=== PATIENT | female | born 1945 | race Caucasian/White ===

== ENCOUNTER 2021-05-07 13:44 | Emergency (ER) | payer MEDICARE, SELFPAY ==
--- NOTE | ~2021-05-07 | XR_ITS ---
EXAMINATION: XR CHEST CLINICAL INFORMATION: Cough COMPARISON: 11/14/2018 TECHNIQUE: 2 views of the chest were obtained. FINDINGS: No acute finding. Some tenting of the hemidiaphragm was present previously on the left. There is no acute infiltrate. No effusion. The heart size is within normal limits The hilar structures do not appear pathologically enlarged. There is no effusion. XR/XR chest 2V IMPRESSION: No acute finding.
[2021-05-07 14:46] VITALS: BP 149/84; PULSE 106; RESP 20; TEMP 36.8; O2SAT 95; BMI 21.2
[2021-05-07 14:55] VITALS: O2SAT 95
--- NOTE | 2021-05-07 15:08 | ED.GENADULT ---
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 Patient has intermittent diarrhea which is unchanged. She denies any fever. She has chronic shortness of breath secondary to COPD, denies any change Related Data Allergies Allergy/AdvReac Type Severity Reaction Status Date / Time Darvon Allergy Unknown nausea,swee Unverified 04/22/20 00:00 ty doxycycline [DOXYCYCLINE] Allergy Unknown RASH Unverified 06/06/20 14:44 Clindamycin HCl Allergy Unknown Uncoded 11/14/18 00:00 Doxycycline (Rosacea) Allergy Unknown Uncoded 04/22/20 00:00 Doxycycline Calcium Allergy Unknown Uncoded 11/14/18 00:00 Statins Support Allergy Unknown Uncoded 11/14/18 00:00 From DARVON AdvReac Mild NAUSEA & Uncoded 06/06/20 14:44 VOMITING Review of Systems Review of Systems: Yes all other systems are reviewed and are negative Constitutional: Constitutional: Reports as per HPI and Denies fever(s) Eyes: Eyes: Reports as per HPI and Reports no additional eye complaints ENT: Reports system reviewed and no additional complaints, except as documented, Reports as per HPI, Reports nasal congestion, Reports nasal discharge and Reports sore throat Cardiovascular: Cardiovascular: Reports as per HPI, Denies chest pain and Reports dyspnea Respiratory: Respiratory: Reports as per HPI, Reports cough and Reports dyspnea Gastrointestinal: Gastrointestinal: Reports as per HPI, Denies abdominal pain, Denies diarrhea, Reports nausea and Denies vomiting Genitourinary: Genitourinary: Reports as per HPI, Denies hematuria, Denies urinary frequency and Denies dysuria Musculoskeletal: Musculoskeletal: Reports no additional musculoskeletal complaints and Denies numbness Integumentary/Breasts: Skin/Breast: Reports as per HPI and Denies rash Neurologic: Reports as per HPI, Denies focal weakness, Denies numbness and Denies Sensory deficit (Neuro) Psychiatric: Psychiatric: Reports no additional psychiatric complaints and Reports as per HPI Endocrine: Endocrine: Reports no additional endocrine complaints and Reports as per HPI Hematologic/Lymphatic: Hematologic/Lymphatic: Reports no additional hematologic/lymphatic complaints, Reports as per HPI and Reports other (No peripheral edema) [facility] Past Medical History Medical History (Updated 05/07/21 @ 16:14 by Marco Van MD) Breast tumor COPD (chronic obstructive pulmonary disease) Diabetes HTN (hypertension) Hx of abdominal pain Social History Social History Alcohol intake: current Alcohol intake frequency: holidays/special occasions only Patient Tobacco Use Status: Former Tobacco user Use of substances other than those prescribed or required for medical reasons: No Advance Directives: No Advance Directives Information Provided: Yes Physical Exam Vital Signs: Vital Signs: Last Vital Signs Temp 98.2 F 05/07/21 14:46 Pulse 106 H 05/07/21 14:46 Resp 20 05/07/21 14:46 BP 149/84 H 05/07/21 14:46 Pulse Ox 95 05/07/21 14:55 Body Mass Index 21.2 Const: General: cooperative, no acute distress and alert Orientation/consciousness: patient oriented x3 HENMT: Head: Yes normal to inspection Eyes: General: appearance normal, both eyes and all related structures Eyelids: Yes eyelids normal Conjunctivae: conjunctivae normal Pupils: Equal, round and reactive pupils present Neck: Neck: Yes normal visual inspection and Yes supple Chest: Chest palpation & inspection: normal inspection of the chest Resp: Effort & Inspection: normal respiratory effort Auscultation: clear to auscultation bilaterally Cardio: Rate: regular rate Rhythm: regular rhythm Heart sounds: S1 normal heart sound present, S2 normal heart sound present, no gallops, no murmurs and no rubs GI: Palpation (GI): Soft to palpation, nontender and Other GI palpation findings present (Non-distended) Auscultation: normal bowel sounds Skin: General skin exam: no rashes or lesions noted Neuro: General: patient oriented x3, no focal motor deficits and CN's II-XI intact bilaterally Cranial nerves: Yes Equal, round and reactive pupils present Cognition (Neuro): normal cognition Motor exam (neuro): 5/5 motor strength present throughout Sensory Exam: No Sensory deficit (Neuro) Extrem: General: Yes normal to inspection and Yes no pedal edema Psych: Appearance: grossly normal Affect: normal affect Medical Decision Making MDM Narrative Medical decision making narrative: Patient with URI symptoms since yesterday. No fever, some nausea, loose cough. Chest x-ray negative for evidence of pneumonia. COVID test negative. Patient likely has non COVID URI, recommend supportive treatment. Patient does have history of COPD but given that this is fairly clearly a viral syndrome and that it just started yesterday, do not believe antibiotics are warranted Lab Data Lab results reviewed: Yes I reviewed the patient's lab results. Labs: Lab Results 05/07/21 Range/Units 15:27 COVID-19 (ZAIN) Negative (Negative) COVID-19 Clin Com See Note Imaging Data Chest x-ray: Radiologist's impression: FINDINGS: No acute finding. Some tenting of the hemidiaphragm was present previously on the left. There is no acute infiltrate. No effusion. The heart size is within normal limits The hilar structures do not appear pathologically enlarged. There is no effusion. Discharge Plan Discharge Clinical Impression: Upper respiratory infection Patient Disposition: Home, Self-Care Instructions: Upper Respiratory Infection (ED) Additional Instructions: Use Tylenol for aches or pains. Drink plenty of fluids. Use [id number] cough medicine such as Robitussin DM. Return for any new or worsened symptoms. Stand Alone Forms: Work/School Release
[2021-05-07] MEDS: Ondansetron ODT 4 MG TAB.RAPDIS TRANSLINGU (15:26)
[2021-05-07 15:53] LABS: IDNOW Serial# 9DD0AD1C
[2021-05-07 15:54] LABS: COVID-19 Test Negative (Negative)
--- NOTE | 2021-05-07 16:45 | PC.NURSE ---
PT ALERT AND ORIENTED, SKIN PWD, RESPIRATIONS EVEN AND UNLABORED, LS CLEAR, PT REPORTS SINCE LAST NIGHT FEELING GENERALIZED WEAKNESS AND DRY COUGH WITH SOME NAUSEA
[2021-05-07 16:59] VITALS: BP 147/65; PULSE 94; RESP 17; TEMP 36.8; O2SAT 95
== END 2021-05-07 17:07 | disposition home or self-care (01) ==
PROVIDERS: Emergency Provider Emergency Medicine; PCP Internal Medicine
DX: J06.9 Acute upper respiratory infection, unspecified (principal); R05 Cough; Z20.822 Contact with and (suspected) exposure to COVID-19; Z87.891 Personal history of nicotine dependence; Z79.899 Other long term (current) drug therapy
CPT/HCPCS: 36415; 71046; 87635; 99283; 99284

== ENCOUNTER 2021-05-10 20:49 | Emergency (ER) | payer MEDICARE, SELFPAY ==
--- NOTE | ~2021-05-10 | US_ITS ---
EXAMINATION: US VENOUS ULTRASOUND WITH DOPPLER LOWER EXTREMITY, LEFT CLINICAL INFORMATION: Swelling and pain. Rule out DVT. COMPARISON: None TECHNIQUE: Ultrasound of the deep veins is performed from the hip to the calf with compression sonography and color and pulse Doppler assessment. Spectral analysis with color-flow imaging is performed. FINDINGS: There is fairly extensive deep venous thrombosis. Thrombus is seen within the left superficial femoral vein and popliteal vein, appearing noncompressible. There is some flow through portions of these veins suggesting that these are not fully excluded. The peroneal vein appears to also have thrombus without Doppler flow. Left common femoral vein and profunda femoral vein show no evidence of thrombus. There is no significant popliteal fossa cyst. US/US venous duplex LE LT IMPRESSION: Deep venous thrombosis spanning from the left peroneal vein proximally through the left popliteal vein and superficial femoral vein. This critical result was discussed with Eva Lopez MD by telephone at 05/11/2021 1:44 AM and it was ascertained that the content and urgency of the report was understood at the time of direct communication.
[2021-05-10 21:18] VITALS: BP 161/81; PULSE 102; RESP 16; TEMP 36.5; O2SAT 96; BMI 27.3
--- NOTE | 2021-05-10 23:39 | ED.LOWEXIN ---
HPI - Extremity Injury (Lower) General Chief Complaint: Extremity Injury, Lower Stated Complaint: BLOOD CLOT? Time Seen by Provider: 05/10/21 23:37 Source: patient Mode of arrival: ambulatory Limitations: no limitations History of Present Illness HPI Narrative: 75-year-old female came in for evaluation of left leg pain for 1 day. Patient has been having flu-like symptoms for the past 3 days was tested negative for COVID, today been having gradual onset of left leg pain mostly behind the left knee, denies any trauma or fall or straining of the left leg. Patient also declined any fever or chills. No recent travel or recent prolonged immobilization. No chest pain, no shortness of breath. Related Data Previous Rx's Medication Instructions Recorded apixaban 5 mg (74 tabs) tablets in 5 mg PO PER PKG DIR #74 ea 05/11/21 a dose pack (Eliquis DVT-PE Treat 30D Start) Allergies Allergy/AdvReac Type Severity Reaction Status Date / Time Darvon Allergy Unknown nausea,swee Unverified 04/22/20 00:00 ty doxycycline [DOXYCYCLINE] Allergy Unknown RASH Unverified 06/06/20 14:44 Clindamycin HCl Allergy Unknown Uncoded 11/14/18 00:00 Doxycycline (Rosacea) Allergy Unknown Uncoded 04/22/20 00:00 Doxycycline Calcium Allergy Unknown Uncoded 11/14/18 00:00 Statins Support Allergy Unknown Uncoded 11/14/18 00:00 From DARVON AdvReac Mild NAUSEA & Uncoded 06/06/20 14:44 VOMITING Review of Systems Review of Systems: All other systems are reviewed and are negative Constitutional: Reports as per HPI and Reports no additional constitutional complaints Eyes: Reports as per HPI and Reports no additional eye complaints Reports system reviewed and no additional complaints, except as documented Cardiovascular: Reports as per HPI and Reports no additional cardiovascular complaints Respiratory: Reports as per HPI and Reports no additional respiratory complaints Gastrointestinal: Reports as per HPI and Reports no additional gastrointestinal complaints Genitourinary: Reports no additional female genitourinary complaints Musculoskeletal: Reports no additional musculoskeletal complaints Skin/Breast: Reports system reviewed and no additional complaints, except as docu Psychiatric: Reports no additional psychiatric complaints Endocrine: Reports no additional endocrine complaints Hematologic/Lymphatic: Reports no additional hematologic/lymphatic complaints Allergic/Immunologic: Reports no additional allergic/immunologic complaints Reports system reviewed and no additional complaints, except as documented and Reports Abnormal speech present [facility] Past Medical History Medical History Breast tumor COPD (chronic obstructive pulmonary disease) Diabetes HTN (hypertension) Hx of abdominal pain Social History Social History Alcohol intake: current Alcohol intake frequency: holidays/special occasions only Patient Tobacco Use Status: Former Tobacco user Advance Directives: No Advance Directives Information Provided: Yes Physical Exam Vital Signs: Vital Signs: Last Vital Signs Temp 97.7 F 05/10/21 21:18 Pulse 102 H 05/10/21 21:18 Resp 16 05/10/21 21:18 BP 161/81 H 05/10/21 21:18 Pulse Ox 96 05/10/21 21:18 Body Mass Index 27.3 Vital signs have been reviewed as appeared to be correct. Blood pressure elevated. Heart rate elevated. Respiration rate normal. Temperature normal. Oxygen saturation normal. Appearance: Alert. Oriented X3. No acute distress. Head: Normal external exam. Normocephalic. Atraumatic. No [place] signs noted. No raccoon eyes noted Eyes: PERRLA. EOMI. Conjunctiva and sclera normal. Eyelids normal. ENT: TM's Normal. Pharynx normal. Uvula midline. Moist mucous membranes. No trismus noted. No drooling noted. No muffled voice noted. Neck: Normal inspection. Neck supple. FROM. No adenopathy. Thyroid Normal. No meningeal signs. No neck mass noted. CVS: Normal heart rate and rhythm. Heart sound normal. No murmurs noted. Pulses normal throughout. Respiratory: No respiratory distress. Painless inspiration. Breath sounds normal. No wheezes/rales/rhonchi noted. Chest nontender. No accessory muscle usage noted or decreased air movement noted. Abdomen: Soft and nontender. Bowel sounds normal in all 4 quadrants. No distention noted. No organomegaly noted. No visible injury noted. Back: No CVA tenderness. Full range of motion noted. Skin: Skin warm and dry. Normal skin color. Normal skin turgor. No rashes/lesions/lacerations noted. Extremities: No lower extremity edema. Tenderness and swelling to left calf. Neuro: Oriented X 3. Cranial nerve exam: II-XII are grossly intact No motor deficit. No sensory deficit. Reflexes normal. Course Course Course Narrative: 75-year-old female recently diagnosed with COVID with couple days of immobilization came in with left leg swelling and pain ultrasound revealed extensive DVT. Will start the patient on Eliquis and follow-up with PCP. MDM - Extremity Injury (Lower) Imaging Data Left leg ultrasound: Radiologist's impression: Deep venous thrombosis spanning from the left peroneal vein proximally through the left popliteal vein and superficial femoral vein. Discharge Plan Discharge Clinical Impression: Deep vein thrombosis Qualifiers: DVT location: lower extremity Affected thrombotic vein of extremity: calf muscle vein Chronicity: acute Laterality: left Qualified Code(s): I82.462 - Acute embolism and thrombosis of left calf muscular vein Patient Disposition: Home, Self-Care Instructions: Deep Vein Thrombosis (ED) Additional Instructions: Seek immediate medical attention for chest pain or difficulty breathing. It is important to follow-up with her primary doctor you need to be on a blood thinner in for 3 months you only have enough supply for 1 month it is crucial to see your primary doctor to continue prescribing the medicine for you. Prescriptions: New Eliquis DVT-PE Treat 30D Start 5 mg (74 tabs) tablets,dose pack 5 mg PO PER PKG DIR Qty: 74 RF: 0 Referrals: Yessenia Fox MD [Primary Care Provider] - 2 days Stand Alone Forms: Work/School Release
[2021-05-11] MEDS: Apixaban 5 MG TABLET 10 MG PO (02:17)
[2021-05-11] MEDS: Acetaminophen 325 MG TABLET 650 MG PO (02:17)
== END 2021-05-11 02:47 | disposition home or self-care (01) ==
PROVIDERS: Emergency Provider Emergency Medicine; PCP Internal Medicine
DX: I82.462 Acute embolism and thrombosis of left calf muscular vein (principal); M79.605 Pain in left leg; I10 Essential (primary) hypertension; E11.9 Type 2 diabetes mellitus without complications
CPT/HCPCS: 93971; 99284

== ENCOUNTER 2021-05-13 16:53 | Emergency (ER) | payer MEDICARE, SELFPAY ==
--- NOTE | ~2021-05-13 | XR_ITS ---
EXAMINATION: XR CHEST CLINICAL INFORMATION: Cough and shortness of breath COMPARISON: Chest radiograph 05/07/2021 TECHNIQUE: 2 views of the chest were obtained. FINDINGS: No significant abnormality is noted involving the heart, lungs, mediastinum, bony thorax or soft tissues. XR/XR chest 2V IMPRESSION: Unremarkable examination.
[2021-05-13 17:15] VITALS: BP 150/76; PULSE 100; RESP 18; TEMP 36.7; O2SAT 95; BMI 27.3
[2021-05-13 18:30] LABS: Influenza A PCR NEGATIVE (Negative); Influenza B PCR NEGATIVE (Negative); Resp Syncy Virus RNA Qual PCR NEGATIVE (Negative); SARS COV2 PCR INHOUSE NEGATIVE (Negative)
--- NOTE | 2021-05-13 18:32 | ED.GENADULT ---
HPI - General Adult General Chief complaint: General Medical Stated complaint: bloodclot in leg Time Seen by Provider: 05/13/21 17:44 Source: patient Mode of arrival: ambulatory Limitations: no limitations History of Present Illness HPI narrative: 75 y/o female with history of COPD, LLE DVT diagnosed 2 days ago and started on Eliquis who presents with ongoing left lower extremity pain as well as persistent cough and wheezing for the last 1 week. She is supposed to go back to work tomorrow and is worried about the pain with standing on her leg all day. She has been using her Advair inhaler but has no PRN albuterol for wheezing. Her cough is dry and non-productive. She has no chest pain, SOB or BRIZUELA. She has no fever or chills. She has been compliant with her Eliquis. MD complaint: LLE pain and cough Onset (ago): week(s) (1) Location: chest, left and lower extremity Radiation: proximal Severity: moderate Severity scale (1-10): 6 Quality: aching Pain Consistency: intermittent Relieving factors: rest Exacerbating factors: movement Associated symptoms: cough Treatments prior to arrival: none Related Data Previous Rx's Medication Instructions Recorded apixaban 5 mg (74 tabs) tablets in 5 mg PO PER PKG DIR #74 ea 05/11/21 a dose pack (Eliquis DVT-PE Treat 30D Start) albuterol sulfate 90 mcg/actuation 1 inh INHALATION QID PRN #6.7 g 05/13/21 aerosol inhaler azithromycin 250 mg tablet See Rx Instructions .ROUTE 05/13/21 (Zithromax Z-Len) .COMPLEX #6 tab hydrocodone-homatropine 5 mg-1.5 5 ml PO Q4-6H PRN #60 ml 05/13/21 mg/5 mL (5 mL) oral syrup (Hycodan) prednisone 20 mg tablet 40 mg PO DAILY #10 tab 05/13/21 Allergies Allergy/AdvReac Type Severity Reaction Status Date / Time Darvon Allergy Unknown nausea,swee Verified 05/13/21 17:14 ty doxycycline [DOXYCYCLINE] Allergy Unknown RASH Verified 05/13/21 17:14 Review of Systems Constitutional: Constitutional: Denies body ache(s), Denies chills, Denies fever(s), Denies frequent falls and Denies headache(s) Eyes: Eyes: Reports no additional eye complaints ENT: Reports Normal hearing present, Denies headache(s) and Denies sore throat Cardiovascular: Cardiovascular: Denies chest pain, Denies chest pain at rest, Denies chest pain with activity, Denies pedal edema, Reports claudication, Denies dyspnea, Denies dyspnea on exertion and Denies orthopnea Respiratory: Respiratory: Denies chest congestion, Reports cough, Denies hemoptysis, Denies pain on inspiration, Reports pain with cough, Denies dyspnea, Denies dyspnea on exertion and Reports wheezing Gastrointestinal: Gastrointestinal: Denies abdominal pain, Denies nausea and Denies vomiting Neurologic: Reports Normal hearing present, Denies frequent falls and Denies headache(s) Psychiatric: Psychiatric: Reports anxiety Hematologic/Lymphatic: Hematologic/Lymphatic: Denies easy bleeding and Denies easy bruising Allergic/Immunologic: Allergic/Immunologic: Reports wheezing PMFSH Past Medical History Attestation statement: The following information was validated with the patient. Medical History Breast tumor COPD (chronic obstructive pulmonary disease) Diabetes HTN (hypertension) Hx of abdominal pain Social History Social History Alcohol intake: current Alcohol intake frequency: holidays/special occasions only Patient Tobacco Use Status: Former Tobacco user Advance Directives: No Advance Directives Information Provided: No Physical Exam Vital Signs: Vital Signs: Last Vital Signs Temp 98.1 F 05/13/21 17:15 Pulse 95 05/13/21 19:38 Resp 18 05/13/21 19:38 BP 140/72 H 05/13/21 19:38 Pulse Ox 98 05/13/21 19:38 Body Mass Index 27.3 Const: General: cooperative, healthy appearing, comfortable and no acute distress Nutritional Appearance: well nourished Orientation/consciousness: patient oriented x3 HENMT: Head: Yes normal to inspection Ears: hearing grossly normal bilaterally and external ears normal General nose exam: Normal external nose present and Normal nares present Face and sinus: Yes normal facial exam and Yes face symmetric Mouth: Normal oral and palatal mucosa present, lip normal, tongue normal, oropharynx normal and moist mucous membranes Teeth and gingiva: dentition normal and gingiva normal Throat: Yes posterior oropharynx normal, Yes tonsils normal and Yes uvula midline Eyes: General: appearance normal, both eyes and all related structures Neck: Neck: Yes normal visual inspection, Yes full ROM and Yes no lymphadenopathy Chest: Chest palpation & inspection: normal inspection of the chest and normal palpation of entire chest wall Resp: Effort & Inspection: normal respiratory effort, able to speak in complete sentences, audible wheezes and Actively coughing Quality: actively coughing Auscultation: wheezes expiratory wheezes and upper bilaterally and bronchial breath sounds bilateral Cardio: Rate: regular rate Rhythm: regular rhythm Heart sounds: S1 normal heart sound present and S2 normal heart sound present GI: Inspection: Yes normal to inspection Palpation (GI): Soft to palpation, not firm and nontender Skin: General skin exam: no rashes or lesions noted Neuro: General: patient oriented x3, gait normal, tone normal and moves all extremities Cranial nerves: Yes Normal hearing present Extrem: General: Yes normal to inspection, Yes full ROM and Yes no pedal edema Left lower extremity: lower leg Details: tenderness Location: of the posterior calf and no edema Psych: Appearance: grossly normal and well kempt Mental Status: mental status grossly normal Speech and movement: Normal speech and movement present Affect: normal affect Attitude: cooperative Course Course Course Narrative: 75 yo female with history of COPD and recently diagnosed (05/11) LLE DVT on Eliquis presents to the ER with ongoing LLE pain and cough/wheezing x 1 week. She has no chest pain or SOB. She is not tachycardic or hypoxic. She has been compliant with Eliquis. Explained there is no utility in repeating the LE dopplers at this point given it was just done 2 days ago. She has no worsening of swelling or pain just persistence of these symptoms. She is concerned how she is going to work. We discussed f/u with PCP in 1 week for repeat LE U/S if she is still having pain. Will check CXR, Viral PCR and give a neb and prednisone as her exam is consistent with bronchitis and COPD flare. Reevaluation(s) Reevaluation #1: CXR negative for PNA. COVID negative. Given Duoneb and antitussive with improvement in her symptoms. She feels better. Doubt clinically significant PE (that would exchange consultant) given she has no chest pain or SOB. She is already on anticoagluation x48 hours and has no hemodynamic instability. Will plan to continue Eliquis and follow up for repeat U/S if needed in 1 week to assess for clot propagation. Will treat for acute bronchitis and have her f/u with PCP. All questions were answered and she is agreeable with plan, stable for d/c. Medical Decision Making Lab Data Labs: Lab Results 05/13/21 Range/Units 17:22 Coronavirus (PCR) NEGATIVE (Negative) Influenza Type A (PCR) NEGATIVE (Negative) Influenza Type B (PCR) NEGATIVE (Negative) RSV RNA Qual (PCR) NEGATIVE (Negative) Discharge Plan Discharge Clinical Impression: Acute bronchitis Qualifiers: Bronchitis organism: unspecified organism Qualified Code(s): J20.9 - Acute bronchitis, unspecified Patient Disposition: Home, Self-Care Instructions: Acute Bronchitis (ED), Bronchospasm (ED) Additional Instructions: Your COVID test was negative. Your x-ray did not show any pneumonia. You are being treated for acute bronchitis & flare of COPD. Take the medications as prescribed. Start the prednisone tomorrow because you were given the 1st dose today in the ER. Rest and stay hydrated. Follow up with your doctor in 1 week if possible. If you have worsening pain in your leg, or develop chest pain or shortness of breath call 911 or come back to the ER for further evaluation. Prescriptions: New azithromycin [Zithromax Z-Len] 250 mg tablet See Rx Instructions .ROUTE .COMPLEX Qty: 6 RF: 0 prednisone 20 mg tablet 40 mg PO DAILY Qty: 10 RF: 0 albuterol sulfate 90 mcg/actuation HFA aerosol inhaler 1 inh inhalation QID PRN (Reason: shortness of breath or wheezing) Qty: 6.7 RF: 0 hydrocodone-homatropine [Hycodan] 5-1.5 mg/5 mL (5 mL) syrup 5 ml PO Q4-6H PRN (Reason: cough) Qty: 60 RF: 0 No Action Eliquis DVT-PE Treat 30D Start 5 mg (74 tabs) tablets,dose pack 5 mg PO PER PKG DIR Qty: 74 RF: 0 Stand Alone Forms: Work/School Release Interventions: ED Discharge Assessment Last Done: 05/13/21 20:36 Discharge Date/Time: 05/13/21 20:37 Print Language: [place]
[2021-05-13] MEDS: Albuterol/Iprat 2.5/0.5MG 3 ML AMPUL.NEB INHALE (18:41)
[2021-05-13] MEDS: predniSONE 10 MG TABLET 50 MG PO (18:42)
[2021-05-13] MEDS: Benzonatate 100 MG CAPSULE PO (18:42)
[2021-05-13 18:44] VITALS: PULSE 89; O2SAT 98
[2021-05-13 19:38] VITALS: BP 140/72; PULSE 95; RESP 18; O2SAT 98
== END 2021-05-13 20:37 | disposition home or self-care (01) ==
PROVIDERS: Emergency Provider Emergency Medicine; PCP Internal Medicine
DX: J20.9 Acute bronchitis, unspecified (principal); Z20.822 Contact with and (suspected) exposure to COVID-19; E11.9 Type 2 diabetes mellitus without complications; I10 Essential (primary) hypertension; Z86.718 Personal history of other venous thrombosis and embolism; Z79.01 Long term (current) use of anticoagulants
CPT/HCPCS: 0241U; 36415; 71046; 94640; 99283; 99284

== ENCOUNTER 2021-11-21 14:38 | Emergency (ER) | payer MEDICARE, SELFPAY ==
--- NOTE | ~2021-11-21 | US_ITS ---
EXAMINATION: US VENOUS ULTRASOUND WITH DOPPLER LOWER EXTREMITY, LEFT CLINICAL INFORMATION: Left lower extremity swelling, history of DVT COMPARISON: Lower extremity DVT study 05/11/2021 TECHNIQUE: Ultrasound of the deep veins is performed from the hip to the calf with compression sonography and color and pulse Doppler assessment. Spectral analysis with color-flow imaging is performed. FINDINGS: When compared to prior there is decreased extent of previously seen deep venous thrombus previously extending centrally to the proximal femoral vein now extending to the mid femoral vein. In the left mid and distal femoral vein and popliteal vein is eccentric chronic thrombus decreased from prior. There is been resolution of previously seen thrombus in the peroneal vein. The common femoral, posterior tibial, peroneal and proximal superficial femoral veins appear patent. US/US venous duplex LE IMPRESSION: Interval decrease in burden of deep venous thrombus with residual chronic thrombus noted in the mid femoral vein extending to the popliteal vein.
--- NOTE | ~2021-11-21 | CT_ITS ---
EXAMINATION: CT ANGIOGRAM OF THE CHEST WITH AND WITHOUT CONTRAST (CT PULMONARY ANGIOGRAM FOR PE) CLINICAL INFORMATION: Reason for Exam Confirmed bilateral lower extremities DVTs, w/ sob COMPARISON: CTA chest 05/17/2012 TECHNIQUE: Prior to contrast administration, noncontrast localization images were obtained. Subsequently, multidetector volumetric imaging was performed from the thoracic inlet to below the diaphragms following the administration of 57 mL Omnipaque 350 intravenous contrast. No contrast reaction reported Sagittal, coronal, and MIP oblique sagittal reformatted images were obtained on the CT workstation, uploaded to PACS, and reviewed. This CT examination was performed using dose optimization techniques as appropriate, variously including the following: *Automated exposure control *Adjustment of mA and/or kV according to patient size (this includes techniques or standardized protocols for targeted exams where dose is matched to indication/reason for exam; i.e. extremities or head) *Use of iterative reconstruction technique Total exam dose-length product 221 mGy-cm FINDINGS: QUALITY OF STUDY/CONTRAST BOLUS: Satisfactory. PULMONARY ARTERIES: No central or segmental pulmonary emboli. THORACIC AORTA: No aneurysm. Opacification is not adequate dissection. LUNG: No focal consolidation, nodules or masses. PLEURA: No pleural effusion or pneumothorax. MEDIASTINUM: Normal heart size. No pericardial effusion. No hilar or mediastinal lymphadenopathy. No evidence of septal bowing or right heart strain. CHEST WALL/AXILLA: No axillary or internal mammary lymphadenopathy. OSSEOUS STRUCTURES: No acute or suspicious osseous abnormality. UPPER ABDOMEN: The spleen appears generous in volume but is not entirely included on this study. No reflux of contrast into the hepatic veins to suggest elevated right heart pressures. CT/CT angio chest PE protocol IMPRESSION: No evidence of pulmonary emboli. VTE: negative
[2021-11-21 15:21] VITALS: BP 162/76; PULSE 70; RESP 12; TEMP 36.8; O2SAT 98; BMI 28.9
[2021-11-21 15:36] LABS: MANUAL DIFF FLAG NO
[2021-11-21 15:37] LABS: Basophils Absolute Auto 0.1 X10*3/uL (0.0-0.2); Basophils Percent Auto 1.9 % (0-2); Eosinophils Absolute Auto 0.2 X10*3/uL (0.0-0.4); Eosinophils Percent Auto 2.6 % (0-4); Hematocrit 41.2 % (37.0-47.0); Hemoglobin 13.3 g/dl (12.0-16.0); Imm Gran Abs Auto 0.01 X10*3/uL (0.00-0.03); Imm Gran Pct Auto 0.2 % (0.0-0.4); Lymphocytes Absolute Auto 2.2 X10*3/uL (1.2-4.9); Lymphocytes Percent Auto 38.6 % (20-40); Mean Corpuscular HGB Conc 32.3 g/dl (31.0-35.0); Mean Platelet Volume 10.6 fL (9.4-12.3); Monocytes Absolute Auto 0.4 X10*3/uL (0.1-1.2); Neutrophils Absolute Auto 2.9 x10*3/uL (2.0-8.3); Neutrophils Percent Auto 49.7 % (45-73); Platelet Count 202 X10*3/uL (160-400); Red Blood Count 4.43 X10*6/uL (4.20-5.50); Red Cell Distribution Width 14.5 % (11.0-16.0); White Blood Count 5.8 X10*3/uL (4.8-10.8)
[2021-11-21 15:50] LABS: Anion Gap 10 (12-20); Blood Urea Nitrogen 20 mg/dL (9-16); Carbon Dioxide 29 mmol/L (22-29); Chloride 102 mmol/L (96-108); Creatinine Clr Calc Pharmacy 41.7; Estimated Glomerular Filt Rate 55; Glucose Random 198 mg/dL (60-115); Potassium 4.2 mmol/L (3.3-5.1); Sodium 137 mmol/L (135-145)
--- NOTE | 2021-11-21 19:17 | ED_ITS ---
HPI - Extremity Injury (Lower) General Chief Complaint: Extremity Injury, Lower Stated Complaint: QUEST DVT IN BOTH LEGS Time Seen by Provider: 11/21/21 16:23 Source: patient Mode of arrival: ambulatory Limitations: no limitations History of Present Illness HPI Narrative: This is a 76-year-old female past medical history significant for COPD,HTN, DVT, presenting to the emergency department with complaints of bilateral lower leg pain, swelling x1 week progressively worsening. Patient tells me that the pain is worse to her left leg, she reports left calf cramping, and a burning sensation behind the left knee. She also tells me that her left leg is more swollen than her right. She tells me her right leg has a constant dull aching pain to a however the left leg hurts more and is more swollen. She tells me this was similar to the time when she had a DVT back in May. She is also complaining of shortness of breath. She tells me at baseline she feels short of breath however lately it has been worse than ever. She tells me she now feels short of breath with exertion. This use not happened to her. She denies chest pain, nausea, vomiting, abdominal pain, fevers, chills, weakness. To note, paige iqbal was on Eliquis 20 mg from May to August after she was diagnosed with a DVT in bilateral lower extremities. She was taken off of it at the end of August. complaint: other (Leg pain and swelling.) Onset (ago): week(s) (1) Type of Injury: other (none ) Place: home Severity: severe Relieving factors: nothing Exacerbating factors: nothing Other symptoms: none Related Data Previous Rx's Medication Instructions Recorded apixaban 5 mg (74 tabs) tablets in 5 mg PO PER PK DIR #74 ea 05/11/21 a dose pack (Eliquis DVT-PE Treat 30D Start) albuterol sulfate 90 mcg/actuation 1 inh INHALATION QID PRN #6.7 g 05/13/21 aerosol inhaler azithromycin 250 mg tablet See Rx Instructions .ROUTE 05/13/21 (Zithromax Z-Len) .COMPLEX #6 tab hydrocodone-homatropine 5 mg-1.5 5 ml PO Q4-6H PRN #60 ml 05/13/21 mg/5 mL (5 mL) oral syrup (Hycodan) prednisone 20 mg tablet 40 mg PO DAILY #10 tab 05/13/21 apixaban 5 mg (74 tabs) tablets in 5 mg PO BID #74 ea 11/21/21 a dose pack (Eliquis DVT-PE Treat 30D Start) Allergies Allergy/AdvReac Type Severity Reaction Status Date / Time Darvon Allergy Unknown nausea,swee Verified 05/13/21 17:14 ty doxycycline [DOXYCYCLINE] Allergy Unknown RASH Verified 05/13/21 17:14 Review of Systems Review of Systems: Constitutional : No Weight loss, No Fever, No Chills, No Fatigue, No Malaise ENT/Mouth : No sore throat, No Rhinorrhea Eyes: No Eye Pain, No Swelling, No Redness Cardiovascular : No Chest Pain, + SOB, + Dyspnea on Exertion, No Orthopnea, + Edema, No Palpitations Respiratory : No Cough, No Sputum, No Wheezing Gastrointestinal : No Nausea, No Vomiting, No Diarrhea, No Constipation, No abdominal Pain, No Hematochezia, No Melena Genitourinary : No Dysuria, No Urinary Frequency, No Hematuria, Musculoskeletal : No joint pain, No Myalgias, No Joint Swelling Skin : No Skin Lesions, No rash Neuro : No Weakness, No Numbness, No Dizziness, No Headache Psych : No Anxiety/Panic, No Depression All other systems reviewed and are negative Yes all other systems are reviewed and are negative [facility] Past Medical History Attestation statement: The following information was validated with the patient. Source: old records reviewed and nursing notes reviewed Medical History Breast tumor COPD (chronic obstructive pulmonary disease) Diabetes HTN (hypertension) Hx of abdominal pain Social History Social History Alcohol intake: current Alcohol intake frequency: holidays/special occasions only Patient Tobacco Use Status: Former Tobacco user Advance Directives: No Advance Directives Information Provided: No Physical Exam Vital Signs: Vital Signs: Last Vital Signs Temp 98.2 F 11/21/21 15:21 Pulse 68 11/21/21 20:21 Resp 16 11/21/21 20:21 BP 117/57 L 11/21/21 20:21 Pulse Ox 100 11/21/21 20:21 BMI result Body Mass Index 28.9 VSS Appearance: Alert.? Oriented X3.? No acute distress.? Head: Normocephalic, atraumatic, no step-offs or deformities Eyes: Pupils equal, round and reactive to light.? ENT: Pharynx normal.? Neck: Normal inspection.? Neck supple.? CVS: Normal heart rate and rhythm.? Pulses normal.? Respiratory: No respiratory distress.? Breath sounds normal.? Abdomen: Soft and nontender.? Skin: Skin warm and dry.? Normal skin color.? Normal skin turgor.? Extremities: + lower extremity edema (2+ pitting edema to b/l lower extremities).? + calf ttp, positive briana b/l. 5/5 strength to bilateral upper and lower extremities Back: No midline tenderness, no C-spine tenderness, full range of motion, no CVA tenderness bilaterally Neuro: Oriented X 3.? No motor deficit.? No sensory deficit. CN 2-12 intact Course Course Course Narrative: 1934 discuss this case with my attending Dr. Pollard who recommends treating patient with Eliquis as patient is having symptoms, and does have a history of DVT and it appears as though they are still clot present on ultrasound. I am obtaining a CTA to rule out PE. Reevaluation(s) Reevaluation #1: CTA negative for PE/VTE. CBC within normal limits. Chemistry with no acute electrolyte abnormalities. Patient will be discharged home on Eliquis p.o.. Advised her to follow-up with her PCP. Gave her a worrisome signs and symptoms advised her to return with these. Comfortable with discharge. Time: 21:49 [facility] - Extremity Injury (Lower) [facility] Narrative Medical decision making narrative: 1934 76 yo f presents with complaints of bilateral lower leg cramping, pain, swelling, SOB x1 week progressively worsening. History of DVT, last 1 was in May. She was on Eliquis from May to August. Physical exam significant for positive Briana sign bilaterally, 2+ pitting edema to bilateral lower extremities. Regular rate and rhythm. Lungs-clear. Patient appears well, no acute distress. Comfortable. Plan at this time is to obtain basic labs. I will also do a CTA to rule out PE as patient is expressing anger shortness of breath. Plan is to likely start patient on Eliquis. Medical Records Attestation: I reviewed the patient's medical records. Lab Data Attestation: I reviewed the patient's lab results. Result diagrams: 11/21/21 15:32 11/21/21 15:32 Labs: Lab Results 11/21/21 11/21/21 Range/Units 15:32 15:32 WBC 5.8 (4.8-10.8) X10*3/uL RBC 4.43 (4.20-5.50) X10*6/uL Hgb 13.3 (12.0-16.0) g/dl Hct 41.2 (37.0-47.0) % MCV 93.0 (80.0-98.0) fL MCH 30.0 (27.0-33.0) pg MCHC 32.3 (31.0-35.0) g/dl RDW 14.5 (11.0-16.0) % Plt Count 202 (160-400) X10*3/uL MPV 10.6 (9.4-12.3) fL Immature Gran % (Auto) 0.2 (0.0-0.4) % Neut % (Auto) 49.7 (45-73) % Lymph % (Auto) 38.6 (20-40) % Archer % (Auto) 7.0 (2-11) % Eos % (Auto) 2.6 (0-4) % Baso % (Auto) 1.9 (0-2) % Lymph # (Auto) 2.2 (1.2-4.9) X10*3/uL Archer # (Auto) 0.4 (0.1-1.2) X10*3/uL Eos # (Auto) 0.2 (0.0-0.4) X10*3/uL Baso # (Auto) 0.1 (0.0-0.2) X10*3/uL Abs Immat Gran (auto) 0.01 (0.00-0.03) X10*3/uL Absolute Neuts (auto) 2.9 (2.0-8.3) x10*3/uL Absolute Nucleated RBC 0.000 (0.0-0.012) X10*3/uL Nucleated RBC % (auto) 0.0 (0.0-0.2) /100WBC Sodium 137 (135-145) mmol/L Potassium 4.2 (3.3-5.1) mmol/L Chloride 102 (96-108) mmol/L Carbon Dioxide 29 (22-29) mmol/L Anion Gap 10 L (12-20) BUN 20 H (9-16) mg/dL Creatinine 0.98 (0.5-1.4) mg/dL Estim Creat Clear Calc 41.7 Estimated GFR 55 Random Glucose 198 H (60-115) mg/dL Calcium 10.0 (8.4-10.2) mg/dL Discharge Plan Discharge Clinical Impression: DVT (deep venous thrombosis), Shortness of breath Patient Disposition: Home, Self-Care Instructions: Deep Vein Thrombosis (ED), Shortness of Breath (ED) Additional Instructions: Take your medications as prescribed. If you were prescribed antibiotics today, it is important that you take your medication to their entirety, do not skip any doses, do not finish them early. Follow-up with your primary care provider as soon as possible. Take 2 pills every 12 hours for 1 week then take 1 pill every 12 hours for 3-6 months. Today I will give you a months worse, please follow-up with your primary care provider so they can continue treating you. Return to the emergency department with new or worsening symptoms. Such as chest pain, shortness of breath, nausea, vomiting, worsening swelling, pain, calf tenderness. In case of emergency call 911 Prescriptions: New Eliquis DVT-PE Treat 30D Start 5 mg (74 tabs) tablets,dose pack 5 mg PO BID Qty: 74 0RF No Action azithromycin [Zithromax Z-Len] 250 mg tablet See Rx Instructions .ROUTE .COMPLEX Qty: 6 0RF Rx Instructions: take 500 mg today (day 1), then 250 mg for 4 days (days 2-5) prednisone 20 mg tablet 40 mg PO DAILY Qty: 10 0RF albuterol sulfate 90 mcg/actuation HFA aerosol inhaler 1 inh inhalation QID PRN (Reason: shortness of breath or wheezing) Qty: 6.7 0RF hydrocodone-homatropine [Hycodan] 5-1.5 mg/5 mL (5 mL) syrup 5 ml PO Q4-6H PRN (Reason: cough) Qty: 60 0RF Eliquis DVT-PE Treat 30D Start 5 mg (74 tabs) tablets,dose pack 5 mg PO PER PKG DIR Qty: 74 0RF Referrals: Nohemi Plasencia MD [Primary Care Provider] - 2 days Stand Alone Forms: Work/School Release
[2021-11-21] MEDS: iohexoL 350 MG/ML 100 ML INFUS..BTL IV (20:05)
[2021-11-21 20:21] VITALS: BP 117/57; PULSE 68; RESP 16; O2SAT 100
[2021-11-21] MEDS: Ondansetron ODT 4 MG TAB.RAPDIS TRANSLINGU (22:16)
[2021-11-21] MEDS: Apixaban 5 MG TABLET PO (22:17)
[2021-11-21] MEDS: Morphine Sulfate Immed Release 15 MG TABLET PO (22:17)
== END 2021-11-21 22:25 | disposition home or self-care (01) ==
PROVIDERS: Emergency Medicine; Emergency Provider Emergency Medicine Emergency Medical Services; PCP Internal Medicine
DX: I82.402 Acute embolism and thrombosis of unspecified deep veins of left lower extremity (principal); R60.0 Localized edema; I10 Essential (primary) hypertension; Z79.899 Other long term (current) drug therapy; Z79.01 Long term (current) use of anticoagulants; Z87.891 Personal history of nicotine dependence
CPT/HCPCS: 36415; 71275; 80048; 85025; 93971; 99283; 99284; Q9967

== ENCOUNTER → 2021-12-29 12:48 | Outpatient (BNVA) | payer MEDICARE, SELFPAY | PROVIDERS: PCP Internal Medicine; Referring Provider Internal Medicine; Visit Provider Nurse Practitioner | DX: D12.6 Benign neoplasm of colon, unspecified (principal); J44.9 Chronic obstructive pulmonary disease, unspecified; Z79.01 Long term (current) use of anticoagulants; Z86.718 Personal history of other venous thrombosis and embolism | CPT/HCPCS: 99202 ==

== ENCOUNTER 2022-07-03 08:14 | Day surgery (SDC) | payer MEDICARE, SELFPAY ==
--- NOTE | 2022-07-02 13:49 | P.CONAN_ITS ---
Documented by User: Coty Johnson NP 07/02/22 13:50 HPI - Anesthesia Eval Consult details Narrative: 76yo F for Colonoscopy Eliquis for DVT PMFSH Active Problems Active Problems: All Active Problems (Updated 07/02/22 @ 11:39 by Ira Pichardo, RN) History of DVT (deep vein thrombosis) (Acute) Chronic anticoagulation (Acute) High cholesterol (Acute) Migraines (Acute) Celiac disease (Acute) Osteoporosis (Acute) GERD (gastroesophageal reflux disease) (Acute) Tubular adenoma of colon (Acute) HTN (hypertension) (Acute) Diabetes (Acute) COPD (chronic obstructive pulmonary disease) (Acute) Past Medical History Medical History (Updated 07/02/22 @ 11:39 by Ira Pichardo RN) Breast tumor COPD (chronic obstructive pulmonary disease) COVID-19 Diabetes DVT (deep venous thrombosis) HTN (hypertension) Hx of abdominal pain Personal history of COVID-19 Family History Family History Brother Diabetes HTN (hypertension) Sister Diabetes HTN (hypertension) Sister Diabetes Surgical History Surgical History (Updated 12/29/21 @ 13:06 by DIMITRI Bower) H/O colonoscopy History of esophagogastroduodenoscopy (EGD) History of hysterectomy Social History Social History Alcohol intake: current Alcohol intake frequency: holidays/special occasions only Patient Tobacco Use Status: Former Tobacco user Use of substances other than those prescribed or required for medical reasons: No Advance Directives: No Advance Directives Information Provided: Yes Meds Allergies Allergy/AdvReac Type Severity Reaction Status Date / Time Iodinated Contrast Media Allergy Mild Anaphylaxis Verified 12/29/21 12:55 Darvon Allergy Unknown nausea,swee Verified 12/29/21 12:54 ty doxycycline [DOXYCYCLINE] Allergy Unknown RASH Verified 12/29/21 12:54 Home Medications Medication Instructions Recorded Confirmed Last Taken Type alendronate 70 mg tablet 70 mg PO QWEEK 12/29/21 Unknown History chlorthalidone 50 mg tablet 50 mg PO DAILY 12/29/21 Unknown History dulaglutide 1.5 mg/0.5 mL 1.5 mg subcut QWEEK 12/29/21 Unknown History subcutaneous pen injector (Trulicity) insulin glargine 100 unit/mL unit subcut 12/29/21 Unknown History subcutaneous solution (Lantus U-100 Insulin) insulin lispro 100 unit/mL 1 sliding scale dose subcut 12/29/21 Unknown History subcutaneous pen (Humalog KwikPen USEASDIRECTD (U-100) Insulin) losartan 100 mg tablet 100 mg PO DAILY 12/29/21 Unknown History metoprolol succinate 100 mg 100 mg PO DAILY 12/29/21 Unknown History tablet,extended release 24 hr spironolactone 25 mg tablet 25 mg PO DAILY 12/29/21 Unknown History Exam Exam Date and Time: July 02, 2022 1349 Pertinent Lab Results Pertinent Lab Results: Laboratory Tests 11/21/21 11/21/21 15:32 15:32 WBC 5.8 Hgb 13.3 Hct 41.2 Plt Count 202 Sodium 137 Potassium 4.2 Chloride 102 Carbon Dioxide 29 BUN 20 H Creatinine 0.98 Assessment and Plan Assessment Anesthesia Assessment: Chart Reviewed Documented by User: Ludivina David MD 07/03/22 09:39 COUNT INCLUDES THE [facility] Past Medical History Medical History (Updated 07/02/22 @ 11:39 by Ira Pichardo RN) Breast tumor COPD (chronic obstructive pulmonary disease) COVID-19 Diabetes DVT (deep venous thrombosis) HTN (hypertension) Hx of abdominal pain Personal history of COVID-19 Family History Family History Brother Diabetes HTN (hypertension) Sister Diabetes HTN (hypertension) Sister Diabetes Family history of problems with anesthesia: No Surgical History Surgical History (Updated 12/29/21 @ 13:06 by DIMITRI Bower) H/O colonoscopy History of esophagogastroduodenoscopy (EGD) History of hysterectomy History of Problems with Anesthesia: No Social History Social History Alcohol intake: current Alcohol intake frequency: holidays/special occasions only Patient Tobacco Use Status: Former Tobacco user Use of substances other than those prescribed or required for medical reasons: No Advance Directives: No Advance Directives Information Provided: Yes Meds Allergies Allergy/AdvReac Type Severity Reaction Status Date / Time Iodinated Contrast Media Allergy Mild Anaphylaxis Verified 12/29/21 12:55 Darvon Allergy Unknown nausea,swee Verified 12/29/21 12:54 ty doxycycline [DOXYCYCLINE] Allergy Unknown RASH Verified 12/29/21 12:54 Home Medications Medication Instructions Recorded Confirmed Last Taken Type alendronate 70 mg tablet 70 mg PO QWEEK 12/29/21 Unknown History chlorthalidone 50 mg tablet 50 mg PO DAILY 12/29/21 Unknown History dulaglutide 1.5 mg/0.5 mL 1.5 mg subcut QWEEK 12/29/21 Unknown History subcutaneous pen injector (Trulicity) insulin glargine 100 unit/mL unit subcut 12/29/21 Unknown History subcutaneous solution (Lantus U-100 Insulin) insulin lispro 100 unit/mL 1 sliding scale dose subcut 12/29/21 Unknown History subcutaneous pen (Humalog KwikPen USEASDIRECTD (U-100) Insulin) losartan 100 mg tablet 100 mg PO DAILY 12/29/21 Unknown History metoprolol succinate 100 mg 100 mg PO DAILY 12/29/21 Unknown History tablet,extended release 24 hr spironolactone 25 mg tablet 25 mg PO DAILY 12/29/21 Unknown History Exam Airway Mallampati Class: II TM Dist: >3cm Neck ROM: Full Heart: irreg Lungs: cta Assessment and Plan Assessment Anesthesia Assessment: Anesthesia Plan Discussed and Chart Reviewed Final Anesthetic Review Family History of Problems with Anesthesia: No History of Problems with Anesthesia: No NPO: Yes ASA Class: III Final Preanesthetic Review: No Changes in Pt Med Stat, Meds/Allgs Chart Reviewed and Consent Obtained/Reviewed Patient Risk: Intermediate Procedure Risk: Intermediate Anesthetic Plan Anesthetic Plan: MAC: Disposition: Standard PACU
--- NOTE | 2022-07-03 08:38 | MHC.SHP ---
Pre-Procedural Eval Section A Date of Service: 07/03/22 The patient is an INPATIENT: No The History & Physical has been completed within 30 days and I have reviewed it.: No Section B Chief Complaint: Unspecified hemorrhoids Relevant Family History (Specify if Yes): No Relevant Social History: Tobacco Use (former smoker) Present Medications: see Short Stay Collaborative assessment Medical History: Significant History (Breast tumor COPD (chronic obstructive pulmonary disease) COVID-19 Diabetes HTN (hypertension) Hx of abdominal pain) History of Previous Operations: Relevant previous surgery/procedure and date(s) (Rt lumpectomy Colonoscopy/EGD-2016 Hysterectomy) Allergies: Allergies Allergy/AdvReac Type Severity Reaction Status Date / Time Iodinated Contrast Media Allergy Mild Anaphylaxis Verified 12/29/21 12:55 Darvon Allergy Unknown nausea,swee Verified 12/29/21 12:54 ty doxycycline [DOXYCYCLINE] Allergy Unknown RASH Verified 12/29/21 12:54 Review of Systems Sugical H&P ROS: Negative: Constitution, Cardiovascular, Respiratory and Gastrointestinal Exam Surgical H&P Exam: Normal: Heart, Normal: Lungs, Normal: Extremities and Normal: Abdomen Plan Diagnosis/Plan: Unchanged I have reviewed the history and physical and performed a pertinent physical examination on my patient. No changes have occurred unless specified.
--- NOTE | 2022-07-03 08:40 | P.BOP_ITS ---
Brief Operative Note Date of Service: 07/03/22 Pre-op diagnosis: Colon cancer screening, follow-up of colon polyps Post-op diagnosis: other (Colon polyps, diverticulosis, hemorrhoids) Procedure: COLONOSCOPY TILL CECUM WITH BIOPSIES AND SNARE POLYPECTOMY Consent: Indications for the procedure and potential complications of bleeding, perforation, reaction to medications and missed diagnosis were discussed with the patient and informed consent was obtained. Instrument: Olympus PCF H 190 L variable stiffness pediatric colonoscope Monitoring: Vital signs and clinical assessment, intermittent blood pressure monitoring, continuous EKG monitoring, Pulse oximetry and Carbon Dioxide monitoring were done throughout the procedure. Colon withdrawl time was 22 minutes. Procedure: The patient was placed in the left lateral decubitis position and pre-procedure medications were administered. After a digital rectal examination of the ano-rectum, the video colonoscope was inserted into the rectum and advanced through the colon to the cecum. The colonoscope was slowly withdrawn in a retrograde panoramic fashion and the colon mucosa was carefully examined including a retroflexed view of the rectum. Findings and interventions are described below. Procedure Difficulty: Colon was long and tortuous and there was some loop formation. No maneuvers required Findings: Terminal Ileum ? Not evaluated Cecum ? Partially evaluated due to undigested vegetable matter in the cecum. Ascending Colon ? moderate diverticulosis throughout the colon Transverse Colon - moderate diverticulosis throughout the colon. Site was previous polypectomy at 60 cms was not visualized despite a few passes. Descending Colon ? Moderate diverticulosis Sigmoid Colon ? Two 7-8 mm sessile polyp removed with the cold snare. Severe diverticulosis with luminal narrowing Rectum ? Normal Ano-rectum - Moderate hemorrhoids Colon preparation: Good after some irrigation and fair in the right colon due to undigested vegetable matter which could not be suctioned Impression and Post Procedure Diagnosis: Colonoscopy Findings: Two small polyps removed Moderate to severe diverticulosis seen in the entire colon (left > right) Moderate hemorrhoids on retroflexed exam. Plan: Letter will be sent with pathology results Repeat Colonoscopy interval based on path results - in 5 years if polyps are adenomatous and due to a history of adenomatous colon polyps (if patient remains in stable health). Above findings were reviewed with the patient and colon polyps and diverticulosis handouts were given in the discharge area Surgeon: Dayton Ordaz MD Anesthesia: MAC Was an Utility Pipe Layer used for this Procedure?: Yes Utility Pipe Layer: Laura Torres Estimated blood loss (mL): 0 Pathology: other (A. sigmoid polyps (2)) Condition: stable Disposition: PACU
[2022-07-03 08:56] VITALS: BP 170/76; PULSE 101; RESP 18; TEMP 36.8; O2SAT 98; BMI 27.9
[2022-07-03 09:02] VITALS: BMI 27.9
[2022-07-03] MEDS: Lactated Ringers 1,000 ML 100 ML IVCONT (09:22)
[2022-07-03 09:25] LABS: Glucose, Whole Blood 204 mg/dL (60-115)
--- NOTE | 2022-07-03 09:44 | W.PM.OPN ---
Operative Note Operative Note Date of Service: 07/03/22 Narrative: Pre-op diagnosis: Colon cancer screening, follow-up of colon polyps Post-op diagnosis:?other (Colon polyps, diverticulosis, hemorrhoids) Procedure: COLONOSCOPY TILL CECUM WITH BIOPSIES AND SNARE POLYPECTOMY Consent: Indications for the procedure and potential complications of bleeding, perforation, reaction to medications and missed diagnosis were discussed with the patient and informed consent was obtained. Instrument: Olympus PCF H 190 L variable stiffness pediatric colonoscope Monitoring: Vital signs and clinical assessment, intermittent blood pressure monitoring, continuous EKG monitoring, Pulse oximetry and Carbon Dioxide monitoring were done throughout the procedure. Colon withdrawl time was 22 minutes. Procedure: The patient was placed in the left lateral decubitis position and pre-procedure medications were administered. After a digital rectal examination of the ano-rectum, the video colonoscope was inserted into the rectum and advanced through the colon to the cecum. The colonoscope was slowly withdrawn in a retrograde panoramic fashion and the colon mucosa was carefully examined including a retroflexed view of the rectum. Findings and interventions are described below. Procedure Difficulty: Colon was long and tortuous and there was some loop formation. No maneuvers required Findings: Terminal Ileum ? Not evaluated Cecum ?? Partially evaluated due to undigested vegetable matter in the cecum. Ascending Colon ? moderate diverticulosis throughout the colon Transverse Colon - moderate diverticulosis throughout the colon. Site was previous polypectomy at 60 cms was not visualized despite a few passes. Descending Colon ?? Moderate diverticulosis Sigmoid Colon ?? Two 7-8 mm sessile polyp removed with the cold snare. Severe diverticulosis with luminal narrowing Rectum ?? Normal Ano-rectum -? Moderate hemorrhoids Colon preparation:? Good after some irrigation and fair in the right colon due to undigested vegetable matter which could not be suctioned Impression and Post Procedure Diagnosis: Colonoscopy Findings: Two small polyps removed Moderate to severe diverticulosis seen in the entire colon (left > right) Moderate hemorrhoids on retroflexed exam. Plan: Letter will be sent with pathology results Repeat Colonoscopy interval based on path results - in 5 years if polyps are adenomatous and due to a history of adenomatous colon polyps (if patient remains in stable health). Above findings were reviewed with the patient and colon polyps and diverticulosis handouts were given in the discharge area Surgeon: Dayton Ordaz MD Anesthesia:?MAC Was an Computer Systems Architect used for this Procedure?:?Yes Computer Systems Architect:?Laura Torres Estimated blood loss (mL):?0 Pathology:?other (A. sigmoid polyps (2)) Condition:?stable Disposition:?PACU
[2022-07-03 10:25] VITALS: BP 129/75; PULSE 99; RESP 16; TEMP 36.7; O2SAT 94
[2022-07-03 10:40] VITALS: BP 140/72; PULSE 99; RESP 16; TEMP 36.7; O2SAT 96
== END 2022-07-03 12:01 | disposition home or self-care (01) ==
LOC: HO.SSS 08:14
PROVIDERS: PCP Internal Medicine; Visit Provider Internal Medicine Gastroenterology
PROC: 0DJD8ZZ Inspection of Lower Intestinal Tract, Via Natural or Artificial Opening Endoscopic (ICD-10-PCS; CPT 45378; principal; 2022-07-03 09:20)
DX: Z12.11 Encounter for screening for malignant neoplasm of colon (principal); Z86.010 Personal history of colon polyps; D12.5 Benign neoplasm of sigmoid colon; K57.30 Diverticulosis of large intestine without perforation or abscess without bleeding; K64.8 Other hemorrhoids; J44.9 Chronic obstructive pulmonary disease, unspecified; E11.9 Type 2 diabetes mellitus without complications; I10 Essential (primary) hypertension; E78.00 Pure hypercholesterolemia, unspecified; Z86.718 Personal history of other venous thrombosis and embolism; Z79.01 Long term (current) use of anticoagulants; Z79.4 Long term (current) use of insulin; Z88.1 Allergy status to other antibiotic agents; Z88.8 Allergy status to other drugs, medicaments and biological substances; Z91.041 Radiographic dye allergy status; Z87.898 Personal history of other specified conditions; Z87.891 Personal history of nicotine dependence; Z86.16 Personal history of COVID-19
CPT/HCPCS: 45385; 45380; 82947; 88305; J2405

== ENCOUNTER → 2022-07-10 10:44 | Outpatient (BNVA) | payer MEDICARE, SELFPAY | PROVIDERS: PCP Internal Medicine; Visit Provider Nurse Practitioner | DX: D12.6 Benign neoplasm of colon, unspecified (principal); R19.7 Diarrhea, unspecified | CPT/HCPCS: 99212 ==

== ENCOUNTER → 2022-09-03 09:49 | Outpatient (BNVA) | payer MEDICARE, SELFPAY | PROVIDERS: PCP Internal Medicine; Visit Provider Nurse Practitioner | DX: R19.7 Diarrhea, unspecified (principal); D12.6 Benign neoplasm of colon, unspecified; K21.9 Gastro-esophageal reflux disease without esophagitis | CPT/HCPCS: 99212 ==

== ENCOUNTER 2023-04-02 11:48 | Emergency (ER) | payer MEDICARE, SELFPAY ==
--- NOTE | ~2023-04-02 | XR_ITS ---
EXAMINATION: XR CHEST CLINICAL INFORMATION: Shortness of breath and chest pain for 5-6 days, worsening today. COMPARISON: 05/13/2021 TECHNIQUE: PA and lateral radiographs of the chest. FINDINGS: Lungs are well expanded. Minimal linear opacity of atelectasis of the lingula. No airspace disease or pleural effusion. Cardiac silhouette is normal in size. The pulmonary vascular pattern is normal. The visualized bones are intact. XR/XR chest 2V IMPRESSION: No evidence of pneumonia. No acute cardiopulmonary disease.
--- NOTE | 2023-04-02 11:49 | ECG_ITS ---
Test Reason : SOB/CP Blood Pressure : / mmHG Vent. Rate : 082 BPM Atrial Rate : 082 BPM P-R Int : 160 ms QRS Dur : 082 ms QT Int : 362 ms P-R-T Axes : 043 018 056 degrees QTc Int : 422 ms Normal sinus rhythm ST elevation in Inferior leads with Q wave in lead III s/o acute STEMI Abnormal ECG When compared with ECG of 27-DEC-2012 14:32, ST elevation in Inferior leads is now Present T wave inversion now evident in Lateral leads Referred By: Generic ED Physician Electronically Signed By:SPENCER THOMPSON MD
[2023-04-02 12:03] VITALS: BP 145/64; PULSE 84; RESP 20; TEMP 36.6; O2SAT 98; BMI 27.1
--- NOTE | 2023-04-02 12:03 | ED.CHESTPAIN ---
HPI - Chest Pain General Chief Complaint: Chest Pain Stated Complaint: chest pain/sob Time Seen by Provider: 04/02/23 13:48 Related Data Home Medications Medication Instructions Recorded Confirmed alendronate 70 mg tablet 70 mg PO QWEEK 12/29/21 chlorthalidone 50 mg tablet 50 mg PO DAILY 12/29/21 dulaglutide 1.5 mg/0.5 mL 1.5 mg subcut QWEEK 12/29/21 subcutaneous pen injector (Trulicity) insulin lispro 100 unit/mL 1 sliding scale dose subcut 12/29/21 subcutaneous pen (Humalog KwikPen USEASDIRECTD (U-100) Insulin) losartan 100 mg tablet 100 mg PO DAILY 12/29/21 metoprolol succinate 100 mg 100 mg PO DAILY 12/29/21 tablet,extended release 24 hr spironolactone 25 mg tablet 25 mg PO DAILY 12/29/21 fenofibrate 54 mg tablet 54 mg PO DAILY 07/10/22 insulin glargine 100 unit/mL 35 unit subcut DAILY 07/10/22 subcutaneous solution (Lantus U-100 Insulin) omeprazole 40 mg capsule,delayed 40 mg PO DAILY 07/10/22 release fluticasone 250 mcg-salmeterol 50 1 ea inhalation BID 09/03/22 mcg/dose blistr powdr for inhalation (Wixela Inhub) gabapentin 100 mg capsule 100 mg PO BEDTIME 09/03/22 Previous Rx's Medication Instructions Recorded albuterol sulfate 90 mcg/actuation 1 inh inhalation QID PRN shortness 05/13/21 aerosol inhaler of breath or wheezing #6.7 grams apixaban 5 mg (74 tabs) tablets in 5 mg PO BID #74 ea 11/21/21 a dose pack (Eliquis DVT-PE Treat 30D Start) dicyclomine 10 mg capsule 10 mg PO QIDACHS #120 caps 09/03/22 Allergies Allergy/AdvReac Type Severity Reaction Status Date / Time Iodinated Contrast Media Allergy Mild Anaphylaxis Verified 09/03/22 09:56 Darvon Allergy Unknown nausea,swee Verified 09/03/22 09:56 ty doxycycline [DOXYCYCLINE] Allergy Unknown RASH Verified 09/03/22 09:56 [facility] Past Medical History Medical History Breast tumor COPD (chronic obstructive pulmonary disease) COVID-19 Diabetes DVT (deep venous thrombosis) HTN (hypertension) Hx of abdominal pain Personal history of COVID-19 Surgical History H/O colonoscopy History of esophagogastroduodenoscopy (EGD) History of hysterectomy Family History Family History Brother Diabetes HTN (hypertension) Sister Diabetes HTN (hypertension) Sister Diabetes Social History Social History Alcohol intake: current Alcohol intake frequency: holidays/special occasions only Patient Tobacco Use Status: Former Tobacco user Advance Directives: No Advance Directives Information Provided: No Physical Exam Vital Signs: Vital Signs: Last Vital Signs Temp 98 F 04/02/23 12:03 Pulse 77 04/02/23 14:20 Resp 20 04/02/23 12:03 BP 167/73 H 04/02/23 14:20 Pulse Ox 98 04/02/23 12:03 O2 Del Method Room Air 04/02/23 12:03 BMI result Body Mass Index 28.1 Course Course Course Narrative: RME: 77yo F w/PMHx DVT no longer on AC, diarrhea, HLD, GERD, HTN, COPD, DM, Chest pain radiating down LUE and SOB x 5 days. Pain worse w/ambulation and deep breathing Appears uncomfortable EKG, Labs, CXR ordered Full HPI, ROS and PE to be performed by primary ED provider. 1337: Received call from lab troponin 11,313.5- charge nurse aware. Patient will be brought back. Medications Administered Generic Name Dose Route Start Last Admin Trade Name Freq PRN Reason Stop Dose Admin Heparin Sodium/Sodium Chloride 25,000 unit in 250 mls @ 0 mls/hr 04/02/23 14:15 04/02/23 14:16 Heparin Sodium,Porcine/1/2ns IVCONT 12 units/kg/hr .Q0M DANIEL 8.37 mls/hr Administration Protocol Per Protocol Discontinued Medications Generic Name Dose Route Start Last Admin Trade Name Freq PRN Reason Stop Dose Admin Aspirin 324 mg 04/02/23 13:50 04/02/23 13:52 Aspirin 81 Mg Tab.Chew PO 04/02/23 13:51 324 mg ONCE ONE Administration Medical Decision Making Lab Data 04/02/23 12:17 04/02/23 12:17 Labs: Lab Results 04/02/23 04/02/23 04/02/23 Range/Units 12:17 12:17 12:17 WBC 5.8 (4.8-10.8) X10*3/uL RBC 3.94 L (4.20-5.50) X10*6/uL Hgb 11.6 L (12.0-16.0) g/dl Hct 36.2 L (37.0-47.0) % MCV 91.9 (80.0-98.0) fL MCH 29.4 (27.0-33.0) pg MCHC 32.0 (31.0-35.0) g/dl RDW 14.6 (11.0-16.0) % Plt Count 187 (160-400) X10*3/uL MPV 10.6 (9.4-12.3) fL Immature Gran % (Auto) Cancelled Neut % (Auto) Cancelled Lymph % (Auto) Cancelled [place] % (Auto) Cancelled Eos % (Auto) Cancelled Baso % (Auto) Cancelled Lymph # (Auto) Cancelled [place] # (Auto) Cancelled Eos # (Auto) Cancelled Baso # (Auto) Cancelled Abs Immat Gran (auto) Cancelled Absolute Neuts (auto) Cancelled Absolute Nucleated RBC 0.000 (0.0-0.012) X10*3/uL Nucleated RBC % (auto) 0.0 (0.0-0.2) /100WBC Neutrophils % (Manual) 60 (45-73) % Band Neutrophils % 2 L (3-5) % Lymphocytes % (Manual) 29 (20-40) % Monocytes % (Manual) 5 (2-11) % Eosinophils % (Manual) 2 (0-4) % Basophils % (Manual) 2 (0-2) % Abs Neuts (Manual) 3.6 (2.0-8.3) X10*3/uL Lymphocytes # (Manual) 1.7 (1.2-4.9) X10*3/uL Monocytes # (Manual) 0.3 (0.1-1.2) X10*3/uL Eosinophils # (Manual) 0.1 (0.0-0.4) X10*3/uL Basophils # (Manual) 0.1 (0.0-0.2) X10*3/uL Platelet Estimate NORMAL (NORMAL) Plt Morphology Comment NORMAL RBC Morphology NORMAL PT 11.2 (10.0-13.1) SEC INR 1.0 (0.9-1.1) D-Dimer High Sensitivty 549 NG/ML Sodium (135-145) mmol/L Potassium (3.3-5.1) mmol/L Chloride (96-108) mmol/L Carbon Dioxide (22-29) mmol/L Anion Gap (12-20) BUN (9-16) mg/dL Creatinine (0.5-1.4) mg/dL Estim Creat Clear Calc Estimated GFR Random Glucose (60-115) mg/dL Calcium (8.4-10.2) mg/dL Magnesium (1.6-2.6) mg/dL Total Bilirubin (0.0-1.0) mg/dL Direct Bilirubin (0.0-0.5) mg/dL AST (5-31) U/L ALT (0-31) U/L Alkaline Phosphatase (39-117) U/L Troponin I High Sens (<3.5-17.0) ng/L B-Natriuretic Peptide (<100) pg/mL Total Protein (6.5-8.0) g/dL Albumin (3.5-5.0) g/dL 04/02/23 04/02/23 04/02/23 Range/Units 12:17 12:17 12:17 WBC (4.8-10.8) X10*3/uL RBC (4.20-5.50) X10*6/uL Hgb (12.0-16.0) g/dl Hct (37.0-47.0) % MCV (80.0-98.0) fL MCH (27.0-33.0) pg MCHC (31.0-35.0) g/dl RDW (11.0-16.0) % Plt Count (160-400) X10*3/uL MPV (9.4-12.3) fL Immature Gran % (Auto) Neut % (Auto) Lymph % (Auto) [place] % (Auto) Eos % (Auto) Baso % (Auto) Lymph # (Auto) [place] # (Auto) Eos # (Auto) Baso # (Auto) Abs Immat Gran (auto) Absolute Neuts (auto) Absolute Nucleated RBC (0.0-0.012) X10*3/uL Nucleated RBC % (auto) (0.0-0.2) /100WBC Neutrophils % (Manual) (45-73) % Band Neutrophils % (3-5) % Lymphocytes % (Manual) (20-40) % Monocytes % (Manual) (2-11) % Eosinophils % (Manual) (0-4) % Basophils % (Manual) (0-2) % Abs Neuts (Manual) (2.0-8.3) X10*3/uL Lymphocytes # (Manual) (1.2-4.9) X10*3/uL Monocytes # (Manual) (0.1-1.2) X10*3/uL Eosinophils # (Manual) (0.0-0.4) X10*3/uL Basophils # (Manual) (0.0-0.2) X10*3/uL Platelet Estimate (NORMAL) Plt Morphology Comment RBC Morphology PT (10.0-13.1) SEC INR (0.9-1.1) D-Dimer High Sensitivty NG/ML Sodium 140 (135-145) mmol/L Potassium 4.6 (3.3-5.1) mmol/L Chloride 106 (96-108) mmol/L Carbon Dioxide 26 (22-29) mmol/L Anion Gap 13 (12-20) BUN 31 H (9-16) mg/dL Creatinine 1.24 (0.5-1.4) mg/dL Estim Creat Clear Calc 34.1 Estimated GFR 42 Random Glucose 241 H (60-115) mg/dL Calcium 10.2 (8.4-10.2) mg/dL Magnesium 1.9 (1.6-2.6) mg/dL Total Bilirubin 0.3 (0.0-1.0) mg/dL Direct Bilirubin 0.1 (0.0-0.5) mg/dL AST 33 H (5-31) U/L ALT 17 (0-31) U/L Alkaline Phosphatase 65 (39-117) U/L Troponin I High Sens 68965.5 H* (<3.5-17.0) ng/L B-Natriuretic Peptide 226 H (<100) pg/mL Total Protein 7.0 (6.5-8.0) g/dL Albumin 4.1 (3.5-5.0) g/dL / Range/Units 14:07 WBC 6.0 (4.8-10.8) X10*3/uL RBC 3.90 L (4.20-5.50) X10*6/uL Hgb 11.5 L (12.0-16.0) g/dl Hct 35.7 L (37.0-47.0) % MCV 91.5 (80.0-98.0) fL MCH 29.5 (27.0-33.0) pg MCHC 32.2 (31.0-35.0) g/dl RDW 14.6 (11.0-16.0) % Plt Count 178 (160-400) X10*3/uL MPV 10.4 (9.4-12.3) fL Immature Gran % (Auto) Neut % (Auto) Lymph % (Auto) [place] % (Auto) Eos % (Auto) Baso % (Auto) Lymph # (Auto) [place] # (Auto) Eos # (Auto) Baso # (Auto) Abs Immat Gran (auto) Absolute Neuts (auto) Absolute Nucleated RBC 0.000 (0.0-0.012) X10*3/uL Nucleated RBC % (auto) 0.0 (0.0-0.2) /100WBC Neutrophils % (Manual) (45-73) % Band Neutrophils % (3-5) % Lymphocytes % (Manual) (20-40) % Monocytes % (Manual) (2-11) % Eosinophils % (Manual) (0-4) % Basophils % (Manual) (0-2) % Abs Neuts (Manual) (2.0-8.3) X10*3/uL Lymphocytes # (Manual) (1.2-4.9) X10*3/uL Monocytes # (Manual) (0.1-1.2) X10*3/uL Eosinophils # (Manual) (0.0-0.4) X10*3/uL Basophils # (Manual) (0.0-0.2) X10*3/uL Platelet Estimate (NORMAL) Plt Morphology Comment RBC Morphology PT (10.0-13.1) SEC INR (0.9-1.1) D-Dimer High Sensitivty NG/ML Sodium (135-145) mmol/L Potassium (3.3-5.1) mmol/L Chloride (96-108) mmol/L Carbon Dioxide (22-29) mmol/L Anion Gap (12-20) BUN (9-16) mg/dL Creatinine (0.5-1.4) mg/dL Estim Creat Clear Calc Estimated GFR Random Glucose (60-115) mg/dL Calcium (8.4-10.2) mg/dL Magnesium (1.6-2.6) mg/dL Total Bilirubin (0.0-1.0) mg/dL Direct Bilirubin (0.0-0.5) mg/dL AST (5-31) U/L ALT (0-31) U/L Alkaline Phosphatase (39-117) U/L Troponin I High Sens (<3.5-17.0) ng/L B-Natriuretic Peptide (<100) pg/mL Total Protein (6.5-8.0) g/dL Albumin (3.5-5.0) g/dL Discharge Plan Discharge Clinical Impression: Myocardial infarction Patient Disposition: Xfer Acute Care Hospital Transfer Details: CCU [facility] Prescriptions: No Action albuterol sulfate 90 mcg/actuation HFA aerosol inhaler 1 inh inhalation QID PRN (Reason: shortness of breath or wheezing) Qty: 6.7 0RF Eliquis DVT-PE Treat 30D Start 5 mg (74 tabs) tablets,dose pack 5 mg PO BID Qty: 74 0RF Hold Instructions: Resume on 07/04/22. resume Eliquis on 07/04/22 losartan 100 mg tablet 100 mg PO DAILY spironolactone 25 mg tablet 25 mg PO DAILY chlorthalidone 50 mg tablet 50 mg PO DAILY Trulicity 1.5 mg/0.5 mL pen injector 1.5 mg subcut QWEEK metoprolol succinate 100 mg tablet extended release 24 hr 100 mg PO DAILY insulin lispro [Humalog KwikPen Insulin] 100 unit/mL insulin pen 1 sliding scale dose subcut USEASDIRECTD alendronate 70 mg tablet 70 mg PO QWEEK Lantus U-100 Insulin 100 unit/mL solution 35 unit subcut DAILY fenofibrate 54 mg tablet 54 mg PO DAILY omeprazole 40 mg capsule,delayed release(DR/EC) 40 mg PO DAILY gabapentin 100 mg capsule 100 mg PO BEDTIME fluticasone propion-salmeterol [Wixela Inhub] 250-50 mcg/dose blister with device 1 ea inhalation BID dicyclomine 10 mg capsule 10 mg PO QIDACHS Qty: 120 6RF
[2023-04-02 12:30] LABS: Prothrombin Time 11.2 SEC (10.0-13.1)
[2023-04-02 12:32] LABS: D Dimer High Sensitivity 549 NG/ML
[2023-04-02 12:33] LABS: Hematocrit 36.2 % (37.0-47.0); Hemoglobin 11.6 g/dl (12.0-16.0); Mean Corpuscular Hemoglobin 29.4 pg (27.0-33.0); Mean Corpuscular Volume 91.9 fL (80.0-98.0); Mean Platelet Volume 10.6 fL (9.4-12.3); Platelet Count 187 X10*3/uL (160-400); Red Blood Count 3.94 X10*6/uL (4.20-5.50); Red Cell Distribution Width 14.6 % (11.0-16.0)
[2023-04-02 12:34] LABS: WBC ABN SCTR FOR CBC 1
[2023-04-02 12:52] LABS: Alanine Aminotransferase 17 U/L (0-31); Albumin Level 4.1 g/dL (3.5-5.0); Alkaline Phosphatase 65 U/L (39-117); Anion Gap 13 (12-20); Aspartate Amino Transferase 33 U/L (5-31); Bilirubin Direct 0.1 mg/dL (0.0-0.5); Bilirubin Total 0.3 mg/dL (0.0-1.0); Blood Urea Nitrogen 31 mg/dL (9-16); Calcium 10.2 mg/dL (8.4-10.2); Carbon Dioxide 26 mmol/L (22-29); Chloride 106 mmol/L (96-108); Creatinine Clr Calc Pharmacy 34.1; Estimated Glomerular Filt Rate 42; Glucose Random 241 mg/dL (60-115); Magnesium 1.9 mg/dL (1.6-2.6); Potassium 4.6 mmol/L (3.3-5.1); Sodium 140 mmol/L (135-145)
[2023-04-02 12:57] LABS: B Type Natriuretic Peptide 226 pg/mL (<100)
[2023-04-02 12:59] LABS: Band Neutrophils Percent 2 % (3-5); Basophils Percent Manual 2 % (0-2); Eosinophils Percent Manual 2 % (0-4); Lymphocytes Percent Manual 29 % (20-40); Monocytes Percent Manual 5 % (2-11); Neutrophils Percent Manual 60 % (45-73)
[2023-04-02 13:01] LABS: Platelet Estimate NORMAL (NORMAL); Platelet Morphology Comment NORMAL; RBC Morphology NORMAL
[2023-04-02 13:02] LABS: Basophils Abs Manual 0.1 X10*3/uL (0.0-0.2); Eosinophils Absolute Manual 0.1 X10*3/uL (0.0-0.4); Lymphocytes Absolute Manual 1.7 X10*3/uL (1.2-4.9); Monocytes Absolute Manual 0.3 X10*3/uL (0.1-1.2); Neutrophils Absolute Manual 3.6 X10*3/uL (2.0-8.3); White Blood Count 5.8 X10*3/uL (4.8-10.8)
[2023-04-02] MEDS: Aspirin 81 MG TAB.CHEW 324 MG PO (13:52)
[2023-04-02 14:02] VITALS: BMI 28.1
--- NOTE | 2023-04-02 14:03 | ED_ITS ---
HPI - Chest Pain General Chief Complaint: Chest Pain Stated Complaint: chest pain/sob Time Seen by Provider: 04/02/23 13:48 Source: patient Mode of arrival: ambulatory History of Present Illness HPI narrative: This is a 77 years old female presented to the emergency department complaining of chest pain for about the 5 days. Pain is continuous feels like a pressure. MD complaint: chest pain Onset (ago): day(s) (5) Timing of current episode: constant Onset: during rest Pain location: substernal Pain radiation: none Quality: aching Relieving factors: nothing Exacerbating factors: exertion Risk Factors Coronary artery disease risk factors: none Related Data Home Medications Medication Instructions Recorded Confirmed alendronate 70 mg tablet 70 mg PO QWEEK 12/29/21 chlorthalidone 50 mg tablet 50 mg PO DAILY 12/29/21 dulaglutide 1.5 mg/0.5 mL 1.5 mg subcut QWEEK 12/29/21 subcutaneous pen injector (Trulicity) insulin lispro 100 unit/mL 1 sliding scale dose subcut 12/29/21 subcutaneous pen (Humalog KwikPen USEASDIRECTD (U-100) Insulin) losartan 100 mg tablet 100 mg PO DAILY 12/29/21 metoprolol succinate 100 mg 100 mg PO DAILY 12/29/21 tablet,extended release 24 hr spironolactone 25 mg tablet 25 mg PO DAILY 12/29/21 fenofibrate 54 mg tablet 54 mg PO DAILY 07/10/22 insulin glargine 100 unit/mL 35 unit subcut DAILY 07/10/22 subcutaneous solution (Lantus U-100 Insulin) omeprazole 40 mg capsule,delayed 40 mg PO DAILY 07/10/22 release fluticasone 250 mcg-salmeterol 50 1 ea inhalation BID 09/03/22 mcg/dose blistr powdr for inhalation (Wixela Inhub) gabapentin 100 mg capsule 100 mg PO BEDTIME 09/03/22 Previous Rx's Medication Instructions Recorded albuterol sulfate 90 mcg/actuation 1 inh inhalation QID PRN shortness 05/13/21 aerosol inhaler of breath or wheezing #6.7 grams apixaban 5 mg (74 tabs) tablets in 5 mg PO BID #74 ea 11/21/21 a dose pack (Eliquis DVT-PE Treat 30D Start) dicyclomine 10 mg capsule 10 mg PO QIDACHS #120 caps 09/03/22 Allergies Allergy/AdvReac Type Severity Reaction Status Date / Time Iodinated Contrast Media Allergy Mild Anaphylaxis Verified 09/03/22 09:56 Darvon Allergy Unknown nausea,swee Verified 09/03/22 09:56 ty doxycycline [DOXYCYCLINE] Allergy Unknown RASH Verified 09/03/22 09:56 Review of Systems Cardiovascular: Cardiovascular: Reports chest pain Respiratory: Respiratory: Reports no additional respiratory complaints Allergic/Immunologic: Allergic/Immunologic: Reports no additional allergic/immunologic complaints PMFSH Past Medical History Medical History Breast tumor COPD (chronic obstructive pulmonary disease) COVID-19 Diabetes DVT (deep venous thrombosis) HTN (hypertension) Hx of abdominal pain Personal history of COVID-19 Surgical History H/O colonoscopy History of esophagogastroduodenoscopy (EGD) History of hysterectomy Family History Family History Brother Diabetes HTN (hypertension) Sister Diabetes HTN (hypertension) Sister Diabetes Social History Social History Alcohol intake: current Alcohol intake frequency: holidays/special occasions only Patient Tobacco Use Status: Former Tobacco user Advance Directives: No Advance Directives Information Provided: No Physical Exam Vital Signs: Vital Signs: Last Vital Signs Temp 98 F 04/02/23 12:03 Pulse 77 04/02/23 14:20 Resp 20 04/02/23 12:03 BP 167/73 H 04/02/23 14:20 Pulse Ox 98 04/02/23 12:03 O2 Del Method Room Air 04/02/23 12:03 BMI result Body Mass Index 28.1 Const: General: cooperative Nutritional Appearance: well nourished Kennedy entation/consciousness: oriented to person and patient oriented x3 HEENT: Head: Yes normal to inspection General nose exam: Normal external nose present Face and sinus: Yes normal facial exam Mouth: Normal oral and palatal mucosa present Throat: Yes posterior oropharynx normal Neck: Neck: Yes normal visual inspection Chest: Chest palpation & inspection: normal inspection of the chest Resp: Effort & Inspection: normal respiratory effort Auscultation: clear to auscultation bilaterally Cardio: Jugular venous distension: no JVD Rate: regular rate Rhythm: regular rhythm GI: Inspection: Yes normal to inspection Palpation (GI): Soft to palpation Skin: General skin exam: no rashes or lesions noted and elasticity normal Lesions: no lesions Rashes: no rashes Neuro: General: oriented to person and patient oriented x3 Cranial nerves: Yes CN's II-XII intact bilaterally Course Reevaluation(s) Reevaluation #1: Basically this is a late presentation of a myocardial infarction, troponin is very eye, EKG shows Q-wave in 3 and an abnormal electrocardiogram with ST elevation in 3. I discussed the case with the senior care specialist [facility] the patient will be transfer to the CCU IV heparin was started aspirin was given. Patient was accepted in transfer to the CCU by Cardiology Dr Shultz Time: 14:07 Reevaluation #2: ambulance here to take the pt Time: 14:31 Medications Administered Discontinued Medications Generic Name Dose Route Start Last Admin Trade Name Freq PRN Reason Stop Dose Admin Aspirin 324 mg 04/02/23 13:50 04/02/23 13:52 Aspirin 81 Mg Tab.Chew PO 04/02/23 13:51 324 mg ONCE ONE Administration Fentanyl 25 mcg 04/02/23 14:22 04/02/23 14:25 Fentanyl Citrate/Pf 100 Mcg/2 Ml Vial EPIDURAL 04/02/23 14:23 25 mcg ONCE ONE Administration Protocol Heparin Sodium/Sodium Chloride 25,000 unit in 250 mls @ 0 mls/hr 04/02/23 14:15 04/02/23 14:16 Heparin Sodium,Porcine/1/2ns IVCONT 12 units/kg/hr .Q0M DANIEL 8.37 mls/hr Administration Protocol Per Protocol Medical Decision Making Medical Decision Making MDM Narrative: This is a patient with presented with a delayed presentation of a myocardial infarction, elevated troponin abnormal EKG I spoke with cardiology follow [facility] will be transferred to the CCU per roller skate assembler only aspirin and heparin Differential Diagnosis Differential Diagnoses: The differential diagnosis associated with the p resentation includes Myocardial infarction Consult Healthcare Provider Management of the patient was discussed with: Pamphlet Distributor packaging machine operator fellow at [facility] Lab Data MDM Lab Attestation statement: I reviewed the patient's lab results. 04/02/23 12:17 04/02/23 12:17 Labs: Lab Results 04/02/23 04/02/23 04/02/23 Range/Units 12:17 12:17 12:17 WBC 5.8 (4.8-10.8) X10*3/uL RBC 3.94 L (4.20-5.50) X10*6/uL Hgb 11.6 L (12.0-16.0) g/dl Hct 36.2 L (37.0-47.0) % MCV 91.9 (80.0-98.0) fL MCH 29.4 (27.0-33.0) pg MCHC 32.0 (31.0-35.0) g/dl RDW 14.6 (11.0-16.0) % Plt Count 187 (160-400) X10*3/uL MPV 10.6 (9.4-12.3) fL Immature Gran % (Auto) Cancelled Neut % (Auto) Cancelled Lymph % (Auto) Cancelled Drew % (Auto) Cancelled Eos % (Auto) Cancelled Baso % (Auto) Cancelled Lymph # (Auto) Cancelled Drew # (Auto) Cancelled Eos # (Auto) Cancelled Baso # (Auto) Cancelled Abs Immat Gran (auto) Cancelled Absolute Neuts (auto) Cancelled Absolute Nucleated RBC 0.000 (0.0-0.012) X10*3/uL Nucleated RBC % (auto) 0.0 (0.0-0.2) /100WBC Neutrophils % (Manual) 60 (45-73) % Band Neutrophils % 2 L (3-5) % Lymphocytes % (Manual) 29 (20-40) % Monocytes % (Manual) 5 (2-11) % Eosinophils % (Manual) 2 (0-4) % Basophils % (Manual) 2 (0-2) % Abs Neuts (Manual) 3.6 (2.0-8.3) X10*3/uL Lymphocytes # (Manual) 1.7 (1.2-4.9) X10*3/uL Monocytes # (Manual) 0.3 (0.1-1.2) X10*3/uL Eosinophils # (Manual) 0.1 (0.0-0.4) X10*3/uL Basophils # (Manual) 0.1 (0.0-0.2) X10*3/uL Platelet Estimate NORMAL (NORMAL) Plt Morphology Comment NORMAL RBC Morphology NORMAL PT 11.2 (10.0-13.1) SEC INR 1.0 (0.9-1.1) aPTT Heparin Protocol (53-77.9) SEC D-Dimer High Sensitivty 549 NG/ML Sodium (135-145) mmol/L Potassium (3.3-5.1) mmol/L Chloride (96-108) mmol/L Carbon Dioxide (22-29) mmol/L Anion Gap (12-20) BUN (9-16) mg/dL Creatinine (0.5-1.4) mg/dL Estim Creat Clear Calc Estimated GFR Random Glucose (60-115) mg/dL Calcium (8.4-10.2) mg/dL Magnesium (1.6-2.6) mg/dL Total Bilirubin (0.0-1.0) mg/dL Direct Bilirubin (0.0-0.5) mg/dL AST (5-31) U/L ALT (0-31) U/L Alkaline Phosphatase (39-117) U/L Troponin I High Sens (<3.5-17.0) ng/L B-Natriuretic Peptide (<100) pg/mL Total Protein (6.5-8.0) g/dL Albumin (3.5-5.0) g/dL COVID-19 (ZAIN) (Negative) COVID-19 Clin Com 04/02/23 04/02/23 04/02/23 Range/Units 12:17 12:17 12:17 WBC (4.8-10.8) X10*3/uL RBC (4.20-5.50) X10*6/uL Hgb (12.0-16.0) g/dl Hct (37.0-47.0) % MCV (80.0-98.0) fL MCH (27.0-33.0) pg MCHC (31.0-35.0) g/dl RDW (11.0-16.0) % Plt Count (160-400) X10*3/uL MPV (9.4-12.3) fL Immature Gran % (Auto) Neut % (Auto) Lymph % (Auto) Drew % (Auto) Eos % (Auto) Baso % (Auto) Lymph # (Auto) Drew # (Auto) Eos # (Auto) Baso # (Auto) Abs Immat Gran (auto) Absolute Neuts (auto) Absolute Nucleated RBC (0.0-0.012) X10*3/uL Nucleated RBC % (auto) (0.0-0.2) /100WBC Neutrophils % (Manual) (45-73) % Band Neutrophils % (3-5) % Lymphocytes % (Manual) (20-40) % Monocytes % (Manual) (2-11) % Eosinophils % (Manual) (0-4) % Basophils % (Manual) (0-2) % Abs Neuts (Manual) (2.0-8.3) X10*3/uL Lymphocytes # (Manual) (1.2-4.9) X10*3/uL Monocytes # (Manual) (0.1-1.2) X10*3/uL Eosinophils # (Manual) (0.0-0.4) X10*3/uL Basophils # (Manual) (0.0-0.2) X10*3/uL Platelet Estimate (NORMAL) Plt Morphology Comment RBC Morphology PT (10.0-13.1) SEC INR (0.9-1.1) aPTT Heparin Protocol (53-77.9) SEC D-Dimer High Sensitivty NG/ML Sodium 140 (135-145) mmol/L Potassium 4.6 (3.3-5.1) mmol/L Chloride 106 (96-108) mmol/L Carbon Dioxide 26 (22-29) mmol/L Anion Gap 13 (12-20) BUN 31 H (9-16) mg/dL Creatinine 1.24 (0.5-1.4) mg/dL Estim Creat Clear Calc 34.1 Estimated GFR 42 Random Glucose 241 H (60-115) mg/dL Calcium 10.2 (8.4-10.2) mg/dL Magnesium 1.9 (1.6-2.6) mg/dL Total Bilirubin 0.3 (0.0-1.0) mg/dL Direct Bilirubin 0.1 (0.0-0.5) mg/dL AST 33 H (5-31) U/L ALT 17 (0-31) U/L Alkaline Phosphatase 65 (39-117) U/L Troponin I High Sens 10898.5 H* (<3.5-17.0) ng/L B-Natriuretic Peptide 226 H (<100) pg/mL Total Protein 7.0 (6.5-8.0) g/dL Albumin 4.1 (3.5-5.0) g/dL COVID-19 (ZAIN) (Negative) COVID-19 Clin Com 04/02/23 04/02/23 04/02/23 Range/Units 14:07 14:07 14:10 WBC 6.0 (4.8-10.8) X10*3/uL RBC 3.90 L (4.20-5.50) X10*6/uL Hgb 11.5 L (12.0-16.0) g/dl Hct 35.7 L (37.0-47.0) % MCV 91.5 (80.0-98.0) fL MCH 29.5 (27.0-33.0) pg MCHC 32.2 (31.0-35.0) g/dl RDW 14.6 (11.0-16.0) % Plt Count 178 (160-400) X10*3/uL MPV 10.4 (9.4-12.3) fL Immature Gran % (Auto) Neut % (Auto) Lymph % (Auto) Drew % (Auto) Eos % (Auto) Baso % (Auto) Lymph # (Auto) Drew # (Auto) Eos # (Auto) Baso # (Auto) Abs Immat Gran (auto) Absolute Neuts (auto) Absolute Nucleated RBC 0.000 (0.0-0.012) X10*3/uL Nucleated RBC % (auto) 0.0 (0.0-0.2) /100WBC Neutrophils % (Manual) (45-73) % Band Neutrophils % (3-5) % Lymphocytes % (Manual) (20-40) % Monocytes % (Manual) (2-11) % Eosinophils % (Manual) (0-4) % Basophils % (Manual) (0-2) % Abs Neuts (Manual) (2.0-8.3) X10*3/uL Lymphocytes # (Manual) (1.2-4.9) X10*3/uL Monocytes # (Manual) (0.1-1.2) X10*3/uL Eosinophils # (Manual) (0.0-0.4) X10*3/uL Basophils # (Manual) (0.0-0.2) X10*3/uL Platelet Estimate (NORMAL) Plt Morphology Comment RBC Morphology PT 10.6 (10.0-13.1) SEC INR 0.9 (0.9-1.1) aPTT Heparin Protocol 27.2 L (53-77.9) SEC D-Dimer High Sensitivty NG/ML Sodium (135-145) mmol/L Potassium (3.3-5.1) mmol/L Chloride (96-108) mmol/L Carbon Dioxide (22-29) mmol/L Anion Gap (12-20) BUN (9-16) mg/dL Creatinine (0.5-1.4) mg/dL Estim Creat Clear Calc Estimated GFR Random Glucose (60-115) mg/dL Calcium (8.4-10.2) mg/dL Magnesium (1.6-2.6) mg/dL Total Bilirubin (0.0-1.0) mg/dL Direct Bilirubin (0.0-0.5) mg/dL AST (5-31) U/L ALT (0-31) U/L Alkaline Phosphatase (39-117) U/L Troponin I High Sens (<3.5-17.0) ng/L B-Natriuretic Peptide (<100) pg/mL Total Protein (6.5-8.0) g/dL Albumin (3.5-5.0) g/dL COVID-19 (ZAIN) Negative (Negative) COVID-19 Clin Com See Note Independent Interpretation I performed an independent interpretation of an: EKG Interpretation: Normal sinus rhythm a rate 82 she has Q-wave in lead [address] elevation in lead 3 Independent Historian Clinical information obtained from an independent historian. History obtained from or confirmed by: Other (daughter) Critical Care Time Critical Care Time Total Critical Care Time: 60 Attestation: Speaking to patientfamily /taking care of the patient, arranging transfer /spe aking with the roller skate assembler up [facility] Discharge Plan Discharge Clinical Impression: Myocardial infarction Patient Disposition: Xfer Acute Care Hospital Transfer Details: CCU [facility] Prescriptions: No Action albuterol sulfate 90 mcg/actuation HFA aerosol inhaler 1 inh inhalation QID PRN (Reason: shortness of breath or wheezing) Qty: 6.7 0RF Eliquis DVT-PE Treat 30D Start 5 mg (74 tabs) tablets,dose pack 5 mg PO BID Qty: 74 0RF Hold Instructions: Resume on 07/04/22. resume Eliquis on 07/04/22 losartan 100 mg tablet 100 mg PO DAILY spironolactone 25 mg tablet 25 mg PO DAILY chlorthalidone 50 mg tablet 50 mg PO DAILY Trulicity 1.5 mg/0.5 mL pen injector 1.5 mg subcut QWEEK metoprolol succinate 100 mg tablet extended release 24 hr 100 mg PO DAILY insulin lispro [Humalog KwikPen Insulin] 100 unit/mL insulin pen 1 sliding scale dose subcut USEASDIRECTD alendronate 70 mg tablet 70 mg PO QWEEK Lantus U-100 Insulin 100 unit/mL solution 35 unit subcut DAILY fenofibrate 54 mg tablet 54 mg PO DAILY omeprazole 40 mg capsule,delayed release(DR/EC) 40 mg PO DAILY gabapentin 100 mg capsule 100 mg PO BEDTIME fluticasone propion-salmeterol [Wixela Inhub] 250-50 mcg/dose blister with device 1 ea inhalation BID dicyclomine 10 mg capsule 10 mg PO QIDACHS Qty: 120 6RF Interventions: Acute Care Transfer Worksheet (ED) Last Done: 04/02/23 14:47 Discharge Date/Time: 04/02/23 14:40
[2023-04-02 14:14] LABS: Hematocrit 35.7 % (37.0-47.0); Hemoglobin 11.5 g/dl (12.0-16.0); Mean Corpuscular HGB Conc 32.2 g/dl (31.0-35.0); Mean Corpuscular Hemoglobin 29.5 pg (27.0-33.0); Mean Corpuscular Volume 91.5 fL (80.0-98.0); Mean Platelet Volume 10.4 fL (9.4-12.3); Platelet Count 178 X10*3/uL (160-400); Red Cell Distribution Width 14.6 % (11.0-16.0)
[2023-04-02] MEDS: Heparin Sodium,Porcine/1/2NS 25,000 UNIT/250 ML IV.SOLN 8.37 UNIT IVCONT (14:16)
--- NOTE | 2023-04-02 14:19 | PC.NURSE ---
NSTEMI, WAITING ON TRANSFER APPROVAL FROM [facility]
[2023-04-02 14:20] VITALS: BP 167/73; PULSE 77
[2023-04-02] MEDS: fentaNYL citrate/PF 100 MCG/2 ML VIAL 25 MCG EPIDURAL (14:25)
[2023-04-02 14:35] LABS: INTERNATIONAL NORM RATIO 0.9 (0.9-1.1); Prothrombin Time 10.6 SEC (10.0-13.1)
--- NOTE | 2023-04-02 14:35 | MHC.EDTECH ---
@[phone] paged [facility] geophysical laboratory director at the request of Dr. Isbell.
--- NOTE | 2023-04-02 14:36 | MHC.EDTECH ---
@1400 received a call back from [facility]. The individual on the phone requested to speak with Dr. Isbell. Dr. Isbell took the call right away.
--- NOTE | 2023-04-02 14:37 | MHC.EDTECH ---
@1409 [facility] calls back again. The individual on the phone requests to speak with Dr. Isbell again. Dr. Isbell took the call right away.
--- NOTE | 2023-04-02 14:38 | MHC.EDTECH ---
@[id number] called [facility] to check the status of the transfer. The individual on the phone states the patient was accepted and the room assignment is [place] [id number] Room 18. The nurse to nurse number is .
--- NOTE | 2023-04-02 14:41 | PC.NURSE ---
pt is on the way to [facility]
[2023-04-02 14:42] LABS: COVID-19 Test Negative (Negative); IDNOW Serial# 08D9AD1C
[2023-04-02 14:44] LABS: PTT Heparin Drip 27.2 SEC (53-77.9)
--- NOTE | 2023-04-02 14:45 | PC.NURSE ---
4000 units of heparin given 1416 prior to hep gtt
--- NOTE | 2023-04-02 14:45 | PC.NURSE ---
4000u of heparin ivp given by pablo lira. medication did not scan. this rn witnessed administration.
== END 2023-04-02 14:40 | disposition short-term general hospital (02) ==
PROVIDERS: Physician Assistant; Emergency Provider Emergency Medicine; PCP Internal Medicine
DX: I21.9 Acute myocardial infarction, unspecified (principal); R07.89 Other chest pain; Z20.822 Contact with and (suspected) exposure to COVID-19; Z20.828 Contact with and (suspected) exposure to other viral communicable diseases; Z79.899 Other long term (current) drug therapy
CPT/HCPCS: 36415; 71046; 80048; 80076; 83735; 83880; 84484; 85007; 85027; 85379; 85610; 85730; 87635; 93005; 96374; 96375; 99285; J1643; J3010

== ENCOUNTER → 2023-04-02 11:49 | Outpatient (BNV) | payer MEDICARE, SELFPAY | PROVIDERS: Emergency Provider Emergency Medicine; PCP Internal Medicine; Visit Provider Internal Medicine Cardiovascular Disease | DX: R94.31 Abnormal electrocardiogram [ECG] [EKG] (principal) | CPT/HCPCS: 93010 ==

== ENCOUNTER 2023-04-29 13:36 | Outpatient (AMB) | payer MEDICARE, SELFPAY ==
--- NOTE | 2023-04-29 13:48 | MHC.OFFVIS ---
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 Required: No Allergies Iodinated Contrast Media Allergy (Mild, Verified 04/29/23 13:58) Anaphylaxis Darvon Allergy (Unknown, Verified 04/29/23 13:58) nausea,sweety doxycycline [DOXYCYCLINE] Allergy (Unknown, Verified 04/29/23 13:58) RASH Medication List - Last Reconciled 04/29/23 by VANI Dinh albuterol sulfate 90 mcg/actuation 1 inh inhalation QID PRN apixaban (Eliquis DVT-PE Treat 30D Start) 5 mg PO BID aspirin 325 mg PO DAILY atorvastatin 80 mg PO BEDTIME clopidogrel 75 mg PO DAILY colchicine (gout) 0.6 mg PO DAILY dicyclomine 10 mg PO QIDACHS dulaglutide (Trulicity) 1.5 mg subcut QWEEK fenofibrate 54 mg PO DAILY fluticasone propion-salmeterol 250-50 mcg/dose (Wixela Inhub) 1 ea inhalation BID gabapentin 100 mg PO BEDTIME insulin glargine (Lantus U-100 Insulin) 35 units subcut DAILY insulin lispro (Humalog KwikPen (U-100) Insulin) 1 sliding scale dose subcut USEASDIRECTD metoprolol succinate ER 100 mg PO DAILY pantoprazole 40 mg PO DAILY HPI s/p [facility]/ cath per NS HPI Details Magdalena is a 74-year-old female with past medical history hypertension, hyperlipidemia, diabetes who recently presented to [facility] with chest discomfort x5 days. Her EKG showed Q-wave in lead [address] elevations lead 3 and aVL. She was noted to have very elevated troponins and was determined to have a late presentation [place]. She was transferred to [facility] for further evaluation. Cardiac catheterization showed occluded RCA, moderate diffuse left main disease and significant LAD stenosis. She was referred to cardiac surgery. Today she reports that she has been doing well since her hospital discharge. She has not been getting chest discomfort at rest or with activity. She does report having some fatigue and will get some shortness of breath. No PND, orthopnea or edema. No dizziness, presyncope, syncope, falls. No bleeding issues reported. She has a history of having a DVT over a year ago and had been on Eliquis which she has since stopped. She is taking her medications as directed. Daughter is present. [facility] Medical History Breast tumor COPD (chronic obstructive pulmonary disease) COVID-19 Diabetes DVT (deep venous thrombosis) HTN (hypertension) Hx of abdominal pain Personal history of COVID-19 Surgical History H/O colonoscopy History of esophagogastroduodenoscopy (EGD) History of hysterectomy Family History Brother Diabetes HTN (hypertension) Sister Diabetes HTN (hypertension) Sister Diabetes Social History Alcohol intake: current Alcohol intake frequency: holidays/special occasions only Patient Tobacco Use Status: Former Tobacco user Review of Systems Const Details: Fatigue and some anxiety All systems reviewed & are unremarkable except as noted in HPI and below ENT Denies dizziness Card Denies chest pain, Denies chest pain at rest, Denies chest pain with activity, Denies rapid heart rate, Denies pedal edema, Denies edema, Denies leg edema, Denies lightheadedness, Denies palpitations, Denies dyspnea, Denies dyspnea on exertion and Denies orthopnea Resp Denies cough, Denies dyspnea and Denies dyspnea on exertion GI Denies hematochezia and Denies change in stool character Musc Denies abnormal gait, Denies limited range of motion, Denies muscle cramps, Denies muscle weakness, Denies numbness, Denies radiating pain into limb, Denies stiffness and Denies tingling Neuro Denies abnormal gait, Denies dizziness, Denies numbness and Denies tingling Endo Denies palpitations Physical Exam Vital Signs: Last Vital Signs Pulse 74 04/29/23 13:50 BP 140/70 H 04/29/23 13:50 BMI result Body Mass Index 27.4 Const General: cooperative, healthy appearing, comfortable and no acute distress Orientation/consciousness: patient oriented x3 Neck Neck: Yes normal visual inspection Resp Effort & Inspection: normal respiratory effort Auscultation: clear to auscultation bilaterally, no crackles, no rales, no rhonchi and no wheezes Cardio Jugular venous distension: no JVD Rate: regular rate Rhythm: regular rhythm Heart sounds: S1 normal heart sound present, S2 normal heart sound present, no murmurs and no rubs Neuro General: patient oriented x3 Extrem Other: Right radial catheterization site well healed, palpable radial pulse, right hand assessment normal General: Yes normal to inspection and No no pedal edema Psych Appearance: grossly normal Mental Status: mental status grossly normal Speech and movement: Normal speech and movement present Office Procedures EKG Details: Today, read by me, normal sinus rhythm, T-wave inversion inferior leads 3 and AVF, rate 74 [id number], Complete Assessment & Plan Assessment & Plan (1) ST elevation myocardial infarction (STEMI) of inferior wall: Code(s): I21.19 - ST elevation (STEMI) myocardial infarction involving other coronary artery of inferior wall Plan: On 04/02 presented to [facility] after having chest discomfort for few days. She also describes having shortness of breath. Troponin was elevated at 11,313. Her EKG did show Q-wave lead 3, residual ST elevations inferiorly. She was transferred to [facility] where she underwent cardiac catheterization showing significant coronary artery disease including 80% mid LAD stenosis and 100% mid RCA stenosis. She was referred to cardiac surgery and has met with Dr. Pool. She tells me she is scheduled for coronary artery bypass grafting on 05/21/2023. She was discharged with aspirin, colchicine, high-dose atorvastatin, Plavix, metoprolol. She is not having any chest discomfort at rest or with activity recently. She does report fatigue and some shortness of breath. She does not have clinical signs of decompensated heart failure on examination. Her echo done at [facility] showed an EF 40-45%, basal to mid inferior inferior lateral akinetic. An EKG done today show normal sinus rhythm with T-wave inversions lead 3 and AVF, rate 74, QTC 446 millisecond. Will continue current med management. Signs and symptoms of angina reviewed with her. Emergency care if needed for recurrent symptoms. Cardiology follow-up approximately 2 months, which will be post Coronary artery bypass grafting, sooner if needed (2) S/P cardiac cath: Comment: 04/05/2023, left main moderate diffuse disease, mid LAD 80% stenosis, 1st diagonal 75% stenosis, left circumflex minimal irregularities, RCA mid 100 % stenosis. Referred to cardiac surgery Code(s): Z98.890 - Other specified postprocedural states Plan: Right radial catheterization site well healed (3) Coronary atherosclerosis: Code(s): I25.10 - Atherosclerotic heart disease of [place] coronary artery without angina pectoris (4) High cholesterol: Code(s): E78.00 - Pure hypercholesterolemia, unspecified Plan: [place] LDL goal less than 70. Currently on high-dose atorvastatin (5) HTN (hypertension): Code(s): I10 - Essential (primary) hypertension Plan: Mild elevation of blood pressure noted today, recheck 144/74. She had been on losartan, spironolactone, chlorthalidone all of which were stopped at her [facility] discharge. Will check discharge summary to see if 1 or alternate agent can be restarted. Coding Level of Care Code Est Pt Level 4 (56502) Diagnoses ST elevation myocardial infarction (STEMI) of inferior wall I21.19 S/P cardiac cath Z98.890 Coronary atherosclerosis I25.10 High cholesterol E78.00 HTN (hypertension) I10 CPT Codes EKG - CPT: 18734-[id number], Complete ([id number]) Time Spent (min) 30 Comment Chart review, documentation, interview, assess
[2023-04-29 13:50] VITALS: BP 140/70; PULSE 74; BMI 27.4
== END 2023-04-29 14:37 | disposition home or self-care (01) ==
PROVIDERS: PCP Internal Medicine; Referring Provider Internal Medicine; Visit Provider Nurse Practitioner Family
DX: I21.19 ST elevation (STEMI) myocardial infarction involving other coronary artery of inferior wall (principal); Z98.890 Other specified postprocedural states; I25.10 Atherosclerotic heart disease of native coronary artery without angina pectoris; E78.00 Pure hypercholesterolemia, unspecified; I10 Essential (primary) hypertension
CPT/HCPCS: 93010; 99214

== ENCOUNTER → 2023-04-29 13:36 | Outpatient (BNVA) | payer MEDICARE, SELFPAY | PROVIDERS: PCP Internal Medicine; Referring Provider Internal Medicine; Visit Provider Nurse Practitioner Family | DX: I21.19 ST elevation (STEMI) myocardial infarction involving other coronary artery of inferior wall (principal); I25.10 Atherosclerotic heart disease of native coronary artery without angina pectoris; E78.00 Pure hypercholesterolemia, unspecified; I10 Essential (primary) hypertension; Z98.890 Other specified postprocedural states | CPT/HCPCS: 93005; 99212 ==

== ENCOUNTER → 2023-07-06 14:08 | Outpatient (REF) | payer MEDICARE, SELFPAY ==
--- NOTE | 2023-07-06 14:13 | CA_ITS ---
Transthoracic Echocardiogram Patient (Last, First, Middle): Magdalena Felix E Gender: Female Date of : 1945 Age: 77 Procedure Date: 07/06/2023 Procedure Type: Transthoracic Echocardiogram Location: OP Height: 157.48 cm Weight: 65.77 kg BSA: 1.67 m2 Heart Rate: bpm BP: 130 / 70 mmHg Towboat Captain: ALMAS Referring MD: Abhishek Smiley MD Symptoms: I21.19 - ST elevation (STEMI) myocardial infarction involving other garrett... Study Quality: Fair, contrast ECG Rhythm: Sinus Conclusions: - The left ventricular systolic function is normal. The calculated ejection fraction is 64% by biplane method. - The basal inferior segment is akinetic. - The inferolateral wall is hypokinetic. - No obvious valvular pathology seen on this study. Findings Procedure Information Contrast agent, definity, is being given per protocol without apparent complications. Left Ventricle Normal left ventricular cavity size. There is mildly increased left ventricular wall thickness. The left ventricular systolic function is normal. The calculated ejection fraction is 64% by biplane method. There is paradoxical septal motion consistent with post-operative status. Diastolic function is normal for age. Wall Motion Rest Echo Findings The inferolateral wall is hypokinetic. The basal inferior segment is akinetic. Right Ventricle Normal right ventricular cavity size. There is moderately decreased right ventricular systolic function. Atria Both atria are normal in size. Aortic Valve There is a normal trileaflet aortic valve. There is no aortic valve stenosis. There is no aortic valve regurgitation. Mitral Valve There is mild anterior mitral leaflet thickening. There is trace mitral valve regurgitation. There is no mitral valve stenosis. Pulmonic Valve The pulmonic valve is likely normal. Tricuspid Valve There is trace tricuspid valve regurgitation. There is no evidence of pulmonary hypertension. Great Vessels The asc aorta is normal in size. Venous The inferior vena cava is normal in size and collapses greater than 50% with inspiration. Pericardium/Pleural There is no evidence of pericardial effusion. Prior Study Comparison Changes noted compared to prior study dated: 02/23/2019. see comment on wall motion. Recommendations, Care & Conclusions No obvious valvular pathology seen on this study. Measurements 2D Linear Measurements IVSd: 1.12 0.6-0.9/0.6-1.0 cm LVIDd: 4.20 3.9-5.3/4.2-5.9 cm LVIDd Index: 2.51 2.4-3.2/2.2-3.1 cm/m2 LVIDs: 3.02 2.0-3.6 cm LVPWd: 1.03 0.7-1.1 cm LA Diam: 3.00 2.7-3.8/3.0-4.0 cm LAIDs Index: 1.80 1.5-2.3 cm/m2 LV Mass: 189.24 67-162/88-224 g LV Mass Index: 113.32 43-95/49-115 g/m2 LVOT Diam: 1.90 3.0+(-)1.3 cm 2D Systolic Function EF 4C: 60.90 >55% EF 2C: 67.10 >55% EF BiP: 63.70 >55% Mitral Valve MV Pk E: 0.72 MV PK A: 0.77 MV Decel Time: 186.00 E/A: 0.90 E'Lateral: 8.16 E'Medial: 5.00 E/E' Med: 14.50 E/E' Lat: 8.90 PHT: 54.00 MVA PHT: 4.07 Decel [place]: 3.90 Aortic Valve AoV Pk Steven: 1.55 AoV Mn Steven: 1.10 AoV VTI: 0.34 AoV Pk Grad: 10.00 Aov Mn Grad: 5.00 ENRICO Cont.VTI: 1.48 LVOT LVOT Pk Steven: 0.82 LVOT Mn Steven: 0.56 LVOT VTI: 0.18 LVOT Pk Grad: 3.00 LVOT Mn Grad: 1.00 LVOT Diam: 1.90 LVOT Area: 2.84 Diastolic Function MV Pk E: 0.72 MV Pk A: 0.77 E/A: 0.90 E'Medial: 5.00 E/E' Med: 14.50 E' Laterial: 8.16 E/E' Lat: 8.90 Right Ventricle TAPSE (mm): 7.80 TVS' Steven: 5.50 Tricuspid Valve TR Pk Steven: 1.70 TR Pk Grad: 12.00 RA Press: 3.00 RVSP: 15.00 Great Vessels Aorta Sinus of Valsalva: 2.84 2.0-3.5 cm Ao Asc: 2.80 2.1-3.4 cm Updated in Other Vendor System with Status of Final Ronan Christopher MD electronically signed on 07/08/2023 3:24:32 PM with status of Final
== END ==
LOC: HO.CARD 14:08
PROVIDERS: PCP Internal Medicine; Visit Provider Internal Medicine Cardiovascular Disease
DX: I21.19 ST elevation (STEMI) myocardial infarction involving other coronary artery of inferior wall (principal); I24.1 Dressler's syndrome; Z95.1 Presence of aortocoronary bypass graft
CPT/HCPCS: 93306; Q9957

== ENCOUNTER → 2023-07-06 14:13 | Outpatient (BNV) | payer MEDICARE, SELFPAY | PROVIDERS: PCP Internal Medicine; Visit Provider Internal Medicine | DX: I34.89 Other nonrheumatic mitral valve disorders (principal) | CPT/HCPCS: 93306 ==

== ENCOUNTER 2023-08-02 09:45 | Outpatient (AMB) | payer MEDICARE, SELFPAY ==
--- NOTE | 2023-08-02 10:02 | A.OFFVIS_ITS ---
Intake Vital Signs 08/02/23 10:03 Height 5 ft 2 in Weight 145 lb 8.081 oz BMI 26.6 BP 120/82 Blood Pressure Location Lt brachial Position Sitting Pulse 66 Intake Visit Reasons: 3 mth f/up per DC Intake Note: 3 month follow-up c/o chest pain in arm and back Pole Framer Required: No Dye House Vat Worker: Dye House Vat Worker Present Accompanied by: Daughter Allergies Iodinated Contrast Media Allergy (Mild, Verified 04/29/23 13:58) Anaphylaxis Darvon Allergy (Unknown, Verified 04/29/23 13:58) nausea,sweety doxycycline [DOXYCYCLINE] Allergy (Unknown, Verified 04/29/23 13:58) RASH Medication List - Last Reconciled 08/02/23 by Abhishek Smiley MD albuterol sulfate 90 mcg/actuation 1 inh inhalation QID PRN aspirin (Adult Aspirin Regimen) 81 mg PO DAILY atorvastatin 80 mg PO BEDTIME clopidogrel 75 mg PO DAILY dorzolamide-timolol 22.3-6.8 mg/mL ophthalmic (eye) fenofibrate 54 mg PO DAILY fluticasone propion-salmeterol 250-50 mcg/dose (Wixela Inhub) 1 ea inhalation BID furosemide 20 mg PO DAILY gabapentin 100 mg PO BEDTIME insulin glargine (Lantus U-100 Insulin) 35 units subcut DAILY insulin glargine (Lantus Solostar U-100 Insulin) units subcut insulin lispro (Humalog KwikPen (U-100) Insulin) 1 sliding scale dose subcut USEASDIRECTD metoprolol succinate ER 25 mg PO DAILY pantoprazole 40 mg PO DAILY HPI HPI Comments History of Present Illness Details Magdalena comes for follow-up after her open-heart surgery. She is very anxious overall. She had presented with late TN and subsequently cardiac catheterization and shown significant LAD disease as well as occluded PDA. It was felt that inferior wall nonviable and she underwent a 2 vessel coronary bypass grafting including MEHTA to LAD and SVG to diagonal branch. She complains of burning chest discomfort almost present all the time but more with anxiety. Denies any exertional chest pain. Symptoms for myocardial infarction included exertional fatigue. She had no chest discomfort. She is currently taking all her medications. She is on dual antiplatelet therapy. She is taking high- intensity statin therapy. Her most recent echocardiogram shows normalized LV ejection fraction with basal inferior akinetic segment. She is currently participating in phase 2 cardiac rehabilitation. [facility] Medical History (Updated 04/29/23 @ 17:26 by VANI Dinh) DVT (deep venous thrombosis) Personal history of COVID-19 COVID-19 Hx of abdominal pain Breast tumor HTN (hypertension) COPD (chronic obstructive pulmonary disease) Diabetes Surgical History (Updated 08/02/23 @ 10:18 by Abhishek Smiley MD) S/P CABG x 2 History of esophagogastroduodenoscopy (EGD) H/O colonoscopy History of hysterectomy Family History Brother Diabetes HTN (hypertension) Sister Diabetes HTN (hypertension) Sister Diabetes Social History Alcohol intake: current Alcohol intake frequency: holidays/special occasions only Patient Tobacco Use Status: Former Tobacco user Review of Systems Const Denies chills, Denies fatigue, Denies fever(s), Denies frequent falls, Denies weakness, Denies weight gain and Denies weight loss ENT Denies dizziness Card Denies chest pain, Denies leg edema, Denies lightheadedness, Denies palpitations, Denies dyspnea, Denies dyspnea on exertion, Denies orthopnea and Denies other (loss of consciousness) Resp Denies cough, Denies dyspnea and Denies dyspnea on exertion GI Denies hematochezia and Denies change in stool character Musc Denies abnormal gait, Denies muscle weakness, Denies numbness, Denies radiating pain into limb and Denies tingling Neuro Denies abnormal gait, Denies dizziness, Denies frequent falls, Denies numbness, Denies tingling and Denies weakness Endo Denies fatigue and Denies palpitations Physical Exam Vital Signs: Last Vital Signs Pulse 66 08/02/23 10:03 BP 120/82 08/02/23 10:03 BMI result Body Mass Index 26.6 Const General: cooperative, healthy appearing, comfortable and no acute distress Orientation/consciousness: patient oriented x3 Neck Neck: Yes normal visual inspection Chest Chest palpation & inspection: other (Well his sternotomy scar) Resp Effort & Inspection: normal respiratory effort Auscultation: clear to auscultation bilaterally, no crackles, no rales, no rhonchi and no wheezes Cardio Jugular venous distension: no JVD Rate: regular rate Rhythm: regular rhythm Heart sounds: S1 normal heart sound present, S2 normal heart sound present, no murmurs and no rubs Neuro General: patient oriented x3 Extrem Other: Right radial catheterization site well healed, palpable radial pulse, right hand assessment normal General: Yes normal to inspection and No no pedal edema Psych Appearance: grossly normal Mental Status: mental status grossly normal Speech and movement: Normal speech and movement present Assessment & Plan Assessment & Plan (1) Coronary atherosclerosis: Code(s): I25.10 - Atherosclerotic heart disease of [place] coronary artery without angina pectoris Plan: CAD with late presentation TN with atypical symptoms for myocardial ischemia with exertional fatigue status post 2 vessel coronary bypass surgery for significant LAD disease with RCA territory not revascularize due to infarcted segment. Subsequent echocardiogram shows normalized LV EF with basal inferior akinetic segment which could represent infarcted myocardium. She has burning chest discomfort which was not her presenting symptom almost constantly. This is most likely related to anxiety/question acid reflux. Although myocardial ischemia needs to be ruled out. Will suggest exercise myocardial perfusion imaging in near future. Importance of dual antiplatelet therapy for total of a year was discussed. Continue aggressive risk factor modification. Advise high- intensity statin therapy with target goal LDL less than 70 mg/dL. Follow-up lipid panel in near future. Continue with phase 2 cardiac rehabilitation. Continue aggressive blood pressure control which is currently well optimized advised to monitor blood pressure at home maintain a log. Goal blood pressure less than 130/84. Follow up in the clinic in 3 months time, sooner p.r.n.. Thank you for allowing me to partake in her care Coding Level of Care Code Est Pt Level 4 (33853) Diagnoses Coronary atherosclerosis I25.10
[2023-08-02 10:03] VITALS: BP 120/82; PULSE 66; BMI 26.6
== END 2023-08-02 10:35 | disposition home or self-care (01) ==
PROVIDERS: PCP Internal Medicine; Visit Provider Internal Medicine Cardiovascular Disease
DX: I25.10 Atherosclerotic heart disease of native coronary artery without angina pectoris (principal)
CPT/HCPCS: 99214

== ENCOUNTER → 2023-08-02 09:45 | Outpatient (BNVA) | payer MEDICARE, SELFPAY | PROVIDERS: PCP Internal Medicine; Visit Provider Internal Medicine Cardiovascular Disease | DX: I25.10 Atherosclerotic heart disease of native coronary artery without angina pectoris (principal) | CPT/HCPCS: 99212 ==

== ENCOUNTER 2023-10-22 10:18 | Outpatient (REF) | payer MEDICARE, SELFPAY ==
[2023-10-22 11:03] LABS: Hematocrit 36.9 % (37.0-47.0); Hemoglobin 11.7 g/dl (12.0-16.0); Mean Corpuscular HGB Conc 31.7 g/dl (31.0-35.0); Mean Corpuscular Volume 91.6 fL (80.0-98.0); Mean Platelet Volume 9.9 fL (9.4-12.3); Red Blood Count 4.03 X10*6/uL (4.20-5.50); Red Cell Distribution Width 16.7 % (11.0-16.0); WBC ABN SCTR FOR CBC 1
[2023-10-22 11:09] LABS: Estimated Average Glucose 197 mg/dL; Hemoglobin A1c % 8.5 % (<6.0)
[2023-10-22 11:27] LABS: Band Neutrophils Percent 0 % (3-5); Basophils Percent Manual 2 % (0-2); Eosinophils Percent Manual 2 % (0-4); Lymphocytes Percent Manual 36 % (20-40); Monocytes Percent Manual 4 % (2-11); Neutrophils Percent Manual 56 % (45-73)
[2023-10-22 11:28] LABS: Burr Cells 1+ (0-2) /OIF; Ovalocytes 1+ (5-14) /OIF; Platelet Estimate DECREASED (NORMAL); Platelet Morphology Comment NORMAL; RBC Morphology NOTED; Schistocytes 1+ (0-2) /OIF
[2023-10-22 11:29] LABS: Basophils Abs Manual 0.1 X10*3/uL (0.0-0.2); Eosinophils Absolute Manual 0.1 X10*3/uL (0.0-0.4); Lymphocytes Absolute Manual 1.3 X10*3/uL (1.2-4.9); Monocytes Absolute Manual 0.1 X10*3/uL (0.1-1.2); Neutrophils Absolute Manual 2.1 X10*3/uL (2.0-8.3); Platelet Count 109 X10*3/uL (160-400); White Blood Count 3.7 X10*3/uL (4.8-10.8)
[2023-10-22 11:36] LABS: Cholesterol 112 mg/dL (<200); HDL Cholesterol 23 mg/dL (>40); LDL Cholesterol Calculated 59 mg/dL (<100); Triglycerides 150 mg/dL (<150)
[2023-10-22 11:37] LABS: Alanine Aminotransferase 14 U/L (0-31); Albumin Level 3.8 g/dL (3.5-5.0); Alkaline Phosphatase 70 U/L (39-117); Anion Gap 13 (12-20); Aspartate Amino Transferase 23 U/L (5-31); Bilirubin Total 0.3 mg/dL (0.0-1.0); Blood Urea Nitrogen 19 mg/dL (9-16); Calcium 9.3 mg/dL (8.4-10.2); Carbon Dioxide 28 mmol/L (22-29); Chloride 107 mmol/L (96-108); Estimated Glomerular Filt Rate 51; Glucose Random 186 mg/dL (60-115); Potassium 4.3 mmol/L (3.3-5.1); Sodium 144 mmol/L (135-145); Total Protein 6.1 g/dL (6.5-8.0)
[2023-10-22 11:55] LABS: Vitamin B12 283 pg/mL (200-900)
[2023-10-22 12:43] LABS: Creatinine Urine 141.66 mg/dL; Microalbum/Creatinine Ratio Ur 9.8 ug/mg cr (<30)
== END 2023-10-22 10:19 | disposition home or self-care (01) ==
LOC: HO.LAB 10:18
PROVIDERS: Absent Provider Physician Assistant; PCP Internal Medicine; Visit Provider Internal Medicine Cardiovascular Disease
DX: I10 Essential (primary) hypertension (principal); E78.00 Pure hypercholesterolemia, unspecified
CPT/HCPCS: 36415; 80053; 80061; 82043; 82306; 82570; 82607; 83036; 85007; 85025; 85027

== ENCOUNTER → 2023-10-28 07:51 | Outpatient (REF) | payer MEDICARE, SELFPAY ==
--- NOTE | ~2023-10-28 | NM_ITS ---
Lexiscan Myocardial perfusion study Indication: Coronary artery disease with CABG; chest pain Technique: The patient was brought in for a Lexiscan perfusion study on 10/28/2023 and was injected 0.4 mg of Lexiscan intravenously. Within a minute of this injection 25 mCi of sestamibi was given intravenously. Images were obtained using the SPECT gamma camera interlaced with the gating device. Images were obtained in supine position. Resting perfusion study was performed on 10/29/2023. Patient was administered 25 mCi of sestamibi intravenously at rest. Images were then obtained in supine position. Images were processed with the software and compared side to side in short axis, horizontal long axis and vertical long axis views. Total DLP 83mGy-cm. Findings: Raw acquisition reviewed. The stress perfusion study showed probably absent tracer uptake in the basal part of inferior wall but difficult to assess as there is also subdiaphragmatic uptake. The gated study shows normal LV systolic function with calculated LVEF of 63%. LV cavity is normal in size. The gated study shows normal wall thickening and contraction of segments in the visualized areas. Resting study shows probable absence of tracer uptake in the basal part of inferior wall but there is again adjacent tracer uptake in the septum diaphragmatic area making interpretation difficult. Gating at rest reveals normal wall motion with ejection fraction at 73%. The findings are consistent with possible fixed defect in the basal inferior wall but not well visualized. No clear reversible defects. NM/NM cardiolite stress test Impression: 1. Myocardial perfusion imaging study shows no clear evidence of ischemia. Possible infarction in the basal inferior wall, but not well seen. 2. Gated LVEF is 60% during stress and 73% during rest. Correlate with echocardiogram. 3. Transient ischemic dilatation not present. EKG component of the test reported separately.
--- NOTE | 2023-10-28 08:01 | CA_ITS ---
Acquisition Time: 2023-10-28 08:03:39 Total Exercise Time: 00:03:00 Test Indications: CP Medications: SEE H Protocol: PONCHO Max HR: 103 BPM 72% of Pred: 143 BPM Max BP: 128/080 mmHG Max Work Load: 4.6 METS Exercise stress test exercise 3 min of Poncho protocol 72% MPHR, with requets to stop due to moderate SOB and 4-5/10 right sided neck pressure, no chest discomfort, without arrhythmais, with normotensive response to exericse, downsloping leads V5-V6. Patient assisted to sitting poistion and neck discomfort resovled quickly. Test changed to pharmacological stress test once breathing returned to baseline. Pharmacological stress test with Lexicsan injection while sitting and kicking her legs, without anginal symptoms, without arrhythmias with normotensive respose to injection. with nondiagnositc EKGs. Aminophylline 75mg IVP given to reverse Lexiscan, Nuclear images pending. Test reviewed with Dr. Christopher. Referred By: Abhishek Smiley Overread By: Nydia Noyola
== END ==
LOC: HO.CARD 07:51
PROVIDERS: PCP Internal Medicine; Visit Provider Internal Medicine Cardiovascular Disease
DX: R07.9 Chest pain, unspecified (principal); I25.10 Atherosclerotic heart disease of native coronary artery without angina pectoris
CPT/HCPCS: 78452; 93017; A9500; J0280; J2785

== ENCOUNTER → 2023-10-28 08:01 | Outpatient (BNV) | payer MEDICARE, SELFPAY | PROVIDERS: PCP Internal Medicine; Visit Provider Nurse Practitioner | DX: I25.10 Atherosclerotic heart disease of native coronary artery without angina pectoris (principal) | CPT/HCPCS: 78452; 93016; 93018 ==

== ENCOUNTER 2023-11-02 11:15 | Outpatient (AMB) | payer MEDICARE, SELFPAY ==
[2023-11-02 11:17] VITALS: BP 128/72; PULSE 78; BMI 27.0
--- NOTE | 2023-11-02 11:17 | MHC.OFFVIS ---
Intake Vital Signs 11/02/23 11:17 Height 5 ft 2 in Weight 147 lb 11.355 oz BMI 27.0 BP 128/72 Blood Pressure Location Lt brachial Position Sitting Pulse 78 Intake Visit Reasons: 3 mth f/up mibi /labs Intake Note: 3 month follow-up mibi and labs feeling good Drafting Technician Required: No Allergies Iodinated Contrast Media Allergy (Mild, Verified 04/29/23 13:58) Anaphylaxis Darvon Allergy (Unknown, Verified 04/29/23 13:58) nausea,sweety doxycycline [DOXYCYCLINE] Allergy (Unknown, Verified 04/29/23 13:58) RASH Medication List - Last Reconciled 11/02/23 by Abhishek Smiley MD albuterol sulfate 90 mcg/actuation 1 inh inhalation QID PRN aspirin (Adult Aspirin Regimen) 81 mg PO DAILY atorvastatin 80 mg PO BEDTIME clopidogrel 75 mg PO DAILY dorzolamide-timolol 22.3-6.8 mg/mL ophthalmic (eye) fenofibrate 54 mg PO DAILY fluticasone propion-salmeterol 250-50 mcg/dose (Wixela Inhub) 1 ea inhalation BID furosemide 20 mg PO DAILY gabapentin 100 mg PO BEDTIME insulin glargine (Lantus U-100 Insulin) 35 units subcut DAILY insulin glargine (Lantus Solostar U-100 Insulin) units subcut insulin lispro (Humalog KwikPen (U-100) Insulin) 1 sliding scale dose subcut USEASDIRECTD metoprolol succinate ER 100 mg PO DAILY pantoprazole 40 mg PO DAILY HPI HPI Comments History of Present Illness Details Magdalena comes for follow-up after stress testing. She remains extremely anxious. She is completed her phase 2 cardiac rehabilitation. She continues to have some sharp pain in the precordial area while she is exercising which stops quickly within few seconds after she stops exercising. She has no pressure, tightness that lasts for long period time similar to angina. She also complains of generalized tremors and changing hand writing since the surgery. She denies any memory loss. She wants to get back to work. Denies any heart failure symptoms. Taking all her medications. Her LDL is well optimized. [facility] Medical History (Updated 11/02/23 @ 12:18 by Abhishek Smiley MD) ST elevation myocardial infarction (STEMI) of inferior wall DVT (deep venous thrombosis) Personal history of COVID-19 COVID-19 Hx of abdominal pain Breast tumor HTN (hypertension) COPD (chronic obstructive pulmonary disease) Diabetes Surgical History (Updated 11/02/23 @ 12:18 by Abhishek Smiley MD) S/P CABG x 2 S/P cardiac cath History of esophagogastroduodenoscopy (EGD) H/O colonoscopy History of hysterectomy Family History Brother Diabetes HTN (hypertension) Sister Diabetes HTN (hypertension) Sister Diabetes Social History Alcohol intake: current Alcohol intake frequency: holidays/special occasions only Patient Tobacco Use Status: Former Tobacco user Review of Systems Const Denies chills, Denies fatigue, Denies fever(s), Denies frequent falls, Denies weakness, Denies weight gain and Denies weight loss ENT Denies dizziness Card Denies chest pain, Denies leg edema, Denies lightheadedness, Denies palpitations, Denies dyspnea, Denies dyspnea on exertion, Denies orthopnea and Denies other (loss of consciousness) Resp Denies cough, Denies dyspnea and Denies dyspnea on exertion GI Denies hematochezia and Denies change in stool character Musc Denies abnormal gait, Denies muscle weakness, Denies numbness, Denies radiating pain into limb and Denies tingling Neuro Denies abnormal gait, Denies dizziness, Denies frequent falls, Denies numbness, Denies tingling and Denies weakness Endo Denies fatigue and Denies palpitations Physical Exam Vital Signs: Last Vital Signs Pulse 78 11/02/23 11:17 BP 128/72 11/02/23 11:17 BMI result Body Mass Index 27.0 Const General: cooperative, healthy appearing, comfortable and no acute distress Orientation/consciousness: patient oriented x3 Neck Neck: Yes normal visual inspection Chest Chest palpation & inspection: other (Well his sternotomy scar) Resp Effort & Inspection: normal respiratory effort Auscultation: clear to auscultation bilaterally, no crackles, no rales, no rhonchi and no wheezes Cardio Jugular venous distension: no JVD Rate: regular rate Rhythm: regular rhythm Heart sounds: S1 normal heart sound present, S2 normal heart sound present, no murmurs and no rubs Neuro General: patient oriented x3 Extrem Other: Right radial catheterization site well healed, palpable radial pulse, right hand assessment normal General: Yes normal to inspection and No no pedal edema Psych Appearance: grossly normal Mental Status: mental status grossly normal Speech and movement: Normal speech and movement present Assessment & Plan Assessment & Plan (1) Coronary atherosclerosis: Code(s): I25.10 - Atherosclerotic heart disease of [place] coronary artery without angina pectoris Plan: Coronary artery disease status post 2 vessel coronary artery bypass grafting, doing well with recent myocardial perfusion imaging showing infarcted basal inferior segment confirming findings on echocardiogram with normal LV ejection fraction. I discussed with her about the findings and lack of any current cardiac issues that would limit her exercise capacity. I have advised her to start on a gradual exercise program. She may also return to work if she intends to. Continue low-dose aspirin therapy lifelong. Continue Plavix till May of 2024. Continue current high-intensity statin therapy as well as fenofibrate therapy with well optimized LDL. Blood pressure is currently well optimized. Advised to monitor blood pressure at home maintain a log. Goal blood pressure less than 130/84. Aggressive management diabetes. Had a detailed discussion about pathophysiology of atherosclerosis as well as myocardial infarction and she understands and agrees. Will follow up in the clinic in 6 months time, sooner p.r.n.. Thank you for allowing me to partake in the care Orders: Referrals Neurology Referral R25.1 - Tremor, unspecified Coding Level of Care Code Est Pt Level 4 (64849) Diagnoses Coronary atherosclerosis I25.10
== END 2023-11-02 12:27 | disposition home or self-care (01) ==
PROVIDERS: PCP Internal Medicine; Visit Provider Internal Medicine Cardiovascular Disease
DX: I25.10 Atherosclerotic heart disease of native coronary artery without angina pectoris (principal)
CPT/HCPCS: 99214

== ENCOUNTER → 2023-11-02 11:15 | Outpatient (BNVA) | payer MEDICARE, SELFPAY | PROVIDERS: PCP Internal Medicine; Visit Provider Internal Medicine Cardiovascular Disease | DX: I25.10 Atherosclerotic heart disease of native coronary artery without angina pectoris (principal) | CPT/HCPCS: 99212 ==

== ENCOUNTER 2024-02-16 10:57 | Outpatient (AMB) | payer MEDICARE, SELFPAY ==
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
[2024-02-16 11:03] VITALS: BP 130/70; PULSE 73; O2SAT 95; BMI 26.7
== END 2024-02-16 12:36 | disposition home or self-care (01) ==
PROVIDERS: PCP Internal Medicine; Visit Provider Nurse Practitioner Family
DX: R25.1 Tremor, unspecified (principal); R26.9 Unspecified abnormalities of gait and mobility; E11.9 Type 2 diabetes mellitus without complications; R20.0 Anesthesia of skin
CPT/HCPCS: 99204

== ENCOUNTER → 2024-02-16 10:57 | Outpatient (BNVA) | payer MEDICARE, SELFPAY | PROVIDERS: PCP Internal Medicine; Visit Provider Nurse Practitioner Family | DX: R25.1 Tremor, unspecified (principal); R26.9 Unspecified abnormalities of gait and mobility; R20.0 Anesthesia of skin; E11.9 Type 2 diabetes mellitus without complications | CPT/HCPCS: 99202 ==

== ENCOUNTER 2024-03-27 18:11 | Emergency (ER) | payer MEDICARE, SELFPAY ==
--- NOTE | ~2024-03-27 | CT_ITS ---
EXAMINATION: CT ABDOMEN AND PELVIS WITHOUT CONTRAST CLINICAL INFORMATION: Pain. COMPARISON: None available. TECHNIQUE: Multidetector volumetric imaging was performed from the superior aspect of the liver through the pubic symphysis. Sagittal and coronal reformatted images were obtained on the technologist's workstation. This CT examination was performed using dose optimization techniques as appropriate, variously including the following: *Automated exposure control *Adjustment of mA and/or kV according to patient size (this includes techniques or standardized protocols for targeted exams where dose is matched to indication/reason for exam; i.e. extremities or head) *Use of iterative reconstruction technique DLP: 486 mGy-cm FINDINGS: LUNG BASES: There is scarring at both lung bases. LIVER, GALLBLADDER, AND BILIARY TREE: The liver is normal in size, shape, and attenuation. No focal hepatic lesion or biliary ductal dilatation is present. The gallbladder is unremarkable with no evidence of radiopaque gallstones, gallbladder wall thickening, or obvious pericholecystic inflammatory changes. PANCREAS: Unremarkable. SPLEEN: Spleen is enlarged measuring up to 22 cm. ADRENAL GLANDS: Unremarkable. KIDNEYS AND URETERS: The kidneys are normal in size, shape, and attenuation. No hydronephrosis, hydroureter, or calculi seen. No perinephric stranding. BLADDER: Unremarkable. GASTROINTESTINAL TRACT: There are diverticula of the transverse descending and sigmoid colon without evidence for acute diverticulitis. The appendix is visualized and is within normal limits. ABDOMINAL WALL: No significant hernia is appreciated. LYMPH NODES: Normal. VASCULAR: There is atherosclerotic plaque of the abdominal aorta and proximal branches. PELVIC VISCERA: Unremarkable. OSSEOUS STRUCTURES: Mild diffuse thoracolumbar disc degenerative change. CT/CT abdomen pelvis wo IV con IMPRESSION: 1. Splenomegaly measuring up to 22 cm. 2. Diverticulosis without evidence of acute diverticulitis. Fleischner guidelines were followed.
[2024-03-27 18:28] VITALS: BP 168/78; PULSE 73; RESP 20; TEMP 37.2; O2SAT 97; BMI 26.2
[2024-03-27 19:01] LABS: Mean Corpuscular Hemoglobin 28.2 pg (27.0-33.0); PLT CLUMP 1
[2024-03-27 19:02] LABS: Appearance Urine Clear; Color Urine Yellow; Glucose Urine UA Negative (Negative); Hematocrit 43.3 % (37.0-47.0); Hemoglobin 13.6 g/dl (12.0-16.0); Leukocyte Esterase Urine Moderate (2+) (Negative); Mean Corpuscular HGB Conc 31.4 g/dl (31.0-35.0); Mean Corpuscular Volume 89.6 fL (80.0-98.0); Mean Platelet Volume 10.3 fL (9.4-12.3); Nitrite Urine Negative (Negative); PH 5.5 (5.0-9.0); Red Blood Count 4.83 X10*6/uL (4.20-5.50); Red Cell Distribution Width 16.5 % (11.0-16.0); Specific Gravity - Urine 1.015 (1.005-1.025); UMIC TRIGGER UACC YES; Urine Blood Negative (Negative); Urine Ketones Negative (Negative); Urine Protein Negative (Neg-Trace)
[2024-03-27 19:04] LABS: Bacteria Urine None Seen (None Seen); Hyaline Casts Urine 0-2 /LPF (0-2); RBC Urine 0-2 /HPF (0-2); UACC Culture Trigger YES
[2024-03-27 19:05] LABS: Platelet Count 110 X10*3/uL (160-400); WBC ABN SCTR FOR CBC 1; White Blood Count 4.7 X10*3/uL (4.8-10.8)
[2024-03-27 19:08] LABS: Alanine Aminotransferase 19 U/L (0-31); Albumin Level 4.1 g/dL (3.5-5.0); Alkaline Phosphatase 79 U/L (39-117); Anion Gap 14 (12-20); Aspartate Amino Transferase 24 U/L (5-31); Bilirubin Total 0.2 mg/dL (0.0-1.0); Blood Urea Nitrogen 17 mg/dL (9-16); Calcium 10.3 mg/dL (8.4-10.2); Carbon Dioxide 27 mmol/L (22-29); Chloride 106 mmol/L (96-108); Creatinine Clr Calc Pharmacy 39.4; Estimated Glomerular Filt Rate 51; Glucose Random 181 mg/dL (60-115); Potassium 4.5 mmol/L (3.3-5.1); Sodium 142 mmol/L (135-145); Total Protein 6.8 g/dL (6.5-8.0)
[2024-03-27 20:11] LABS: Band Neutrophils Percent 2 % (3-5); Basophils Abs Manual 0.1 X10*3/uL (0.0-0.2); Basophils Percent Manual 2 % (0-2); Eosinophils Absolute Manual 0.1 X10*3/uL (0.0-0.4); Eosinophils Percent Manual 3 % (0-4); Lymphocytes Absolute Manual 1.7 X10*3/uL (1.2-4.9); Lymphocytes Percent Manual 36 % (20-40); Monocytes Absolute Manual 0.1 X10*3/uL (0.1-1.2); Monocytes Percent Manual 2 % (2-11); Neutrophils Absolute Manual 2.7 X10*3/uL (2.0-8.3); Neutrophils Percent Manual 55 % (45-73)
[2024-03-27 20:12] LABS: Platelet Estimate SLIGHTLY DECREASED (NORMAL); Platelet Morphology Comment NORM; RBC Morphology NORMAL
--- NOTE | 2024-03-28 00:02 | ED.BACK ---
HPI - Back Pain/Injury General Chief Complaint: Back Pain/Injury Stated Complaint: pain on side and back Time Seen by Provider: 03/28/24 00:00 Source: patient Mode of arrival: ambulatory Limitations: no limitations History of Present Illness ED Provider: ирина PHILLIPS Narrative: Patient with history of incidental kidney stone in the past comes here for acute onset of pain in the left upper abdominal and left flank started 4 days ago got worse in last 2 days no nausea no urinary symptoms no fever no chills no vomiting or diarrhea no relation of the pain with food patient never had similar pain in the past Related Data Home Medications ?Medication ?Instructions ?Recorded ?Confirmed insulin lispro 100 unit/mL 1 sliding scale dose subcut 12/29/21 02/16/24 subcutaneous pen (Humalog KwikPen USEASDIRECTD (U-100) Insulin) fenofibrate 54 mg tablet 54 mg PO DAILY 07/10/22 02/16/24 insulin glargine 100 unit/mL 35 unit subcut DAILY 07/10/22 02/16/24 subcutaneous solution (Lantus U-100 Insulin) fluticasone 250 mcg-salmeterol 50 1 ea inhalation BID 09/03/22 02/16/24 mcg/dose blistr powdr for inhalation (Wixela Inhub) gabapentin 100 mg capsule 100 mg PO BEDTIME 09/03/22 02/16/24 aspirin 81 mg tablet,delayed 81 mg PO DAILY 08/02/23 02/16/24 release (Adult Aspirin Regimen) dorzolamide 22.3 mg-timolol 6.8 ophthalmic (eye) 08/02/23 02/16/24 mg/mL eye drops furosemide 20 mg tablet 20 mg PO DAILY 08/02/23 02/16/24 insulin glargine 100 unit/mL (3 unit subcut 08/02/23 02/16/24 mL) subcutaneous pen (Lantus Solostar U-100 Insulin) metoprolol succinate 100 mg 100 mg PO DAILY 11/02/23 02/16/24 tablet,extended release 24 hr Previous Rx's ?Medication ?Instructions ?Recorded albuterol sulfate 90 mcg/actuation 1 inh inhalation QID PRN shortness 05/13/21 aerosol inhaler of breath or wheezing #6.7 grams atorvastatin 80 mg tablet 80 mg PO BEDTIME #30 tabs 08/21/23 pantoprazole 40 mg tablet,delayed 40 mg PO DAILY #30 tabs 05/10/23 release alprazolam 0.25 mg tablet 0.25 mg PO .COMPLEX 1 day #2 tabs 02/16/24 carbidopa 25 mg-levodopa 100 mg 0.5 - 1 tab PO BID 30 days #60 tabs 02/16/24 tablet clopidogrel 75 mg tablet 75 mg PO DAILY #90 tabs 03/15/24 cefuroxime axetil 250 mg tablet 250 mg PO BID 7 days #14 tabs 03/28/24 Allergies Allergy/AdvReac Type Severity Reaction Status Date / Time Iodinated Contrast Media Allergy Mild Anaphylaxis Verified 03/27/24 18:32 Darvon Allergy Unknown nausea,swee Verified 03/27/24 18:32 ty doxycycline [DOXYCYCLINE] Allergy Unknown RASH Verified 03/27/24 18:32 Review of Systems Review of Systems: Yes all other systems are reviewed and are negative [facility] Past Medical History Medical History ST elevation myocardial infarction (STEMI) of inferior wall DVT (deep venous thrombosis) Personal history of COVID-19 COVID-19 Hx of abdominal pain Breast tumor HTN (hypertension) COPD (chronic obstructive pulmonary disease) Diabetes Surgical History S/P CABG x 2 S/P cardiac cath History of esophagogastroduodenoscopy (EGD) H/O colonoscopy History of hysterectomy Family History Family History Brother Diabetes HTN (hypertension) Sister Diabetes HTN (hypertension) Sister Diabetes Social History Social History Alcohol intake: current Alcohol intake frequency: holidays/special occasions only Patient Tobacco Use Status: Former Tobacco user Advance Directives: No Advance Directives Information Provided: Yes Do you have a plan to hurt others: No Plan Physical Exam Vital Signs: Vital Signs: Last Vital Signs Temp 97.8 F 03/28/24 02:11 Pulse 76 03/28/24 02:11 Resp 16 03/28/24 02:11 BP 123/84 03/28/24 02:11 Pulse Ox 95 03/28/24 02:11 O2 Del Method Room Air 03/28/24 02:11 BMI result Body Mass Index 26.2 Appearance: Alert. Oriented X3. No acute distress. Eyes: No pallor or icterus ENT: Pharynx normal. Oral Mucosa moist Neck: Normal inspection. Neck supple. CVS: Normal heart rate and rhythm. Pulses normal. Respiratory: No respiratory distress. Equal air entry bilateral, no wheezing/rales/rhonchi Abdomen: Soft and tender left upper abdomen with guarding no rebound tenderness Bowel sounds are present, no mass palpable, mild left CVA tenderness Skin: Skin warm and dry. Normal skin color. Normal skin turgor. Extremities: No lower extremity edema. No calf tenderness Neuro: Oriented X 3. No motor deficit. Medications Administered Discontinued Medications Generic Name Dose Route Start Last Admin Trade Name Freq PRN Reason Stop Dose Admin Cefuroxime Axetil 250 mg 03/28/24 02:41 03/28/24 02:52 Cefuroxime Axetil 250 Mg Tablet PO 03/28/24 02:42 250 mg ONCE ONE Administration Sodium Chloride 1,000 mls @ 999 mls/hr 03/28/24 00:13 03/28/24 02:51 Ns IV 03/28/24 01:13 Infused .Q1H1M ONE Infusion Ketorolac Tromethamine 30 mg 03/28/24 00:13 03/28/24 01:05 Ketorolac Tromethamine 30 Mg/Ml Vial IVPUSH 03/28/24 00:14 30 mg ONCE ONE Administration Medical Decision Making Medical Decision Making [facility] Narrative: Patient with significant splenomegaly etiology not clear possible CML as the cause of pain in the left upper quadrant also has slight UTI will prescribe Ceftin advised to follow with PCP Differential Diagnosis Differential Diagnoses: The differential diagnosis associated with the presentation includes Splenomegaly/kidney stone/UTI Lab Data [facility] Lab Attestation statement: I reviewed the patient's lab results. 03/27/24 18:43 03/27/24 18:43 Labs: Lab Results 03/27/24 Range/Units 18:43 WBC 4.7 L (4.8-10.8) X10*3/uL RBC 4.83 (4.20-5.50) X10*6/uL Hgb 13.6 (12.0-16.0) g/dl Hct 43.3 (37.0-47.0) % MCV 89.6 (80.0-98.0) fL MCH 28.2 (27.0-33.0) pg MCHC 31.4 (31.0-35.0) g/dl RDW 16.5 H (11.0-16.0) % Plt Count 110 L (160-400) X10*3/uL MPV 10.3 (9.4-12.3) fL Immature Gran % (Auto) Cancelled Neut % (Auto) Cancelled Lymph % (Auto) Cancelled [place] % (Auto) Cancelled Eos % (Auto) Cancelled Baso % (Auto) Cancelled Lymph # (Auto) Cancelled [place] # (Auto) Cancelled Eos # (Auto) Cancelled Baso # (Auto) Cancelled Abs Immat Gran (auto) Cancelled Absolute Neuts (auto) Cancelled Absolute Nucleated RBC 0.000 (0.0-0.012) X10*3/uL Nucleated RBC % (auto) 0.0 (0.0-0.2) /100WBC Neutrophils % (Manual) 55 (45-73) % Band Neutrophils % 2 L (3-5) % Lymphocytes % (Manual) 36 (20-40) % Monocytes % (Manual) 2 (2-11) % Eosinophils % (Manual) 3 (0-4) % Basophils % (Manual) 2 (0-2) % Abs Neuts (Manual) 2.7 (2.0-8.3) X10*3/uL Lymphocytes # (Manual) 1.7 (1.2-4.9) X10*3/uL Monocytes # (Manual) 0.1 (0.1-1.2) X10*3/uL Eosinophils # (Manual) 0.1 (0.0-0.4) X10*3/uL Basophils # (Manual) 0.1 (0.0-0.2) X10*3/uL Platelet Estimate SLIGHTLY DECREASED (NORMAL) Plt Morphology Comment NORM RBC Morphology NORMAL Sodium 142 (135-145) mmol/L Potassium 4.5 (3.3-5.1) mmol/L Chloride 106 (96-108) mmol/L Carbon Dioxide 27 (22-29) mmol/L Anion Gap 14 (12-20) BUN 17 H (9-16) mg/dL Creatinine 1.04 (0.5-1.4) mg/dL Estim Creat Clear Calc 39.4 Estimated GFR 51 Random Glucose 181 H (60-115) mg/dL Calcium 10.3 H D (8.4-10.2) mg/dL Total Bilirubin 0.2 (0.0-1.0) mg/dL AST 24 (5-31) U/L ALT 19 (0-31) U/L Alkaline Phosphatase 79 (39-117) U/L Total Protein 6.8 (6.5-8.0) g/dL Albumin 4.1 (3.5-5.0) g/dL Urine Color Yellow Urine Appearance Clear Urine pH 5.5 (5.0-9.0) Ur Specific [place] 1.015 (1.005-1.025) Urine Protein Negative (Neg-Trace) mg/dL Urine Glucose (UA) Negative (Negative) mg/dL Urine Ketones Negative (Negative) mg/dL Urine Blood Negative (Negative) Urine Nitrite Negative (Negative) Ur Leukocyte Esterase Moderate (2+) H (Negative) Urine RBC 0-2 (0-2) /HPF Urine WBC 6-10 H (0-5) /HPF Ur Squamous Epith Cells 3-5 (0-2) /HPF Urine Bacteria None Seen (None Seen) Hyaline Casts 0-2 (0-2) /LPF Independent Interpretation I performed an independent interpretation of an: CT Scan Radiology Impression Discussion of test interpretation with radiology: I have reviewed the radiologist's reading. Discharge Plan Discharge Clinical Impression: Splenomegaly, Acute UTI Patient Disposition: Home, Self-Care Instructions: Urinary Tract Infection in Older Adults (ED) Additional Instructions: You have enlarged spleen 22 cm that likely causing the pain Etiology of enlarged spleen is not clear need to follow up with PCP/Battery Technician for further management Antibiotic as advised for urinary tract infection Drink plenty of fluids and take Tylenol for pain Prescriptions: New cefuroxime axetil 250 mg tablet 250 mg PO BID 7 Days Qty: 14 0RF No Action atorvastatin 80 mg tablet 80 mg PO BEDTIME Qty: 30 5RF pantoprazole 40 mg tablet,delayed release (DR/EC) 40 mg PO DAILY Qty: 30 5RF clopidogrel 75 mg tablet 75 mg PO DAILY Qty: 90 0RF albuterol sulfate 90 mcg/actuation HFA aerosol inhaler 1 inh inhalation QID PRN (Reason: shortness of breath or wheezing) Qty: 6.7 0RF insulin lispro [Humalog KwikPen Insulin] 100 unit/mL insulin pen 1 sliding scale dose subcut USEASDIRECTD Lantus U-100 Insulin 100 unit/mL solution 35 unit subcut DAILY metoprolol succinate 100 mg tablet extended release 24 hr 100 mg PO DAILY fenofibrate 54 mg tablet 54 mg PO DAILY gabapentin 100 mg capsule 100 mg PO BEDTIME fluticasone propion-salmeterol [Wixela Inhub] 250-50 mcg/dose blister with device 1 ea inhalation BID aspirin [Adult Aspirin Regimen] 81 mg tablet,delayed release (DR/EC) 81 mg PO DAILY furosemide 20 mg tablet 20 mg PO DAILY insulin glargine [Lantus Solostar U-100 Insulin] 100 unit/mL (3 mL) insulin pen subcut dorzolamide-timolol 22.3-6.8 mg/mL drops ophthalmic (eye) carbidopa-levodopa 25-100 mg tablet 0.5 - 1 tab PO BID 30 Days Qty: 60 3RF Rx Instructions: take w/ a cracker 30 minutes before breakfast and dinner, alprazolam 0.25 mg tablet 0.25 mg PO .COMPLEX 1 Days Qty: 2 0RF Rx Instructions: 0.25 mg orally 1 tab 30 minutes prior to MRI, may repeat x's 1; Print Language: Algerian
[2024-03-28 00:43] VITALS: BP 153/82; PULSE 64; RESP 16; TEMP 36.4; O2SAT 97
[2024-03-28] MEDS: Ketorolac Tromethamine 30 MG/ML VIAL IVPUSH (01:05)
[2024-03-28] MEDS: 0.9 % Sodium Chloride 1,000 ML 999 ML IV (01:06)
[2024-03-28 02:11] VITALS: BP 123/84; PULSE 76; RESP 16; TEMP 36.6; O2SAT 95
[2024-03-28] MEDS: cefuroxime axetiL 250 MG TABLET PO (02:52)
[2024-03-28 02:57] VITALS: BP 123/84; PULSE 76; RESP 16; TEMP 36.6; O2SAT 95
== END 2024-03-28 02:58 | disposition home or self-care (01) ==
PROVIDERS: Emergency Provider Internal Medicine; PCP Internal Medicine
DX: R16.1 Splenomegaly, not elsewhere classified (principal); N39.0 Urinary tract infection, site not specified; R10.30 Lower abdominal pain, unspecified; R11.2 Nausea with vomiting, unspecified; Z79.899 Other long term (current) drug therapy; Z87.891 Personal history of nicotine dependence
CPT/HCPCS: 36415; 74176; 80053; 81001; 85007; 85025; 85027; 87086; 96361; 96374; 99284; J1885

== ENCOUNTER 2024-05-09 10:50 | Outpatient (AMB) | payer MEDICARE, SELFPAY ==
--- NOTE | 2024-05-09 10:51 | A.OFFVIS_ITS ---
Vital Signs 05/09/24 10:53 Height 5 ft 2 in Weight 141 lb 1.533 oz BMI 25.8 BP 130/70 Blood Pressure Location Lt brachial Position Sitting Pulse 69 Pulse Source Monitor Intake Visit Reasons: 6 mth f/up Allergies Iodinated Contrast Media Allergy (Mild, Verified 03/27/24 18:32) Anaphylaxis Darvon Allergy (Unknown, Verified 03/27/24 18:32) nausea,sweety doxycycline [DOXYCYCLINE] Allergy (Unknown, Verified 03/27/24 18:32) RASH Medication List - Last Reconciled 05/09/24 by Abhishek Smiley MD albuterol sulfate 90 mcg/actuation 1 inh inhalation QID PRN alprazolam 0.25 mg orally 1 tab 30 minutes prior to MRI, may repeat x's 1; 1 day aspirin (Adult Aspirin Regimen) 81 mg PO DAILY atorvastatin 80 mg PO BEDTIME carbidopa-levodopa 25-100 mg 0.5 - 1 tabs PO BID 30 days clopidogrel 75 mg PO DAILY dorzolamide-timolol 22.3-6.8 mg/mL ophthalmic (eye) fenofibrate 54 mg PO DAILY fluticasone propion-salmeterol 250-50 mcg/dose (Wixela Inhub) 1 ea inhalation BID furosemide 20 mg PO DAILY gabapentin 100 mg PO BEDTIME insulin glargine (Lantus U-100 Insulin) 35 units subcut DAILY insulin glargine (Lantus Solostar U-100 Insulin) units subcut insulin lispro (Humalog KwikPen (U-100) Insulin) 1 sliding scale dose subcut USEASDIRECTD metoprolol succinate ER 100 mg PO DAILY pantoprazole 40 mg PO DAILY HPI Comments Details: Magdalena comes for follow-up of her coronary disease. 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 She is not sure. She has upcoming appointment. She has not noted to be significantly anemic. She denies any exertional chest pain. Does have exertional shortness of breath. No orthopnea, PND, leg edema. No prolonged palpitation irregular heartbeat. No lightheadedness, syncope. Takes all her medications. [facility] Medical History ST elevation myocardial infarction (STEMI) of inferior wall DVT (deep venous thrombosis) Personal history of COVID-19 COVID-19 Hx of abdominal pain Breast tumor HTN (hypertension) COPD (chronic obstructive pulmonary disease) Diabetes Surgical History S/P CABG x 2 S/P cardiac cath History of esophagogastroduodenoscopy (EGD) H/O colonoscopy History of hysterectomy Family History Brother Diabetes HTN (hypertension) Sister Diabetes HTN (hypertension) Sister Diabetes Social History Alcohol intake: current Alcohol intake frequency: holidays/special occasions only Patient Tobacco Use Status: Former Tobacco user Review of Systems Const Denies weakness ENT Denies dizziness Card Denies chest pain, Denies chest pain with activity, Denies syncope, Denies rapid heart rate, Denies pedal edema, Denies edema, Denies leg edema, Denies lightheadedness, Denies palpitations, Denies dyspnea, Denies dyspnea on exertion and Denies orthopnea Resp Denies cough, Denies dyspnea and Denies dyspnea on exertion GI Denies hematochezia and Denies change in stool character Musc Denies abnormal gait, Denies muscle cramps, Denies muscle weakness, Denies numbness, Denies radiating pain into limb and Denies tingling Neuro Denies abnormal gait, Denies dizziness, Denies syncope, Denies numbness, Denies tingling and Denies weakness Endo Denies palpitations Physical Exam Vital Signs: Last Vital Signs Pulse 69 05/09/24 10:53 BP 130/70 05/09/24 10:53 BMI result Body Mass Index 25.8 Office Procedures EKG Details: EKG shows normal sinus rhythm with normal EKG 17508-[id number], Complete Assessment & Plan Assessment & Plan (1) Coronary atherosclerosis: Code(s): I25.10 - Atherosclerotic heart disease of coquille coronary artery without angina pectoris Category: Medical Plan: CAD status post two-vessel coronary artery bypass grafting, with no current concerning symptoms with myocardial perfusion imaging last imaging was showing no ischemia. At this point time continue aggressive medical therapy. Symptoms of fatigue most likelihood related to her recent diagnosis of hematologic malignancy. Advised to continue pursue treatment for the same. Continue low- dose aspirin therapy. Continue high-intensity statin therapy. Target goal LDL less than 70 mg/dL. Continue fibrate therapy to maintain triglycerides at least below 200 mg/dL. Continue aggressive diabetes management. Blood pressure is well optimized, see below. Encouraged to increase activity level as tolerated. (2) HTN (hypertension): Code(s): I10 - Essential (primary) hypertension Category: Medical Plan: Hypertension which is currently well optimized advised to monitor blood pressure at home maintain a log. Goal blood pressure less than 130/84. Low-salt diet was discussed. Advised to increase activity level as tolerated. Will follow up in the clinic in 1 year's time, sooner p.r.n.. Thank you for allowing me to partake in her care Coding Level of Care Code Est Pt Level 4 (23645) Diagnoses Coronary atherosclerosis I25.10 HTN (hypertension) I10 CPT Codes EKG - CPT: 13907-[id number], Complete ([id number])
[2024-05-09 10:53] VITALS: BP 130/70; PULSE 69; BMI 25.8
== END 2024-05-09 11:19 | disposition home or self-care (01) ==
PROVIDERS: PCP Internal Medicine; Visit Provider Internal Medicine Cardiovascular Disease
DX: I25.10 Atherosclerotic heart disease of native coronary artery without angina pectoris (principal); I10 Essential (primary) hypertension
CPT/HCPCS: 93010; 99214

== ENCOUNTER → 2024-05-09 10:50 | Outpatient (BNVA) | payer MEDICARE, SELFPAY | PROVIDERS: PCP Internal Medicine; Visit Provider Internal Medicine Cardiovascular Disease | DX: I25.10 Atherosclerotic heart disease of native coronary artery without angina pectoris (principal); I10 Essential (primary) hypertension | CPT/HCPCS: 93005; 99212 ==

== ENCOUNTER 2024-08-14 07:29 | Outpatient (AMB) | payer MEDICARE, SELFPAY ==
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
[2024-08-14 07:33] VITALS: BMI 26.7
== END 2024-08-14 10:30 | disposition home or self-care (01) ==
PROVIDERS: PCP Internal Medicine; Visit Provider Nurse Practitioner Family
DX: R25.1 Tremor, unspecified (principal); R26.9 Unspecified abnormalities of gait and mobility; R20.0 Anesthesia of skin; C83.07 Small cell B-cell lymphoma, spleen
CPT/HCPCS: 99443; G2211

== ENCOUNTER → 2024-08-14 07:29 | Outpatient (BNVA) | payer MEDICARE, SELFPAY | PROVIDERS: PCP Internal Medicine; Visit Provider Nurse Practitioner Family ==

== ENCOUNTER 2024-09-29 10:59 | Outpatient (REF) | payer MEDICARE, SELFPAY ==
[2024-09-29 12:28] LABS: Anion Gap 9 (12-20); Blood Urea Nitrogen 22 mg/dL (9-16); Calcium 9.6 mg/dL (8.4-10.2); Carbon Dioxide 29 mmol/L (22-29); Chloride 105 mmol/L (96-108); Estimated Glomerular Filt Rate 47; Potassium 4.3 mmol/L (3.3-5.1); Sodium 139 mmol/L (135-145)
[2024-09-29 12:34] LABS: B Type Natriuretic Peptide 91 pg/mL (<100)
[2024-09-29 12:35] LABS: Glucose Random 438 mg/dL (60-115)
== END 2024-09-29 11:00 | disposition home or self-care (01) ==
LOC: HO.LAB 10:59
PROVIDERS: PCP Internal Medicine; Visit Provider Nurse Practitioner Family
DX: R60.9 Edema, unspecified (principal)
CPT/HCPCS: 36415; 80048; 83880

== ENCOUNTER → 2024-10-11 11:00 | Outpatient (REF) | payer MEDICARE, SELFPAY ==
--- NOTE | 2024-10-11 11:03 | CA_ITS ---
Transthoracic Echocardiogram Patient (Last, First, Middle): Magdalena Felix E Gender: Female Date of : 1945 Age: 78 Procedure Date: 10/11/2024 Procedure Type: Transthoracic Echocardiogram Location: OP Height: 157.48 cm Weight: 68.04 kg BSA: 1.69 m2 Heart Rate: bpm BP: 136 / 74 mmHg Seed Corn Production Manager: ALMAS Referring MD: Jessica Cunningham LAST MODEL MAKER-Brock Ampoule Filler: Abhishek Smiley MD Symptoms: R60.9 - Edema, unspecified Study Quality: Adequate ECG Rhythm: Sinus Conclusions: - 1. Normal LV ejection fraction 55-60% with grade 2 diastolic dysfunction 2. Mild aortic stenosis 3. Normal RV systolic pressure 4. No gross pericardial effusion Findings Left Ventricle Normal left ventricular size, thickness, and systolic function. The visually estimated ejection fraction is between 55-60%. Spectral Doppler is indicative of a pseudonormal filling pattern. E/E prime ratio is >15, consistent with elevated filling pressures. Evidence suggests grade II (moderate) diastolic dysfunction. Wall Motion Rest Echo Findings The basal inferior and basal inferoseptal segments are hypokinetic. All other scored wall segments showed normal motion. Right Ventricle Normal right ventricular cavity size and systolic function. Atria The left atrium is normal in size. There is no evidence of interatrial shunt. The right atrium is normal in size. Aortic Valve There is mild calcification of the aortic valve. There are fibrocalcifications on the aortic valve wall. There is mild aortic valve stenosis. The peak aortic velocity is 1.72 m/s with a calculated peak gradient of 12 mmHg. The mean gradient is 6 mmHg. The aortic valve area is 1.44 cm2. There is no aortic valve regurgitation. Mitral Valve There is mild anterior and posterior mitral leaflet thickening. There is mild mitral annular calcification. There is trace mitral valve regurgitation. There is no mitral valve stenosis. Pulmonic Valve The pulmonic valve was not well visualized. Tricuspid Valve Likely normal tricuspid valve structure and function. There is trace tricuspid valve regurgitation. The right ventricular systolic pressure is normal. The right ventricular systolic pressure is 23 mmHg. Normal right atrial pressure. There is no evidence of pulmonary hypertension. Great Vessels All visible segments of the aorta are normal in size. The pulmonary artery was not well visualized. There is no dilatation of the ascending aorta measuring 2.90 cm. Venous The inferior vena cava is normal in size and collapses greater than 50% with inspiration. Pericardium/Pleural There is no evidence of pericardial effusion. Prior Study Comparison Changes noted compared to prior study dated: 07/06/2023. mild aortic stenosis is noted Measurements 2D Linear Measurements IVSd: 1.05 0.6-0.9/0.6-1.0 cm LVIDd: 4.19 3.9-5.3/4.2-5.9 cm LVIDd Index: 2.48 2.4-3.2/2.2-3.1 cm/m2 LVIDs: 3.10 2.0-3.6 cm LVPWd: 1.11 0.7-1.1 cm LA Diam: 3.50 2.7-3.8/3.0-4.0 cm LAIDs Index: 2.07 1.5-2.3 cm/m2 LV Mass: 189.79 67-162/88-224 g LV Mass Index: 112.30 43-95/49-115 g/m2 LVOT Diam: 1.90 3.0+(-)1.3 cm 2D Systolic Function EF 4C: 61.40 >55% EF 2C: 57.40 >55% EF BiP: 58.10 >55% Mitral Valve MV Pk E: 1.13 MV PK A: 0.82 MV Decel Time: 182.00 E/A: 1.40 E'Lateral: 7.72 E'Medial: 3.92 E/E' Med: 28.80 E/E' Lat: 14.60 PHT: 53.00 MVA PHT: 4.15 Decel [place]: 6.20 Aortic Valve AoV Pk Steven: 1.72 AoV Mn Steven: 1.14 AoV VTI: 0.43 AoV Pk Grad: 12.00 Aov Mn Grad: 6.00 ENRICO Cont.VTI: 1.44 LVOT LVOT Pk Steven: 0.95 LVOT Mn Steven: 0.62 LVOT VTI: 0.22 LVOT Pk Grad: 4.00 LVOT Mn Grad: 2.00 LVOT Diam: 1.90 LVOT Area: 2.84 Diastolic Function MV Pk E: 1.13 MV Pk A: 0.82 E/A: 1.40 E'Medial: 3.92 E/E' Med: 28.80 E' Laterial: 7.72 E/E' Lat: 14.60 Right Ventricle TAPSE (mm): 13.90 TVS' Steven: 7.43 Tricuspid Valve TR Pk Steven: 2.21 TR Pk Grad: 20.00 RA Press: 3.00 RVSP: 23.00 Great Vessels Aorta Sinus of Valsalva: 2.93 2.0-3.[address] Ridge: 2.37 1.7-3.4 cm Ao Asc: 2.90 2.1-3.4 cm Ao Arch: 2.40 Updated in Other Vendor System with Status of Final Abhishek Smiley MD electronically signed on 10/11/2024 3:06:52 PM with status of Final
--- OUTSIDE RECORDS SUMMARY | 2024-10-11 12:32 | XMS_ITS | Encounter Summary ---
Author Organization [facility] Address [address] [place] [address] Care Team Providers Care Hat Forming Machine Feeder Name Role Phone Aleks Qiu MD Primary Care Provider [phone]- [phone] Reason for Visit * Reason Comments Follow-up * Hospital - Outpatient (Routine) - Authorized Specialty Diagnoses / Procedures Referred By Vishnu nagy Referred To Contact Oncology / Hematology and Oncology Diagnoses 4wk from 07/31 per Procedures FOLLOW UP Aleks Qiu MD [address] [place] [id number] Adrienne Huerta DO [address] [place] [address] Referral ID Status Reason Start Date Expiration Date Visits Requested Visits Authorized [id number] Authorized Continuity of Care 06/26/2024 06/26/2025 12 12 Encounter Details Date Type Department Care Team (Late st Contact Info) Description 09/26/2024 9:30 AM EST Office Visit [facility] Hematology Oncology [address] [place] [phone] Adrienne Huerta DO [address] [place] [address] B-cell lymphoma of spleen, unspecified B-cell lymphoma type (CMS/HCC) (Primary Dx) Social History Tobacco Use Types Packs/Day Years Used Date Smoking Tobacco: Former Smokeless Tobacco: Never Interpersonal Safety Answer Date Record ed Physical Abuse 08/09/2024 Verbal Abuse 08/09/2024 Sex and Gender Information Value Date Recorded Sex Assigned at Not on file Gender Identity Not on file Sexual Orientation Not on file Job Start Date Occupation Industry Not on file Not on file Not on file documented as of this encounter Last Filed Vital Signs Vital Sign Reading Time Taken Comments Blood Pressure 171/50 09/26/2024 9:44 AM EST Pulse 63 09/26/2024 9:44 AM EST Temperature 37.1 ??C (98.7 ??F) 09/26/2024 9:44 AM ES T Respiratory Rate - - Oxygen Saturation 97% 09/26/2024 9:44 AM EST Inhaled Oxygen Concentration - - Weight 68.1 kg (150 lb 3.2 oz) 09/26/2024 9:44 A M EST Height 157.5 cm (5' 2 ) 09/26/2024 9:44 AM EST Body Mass Index 27.47 09/26/2024 9:44 AM EST documented in this encounter Progress Notes * Adrienne Huerta, DO - 09/26/2024 9:30 AM EST Hematology/Oncology Progress Note 09/26/24 Subjective Patient identifier: [id number] y.o. female with B cell lymphoma Interim history: She is here for follow up with her daughter. Yesterday received first dose of maintenance rituximab. Overall feeling well in general. Still with rare night sweats. Also still having some fatigue[place] of [place] walking , felt her low back tense up. Took ten minutesto resolve. Constitutional: see above Resp/CV: No cough, shortness of breath, chest pain GI: No nausea, vomiting, Skin: No rashes Neuro: No headaches, dizziness, neuropathy Musculoskeletal:see above Hem/Lymph : No bruising or bleeding Oncology history: Oncology History B-cell lymphoma (CMS/HCC) 07/02/2024 Initial Diagnosis B-cell lymphoma (CMS/HCC) 07/10/2024 - 07/31/2024 Chemotherapy dexAMETHasone (DECADRON) tablet 12 mg, 12 mg (100 % of original dose 12 mg), oral, Every 12 hours scheduled, 1 of 1 cycle Dose modification: 12 mg (original dose 12 mg, Cycle 1) Administration: 12 mg (07/24/2024) riTUXimab-hyaluronidase (RITUXAN HYCELA) 1400 mg/11.7 mL (120 mg/mL) injection 1,400 mg, 1,400 mg, subcutaneous, Once, 1 of 1 cycle ondansetron (PF) (ZOFRAN) injection 4 mg, 4 mg, intravenous, Once, 1 of 1 cycle Administration: 4 mg (07/24/2024), 4 mg (07/31/2024) dexAMETHasone (DECADRON) injection 8 mg, 8 mg (66.7 % of original dose 12 mg), intravenous, Once, 1of 1 cycle Dose modification: 6 mg (50 % of original dose 12 mg, Cycle 1, Reason: Dose Not Tolerated), 8 mg (original dose 12 mg, Cycle 1) Administration: 8 mg (07/31/2024) alteplase (CATHFLO ACTIVASE) injection 2 mg, 2 mg, intra-catheter, As needed, 1 of 1 cycle riTUXimab-pvvr (RUXIENCE) 375 mg/m2 in sodium chloride 500 mL IVPB, 375 mg/m2 = 600 mg, intravenous, Once, 1 of 1 cycle Administration: 600 mg (07/24/2024), 600 mg (07/31/2024) 09/25/2024 - Chemotherapy acyclovir (Zovirax) 400 mg tablet, 400 mg, oral, 2 times daily, 1 of 1 cycle, Start date: --, End date: -- sulfamethoxazole-trimethoprim (BACTRIM DS,SEPTRA DS) 800-160 mg per tablet, 1 tablet, oral, 3 timesweekly, 1 of 1 cycle, Start date: --, End date: -- riTUXimab-hyaluronidase (RITUXAN HYCELA) 1400 mg/11.7 mL (120 mg/mL) injection 1,400 mg, 1,400 mg, subcutaneous, Once, 1 of 8 cycles ondansetron (PF) (ZOFRAN) injection 8 mg, 8 mg, intravenous, Once, 1 of 1 cycle Administration: 8 mg (09/25/2024) dexAMETHasone (DECADRON) injection 4 mg, 4 mg (33.3 % of original dose 12 mg), intravenous, Once, 1of 1 cycle Dose modification: 4 mg (original dose 12 mg, Cycle 1, Reason: Other (See Comments), Comment: order) alteplase (CATHFLO ACTIVASE) injection 2 mg, 2 mg, intra-catheter, As needed, 1 of 8 cycles riTUXimab-pvvr (RUXIENCE) 600 mg in sodium chloride 310 mL IVPB, 375 mg/m2 = 600 mg (100 % of original dose 375 mg/m2), intravenous, Once, 1 of 8 cycles Dose modification: 375 mg/m2 (original dose 375 mg/m2, Cycle 1) Objective Last Vitals Vitals: 09/26/24 0944 BP: (!) 171/50 Pulse: 63 Temp: 37.1 ??C (98.7 ??F) SpO2: 97% General: well appearing, in no acute distress HENT: no scleral icterus Lymph: No palpable cervical, supraclavicular or axillary adenopathy. Resp: clear to auscultation bilaterally Cardio: regular rate and rhythm, Abdomen: soft non tender, non distended. Spleen tip no longer palpable Neuro: alert and oriented, normal speech Medications Current Outpatient Medications: acetaminophen (TYLENOL 8 HOUR) 650 mg 8 hr tablet, Take 1 Tablet by mouth every 8 hours as needed for Pain., Disp: , Rfl: albuterol HFA (PROAIR HFA ; PROVENTIL HFA ; VENTOLIN HFA) 90 mcg/actuation inhaler, Inhale 2 Puffs into the lungs every 4 hours as needed for Cough or Wheezing., Disp: , Rfl: ALPRAZolam (XANAX) 0.25 mg tablet, , Disp: , Rfl: aspirin 81 mg EC tablet, Take 1 Tablet by mouth daily for 180 days., Disp: , Rfl: atorvastatin (LIPITOR) 80 mg tablet, Take 1 Tablet by mouth daily for 90 days., Disp: , Rfl: blood-glucose meter kit, To check blood sugar twice per day for diagnosis E11.65, Disp: , Rfl: carbidopa-levodopa (SINEMET) 25-100 mg per tablet, TAKE HALF TO 1 TABLET BY MOUTH TWICE DAILY. TAKEWITH A CRACKER 30 MINUTES BEFORE BREAKFAST AND DINNER, Disp: , Rfl: clopidogreL (PLAVIX) 75 mg tablet, Take 1 tablet (75 mg total) by mouth 1 (one) time each day. (Patient not taking: Reported on 09/25/2024), Disp: , Rfl: cyanocobalamin (VITAMIN B-12) 1,000 mcg tablet, Route: Take 1 Tablet by mouth daily. - Oral, Disp: , Rfl: dorzolamide-timoloL (COSOPT) 22.3-6.8 mg/mL ophthalmic solution, 1 Drop., Disp: , Rfl: fenofibrate (LOFIBRA) 54 mg tablet, TAKE 1 TABLET BY MOUTH DAILY, Disp: 90 tablet, Rfl: 0 flash glucose scanning reader (FreeStyle Td 2 [place]) misc, 1 Device by Does not apply route continuous., Disp: , Rfl: flash glucose sensor (FreeStyle Td 2 Sensor) kit, Place 1 Applicator onto the skin every 14 days. USE DIRECTED, Disp: , Rfl: fluticasone-salmeterol (ADVAIR DISKUS) 250-50 mcg/dose diskus inhaler, Inhale 1 Puff into the lungsdaily., Disp: , Rfl: furosemide (LASIX) 20 mg tablet, Take 1 Tablet by mouth daily. (Patient not taking: Reported on 09/25/2024), Disp: , Rfl: gabapentin (NEURONTIN) 100 mg capsule, Take 1 capsule (100 mg total) by mouth 3 (three) times a day., Disp: 90 each, Rfl: 2 insulin glargine (LANTUS) 100 unit/mL injection, Administer 29 units under the skin in the morning and 29 units in the evening., Disp: 10 mL, Rfl: 0 insulin lispro (HumaLOG U-100 Insulin) 100 unit/mL injection, ADMINISTER 10 UNITS SUBCUTANEOUS BEFORE BREAKFAST AND 5 UNITS BEFORE LUNCH AND 7 TO 8 UNITS BEFORE DINNER DIRECTED, Disp: 10 mL, Rfl: 0 insulin lispro (HumaLOG U-100 Insulin) 100 unit/mL injection, -Administer within 15 minutes of a meal, Disp: 10 mL, Rfl: 0 losartan (COZAAR) 100 mg tablet, Take 1 tablet (100 mg total) by mouth 1 (one) time each day., Disp: , Rfl: losartan (COZAAR) 25 mg tablet, TAKE 1 TABLET BY MOUTH DAILY, Disp: 90 tablet, Rfl: 0 magnesium oxide (MAG-OX) 400 mg magnesium tablet, Route: Take 1 Tablet by mouth daily. - Oral, Disp: , Rfl: metoprolol tartrate (LOPRESSOR) 100 mg tablet, TAKE 1 TABLET BY MOUTH TWICE DAILY, Disp: , Rfl: ondansetron (ZOFRAN) 4 mg tablet, Take 1 Tablet by mouth every 8 hours as needed for Nausea., Disp:, Rfl: pantoprazole (PROTONIX) 40 mg EC tablet, TAKE 1 TABLET BY MOUTH DAILY, Disp: 90 tablet, Rfl: 0 No current facility-administered medications for this visit. Facility-Administered Medications Ordered in Other Visits: sodium chloride 0.9 % flush 10 mL, 10 mL, intravenous, PRN, Adrienne Huerta, DO, 10 mL at 09/25/24 0920 Allergies Allergies Allergen Reactions Doxycycline Nausea And Vomiting Diarrhea, sweating Propoxyphene Nausea And Vomiting sweaty Nhjrsnd-Jhf-Kaf Reductase Inhibitors Weakness Past medical history, past surgical history, and family history reviewed. Medical history Past Medical History: Diagnosis Date Asthma 12/22/2018 DX:Asthma Atypical chest pain 12/22/2018 DX:Atypical chest pain; COMMENT: S/p myocardial perfusion wnl 2018 Follows with [facility] cardiology Colon polyp 01/26/2019 DX:Colon polyp COPD (chronic obstructive pulmonary disease) ([facility]/HCC) 01/26/2019 DX:COPD (chronic obstructive pulmonary disease) ([facility]) Diabetes, type 1.5, uncontrolled, managed as type 1 01/26/2019 DX:Diabetes, type 1.5, uncontrolled, managed as type 1 Family history of celiac disease 01/13/2019 DX:Family history of celiac disease Former tobacco use 12/22/2018 DX:Former tobacco use GERD (gastroesophageal reflux disease) 07/18/2019 DX:GERD (gastroesophageal reflux disease) Glaucoma 12/22/2018 DX:Glaucoma History of 2019 novel coronavirus disease (COVID-19) 01/2020 DX:History of 2018 novel coronavirus disease (COVID-19) History of abnormal mammogram 04/28/2019 DX:History of abnormal mammogram Hypercholesteremia 12/22/2018 DX:Hypercholesteremia Hypertension 12/22/2018 DX:Hypertension Microalbuminuria 07/18/2019 DX:Microalbuminuria Migraine 12/22/2018 DX:Migraine Osteoporosis 07/18/2019 DX:Osteoporosis 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) 07/18/2019 DX:Type 2 diabetes mellitus with renal manifestations ([facility]) Surgical history Past Surgical History: Procedure Laterality Date ABDOMINAL SURGERY PROCEDURE: HISTORICAL ABDOMINAL SURGERY; COMMENT: stomach tumors BREAST BIOPSY Bilateral 1980s PROCEDURE: BX BREAST; PERC NEEDLE CORE W/IMAG GUID; COMMENT: b9 BREAST SURGERY Bilateral PROCEDURE: [place] UNLISTED PROCEDURE BREAST; COMMENT: b9; 5 tumors on right, large one on left-adhered to chest wall-1986 COLONOSCOPY 05/26/2016 PROCEDURE: HISTORICAL COLONOSCOPY; COMMENT: no report; 03/14/2016-EGD/flex sig- gastritis; 03/27/2004 CORONARY ARTERY BYPASS GRAFT 05/2023 EXPLORATORY LAPAROTOMY 2015 HYSTERECTOMY PROCEDURE: HISTORICAL HYSTERECTOMY; COMMENT: 1 ovary remains Family history Family History Problem Relation Name Age of Onset Celiac disease Sister CABG x4-twin Pancreatic cancer Mother 86.00 Prostate cancer Father 90.00 Diabetes Brother Diabetes Sister Social history Labs: Relevant data reviewed. Lab Results Component Value Date WBC 6.1 09/25/2024 RBC 4.50 09/25/2024 HGB 13.1 09/25/2024 HCT 41.1 09/25/2024 MCV 90.5 09/25/2024 MCHC 31.9 (L) 09/25/2024 RDW 16.7 (H) 09/25/2024 PLT 227 09/25/2024 MPV 12.3 (H) 09/25/2024 NRBC 0.0 09/25/2024 Lab Results Component Value Date NA 137 09/25/2024 K 4.7 09/25/2024 CL 110 09/25/2024 CO2 25 09/25/2024 GLUCOSE 225 (H) 09/25/2024 BUN 21 09/25/2024 CREATININE 1.07 09/25/2024 CALCIUM 9.4 09/25/2024 PROT 5.7 (L) 09/25/2024 ALBUMIN 3.3 09/25/2024 BILITOT 0.3 09/25/2024 AST 17 09/25/2024 ALT 16 09/25/2024 ALKPHOS 88 09/25/2024 EGFR 53 (L) 09/25/2024 Results for orders placed during the hospital encounter of 09/19/24 CT Chest/Abdomen/Pelvis wo Contrast Narrative EXAMINATION: CT CHEST, ABDOMEN and PELVIS WITHOUT CONTRAST FINDINGS: There is mild motion artifact which limits lung detail. LUNG: No abnormality of the trachea or mainstem bronchi. There is no new suspicious pulmonary mass or nodule. There are stable scattered micronodules all of which measure less than 0.5 cm in greatest dimension. There is no generalized thickening of the interlobular septa. No significant fibrosis. There are a few scattered reticular and polygonal peripheral opacities. MEDIASTINUM: There are no enlarged mediastinal or hilar lymph nodes. No suspicious abnormality of the esophagus CARDIAC: The heart is not enlarged. No pericardial fluid or thickening CORONARY CALCIFICATION: Previous coronary artery bypass grafting. VASCULAR: There is no thoracic aortic aneurysm. The main pulmonary artery is normal caliber PLEURAL: There is no pleural fluid or pneumothorax AXILLA/CHEST WALL: There are no enlarged axillary lymph nodes. No chest wall mass demonstrated LIVER: The right lobe of the liver measures 16.4 cm. This is close to the mean expected. The liver contour is smooth. No suspicious focal liver lesion. BILIARY TRACT: No opaque gallstone. No biliary dilation. SPLEEN: The spleen measures 9.9 cm which is close to the mean expected. On 03/28/2024 the spleen measures 17.8 cm. There is no focal abnormality within the spleen. Specifically there is no perisplenic fluid or evidence of any wedge- shaped infarct. PANCREAS: No suspicious mass. No surrounding fluid. ADRENAL GLANDS: No suspicious abnormality. KIDNEYS: There is no dilation of the intrarenal collecting system on either side. There is a coarsecalcification exophytic from the medial upper right kidney which is unchanged. There is a fat attenuating 1.2 cm mass in the lateral upper left kidney which is unchanged and most consistent with angiomyolipoma. GASTROINTESTINAL TRACT: There is no localized colonic wall thickening or localized pericolonic fat stranding. There are some colonic diverticula. There is no CT evidence of acute appendicitis. The stomach is not well distended or evaluated. There is no disproportionate small bowel dilation. URINARY BLADDER: No focal abnormality. PELVIC VISCERA: The uterus is not definitely identified. This may be surgically absent. There is nosuspicious adnexal mass or collection. ABDOMINAL WALL: No significant hernia is appreciated. Nonspecific soft tissue stranding in the subcutaneous tissues of the lower quadrant on each side. This may be iatrogenic. LYMPHOVASCULAR STRUCTURES AND FLUID: There are no measurably enlarged lymph nodes. There is no freeintraperitoneal fluid. MUSCULOSKELETAL: No acute or suspicious osseous abnormality. Impression No etiology for acute left-sided pain demonstrated. Interval decrease in size of spleen when compared to March 2024. No measurable adenopathy -------- FINAL REPORT -------- Dictated By: Sonu Plasencia Dictated Date: 09/22/2024 10:31 ET Assigned Physician: Sonu Plasencia Reviewed and Electronically Signed By: Sonu Plasencia Signed Date: 09/22/2024 10:52 ET Workstation ID: [id number] Transcribed By: Self Edit Transcribed Date: 09/22/2024 10:31 ET Assessment & Plan 78 year old female [...] protein would notcall it a LPL. She received weekly rituxan with significant decrease in spleen size from 20cm down to normal of 9cm and normalization of platelets indicating positive treatment response. 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 Recurrent DVT She is off eliquis now on plavix and ASA Sign Opal Huerta DO Hematology/Oncology [facility] CC: Aleks Qiu MD documented in this encounter Plan of Treatment Upcoming Encounters Date Type Department Care Team (Late st Contact Info) Description 10/12/2024 1:15 PM EST Office Visit Orthopedic Surgery - [place] [address] [phone] Aron Barba DPM 175 [facility] [place] [address] [place] [address] 10/16/2024 3:30 PM EST Office Visit [address] [phone] Aleks Qiu MD [address] [place] [address] 10/24/2024 11:15 AM EST Office Visit Endocrinology - [place] [address] [place] [phone] Ivette Acuña MD [address] [place] [phone] 11/20/2024 8:00 AM EST Appointment [facility] [address] [phone] 11/20/2024 8:45 AM EST Office Visit [facility] Hematology Oncology [address] [place] [phone] Adrienne Huerta DO [address] [place] [address] documented as of this encounter Visit Diagnoses Diagnosis B-cell lymphoma of spleen, unspecified B-cell lymphoma type (CMS/HCC)- Primary documented in this encounter Care Teams Hat Forming Machine Feeder Relationship Specialty Start Date End Date Aleks Qiu MD [address] [place] [address] PCP - General Internal Medicine 02/17/22 documented as of this encounter
--- OUTSIDE RECORDS SUMMARY | 2024-10-11 12:32 | XMS_ITS | Encounter Summary ---
Author Organization [facility] Address [address] [place] [address] Care Team Providers Care Rn Informatics Name Role Phone Aleks Qiu MD Primary Care Provider [phone]- [phone] Encounter Details Date Type Department Care Team (Late st Contact Info) Description 07/10/2024 1:26 PM EDT Hospital Encounter TH HISTORIC ENCOUNTERS EASTERN CONVERSION ONLY Karen Chavez PA [address] [place] [address] Social History Tobacco Use Types Packs/Day Years [...] 1:15 PM EST Office Visit Orthopedic Surgery [place] [phone] [phone] Aron Barba, DPM [address] [address] 10/16/2024 3:30 PM EST Office Visit Adult Medicine [address] [phone] Aleks Qiu MD [address] [place] [address] 10/24/2024 11:15 AM EST Office Visit Endocrinology [address] [phone] Ivette Acuña MD [address] [place] [phone] 11/20/2024 8:00 AM EST Appointment [facility] Infusion [facility] [address] [facility] [address] [place] [address] 11/20/2024 8:45 AM EST Office Visit [facility] Hematology Oncology [address] [place] [phone] Adrienne Huerta, [address] [place] [address] documented as of this encounter Visit Diagnoses Not on filedocumented in this encounter Care Teams Rn Informatics Relationship Specialty Start Date End Date Aleks Qiu MD [address] [place] [address] PCP - General Internal Medicine 02/17/22 documented as of this encounter
--- OUTSIDE RECORDS SUMMARY | 2024-10-11 12:32 | XMS_ITS | Clinical Summary ---
Author Organization [facility] Address [address] [place] [address] Phone Care Team Providers Care Steel Hanger Name Role Phone Aleks Qiu MD Primary Care Provider Allergies Active Allergy Reactions Criticality Noted Date Comments Doxycycline Nausea And Vomiting Medium 01/13/2019 Diarrhea, sweating Propoxyphene Nausea And Vomiting Medium 07/18/2019 sweaty Jqwwtqw-Yis-Nol Reductase Inhibitors Weakness Medium 10/13/2019 Medications Medication Sig Dispensed Refills Start Date End Date Status magnesium oxide (MAG-OX) 400 mg magnesium tablet Route: Take 1 Tablet by mouth daily. - Oral 06/09/20 24 Active cyanocobalamin (VITAMIN B-12) 1,000 mcg tablet Route: Take 1 Tablet by mouth daily. - Oral 06/09/20 24 Active acetaminophen (TYLENOL 8 HOUR) 650 mg 8 hr tablet Take 1 Tablet by mouth every 8 hours as needed for Pain. 04/03/20 24 Active metoprolol tartrate (LOPRESSOR) 100 mg tablet TAKE 1 TABLET BY MOUTH TWICE DAILY 03/14/20 24 Active ondansetron (ZOFRAN) 4 mg tablet Take 1 Tablet by mouth every 8 hours as needed for Nausea. 11/30/19 24 Active furosemide (LASIX) 20 mg tablet Take 1 Tablet by mouth daily. 06/25/20 23 Active albuterol HFA (PROAIR HFA ; PROVENTIL HFA ; VENTOLIN HFA) 90 mcg/actuation inhaler Inhale 2 Puffs into the lungs every 4 hours as needed for Cough or Wheezing. 04/23/20 23 Active fluticasone-sa lmeterol (ADVAIR DISKUS) 250-50 mcg/dose diskus inhaler Inhale 1 Puff into the lungs daily. 04/23/20 23 Active aspirin 81 mg EC tablet Take 1 Tablet by mouth daily for 180 days. 04/23/20 23 Active atorvastatin (LIPITOR) 80 mg tablet Take 1 Tablet by mouth daily for 90 days. 04/23/20 23 Active dorzolamide-ti moloL (COSOPT) 22.3-6.8 mg/mL ophthalmic solution 1 Drop. Active flash glucose scanning reader (FreeStyle Td 2 [place]) misc 1 Device by Does not apply route continuous. 02/18/20 22 Active blood-glucose meter kit To check blood sugar twice per day for diagnosis E11.65 09/05/20 20 Active losartan (COZAAR) 100 mg tablet Take 1 tablet (100 mg total) by mouth 1 (one) time each day. Active clopidogreL (PLAVIX) 75 mg tablet Take 1 tablet (75 mg total) by mouth 1 (one) time each day. 08/08/20 24 Active ALPRAZolam (XANAX) 0.25 mg tablet 02/16/20 24 Active carbidopa-levo dopa (SINEMET) 25-100 mg per tablet TAKE HALF TO 1 TABLET BY MOUTH TWICE DAILY. TAKE WITH A CRACKER 30 MINUTES BEFORE BREAKFAST AND DINNER 06/29/20 24 Active gabapentin (NEURONTIN) 100 mg capsule Take 1 capsule (100 mg total) by mouth 3 (three) times a day. 90 each 2 08/28/20 24 025 Active insulin lispro (HumaLOG U-100 Insulin) 100 unit/mL injection -Administer within 15 minutes of a meal 10 mL 09/12/20 24 Active fenofibrate (LOFIBRA) 54 mg tablet TAKE 1 TABLET BY MOUTH DAILY 90 tablet 09/19/20 24 Active pantoprazole (PROTONIX) 40 mg EC tablet TAKE 1 TABLET BY MOUTH DAILY 90 tablet 09/19/20 24 Active losartan (COZAAR) 25 mg tablet TAKE 1 TABLET BY MOUTH DAILY 90 tablet 09/19/20 24 Active flash glucose sensor (FreeStyle Td 2 Sensor) kit Inject 1 EA into the skin every 14 (fourteen) days. 6 each 1 09/27/19 25 Active insulin lispro (HumaLOG U-100 Insulin) 100 unit/mL injection ADMINISTER 10 UNITS SUBCUTANEOUS BEFORE BREAKFAST AND 5 UNITS BEFORE LUNCH AND 7 TO 8 UNITS BEFORE DINNER DIRECTEDADMINISTER 10 UNITS SUBCUTANEOUS BEFORE BREAKFAST AND 5 UNITS BEFORE LUNCH AND 7 TO 8 UNITS BEFORE DINNER DIRECTED 10 mL 09/27/19 25 Active insulin glargine (LANTUS) 100 unit/mL injection Administer 29 units under the skin in the morning and 29 units in the evening. 10 mL 09/27/19 25 Active flash glucose sensor (FreeStyle Td 2 Sensor) kit Place 1 Applicator onto the skin every 14 days. USE DIRECTED 04/06/20 24 025 Discontinued fenofibrate (LOFIBRA) 54 mg tablet TAKE 1 TABLET BY MOUTH DAILY 03/15/20 24 024 Discontinued pantoprazole (PROTONIX) 40 mg EC tablet TAKE 1 TABLET BY MOUTH DAILY 03/01/20 24 024 Discontinued insulin glargine (LANTUS) 100 unit/mL injection Administer 29 units under the skin in the morning and 29 units in the evening. 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 She has a follow-up appointment in the next couple months with the oncologist for repeat imaging. She is scheduled to follow-up with gastroenterology for ileoscopy for abnormal PET scan findings in the ileum. Type 2 diabetes mellitus wit h microalbuminuria, with long-term current use of insulin 06/19/2024 Assessment & Plan (08/08/2024 5:41 PM EST): She has blood sugar remains elevated. She has a colonoscopy tomorrow and I advised for her to reduce her Lantus to 15 units tonight and skip Lantus in the morning prior to her procedure. She will resume to Lantus 32 units in the morning and 30 units in the evening post procedure, continue with humalog sliding scale. Scheduled with endocrinology next week. CAD of autologous bypass graft 12/29/2023 Assessment & Plan (08/08/2024 5:41 PM EST): No chest pain or chest pressure. She follows with [facility] Dr. Smiley. Continue aspirin, Plavix, metoprolol 100 mg twice a day, Tricor 54 mg daily, Lipitor 80 mg daily, Lasix 20 mg daily. Atorvastatin refilled today. Chronic systolic CHF (congestive heart failure) 12/29/2023 Acute kidney injury 04/23/2023 Centrilobular emphysema 04/23/2023 NSTEMI (non-ST elevated myocardial infarction) 0 04/23/2023 Pericarditis as complication of acute myocardial infarction 04/23/2023 Osteopenia 12/08/2022 Stage 3 chronic kidney disease 10/14/2022 Chronic deep vein thrombosis (DVT) of proximal vein of lower extremity 06/23/2022 Hydronephrosis of right kidney 06/23/2022 Mixed hyperlipidemia 06/23/2022 Renal calculi 06/23/2022 Acute deep vein thrombosis ( DVT) of distal vein of both lower extremities 12/17/2021 Acute deep vein thrombosis ( DVT) of femoral vein of left lower extremity 05/19/2021 Overview (06/19/2024): On Eliquis COVID-19 01/26/2020 GERD (gastroesophageal reflux disease) 9 Microalbuminuria 07/18/2019 Osteoporosis 07/18/2019 Type 2 diabetes mellitus with renal manifestatio ns 07/18/2019 Diabetes 1.5, 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 She will continue on losartan 25 mg daily, metoprolol 100 mg twice daily. Encounters Date Type Department Care Team Description 09/26/2024 9:30 AM EST Office Visit [facility] Hematology Oncology [address] [place] [phone] Adrienne Huerta DO B-cell lymphoma of spleen, unspecified B-cell lymphoma type (CMS/HCC) (Primary Dx) 09/25/2024 7:57 AM EST - 09/25/2024 11:59 PM EST Hospital Encounter [facility] Infusion Center [address] [place] [phone] B-cell lymphoma of spleen, unspecified B-cell lymphoma type (CMS/HCC) (Primary Dx); Small B-cell lymphoma of spleen (CMS/HCC) Discharge Disposition: Home or Self Care 09/22/2024 Telephone [facility] Hematology Oncology [address] [place] [phone] Adrienne Huerta DO 09/19/2024 9:52 AM EST - 09/19/2024 11:59 PM EST Hospital Encounter [facility] CT Scan [address] [place] [phone] Small B-cell lymphoma of spleen (CMS/HCC) Discharge Disposition: Home or Self Care 09/12/2024 Telephone Adult Medicine [address] [phone] Aleks Qiu MD Medication Problem 08/28/2024 11:15 AM EST Office Visit [facility] Hematology Oncology [address] [place] [phone] Adrienne Huerta DO Small B-cell lymphoma of spleen (CMS/HCC) (Primary Dx) 08/28/2024 Telephone [facility] Hematology Oncology [address] [place] [phone] Isabell Vega MA 08/15/2024 9:30 AM EST Office Visit Endocrinology - [address] [phone] Ivette Acuña MD Type 2 diabetes mellitus with microalbuminuria, with long-term current use of insulin (CMS/HCC) (Primary Dx) 08/09/2024 9:02 AM EST Anesthesia Event [facility] Endoscopy [address] [place] [phone] Rayo Michaels MD 08/09/2024 7:16 AM EST - 08/09/2024 11:59 PM EST Hospital Encounter [facility] Endoscopy [address] [place] [phone] Kristal Matthew MD Gomes, Sheldon B, MD Abnormal PET scan of colon Discharge Disposition: Home or Self Care 08/08/2024 2:30 PM EST Office Visit Adult Medicine [address] [phone] Marleny Quick PA Type 2 diabetes mellitus with microalbuminuria, with long-term current use of insulin (CMS/HCC) (Primary Dx); Primary hypertension; Small B-cell lymphoma of spleen (CMS/HCC); CAD of autologous bypass graft 07/31/2024 7:59 AM EST - 07/31/2024 11:59 PM EST Hospital Encounter [facility] Infusion Center [address] [facility] [address] [place] [phone] B-cell lymphoma of spleen, unspecified B-cell lymphoma type (CMS/HCC) (Primary Dx) Discharge Disposition: Home or Self Care 07/26/2024 Telephone Gastroenterology - [place] [facility] [address] [facility] [address] [place] [phone] Kristal Matthew MD Anticoagulation (Colonoscopy 08/09/24 Dr. Matthew) 07/25/2024 2:00 PM EST Office Visit [address] [phone] Ivette Acuña MD Type 2 diabetes mellitus with other specified complication, with long-term current use of insulin (CMS/HCC) (Primary Dx) 07/24/2024 8:00 AM EST - 07/24/2024 11:59 PM EST Hospital Encounter [facility] Infusion Center [address] [phone] B-cell lymphoma of spleen, unspecified B-cell lymphoma type (CMS/HCC) (Primary Dx) Discharge Disposition: Home or Self Care 07/21/2024 1:39 PM EDT Hospital Encounter [facility] CONVERSION ONLY Adrienne Huerta DO B-cell lymphoma of spleen, unspecified B-cell lymphoma type (CMS/HCC) (Primary Dx) 07/21/2024 Telephone Gastroenterology - [address] [facility] [address] [place] [phone] Kristal Matthew MD SPECIAL PROCEDURE 07/17/2024 7:59 AM EDT Hospital Encounter [facility] CONVERSION ONLY 07/10/2024 2:18 PM EDT - 07/20/2024 11:59 PM EDT Hospital Encounter [facility] Infusion Center [address] [place] [phone] Adrienne Huerta DO from Last 3 Months Immunizations Name Administration Dates Next Due Influenza trivalent, 0.5mL ( Fluzone High-dose) 65yo and older 06/25/2023,06/08/2022,06/11/2021,06/07,06/16/2019,06/07/2018,05/27/2017 ,07/10/2016 Pfizer (ages 12 & older) Biv alent, COVID-19 07/30/2022 Pfizer SARS-CoV-2 COVID-19, mRNA, LNP-S, preservative free 05/29/2021,10/28/2020,10/07/2020 Pneumococcal conjugate 13 va lent (Prevnar 13, PCV13) 2mo and older 07/05/2018 Pneumococcal polysaccharide 23 valent (Pneumovax 23) 2yo and older 07/17/2019 Td Tetanus diptheria (Tdvax) 7yo and older 04/28/2019 Tdap Tetanus diptheria acell ular pertussis (Boostrix; Adacel) 7yo and older 10/16/2015 Zoster recombinant (Shingrix ) 19yo and older 09/01/2022,07/07/2022 Surgical History Surgery Date Site/Laterality Comments HYSTERECTOMY PROCEDURE: HISTORICAL HYSTERECTOMY; COMMENT: 1 ovary remains BREAST BIOPSY Bilateral PROCEDURE: BX BREAST; PERC NEEDLE CORE W/IMAG GUID; COMMENT: b9 BREAST SURGERY Bilateral PROCEDURE: LA UNLISTED PROCEDURE BREAST; COMMENT: b9; 5 tumors on right, large one on left-adhered to chest wall-1986 ABDOMINAL SURGERY PROCEDURE: HISTORICAL ABDOMINAL SURGERY; COMMENT: stomach tumors COLONOSCOPY 05/26/2016 PROCEDURE: HISTORICAL COLONOSCOPY; COMMENT: no report; 03/14/2016-EGD/flex sig-gastritis; 03/27/2004 CORONARY ARTERY BYPASS GRAFT 05/21/2023 - 06/19/2023 EXPLORATORY LAPAROTOMY 09/20/2015 - 09/19/2016 Medical History Medical History Date Comments Atypical chest pain 12/22/2018 DX:Atypical chest pain; COMMENT: S/p myocardial perfusion wnl 2017 [place] [facility] [place] Hypertension 12/22/2018 DX:Hypertension Migraine 12/22/2018 DX:Migraine Asthma 12/22/2018 DX:Asthma Glaucoma 12/22/2018 DX:Glaucoma Hypercholesteremia 12/22/2018 DX:Hyperchole steremia Former tobacco use 12/22/2018 DX:Former tob acco use COPD (chronic obstructive pu lmonary disease) ([facility]) 01/26/2019 DX:COPD (chronic obstructive pulmonary disease) ([facility]) Colon polyp 01/26/2019 DX:Colon polyp History of abnormal mammogram 04/28/2019 DX :History of abnormal mammogram Diabetes, type 1.5, uncontro lled, managed as type 1 01/26/2019 DX:Diabetes, type 1.5, uncontrolled, managed as type 1 Microalbuminuria 07/18/2019 DX:Microalbumin uria Type 2 diabetes mellitus wit h renal manifestations ([facility]) 07/18/2019 DX:Type 2 diabetes mellitus with renal manifestations ([facility]) Osteoporosis 07/18/2019 DX:Osteoporosis GERD (gastroesophageal reflux disease) 9 DX:GERD (gastroesophageal reflux disease) Family history of celiac disease 01/13/2019 DX:Family history of celiac disease History of 2018 novel lopez virus disease (COVID-19) 01/2020 DX:History of 2018 novel coronavirus disease (COVID-19) Family History Medical History Relation Name Comments Diabetes Brother Prostate cancer Father Pancreatic cancer Mother Celiac disease Sister 1 CABG x4-twin Diabetes Sister 2 Relation Name Status Comments Brother Father Mother Sister 1 Sister 2 Social History Tobacco Use Types Packs/Day Years [...] file Not on file Not on file Obstetrics History Last Filed Vital Signs Vital Sign Reading Time Taken Comments Blood Pressure 171/50 09/26/2024 9:44 AM EST Pulse 63 09/26/2024 9:44 AM EST Temperature 37.1 ??C (98.7 ??F) 09/26/2024 9:44 AM ES T Respiratory Rate 18 09/25/2024 8:16 AM EST Oxygen Saturation 97% 09/26/2024 9:44 AM EST Inhaled Oxygen Concentration - - Weight 68.1 kg (150 lb 3.2 oz) 09/26/2024 9:44 A M EST Height 157.5 cm (5' 2 ) 09/26/2024 9:44 AM EST Body Mass Index 27.47 09/26/2024 9:44 AM EST Plan of Treatment Upcoming Encounters Date Type Department Care Team (Late st Contact Info) Description 10/12/2024 1:15 PM EST Office Visit Orthopedic Surgery - [address] [phone] Aron Barba DPM [address] [address] 10/16/2024 3:30 PM EST Office Visit Adult Medicine [address] [phone] Aleks Qiu MD [address] [place] [phone] 10/24/2024 11:15 AM EST Office Visit Endocrinology [address] [place] [phone] Ivette Acuña MD [address] [place] [phone] 11/20/2024 8:00 AM EST Appointment [facility] Infusion [facility] [address] [phone] 11/20/2024 8:45 AM EST Office Visit [facility] Hematology Oncology [address] [place] [phone] Adrienne Huerta, [address] [place] [address] Health Maintenance Due Date Last Done Comments RSV Immunization Patients 60+ Years Old (1 - 1-dose 75+ series) 2020 Depression Screening 08/29/2022 Medicare Annual Wellness Visit 08/29/2022 Social Influencers of Health Screening 08/29/2022 COVID-19 Vaccine ( season) 2024 07/08/2023, 07/30/2022, 05/29/2021, Additional history exists Diabetes: Annual Foot Exam 07/07/2024 07/07/2023 Diabetes: Annual Retina Eye Exam 08/17/2024 08/17/2023 Diabetes: Blood Sugar Control Test (HGBA1C) 11/27/2024 05/30/2024, 05/30/2024, 02/01/2024 Diabetes: Annual Urine Albumin-Creatinine Ratio (uACR) 05/30/2025 05/30/2024 Diabetes: Annual GFR (Glomerular Filtration Rate) 09/25/2025 09/25/2024, 07/31/2024, 07/24/2024, Additional history exists Falls Risk Assessment 09/25/2025 09/25/2024 Hypertension/CHF/CAD Annual BMP Blood Test 09/25/2025 09/25/2024, 07/31/2024, 07/24/2024, Additional history exists Cholesterol Screening (Lipid Panel) 12/05/2028 12/06/2023 DTaP,Tdap,and Td Vaccines (3 - Td or Tdap) 04/28/2029 04/28/2019, 10/16/2015 Osteoporosis Screening (Bone Density Screening) 02/25/2032 02/24/2022, 06/19/2019 Hepatitis C Screening Completed 01/17/2019 Pneumococcal Vaccine: 65+ Years Completed 07/17/2019, 07/05/2018 Zoster Vaccines Completed 09/01/2022, 07/07/2022 Influenza Vaccine Completed 05/30/2024, , 06/08/2022, Additional history exists HIB Vaccines Aged Out No longer eligi ble based on patient's age to complete this topic HPV Vaccines Aged Out No longer eligi ble based on patient's age to complete this topic Hepatitis A Vaccines Aged Out No long er eligible based on patient's age to complete this topic Hepatitis B Vaccines Aged Out No long er eligible based on patient's age to complete this topic IPV Vaccines Aged Out No longer eligi ble based on patient's age to complete this topic MMR Vaccines Aged Out No longer eligi ble based on patient's age to complete this topic Meningococcal ACWY Vaccine Aged Out N o longer eligible based on patient's age to complete this topic RSV Immunization Patients Under 20 months Aged Out No longer eligible based on patient's age to complete this topic Varicella Vaccines Aged Out No longer eligible based on patient's age to complete this topic Procedures Procedure Name Priority Date/Time Associated Diagnosis Comments COMPREHENSIVE METABOLIC PANEL Routine 09/25/2024 1:41 PM EST Small B-cell lymphoma of spleen (CMS/HCC) CBC WITH AUTO DIFFERENTIAL Routine 09/25/2024 9:22 AM EST Small B-cell lymphoma of spleen (CMS/HCC) CBC AND DIFFERENTIAL Routine 09/25/2024 9:22 AM EST Small B-cell lymphoma of spleen (CMS/HCC) CT CHEST/ABDOMEN/PELVIS WO CONTRAST Routine 09/19/2024 10:34 AM EST Small B-cell lymphoma of spleen (CMS/HCC) ILEOSCOPY Routine 08/09/2024 9:25 AM EST Abnormal PET scan of colon TISSUE EXAM Routine 08/09/2024 9:21 AM EST Abnormal PET scan of colon LACTATE DEHYDROGENASE Routine 07/31/2024 8:51 AM EST B-cell lymphoma of spleen, unspecified B-cell lymphoma type (CMS/HCC) COMPREHENSIVE METABOLIC PANEL Routine 07/31/2024 8:51 AM EST B-cell lymphoma of spleen, unspecified B-cell lymphoma type (CMS/HCC) CBC WITH AUTO DIFFERENTIAL Routine 07/31/2024 8:50 AM EST B-cell lymphoma of spleen, unspecified B-cell lymphoma type (CMS/HCC) CBC AND DIFFERENTIAL Routine 07/31/2024 8:50 AM EST B-cell lymphoma of spleen, unspecified B-cell lymphoma type (CMS/HCC) SST - GOLD Routine 07/24/2024 8:55 AM EST EXTRA TUBES Routine 07/24/2024 8:55 AM EST CBC WITH AUTO DIFFERENTIAL Routine 07/24/2024 8:55 AM EST B-cell lymphoma of spleen, unspecified B-cell lymphoma type (CMS/HCC) LACTATE DEHYDROGENASE Routine 07/24/2024 8:55 AM EST B-cell lymphoma of spleen, unspecified B-cell lymphoma type (CMS/HCC) COMPREHENSIVE METABOLIC PANEL Routine 07/24/2024 8:55 AM EST B-cell lymphoma of spleen, unspecified B-cell lymphoma type (CMS/HCC) CBC AND DIFFERENTIAL Routine 07/24/2024 8:55 AM EST B-cell lymphoma of spleen, unspecified B-cell lymphoma type (CMS/HCC) SST - GOLD Routine 07/24/2024 8:35 AM EST EXTRA TUBES Routine 07/24/2024 8:35 AM EST ..MISCELLANEOUS REFERENCE LAB TEST 07/21/2024 URINE ALBUMIN CREATININE RATIO Routine 05/30/2024 HEMOGLOBIN A1C Routine 05/30/2024 LIPID PANEL Routine 12/06/2023 DIABETES EYE EXAM Routine 08/17/2023 DIABETES FOOT EXAM Routine 07/07/2023 DXA BONE DENSITY STUDY 1+ SITS AXIAL SKEL Routine 02/24/2022 11:04 AM EDT Other specified disorders of bone density and structure, unspecified site HEPATITIS C SCREENING Routine 01/17/2019 from Last 3 Months or Most Recently Relevant to Health Maintenance Results * (ABNORMAL) Comprehensive metabolic panel (09/25/2024 1:41 PM EST) Only the most recent of3 resultswithin the time period is included. Sodium 137 133 - 145 mmol/L LAB CHEMISTRY METHOD 09/25/2024 4:15 PM [facility] Potassium 4.7 3.5 - 5.5 mmol/L LAB CHEMISTRY METHOD 09/25/2024 4:15 PM [facility] Chloride 110 96 - 110 mmol/L LAB CHEMISTRY METHOD 09/25/2024 4:15 PM [facility] CO2 25 21 - 32 mmol/L LAB CHEMISTRY METHOD 09/25/2024 4:15 PM [facility] Anion Gap 2(L) 3 - 11 LAB CHEMISTRY METHOD 09/25/2024 4:15 PM [facility] Glucose 225(H) 70 - 100 mg/dL LAB CHEMISTRY METHOD 09/25/2024 4:15 PM [facility] BUN 21 5 - 25 mg/dL LAB CHEMISTRY METHOD 09/25/2024 4:15 PM [facility] Creatinine 1.07 0.50 - 1.10 mg/dL LAB CHEMISTRY METHOD 09/25/2024 4:15 PM [facility] eGFR 53(L) >=60 mL/min/1. 73m2 LAB CHEMISTRY METHOD 09/25/2024 4:15 PM [facility] Comment:Calculation based on the??Chronic Kidney Disease Epidemiology Collaboration (CKD-EPI) equation refit??without adjustment for race. BUN/Creatinine Ratio 19.6 LAB CHEMISTRY METHOD 09/25/2024 4:15 PM [facility] Calcium 9.4 8.5 - 10.5 mg/dL LAB CHEMISTRY METHOD 09/25/2024 4:15 PM [facility] AST (SGOT) 17 10 - 42 unit/L LAB CHEMISTRY METHOD 09/25/2024 4:15 PM [facility] ALT (SGPT) 16 10 - 60 unit/L LAB CHEMISTRY METHOD 09/25/2024 4:15 PM [facility] Alkaline Phosphatase 88 42 - 121 unit/L LAB CHEMISTRY METHOD 09/25/2024 4:15 PM [facility] Total Protein 5.7(L) 6.0 - 8.0 g/dL LAB CHEMISTRY METHOD 09/25/2024 4:15 PM [facility] Albumin 3.3 3.2 - 5.0 g/dL LAB CHEMISTRY METHOD 09/25/2024 4:15 PM [facility] Total Bilirubin 0.3 0.0 - 1.4 mg/dL LAB CHEMISTRY METHOD 09/25/2024 4:15 PM [facility] Blood Venous blood specimen / Unknown Venipuncture / Unknown 09/25/2024 1:41 PM EST 09/25/2024 2:24 PM EST Adrienne Huerta DO LAB BLOOD ORD ERABLES [facility] [address] [place] [address], * (ABNORMAL) CBC auto differential (09/25/2024 9:22 AM EST) Only the most recent of3 resultswithin the time period is included. WBC 6.1 4.8 - 10.8 K/mcL LAB HEMETOLOGY METHOD 09/25/2024 9:36 AM [facility] RBC 4.50 3.80 - 4.80 M/mcL LAB HEMETOLOGY METHOD 09/25/2024 9:36 AM [facility] Hemoglobin 13.1 11.5 - 16.0 g/dL LAB HEMETOLOGY METHOD 09/25/2024 9:36 AM [facility] Hematocrit 41.1 35.0 - 47.0 % LAB HEMETOLOGY METHOD 09/25/2024 9:36 AM [facility] MCV 90.5 79.0 - 98.0 FL LAB HEMETOLOGY METHOD 09/25/2024 9:36 AM [facility] MCH 28.9 27.0 - 32.0 pcg LAB HEMETOLOGY METHOD 09/25/2024 9:36 AM [facility] MCHC 31.9(L) 32.0 - 37.0 g/dL LAB HEMETOLOGY METHOD 09/25/2024 9:36 AM [facility] RDW 16.7(H) 11.0 - 15.0 % LAB HEMETOLOGY METHOD 09/25/2024 9:36 AM [facility] Platelets 227 130 - 400 K/mcL LAB HEMETOLOGY METHOD 09/25/2024 9:36 AM [facility] MPV 12.3(H) 7.0 - 11.0 FL LAB HEMETOLOGY METHOD 09/25/2024 9:36 AM [facility] NRBC 0.0 <1.0 % LAB HEMETOLOGY METHOD 09/25/2024 9:36 AM [facility] NRBC Absolute 0.00 <0.10 K/mcL LAB HEMETOLOGY METHOD 09/25/2024 9:36 AM [facility] Neutrophils Relative 62.2 % LAB HEMETOLOGY METHOD 09/25/2024 9:36 AM [facility] Lymphocytes Relative 20.3 % LAB HEMETOLOGY METHOD 09/25/2024 9:36 AM [facility] Monocytes Relative 12.4 % LAB HEMETOLOGY METHOD 09/25/2024 9:36 AM [facility] Eosinophils Relative 3.3 % LAB HEMETOLOGY METHOD 09/25/2024 9:36 AM [facility] Basophils Relative 1.5 % LAB HEMETOLOGY METHOD 09/25/2024 9:36 AM [facility] Immature Granulocytes Relative 0.3 % LAB HEMETOLOGY METHOD 09/25/2024 9:36 AM [facility] Neutrophils Absolute 3.77 1.50 - 7.00 K/mcL LAB HEMETOLOGY METHOD 09/25/2024 9:36 AM [facility] Lymphocytes Absolute 1.23 1.00 - 5.00 K/mcL LAB HEMETOLOGY METHOD 09/25/2024 9:36 AM [facility] Monocytes Absolute 0.75 0.20 - 1.00 K/mcL LAB HEMETOLOGY METHOD 09/25/2024 9:36 AM [facility] Eosinophils Absolute 0.20 0.00 - 0.50 K/mcL LAB HEMETOLOGY METHOD 09/25/2024 9:36 AM [facility] Basophils Absolute 0.09 0.00 - 0.20 K/mcL LAB HEMETOLOGY METHOD 09/25/2024 9:36 AM [facility] Immature Granulocytes Absolute 0.02 0.00 - 0.03 K/mcL LAB HEMETOLOGY METHOD 09/25/2024 9:36 AM EST [facility] Blood Venous blood specimen / Unknown Venipuncture / Unknown 09/25/2024 9:22 AM EST 09/25/2024 9:27 AM EST Adrienne Zuñigauliffe DO LAB BLOOD ORD ERABLES [facility] [address] [place] [address], * CT Chest/Abdomen/Pelvis wo Contrast (09/19/2024 10:34 AM EST) Anatomical Region Laterality Modality Body Computed Tomogra phy 09/22/2024 10:3 1 AM EST Impressions 09/22/2024 10:52 AM EST No etiology for acute left-sided pain demonstrated. Interval decrease in size of spleen when compared to March 2024. No measurable adenopathy ?? -------- FINAL REPORT -------- Dictated By: Sonu Plasencia Dictated Date: 09/22/2024 10:31 ET Assigned Physician: Sonu Plasencia Reviewed and Electronically Signed By: Sonu Plasencia Signed Date: 09/22/2024 10:52 ET Workstation ID: [id number] Transcribed By: Self Edit Transcribed Date: 09/22/2024 10:31 ET Narrative 09/22/2024 10:52 AM EST EXAMINATION: CT CHEST, ABDOMEN and PELVIS WITHOUT CONTRAST CLINICAL INFORMATION: Small B-cell lymphoma of spleen. ??Worsening left-sided pain. Previous IV contrast reaction COMPARISON: Portions of a previous CT performed elsewhere 03/28/2024 ?? TECHNIQUE: Multidetector CT. Examination of the chest, abdomen and pelvis. Examination of the chest, abdomen and pelvis without IV contrast. Reformatting in the coronal and sagittal planes. DLP: 633 mGy-cm Dose optimization was performed including the use of low-dose iterative reconstruction technique with automatic exposure control based on patient size. Type of contrast: None Volume of IV contrast: 0 mL Volume of contrast discarded: 0 mL FINDINGS: There is mild motion artifact which [...] few scattered reticular and polygonal peripheral opacities. ?? MEDIASTINUM: ??There are no enlarged mediastinal or hilar lymph nodes. No suspicious abnormality of the esophagus CARDIAC: The heart is not enlarged. No pericardial fluid or thickening ?? CORONARY CALCIFICATION: Previous coronary artery bypass grafting. VASCULAR: There is no thoracic aortic aneurysm. The main pulmonary artery is normal caliber ?? PLEURAL: There is no pleural fluid or pneumothorax ?? AXILLA/CHEST WALL: There are no enlarged axillary lymph nodes. No chest wall mass demonstrated ?? LIVER: The right lobe of the liver measures 16.4 cm. This is close to the mean expected. The liver contour is smooth. No suspicious focal liver lesion. ?? BILIARY TRACT: ??No opaque gallstone. No biliary dilation. SPLEEN: The spleen measures 9.9 cm which is close to the mean expected. On 03/28/2024 the spleen measures 17.8 cm. There is no focal abnormality within the spleen. Specifically there is no perisplenic fluid or evidence of any wedge-shaped infarct. ?? PANCREAS: No suspicious mass. No surrounding fluid. ?? ADRENAL GLANDS: No suspicious abnormality. ?? KIDNEYS: There is no dilation of the intrarenal collecting system on either side. There is a coarse calcification exophytic from the medial upper right kidney which is unchanged. There is a fat attenuating 1.2 cm mass in the lateral upper left kidney which is unchanged and most consistent with angiomyolipoma. ?? GASTROINTESTINAL TRACT: There is no localized colonic wall thickening or localized pericolonic fat stranding. There are some colonic diverticula. There is no CT evidence of acute appendicitis. The stomach is not well distended or evaluated. There is no disproportionate small bowel dilation. ?? URINARY BLADDER: ??No focal abnormality. PELVIC VISCERA: ??The uterus is not definitely identified. This may be surgically absent. There is no suspicious adnexal mass or collection. ABDOMINAL WALL: No significant hernia is appreciated. ?? Nonspecific soft tissue stranding in the subcutaneous tissues of the lower quadrant on each side. This may be iatrogenic. LYMPHOVASCULAR STRUCTURES AND FLUID: There are no measurably enlarged lymph nodes. There is no free intraperitoneal fluid. ?? MUSCULOSKELETAL: No acute or suspicious osseous abnormality. Procedure Note Sonu Plasencia MD - 09/22/2024 EXAMINATION: CT CHEST, ABDOMEN and PELVIS WITHOUT CONTRAST CLINICAL INFORMATION: Small B-cell lymphoma of spleen. Worsening left-sided pain. Previous IV contrast reaction COMPARISON: Portions of a previous CT performed elsewhere 03/28/2024 TECHNIQUE: Multidetector CT. Examination of the chest, abdomen and pelvis. Examination of the chest, abdomen and pelvis without IV contrast. Reformatting in the coronal and sagittal planes. DLP: 633 mGy-cm Dose optimization was performed including the use of low-dose iterativereconstruction technique with automatic exposure control based on patientsize. Type of contrast: None Volume of IV contrast: 0 mL Volume of contrast discarded: 0 mL FINDINGS: There is mild motion artifact which limits lung detail. LUNG: No abnormality of the trachea or mainstem bronchi. There is no new suspicious pulmonary mass or nodule. There are stable scattered micronodules all of which measure less than 0.5cm in greatest dimension. There is no generalized thickening of the interlobular septa. Nosignificant fibrosis. There are a few scattered reticular and polygonalperipheral opacities. MEDIASTINUM: There are no enlarged mediastinal or hilar lymph nodes. Nosuspicious abnormality of the esophagus CARDIAC: The heart is not enlarged. No pericardial fluid or thickening CORONARY CALCIFICATION: Previous coronary artery bypass grafting. VASCULAR: There is no thoracic aortic aneurysm. The main pulmonary arteryis normal caliber PLEURAL: There is no pleural fluid or pneumothorax AXILLA/CHEST WALL: There are no enlarged axillary lymph nodes. No chestwall mass demonstrated LIVER: The right lobe of the liver measures 16.4 cm. This is close to themean expected. The liver contour is smooth. No suspicious focal liverlesion. BILIARY TRACT: No opaque gallstone. No biliary dilation. SPLEEN: The spleen measures 9.9 cm which is close to the mean expected. On03/28/2024 the spleen measures 17.8 cm. There is no focal abnormalitywithin the spleen. Specifically there is no perisplenic fluid or evidenceof any wedge-shaped infarct. PANCREAS: No suspicious mass. No surrounding fluid. ADRENAL GLANDS: No suspicious abnormality. KIDNEYS: There is no dilation of the intrarenal collecting system oneither side. There is a coarse calcification exophytic from the medialupper right kidney which is unchanged. There is a fat attenuating 1.2 cmmass in the lateral upper left kidney which is unchanged and mostconsistent with angiomyolipoma. GASTROINTESTINAL TRACT: There is no localized colonic wall thickening orlocalized pericolonic fat stranding. There are some colonic diverticula.There is no CT evidence of acute appendicitis. The stomach is not welldistended or evaluated. There is no disproportionate small bowel dilation. URINARY BLADDER: No focal abnormality. PELVIC VISCERA: The uterus is not definitely identified. This may besurgically absent. There is no suspicious adnexal mass or collection. ABDOMINAL WALL: No significant hernia is appreciated. Nonspecific soft tissue stranding in the subcutaneous tissues of the lowerquadrant on each side. This may be iatrogenic. LYMPHOVASCULAR STRUCTURES AND FLUID: There are no measurably enlargedlymph nodes. There is no free intraperitoneal fluid. MUSCULOSKELETAL: No acute or suspicious osseous abnormality. IMPRESSION: No etiology for acute left-sided pain demonstrated. Interval decrease in size of spleen when compared to March 2024. No measurable adenopathy -------- FINAL REPORT -------- Dictated By: Sonu Plasencia Dictated Date: 09/22/2024 10:31 ET Assigned Physician: Sonu Plasencia Reviewed and Electronically Signed By: Sonu Plasencia Signed Date: 09/22/2024 10:52 ET Workstation ID: [id number] Transcribed By: Self Edit Transcribed Date: 09/22/2024 10:31 ET Adrienne Huerta DO IMG CT PROCED URES * Ileoscopy (08/09/2024 9:25 AM EST) Anatomical Region Laterality Modality Endoscopy 08/09/2024 9:04 AM EST Impressions 08/09/2024 9:27 AM EST - Preparation of the colon was poor. ? - Erythematous mucosa in the terminal ileum. Biopsied. ? - Diverticulosis in the entire examined colon. Recommendation: ?- Discharge patient to home. ? - Await pathology results. ? - Return to referring physician. Narrative 08/09/2024 9:27 AM EST [facility] Patient Name: Magdalena Felix Procedure Date: 08/09/2024 9:04 AM Date of : 1945 Age: 78 Gender: Female Note Status: Finalized Attending MD: Kristal Matthew MD, Procedure Date No Time: 08/09/2024 Procedure: ? Colonoscopy Indications: ? Abnormal PET scan of the GI tract Providers: ? Kristal Matthew MD Referring MD: ?Kristal Matthew MD Medicines: ? Monitored Anesthesia Care Complications: ? No immediate complications. Estimated Blood Loss: ? Estimated blood loss was minimal. Procedure: ? Pre-Anesthesia Assessment: ? - Prior to the procedure, a History and Physical was ? performed, and patient medications and allergies were ? reviewed. The patient is competent. The risks and ? benefits of the procedure and the sedation options and ? risks were discussed with the patient. All questions ? were answered and informed consent was obtained. ? Patient identification and proposed procedure were ? verified by the physician, the nurse, the cornetist ? and the deburring technician in the pre-procedure area in the ? endoscopy suite. Mental Status Examination: alert and ? oriented. Airway Examination: normal oropharyngeal ? airway and neck mobility. Respiratory Examination: ? clear to auscultation. CV Examination: normal. ? Prophylactic Antibiotics: The patient does not require ? prophylactic antibiotics. Prior Anticoagulants: The ? patient has taken no anticoagulant or antiplatelet ? agents. ASA Grade Assessment: III - A patient with ? severe systemic disease. After reviewing the risks and ? benefits, the patient was deemed in satisfactory ? condition to undergo the procedure. The anesthesia ? plan was to use monitored anesthesia care (MAC). ? Immediately prior to administration of medications, ? the patient was re-assessed for adequacy to receive ? sedatives. The heart rate, respiratory rate, oxygen ? saturations, blood pressure, adequacy of pulmonary ? ventilation, and response to care were monitored ? throughout the procedure. The physical status of the ? patient was re-assessed after the procedure. ? After I obtained informed consent, the scope was ? passed under direct vision. Throughout the procedure, ? the patient's blood pressure, pulse, and oxygen ? saturations were monitored continuously.The Olympus ? Colonoscope was introduced through the anus and ? advanced to 20 cm into the ileum. The colonoscopy was ? performed without difficulty. The patient tolerated ? the procedure well. The quality of the bowel ? preparation was poor. Findings: ?The perianal and digital rectal examinations were ? normal. ? A localized area of mucosa in the terminal ileum was ? mildly erythematous. Biopsies were taken with a cold ? forceps for histology. Estimated blood loss was ? minimal. ? Multiple small and large-mouthed diverticula were ? found in the entire colon. Procedure Code(s): ? --- Professional --- ? 48770, Colonoscopy, flexible; with biopsy, single or ? multiple Diagnosis Code(s): ? --- Professional --- ? K63.89, Other specified diseases of intestine ? R93.3, Abnormal findings on diagnostic imaging of ? other parts of digestive tract CPT copyright 2020 [employer]. All rights reserved. The codes documented in this report are preliminary and upon finance intern review may be revised to meet current compliance requirements. Kristal Matthew MD 08/09/2024 9:27:25 AM This report has been signed electronically.Kristal Matthew MD Number of Addenda: 0 Note Initiated On: 08/09/2024 9:04 AM Scope Withdrawal Time: 0 hours 5 minutes 36 seconds Scope In: 9:09:55 AM Scope Out: 9:24:22 AM ? Endoscopy Department at [facility] - [address] [place] [address], ? [place] [address] Procedure Note Kristal Matthew MD - 08/09/2024 [facility] Patient Name: Magdalena Felix Procedure Date: 08/09/2024 9:04 AM Date of : 1945 Age: 78 Gender: Female Note Status: Finalized Attending MD: Kristal Matthew MD, Procedure Date No Time: 08/09/2024 Procedure: Colonoscopy Indications: Abnormal PET scan of the GI tract Providers: Kristal Matthew MD Referring MD: Kristal Matthew MD Medicines: Monitored Anesthesia Care Complications: No immediate complications. Estimated Blood Loss: Estimated blood loss was minimal. Procedure: Pre-Anesthesia Assessment: - Prior to the procedure, a History and Physicalwas performed, and patient medications and allergieswere reviewed. The patient is competent. The risks and benefits of the procedure and the sedation optionsand risks were discussed with the patient. Allquestions were answered and informed consent was obtained. Patient identification and proposed procedure were verified by the physician, the nurse, theanesthetist and the deburring technician in the pre-procedure area in the endoscopy suite. Mental Status Examination: alertand oriented. Airway Examination: normal oropharyngeal airway and neck mobility. Respiratory Examination: clear to auscultation. CV Examination: normal. Prophylactic Antibiotics: The patient does notrequire prophylactic antibiotics. Prior Anticoagulants: The patient has taken no anticoagulant or antiplatelet agents. ASA Grade Assessment: III - A patient with severe systemic disease. After reviewing the risksand benefits, the patient was deemed in satisfactory condition to undergo the procedure. The anesthesia plan was to use monitored anesthesia care (MAC). Immediately prior to administration of medications, the patient was re-assessed for adequacy to receive sedatives. The heart rate, respiratory rate, oxygen saturations, blood pressure, adequacy of pulmonary ventilation, and response to care were monitored throughout the procedure. The physical status ofthe patient was re-assessed after the procedure. After I obtained informed consent, the scope was passed under direct vision. Throughout theprocedure, the patient's blood pressure, pulse, and oxygen saturations were monitored continuously.The Olympus Colonoscope was introduced through the anus and advanced to 20 cm into the ileum. The colonoscopywas performed without difficulty. The patient tolerated the procedure well. The quality of the bowel preparation was poor. Findings: The perianal and digital rectal examinations were normal. A localized area of mucosa in the terminal ileumwas mildly erythematous. Biopsies were taken with acold forceps for histology. Estimated blood loss was minimal. Multiple small and large-mouthed diverticula were found in the entire colon. Procedure Code(s): --- Professional --- 49619, Colonoscopy, flexible; with biopsy, singleor multiple Diagnosis Code(s): --- Professional --- K63.89, Other specified diseases of intestine R93.3, Abnormal findings on diagnostic imaging of other parts of digestive tract CPT copyright 2020 [employer]. All rights reserved. The codes documented in this report are preliminary and upon finance intern reviewmay be revised to meet current compliance requirements. Kristal Matthew MD 08/09/2024 9:27:25 AM This report has been signed electronically.Kristal Matthew MD Number of Addenda: 0 Note Initiated On: 08/09/2024 9:04 AM Scope Withdrawal Time: 0 hours 5 minutes 36 seconds Scope In: 9:09:55 AM Scope Out: 9:24:22 AM Endoscopy Department at [address] [id number] IMPRESSION: - Preparation of the colon was poor. - Erythematous mucosa in the terminal ileum.Biopsied. - Diverticulosis in the entire examined colon. Recommendation: - Discharge patient to home. - Await pathology results. - Return to referring physician. Kristal Matthew MD GI~PROCEDURE ORDERA BLES * Tissue exam (08/09/2024 9:21 AM EST) Final Diagnosis A. Small Intestine, Ileum, biopsies: - Ileal mucosa with congestion. - Negative for acute inflammation and granuloma. 08/10/2024 9:36 AM EST [facility]) HOSPITAL LAB Gross Description A. Small Intestine, Ileum, biopsies: Labeled biopsies ileum . Received in formalin are two soft, pittman to pink tissue fragments measuring 0.25 cm and 0.55 cm in greatest diameter, which are wrapped in paper and submitted in toto in one cassette, two pieces, multiple levels. TS 08/10/2024 9:36 AM EST [facility] Disclaimer Unless otherwise specified, all tissue is 10% NB formalin fixed and paraffin embedded. 08/10/2024 9:36 AM EST [facility] Tissue Ileal structure / Unknown 08/09/2024 9:21 AM EST 08/09/2024 11:00 AM EST Kristal Matthew MD LAB PATHOLOGY ORDER RK Performing Organization Address [facility]/ZIP Co de Phone Number [facility] [address] [place] [address], [place] [phone] * (ABNORMAL) Lactate dehydrogenase (07/31/2024 8:51 AM EST) Only the most recent of2 resultswithin the time period is included. LDH 427(H) 120 - 246 unit/L LAB CHEMISTRY METHOD 07/31/2024 11:33 AM [facility] Blood Venous blood specimen / Unknown Venipuncture / Unknown 07/31/2024 8:51 AM EST 07/31/2024 9:37 AM EST Adrienne Huerta DO LAB BLOOD ORD ERABLES [facility] [address] [place] [address], [place] [phone] * SST tube (07/24/2024 8:55 AM EST) Only the most recent of2 resultswithin the time period is included. Extra Tube Hold for add-ons. 07/24/2024 11:01 AM EST [facility] Comment:Auto resulted. Blood Venous blood specimen / Unknown 07/24/2024 8:55 AM EST 07/24/2024 9:48 AM EST Adrienne Huerta DO LAB BLOOD ORD ERABLES [facility] [address] [place] [address], * Miscellaneous reference lab test (07/21/2024) Provider Onbase LAB BLOOD ORDERABLES * Urine Albumin Creatinine Ratio (05/30/2024) [facility] Urine Albumin Creatinine Ratio Abstracted Historical Provider MD RENA JAQUEZ E * (ABNORMAL) Hemoglobin A1c (05/30/2024) [facility] Hemoglobin A1C 8.4(A) 6.5 % Blood Venous blood specimen / Unknown Historical Provider LAB BLOOD ORDERAB LES * (ABNORMAL) Lipid panel (12/06/2023) [facility] LDL/HDL Ratio 4 4 Triglycerides 134 0 - 150 mg/dL Cholesterol 103 0 - 200 mg/dL HDL 27(A) 40 mg/dL LDL Cholesterol 50 0 - 100 mg/dL Blood Venous blood specimen / Unknown Historical Provider LAB BLOOD ORDERAB LES * Diabetes Eye Exam (08/17/2023) [facility] Diabetes: Annual Retina Eye Exam Abstracted Historical Provider MD RENA JAQUEZ E * Diabetes Foot Exam (07/07/2023) [facility] Diabetes: Annual Foot Exam Abstracted Historical Provider MD RENA JAQUEZ E * DXA BONE DENSITY STUDY 1+ SITS AXIAL SKEL (02/24/2022 11:04 AM EDT) Anatomical Region Laterality Modality Bone Densitometr y 12/17/2021 10:4 9 AM EDT Narrative 02/24/2022 3:31 PM EDT BONE DENSITY ? Lumbar Spine T-score is -1.2 ?? (SD relative to 20-29 y/o adult) Z-score is +1.3 ??(SD relative to age matched peers) This is consistent with osteopenia by criteria defined by the WHO. Left Hip T-score is -2.3 Z-score is -0.2 This is consistent with osteopenia by criteria defined by the WHO. Comparison exam(s): no statistically significant change in the bone density of the hip when compared to most recent bone density examination ?? Confidence level is +/-95%. Impression: Based on the World Health Organization criteria, Magdalena Felix should be classified as having osteopenia. This patient has a 19% risk of major osteoporotic fracture and a 6.1% risk of hip fracture over the next 10 years. (World Health Organization Fracture Risk Assessment) [facility] Department of Internal Medicine recommends using National Osteoporosis Foundation (NOF) guidelines in treatment decisions related to osteoporosis. NOF guidelines suggest considering treatment for postmenopausal women and men aged 50 or older presenting with the following: History of hip or vertebral fracture. T-score less than or equal to -2.5 (DXA) at the femoral neck, total hip, or spine, after appropriate evaluation to exclude secondary causes. Low bone mass (T-score between -1.0 and -2.5 at the femoral neck or spine) AND a 10-year probability of a hip fracture greater than or equal to 3% OR a 10-year probability of a major osteoporosis-related fracture greater than or equal to 20% based on the [place]-adapted WHO algorithm Please note that all treatment decisions require clinical judgment and consideration of individual patient factors, including patient preferences, co-morbidities, previous drug use, risk factors not captured in the FRAX model (e.g., frailty, falls, vitamin D deficiency, increased bone turnover, interval significant decline in bone density) and possible under- or over-estimation of fracture risk by FRAX. Procedure Note Lavell Donovan MD - 09/08/2022 BONE DENSITY Lumbar Spine T-score is -1.2 (SD relative to 20-29 y/o adult) Z-score is +1.3 (SD relative to age matched peers) This is consistent with osteopenia by criteria defined by the WHO. Left Hip T-score is -2.3 Z-score is -0.2 This is consistent with osteopenia by criteria defined by the WHO. Comparison exam(s): no statistically significant change in the bonedensity of the hip when compared to most recent bone density examination Confidence level is +/-95%. Impression: Based on the World Health Organization criteria, Magdalena Felix should beclassified as having osteopenia. This patient has a 19% risk of majorosteoporotic fracture and a 6.1% risk of hip fracture over the next 10years. (World Health Organization Fracture Risk Assessment) [facility] Department of Internal Medicine recommendsusing National Osteoporosis Foundation (NOF) guidelines in treatmentdecisions related to osteoporosis. NOF guidelines suggest consideringtreatment for postmenopausal women and men aged 50 or older presentingwith the following: History of hip or vertebral fracture. T-score less than or equal to -2.5 (DXA) at the femoral neck, total hip,or spine, after appropriate evaluation to exclude secondary causes. Low bone mass (T-score between -1.0 and -2.5 at the femoral neck or spine)AND a 10-year probability of a hip fracture greater than or equal to 3% ORa 10-year probability of a major osteoporosis-related fracture greaterthan or equal to 20% based on the [place]-adapted WHO algorithm Please note that all treatment decisions require clinical judgment andconsideration of individual patient factors, including patientpreferences, co-morbidities, previous drug use, risk factors not capturedin the FRAX model (e.g., frailty, falls, vitamin D deficiency, increasedbone turnover, interval significant decline in bone density) and possibleunder- or over-estimation of fracture risk by FRAX. Fawn GUY Vinay DXA PROCEDURES * Hepatitis C Screening (01/17/2019) [facility] Hepatitis C Screening Abstracted Historical Provider MD RENA Lane from Last 3 Months or Most Recently Relevant to Health Maintenance Care Teams [employer] Relationship Specialty Start Date End Date Aleks Qiu MD [address] [place] [address] [place] PCP - General Internal Medicine 02/17/22
--- OUTSIDE RECORDS SUMMARY | 2024-10-11 12:32 | XMS_ITS | Encounter Summary ---
Author Organization [facility] Address [address] [place] [address] Care Team Providers Care Central Office Repairer Name Role Phone Aleks Qiu MD Primary Care Provider [phone]- [phone] Reason for Visit * Episode Based Medications (Routine) - Closed Specialty Diagnoses / Procedures Referred By Vishnu nagy Referred To Contact Diagnoses B-cell lymphoma of spleen, unspecified B-cell lymphoma type (CMS/HCC) Adrienne Huerta, DO [address] [place] [address] [facility] [address] [place] [phone] Referral ID Status Reason Start Date Expiration Date Visits Re quested Visits Authorized [id number] Closed 07/02/2024 07/02/2025 1 8 Encounter Details Date Type Department Care Team (Latest Contact Info) Description 09/25/2024 7:57 AM EST - 09/25/2024 11:59 PM EST Hospital Encounter [facility] [address] [address] B-cell lymphoma of spleen, unspecified B-cell lymphoma type (CMS/HCC) (Primary Dx); Small B-cell lymphoma of spleen (CMS/HCC) Discharge Disposition: Home or Self Care Social History Tobacco Use Types Packs/Day Years [...] Sign Reading Time Taken Comments Blood Pressure 144/57 09/25/2024 8:16 AM EST Pulse 62 09/25/2024 8:16 AM EST Temperature 36.4 ??C (97.5 ??F) 09/25/2024 8:16 AM ES T Respiratory Rate 18 09/25/2024 8:16 AM EST Oxygen Saturation 99% 09/25/2024 8:16 AM EST Inhaled Oxygen Concentration - - Weight 68 kg (150 lb) 09/25/2024 8:16 AM EST Height 157.5 cm (5' 2 ) 09/25/2024 8:16 AM EST Body Mass Index 27.44 09/25/2024 8:16 AM EST documented in this encounter Medications at Time of Discharge Medication Sig Dispensed Refills Start Date End Date acetaminophen (TYLENOL 8 HOUR) 650 mg 8 hr tablet Take 1 Tablet by mouth every 8 hours as needed for Pain. 04/03/2024 albuterol HFA (PROAIR HFA ; PROVENTIL HFA ; VENTOLIN HFA) 90 mcg/actuation inhaler Inhale 2 Puffs into the lungs every 4 hours as needed for Cough or Wheezing. 04/23/2023 ALPRAZolam (XANAX) 0.25 mg tablet 02/16/2024 aspirin 81 mg EC tablet Take 1 Tablet by mouth daily for 180 days. 04/23/2023 atorvastatin (LIPITOR) 80 mg tablet Take 1 Tablet by mouth daily for 90 days. 04/23/2023 blood-glucose meter kit To check blood sugar twice per day for diagnosis E11.65 09/05/2020 carbidopa-levodopa (SINEMET) 25-100 mg per tablet TAKE HALF TO 1 TABLET BY MOUTH TWICE DAILY. TAKE WITH A CRACKER 30 MINUTES BEFORE BREAKFAST AND DINNER 06/29/2024 clopidogreL (PLAVIX) 75 mg tablet Take 1 tablet (75 mg total) by mouth 1 (one) time each day. 08/08/2024 cyanocobalamin (VITAMIN B-12) 1,000 mcg tablet Route: Take 1 Tablet by mouth daily. - Oral 06/09/2024 dorzolamide-timolo L (COSOPT) 22.3-6.8 mg/mL ophthalmic solution 1 Drop. fenofibrate (LOFIBRA) 54 mg tablet TAKE 1 TABLET BY MOUTH DAILY 90 tablet 09/19/2024 flash glucose scanning reader (FreeStyle Td 2 [place]) misc 1 Device by Does not apply route continuous. 02/17/2022 flash glucose sensor (FreeStyle Td 2 Sensor) kit Inject 1 EA into the skin every 14 (fourteen) days. 6 each 1 09/27/2024 fluticasone-salmet dilcia (ADVAIR DISKUS) 250-50 mcg/dose diskus inhaler Inhale 1 Puff into the lungs daily. 04/23/2023 furosemide (LASIX) 20 mg tablet Take 1 Tablet by mouth daily. 06/25/2023 gabapentin (NEURONTIN) 100 mg capsule Take 1 capsule (100 mg total) by mouth 3 (three) times a day. 90 each 2 08/28/2024 11/26/2024 insulin glargine (LANTUS) 100 unit/mL injection Administer 29 units under the skin in the morning and 29 units in the evening. 10 mL 09/27/2024 insulin lispro (HumaLOG U-100 Insulin) 100 unit/mL injection -Administer within 15 minutes of a meal 10 mL 09/12/2024 insulin lispro (HumaLOG U-100 Insulin) 100 unit/mL injection ADMINISTER 10 UNITS SUBCUTANEOUS BEFORE BREAKFAST AND 5 UNITS BEFORE LUNCH AND 7 TO 8 UNITS BEFORE DINNER DIRECTEDADMINISTER 10 UNITS SUBCUTANEOUS BEFORE BREAKFAST AND 5 UNITS BEFORE LUNCH AND 7 TO 8 UNITS BEFORE DINNER DIRECTED 10 mL 09/27/2024 losartan (COZAAR) 100 mg tablet Take 1 tablet (100 mg total) by mouth 1 (one) time each day. losartan (COZAAR) 25 mg tablet TAKE 1 TABLET BY MOUTH DAILY 90 tablet 09/19/2024 magnesium oxide (MAG-OX) 400 mg magnesium tablet Route: Take 1 Tablet by mouth daily. - Oral 06/09/2024 metoprolol tartrate (LOPRESSOR) 100 mg tablet TAKE 1 TABLET BY MOUTH TWICE DAILY 03/14/2024 ondansetron (ZOFRAN) 4 mg tablet Take 1 Tablet by mouth every 8 hours as needed for Nausea. 11/30/2023 pantoprazole (PROTONIX) 40 mg EC tablet TAKE 1 TABLET BY MOUTH DAILY 90 tablet 09/19/2024 flash glucose sensor (FreeStyle Td 2 Sensor) kit Place 1 Applicator onto the skin every 14 days. USE DIRECTED 04/06/2024 09/27/2024 insulin glargine (LANTUS) 100 unit/mL injection Administer 29 units under the skin in the morning and 29 units in the evening. 10 mL 08/31/2024 09/26/2024 insulin lispro (HumaLOG U-100 Insulin) 100 unit/mL injection ADMINISTER 10 UNITS SUBCUTANEOUS BEFORE BREAKFAST AND 5 UNITS BEFORE LUNCH AND 7 TO 8 UNITS BEFORE DINNER DIRECTED 10 mL 09/12/2024 09/26/2024 documented as of this encounter Discharge Disposition Disposition Code Departure Means Destination Home or Self Care documented in this encounter Progress Notes * Debra Young RN - 09/25/2024 8:00 AM EST Pt arrives for ruxience infusion with her daughter at chair side. Pt assessed on arrival and reports feeling fatigued but is continuing to do her activities- I just have to rest more often . Pt reports feeling pleased after talking with Dr Huerta on the phone about her recent scan - pt has scheduled visit tomorrow am with . Vitals stable. IV inserted , labs drawn . Pt tolerated well. Pre m eds given as ordered. Call faye in reach . Ruxience hung in 4 steps starting at 100 mg and will increase every 30 minutes to a max of 400 mg -as pt tolerates. Possible side effects reviewed with pt- pt verbalized understanding. Pt tolerated infusion without issue. Pt denies c/o pain. Iv flushed and removed. Pt voided easily duing infusion and at completion. Pt discharged with daughter - follow up appointment reminders givenfor 2 months. Pt discharged with steady gait. documented in this encounter Plan of Treatment Upcoming Encounters Date Type Department Care Team (Late st Contact Info) Description 10/12/2024 1:15 PM EST Office Visit Orthopedic Surgery - [place] [address] [phone] Aron Barba, DPGalen [address] [address] 10/16/2024 3:30 PM EST Office Visit Adult Medicine [address] [phone] Aleks Qiu MD [address] [place] [address] 10/24/2024 11:15 AM EST Office Visit [address] [phone] Ivette Acuña MD [address] [place] [phone] 11/20/2024 8:[address] [facility] [address] [place] [phone] 11/20/2024 8:45 AM EST Office Visit [facility] Hematology Oncology [address] [place] [phone] Adrienne Huerta DO [address] [place] [address] documented as of this encounter Procedures Procedure Name Priority Date/Time Associated Diagnosis Comments COMPREHENSIVE METABOLIC PANEL Routine 09/25/2024 1:41 PM EST Small B-cell lymphoma of spleen (CMS/HCC) CBC WITH AUTO DIFFERENTIAL Routine 09/25/2024 9:22 AM EST Small B-cell lymphoma of spleen (CMS/HCC) CBC AND DIFFERENTIAL Routine 09/25/2024 9:22 AM EST Small B-cell lymphoma of spleen (CMS/HCC) documented in this encounter Results * (ABNORMAL) Comprehensive metabolic panel (09/25/2024 1:41 PM EST) [facility] Sodium 137 133 - 145 mmol/L LAB CHEMISTRY METHOD 09/25/2024 4:15 PM [facility] Potassium 4.7 3.5 - 5.5 mmol/L LAB CHEMISTRY METHOD 09/25/2024 4:15 PM [facility] Chloride 110 96 - 110 mmol/L LAB CHEMISTRY METHOD 09/25/2024 4:15 PM [facility] CO2 25 21 - 32 mmol/L LAB CHEMISTRY METHOD 09/25/2024 4:15 PM [facility] Anion Gap 2(L) 3 - 11 LAB CHEMISTRY METHOD 09/25/2024 4:15 PM [facility] Glucose 225(H) 70 - 100 mg/dL LAB CHEMISTRY METHOD 09/25/2024 4:15 PM [facility] BUN 21 5 - 25 mg/dL LAB CHEMISTRY METHOD 09/25/2024 4:15 PM [facility] Creatinine 1.07 0.50 - 1.10 mg/dL LAB CHEMISTRY METHOD 09/25/2024 4:15 PM [facility] eGFR 53(L) >=60 mL/min/1. 73m2 LAB CHEMISTRY METHOD 09/25/2024 4:15 PM [facility] Comment:Calculation based on the??Chronic Kidney Disease Epidemiology Collaboration (CKD-EPI) equation refit??without adjustment for race. BUN/Creatinine Ratio 19.6 LAB CHEMISTRY METHOD 09/25/2024 4:15 PM [facility] Calcium 9.4 8.5 - 10.5 mg/dL LAB CHEMISTRY METHOD 09/25/2024 4:15 PM [facility] AST (SGOT) 17 10 - 42 unit/L LAB CHEMISTRY METHOD 09/25/2024 4:15 PM [facility] ALT (SGPT) 16 10 - 60 unit/L LAB CHEMISTRY METHOD 09/25/2024 4:15 PM [facility] Alkaline Phosphatase 88 42 - 121 unit/L LAB CHEMISTRY METHOD 09/25/2024 4:15 PM [facility] Total Protein 5.7(L) 6.0 - 8.0 g/dL LAB CHEMISTRY METHOD 09/25/2024 4:15 PM [facility] Albumin 3.3 3.2 - 5.0 g/dL LAB CHEMISTRY METHOD 09/25/2024 4:15 PM [facility] Total Bilirubin 0.3 0.0 - 1.4 mg/dL LAB CHEMISTRY METHOD 09/25/2024 4:15 PM [facility] Blood Venous blood specimen / Unknown Venipuncture / Unknown 09/25/2024 1:41 PM EST 09/25/2024 2:24 PM EST Adrienne Huerta DO LAB BLOOD ORD ERABLES [facility] [address] [place] [address], * (ABNORMAL) CBC auto differential (09/25/2024 9:22 AM EST) WBC 6.1 4.8 - 10.8 K/mcL LAB HEMETOLOGY METHOD 09/25/2024 9:36 AM [facility] RBC 4.50 3.80 - 4.80 M/mcL LAB HEMETOLOGY METHOD 09/25/2024 9:36 AM [facility] Hemoglobin 13.1 11.5 - 16.0 g/dL LAB HEMETOLOGY METHOD 09/25/2024 9:36 AM [facility] Hematocrit 41.1 35.0 - 47.0 % LAB HEMETOLOGY METHOD 09/25/2024 9:36 AM [facility] MCV 90.5 79.0 - 98.0 FL LAB HEMETOLOGY METHOD 09/25/2024 9:36 AM [facility] MCH 28.9 27.0 - 32.0 pcg LAB HEMETOLOGY METHOD 09/25/2024 9:36 AM [facility] MCHC 31.9(L) 32.0 - 37.0 g/dL LAB HEMETOLOGY METHOD 09/25/2024 9:36 AM [facility] RDW 16.7(H) 11.0 - 15.0 % LAB HEMETOLOGY METHOD 09/25/2024 9:36 AM [facility] Platelets 227 130 - 400 K/mcL LAB HEMETOLOGY METHOD 09/25/2024 9:36 AM [facility] MPV 12.3(H) 7.0 - 11.0 FL LAB HEMETOLOGY METHOD 09/25/2024 9:36 AM [facility] NRBC 0.0 <1.0 % LAB HEMETOLOGY METHOD 09/25/2024 9:36 AM [facility] NRBC Absolute 0.00 <0.10 K/mcL LAB HEMETOLOGY METHOD 09/25/2024 9:36 AM [facility] Neutrophils Relative 62.2 % LAB HEMETOLOGY METHOD 09/25/2024 9:36 AM [facility] Lymphocytes Relative 20.3 % LAB HEMETOLOGY METHOD 09/25/2024 9:36 AM [facility] Monocytes Relative 12.4 % LAB HEMETOLOGY METHOD 09/25/2024 9:36 AM [facility] Eosinophils Relative 3.3 % LAB HEMETOLOGY METHOD 09/25/2024 9:36 AM [facility] Basophils Relative 1.5 % LAB HEMETOLOGY METHOD 09/25/2024 9:36 AM [facility] Immature Granulocytes Relative 0.3 % LAB HEMETOLOGY METHOD 09/25/2024 9:36 AM [facility] Neutrophils Absolute 3.77 1.50 - 7.00 K/mcL LAB HEMETOLOGY METHOD 09/25/2024 9:36 AM EST [facility] Lymphocytes Absolute 1.23 1.00 - 5.00 K/mcL LAB HEMETOLOGY METHOD 09/25/2024 9:36 AM EST [facility] Monocytes Absolute 0.75 0.20 - 1.00 K/[facility] LAB HEMETOLOGY METHOD 09/25/2024 9:36 AM EST [facility] Eosinophils Absolute 0.20 0.00 - 0.50 K/[facility] LAB HEMETOLOGY METHOD 09/25/2024 9:36 AM EST [facility] Basophils Absolute 0.09 0.00 - 0.20 K/[facility] LAB HEMETOLOGY METHOD 09/25/2024 9:36 AM EST [facility] Immature Granulocytes Absolute 0.02 0.00 - 0.03 K/[facility] LAB HEMETOLOGY METHOD 09/25/2024 9:36 AM EST [facility] Blood Venous blood specimen / Unknown Venipuncture / Unknown 09/25/2024 9:22 AM EST 09/25/2024 9:27 AM EST Adrienne Huerta DO LAB BLOOD ORD ERABLES [facility] [address] [place] [address], documented in this encounter Visit Diagnoses Diagnosis B-cell lymphoma of spleen, unspecified B-cell lymphoma type (CMS/HCC)- Primary documented in this encounter Administered Medications Inactive Administered Medications - up to 3 most recent administrations Medication Order MAR Action Action Date Dose Rate Site acetaminophen (TYLENOL) tablet 650 mg 650 mg, oral, Once, On Wed09/25/24 at 0930, For 1 dose Given 09/25/2024 9:32 AM EST 650 mg dexAMETHasone (DECADRON) injection 4 mg 4 mg, intravenous, Once, On Wed09/25/24 at 0930, For 1 dose Given 09/25/2024 9:38 AM EST 4 mg diphenhydrAMINE (BENADRYL) injection 25 mg 25 mg, intravenous, Once, On Wed09/25/24 at 0930, For 1 dose Given 09/25/2024 9:45 AM EST 25 mg famotidine (PF) (PEPCID) injection 20 mg 20 mg, intravenous, Administer over 2 Minutes, Once, On Wed09/25/24 at 0930, For 1 dose, IV Push over at least 2 minutes Given 09/25/2024 9:20 AM EST 20 mg ondansetron (PF) (ZOFRAN) injection 8 mg 8 mg, intravenous, Once, On Wed09/25/24 at 0930, For 1 dose Given 09/25/2024 9:35 AM EST 8 mg riTUXimab-pvvr (RUXIENCE) 600 mg in sodium chloride 310 mL IVPB 600 mg (rounded from 633.75 mg = 375 mg/m2 ? 1.69 m2), intravenous, Once, On Wed09/25/24 at 1000, For 1 dose, The recommended infusion rate for the first dose is 50 mg/hr, increased by 50 mg/hr every 30 minutes until a maximum infusion rate of 400 mg/hr is reached. The recommended infusion rate for subsequent doses is 100 mg/hr increased by 100 mg/hr every 30 minutes until a maximum infusion rate of 400 mg/hr is reached. Infusion rates are adjusted based on patient tolerance and may be decreased in the setting of infusion-related reactions. New Bag 09/25/2024 11:01 AM EST 600 mg 51.7 mL/hr sodium chloride 0.9 % flush 10 mL 10 mL, intravenous, As needed, line care, per institutional policy, Starting on Wed09/25/24 at 0905 Given 09/25/2024 9:20 AM EST 10 mL documented in this encounter Orders Medications Ordered That Jonathan ht Not Have Been Administered Count Last Ordered Date First Ordered Date riTUXimab-hyaluronidase (RIT UXAN HYCELA) 1400 mg/11.7 mL (120 mg/mL) injection 1,400 mg 1 09/25/2024 Nursing Count Last Ordered Date First Orde red Date NCCN PARAMETERS 1 09/25/2024 NCCN PARAMETERS - ANTIPNEUMO CYSTIS PROPHYLAXIS 1 09/25/2024 NCCN PARAMETERS - RISK OF CA NCER-RELATED INFECTIONS 1 09/25/2024 NCCN PARAMETERS - RISK OF TU MOR LYSIS SYNDROME 1 09/25/2024 NCCN PARAMETERS - RITUXIMAB (OR RITUXIMAB AND HYALURONIDASE HUMAN) 1 09/25/2024 NCCN PARAMETERS - VIRUS PROPHYLAXIS 1 09/25 ONC NURSING COMMUNICATION 2 09/25/2024 ONC NURSING COMMUNICATION 10 1 09/25/2024 ONC NURSING COMMUNICATION 12 1 09/25/2024 ONC NURSING COMMUNICATION 2 1 09/25/2024 ONC NURSING COMMUNICATION 3 1 09/25/2024 TREATMENT CONDITIONS 1 09/25/2024 documented in this encounter Care Teams Central Office Repairer Relationship Specialty Start Date End Date Aleks Qiu MD [address] [place] [address] PCP - General Internal Medicine 02/17/22 documented as of this encounter
--- OUTSIDE RECORDS SUMMARY | 2024-10-11 12:32 | XMS_ITS | Encounter Summary ---
Author Organization [facility] Address [address] [place] [address] Care Team Providers Care Hair Sample Matcher Name Role Phone Aleks Qiu MD Primary Care Provider [phone]- [phone] Encounter Details Date Type Department Care Team [...] PM EST Office Visit Orthopedic Surgery - [place] [address] [phone] Aron Barba, DPM [address] [address] 10/16/2024 3:30 PM EST Office Visit Adult Medicine [address] [phone] Aleks Qiu MD [address] [place] [address] 10/24/2024 11:15 AM EST Office Visit Endocrinology [address] [phone] Ivette Acuña MD [address] [place] [phone] 11/20/2024 8:00 AM EST Appointment [facility] [address] [phone] 11/20/2024 8:45 AM EST Office Visit [facility] Hematology Oncology [address] [place] [phone] Adrienne Huerta DO [address] [place] [address] documented as of this encounter Visit Diagnoses Not on filedocumented in this encounter Care Teams Hair Sample Matcher Relationship Specialty Start Date End Date Aleks Qiu MD [address] [place] [address] PCP - General Internal Medicine 02/17/22 documented as of this encounter
--- OUTSIDE RECORDS SUMMARY | 2024-10-11 12:32 | XMS_ITS | Encounter Summary ---
Author Organization [facility] Address [address] [place] [address] Care Team Providers Care Electrical Engineering Drafting Officer Name Role Phone Aleks Qiu MD Primary Care Provider [phone]- [phone] Encounter Details Date Type Department Care Team [...] PM EST Office Visit Orthopedic Surgery - [place] [address] [phone] Aron Barba DPM [address] [address] 10/16/2024 3:30 PM EST Office Visit Adult Medicine [address] [phone] Aleks Qiu MD [address] [place] [address] 10/24/2024 11:15 AM EST Office Visit [address] [phone] Ivette Acuña MD [address] [place] [phone] 11/20/2024 8:00 AM EST Appointment [facility] [address] [place] [phone] 11/20/2024 8:45 AM EST Office Visit [facility] Hematology Oncology [address] [place] [phone] Adrienne Huerta DO [address] [place] [phone] documented as of this encounter Visit Diagnoses Not on filedocumented in this encounter Care Teams Electrical Engineering Drafting Officer Relationship Specialty Start Date End Date Aleks Qiu MD [address] [place] [address] PCP - General Internal Medicine 02/17/22 documented as of this encounter
--- OUTSIDE RECORDS SUMMARY | 2024-10-11 12:32 | XMS_ITS | Encounter Summary ---
Author Organization [facility] Address [address] [place] [address] Care Team Providers Care Community Support Professional Name Role Phone Aleks Qiu MD Primary Care Provider [phone]- [phone] Encounter Details Date Type Department Care Team [...] zofran as pt is on amiodarone. Micki iVctor RN spoke to Estevan baldwin give 4mg [...] 45 minutes. Then will increase by 50mg/hr [id number]. When pt hits 200mg/hr, will reevaluate and [...] PM EST Office Visit Orthopedic Surgery - [place] [address] [phone] Aron Barba DPM 175 [facility] [address] [place] [address] 10/16/2024 3:30 PM EST Office Visit Adult Medicine [place] - [address] [phone] Aleks Qiu MD [address] [place] [address] 10/24/2024 11:15 AM EST Office Visit Endocrinology [address] [phone] Ivette Acuña MD [address] [place] [phone] 11/20/2024 8:[address] [facility] [address] [place] [phone] 11/20/2024 8:45 AM EST Office Visit [facility] Hematology Oncology [address] [place] [phone] Adrienne Huerta, [address] [place] [phone] documented as of this encounter Visit Diagnoses Not on filedocumented in this encounter Care Teams Community Support Professional Relationship Specialty Start Date End Date Aleks Qiu MD [address] [place] [address] PCP - General Internal Medicine 02/17/22 documented as of this encounter
--- OUTSIDE RECORDS SUMMARY | 2024-10-11 12:32 | XMS_ITS ---
Author Organization [facility] Address [address] [place] [address] Phone Care Team Providers Care Television Production Clerk Name Role Phone Aleks Qiu MD Primary Care Provider [phone] Active Problems Problem Noted Date Diagnosed Date [...] pain or chest pressure. She follows with transportation security officer Dr. Smiley. Continue aspirin, Plavix, metoprolol 100 [...] S/p myocardial perfusion wnl 2018 Follows with [facility] cardiology Asthma 12/22/2018 Celiac disease 12/22/2018 Glaucoma 12/22/2018 Hypercholesteremia 12/22/2018 Migraine 12/22/2018 Primary hypertension 12/22/2018 Assessment & Plan (08/08/2024 5:41 PM EST): Blood pressure today stable. She will continue on losartan 25 mg daily, metoprolol 100 mg twice daily. Current Oncology Plans RiTUXimab Maintenance - - 8-week cycle* Plan Start Date:09/25/2024 Plan Provider:Adrienne Huerta DO Linked Problems B-cell lymphoma of spleen, u nspecified B-cell lymphoma type (CMS/HCC) Treatment Medications Current Day (Day 1 , Cycle 2 - Planned for 09/23/2026) Next Day (Day 1, Cycle 3 - Planned for 2026) riTUXimab-hyaluronidase (RITUXAN HYCELA) 1400 mg/11.7 mL (120 mg/mL)riTUXimab-pvvr (RUXIENCE) IVPB 250 mLriTUXimab-pvvr biosimilar (RUXIENCE) riTUXimab-hyaluronidase (RITUXAN HYCELA) 1400 mg/11.7 mL (120 mg/mL) injection 1,400 mgriTUXimab-pvvr (RUXIENCE) 600 mg in sodium chloride 310 mL IVPB riTUXimab-hyaluronidase (RITUXAN HYCELA) 1400 mg/11.7 mL (120 mg/mL) injection 1,400 mgriTUXimab-pvvr (RUXIENCE) 600 mg in sodium chloride 310 mL IVPB Past Plans Oncology Treatment Plan Name Start Date Discontinue Date Treatment Medications Discontinue Reason Plan Provider Cycles RiTUXimab Weekly 4 09/22/2024 riTUXimab-hyal uronidase (RITUXAN HYCELA) 1400 mg/11.7 mL (120 mg/mL)riTUXima b-pvvr (RUXIENCE) IVPB 250 mLriTUXimab-pv vr biosimilar (RUXIENCE) - Therapy Complete Adrienne Huerta DO 1 of 1 cycle started Radiation Treatments * No radiation treatments are documented for this patient in [facility]. Treatments may have been administered in another system.
--- OUTSIDE RECORDS SUMMARY | 2024-10-11 12:32 | XMS_ITS | Encounter Summary ---
Author Organization [facility] Address [address] [place] [address] Care Team Providers Care Machinery Erector Name Role Phone Aleks Qiu MD Primary Care Provider [phone] Reason for Visit * Imaging (Routine) - Closed Specialty Diagnoses / Procedures Referred By Vishnu nagy Referred To Contact Radiology Diagnoses Small B-cell lymphoma of spleen (CMS/HCC) Procedures CT Chest/Abdomen/Pelvis wo Contrast CT Chest/Abdomen/Pelvis w Contrast Adrienne Huerta DO [address] [place] [address] [facility] Referral ID Status Reason Start Date Expiration Date Visits Re quested Visits Authorized [id number] Closed 08/30/2024 08/30/2025 1 1 Encounter Details Date Type Department Care Team (Latest Contact Info) Description 09/19/2024 9:52 AM EST - 09/19/2024 11:59 PM EST Hospital Encounter [facility] CT Scan [address] [place] [address] Small B-cell lymphoma of spleen (CMS/HCC) Discharge [...] on file documented as of this encounter Medications at Time of Discharge [...] Tablet by mouth daily. - Oral 06/09/2024 dorzolamide-timoloL (COSOPT) 22.3-6.8 mg/mL ophthalmic solution 1 Drop. fenofibrate (LOFIBRA) 54 mg tablet TAKE 1 TABLET BY MOUTH DAILY 90 tablet 09/19/2024 flash glucose scanning reader (DxTerity Td 2 [place]) misc 1 Device by Does not apply route continuous. 02/17/2022 fluticasone-salmetero l (ADVAIR DISKUS) 250-50 mcg/dose diskus inhaler Inhale 1 Puff into the lungs daily. 04/23/2023 furosemide (LASIX) 20 mg tablet Take 1 Tablet by mouth daily. 06/25/2023 gabapentin (NEURONTIN) 100 mg capsule Take 1 capsule (100 mg total) by mouth 3 (three) times a day. 90 each 2 08/28/2024 11/26/2024 insulin lispro (HumaLOG U-100 Insulin) 100 unit/mL injection -Administer within 15 minutes of a meal 10 mL 09/12/2024 losartan (COZAAR) 100 mg tablet Take 1 [...] documented in this encounter Progress Notes * Fawn Zaman - 09/19/2024 10:34 AM Beth addended by: Fawn Zaman on: 09/19/2024 10:34 AM Actions taken: Imaging Exam ended * Fawn Zaman - 09/19/2024 10:28 AM Beth addended by: Fawn Zaman on: 09/19/2024 10:28 AM Actions taken: Imaging Exam begun, Allergies reviewed * Gilbert Styles MLT - 09/19/2024 10:00 AM Beth addended by: Gilbert Styles MLT on: 09/21/2024 1:42 PM Actions taken: Result unverified, Test resulted, Final result verified documented in this encounter Plan of Treatment Upcoming Encounters Date Type Department Care Team (Late st Contact Info) Description 10/12/2024 1:15 PM EST Office Visit Orthopedic Surgery - [place] [id number] [address] Aron Barba, CHATO [address] [address] 10/16/2024 3:30 PM EST Office Visit Adult Medicine [address] [phone] Aleks Qiu MD [address] [place] [address] 10/24/2024 11:15 AM EST Office Visit Endocrinology [address] [phone] Ivette Acuña MD [address] [place] [phone] 11/20/2024 8:[address] [facility] Infusion Center [address] [place] [address] 2[address] [place] [address] 11/20/2024 8:45 AM EST Office Visit [facility] Hematology Oncology [address] [place] [phone] Adrienne Huerta DO [address] [place] [address] documented as of this encounter Procedures Procedure Name Priority Date/Time Associated Diagnosis Comments CT CHEST/ABDOMEN/PELVI S WO CONTRAST Routine 09/19/2024 10:34 AM EST Small B-cell lymphoma of spleen (CMS/HCC) documented in this encounter Results * CT Chest/Abdomen/Pelvis wo Contrast (09/19/2024 10:34 [...] Signed Date: 09/22/2024 10:52 ET Workstation ID: [id number] Transcribed By: Self Edit Transcribed Date: 09/22/2024 [...] Signed Date: 09/22/2024 10:52 ET Workstation ID: [id number] Transcribed By: Self Edit Transcribed Date: 09/22/2024 10:31 ET Adrienne Huerta DO IMG CT PROCED URES documented in this encounter Visit Diagnoses Diagnosis Small B-cell lymphoma of spleen (CMS/HCC) documented in this encounter Orders Lab Orders Without Results Count Last Ordered D ate First Ordered Date POCT PROTIME-INR 1 09/21/2024 documented in this encounter Care Teams Machinery Erector Relationship Specialty Start Date End Date Aleks Qiu MD [address] [place] [address] PCP - General Internal Medicine 02/17/22 documented as of this encounter
--- OUTSIDE RECORDS SUMMARY | 2024-10-11 12:32 | XMS_ITS | Clinical Summary ---
Author Organization [facility] Address [address] [place] [address] Care Team Providers Care Surface Miner Name Role Phone Aleks Qiu MD Primary Care Provider [phone] Allergies Active Allergy Reactions Criticality Noted Date Comments Propoxyphene Nausea Only Medium 03/24/2022 Doxycycline Nausea And Vomiting Medium 03/24/2022 Iodinated Contrast Media Anaphylaxis High 03/24/2022 MRI DYE Statins Other (See Comments) Medium 03/24/2022 Cramps in arms and legs -- currently takes a statin but takes magnesium daily and not as severe Medications Medication Sig Dispensed Refills Start Date End Date Status Albuterol Sulfate 108 (90 Base) MCG/ACT AEPB Inhale into the lungs. 0 Active gabapentin (NEURONTIN) 100 MG capsule Take 1 capsule (100 mg total) by mouth every night at bedtime. 0 Active losartan (COZAAR) 100 MG tablet Take 1 tablet (100 mg total) by mouth daily. 0 Active metoprolol succinate (TOPROL-XL) 24 hr tablet 100 mg Take by mouth daily. 0 Active omeprazole (PriLOSEC) 40 MG capsule Take 1 capsule (40 mg total) by mouth daily. 0 Active insulin lispro (HumaLOG) injection 100 units/mL Inject under the skin 3 (three) times a day before meals. 0 Active dulaglutide (Trulicity) 1.5 MG/0.5ML subcutaneous pen-injector Inject under the skin. 0 Active triamcinolone (KENALOG) 0.025 % cream Apply topically 2 (two) times a day. 0 Active spironolactone (ALDACTONE) tablet 25 mg Take 1 tablet (25 mg total) by mouth daily. 0 Active insulin glargine (LANTUS) injection 100 units/mL Inject under the skin every night at bedtime. 0 Active chlorthalidone (HYGROTON) 50 MG tablet Take 1 tablet (50 mg total) by mouth daily. 0 Active alendronate (FOSAMAX) tablet 70 mg Take 1 tablet (70 mg total) by mouth every 7 days. Take with water on empty stomach/Nothing by mouth and do not lie down for next 30 minutes 0 Active Fluticasone-Salmetero l (Advair Diskus) 250-50 MCG/ACT AEPB Inhale into the lungs. 0 Active dorzolamide-timolol (COSOPT) 22.3-6.8 MG/ML ophthalmic solution 1 drop 2 (two) times a day. 0 Active amiodarone (PACERONE) 200 MG tablet Take 1 tablet (200 mg total) by mouth 2 (two) times a day. 0 Active metoprolol tartrate (LOPRESSOR) 25 MG tablet Take by mouth 2 (two) times a day. 0 Active clopidogrel (PLAVIX) 75 MG tablet Take 1 tablet (75 mg total) by mouth daily. 0 Active atorvastatin (LIPITOR) tablet 80 mg Take 1 tablet (80 mg total) by mouth daily. 0 Active allopurinol (ZYLOPRIM) 100 MG tablet Take 1 tablet (100 mg total) by mouth daily. 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); Visit for monitoring Rituxan therapy; Thrombocytopenia (HCC); Abnormal PET scan of colon 07/21/2024 Travel 07/17/2024 8:00 AM EDT Infusion [facility] Oncology Infusion Services [address] [place] [address] Debra Young RN 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 Alcohol Use Standard Drinks/Week Comments Not Currently 0 (1 standard drink = 0.6 oz pur e alcohol) Sex and Gender Information Value Date Recorded Sex Assigned at Not on file Gender Identity Not on file Sexual Orientation Not on file Job Start Date Occupation Industry Not on file Not on file Not on file Last Filed Vital Signs Vital Sign Reading Time Taken Comments Blood Pressure 146/84 07/21/2024 2:00 PM EDT Pulse 94 07/21/2024 2:00 PM EDT Temperature 37.4 ??C (99.4 ??F) 07/21/2024 2:00 PM ED T Respiratory Rate 18 07/17/2024 1:30 PM EDT Oxygen Saturation 97% 07/21/2024 2:00 PM EDT Inhaled Oxygen Concentration - - Weight 66 kg (145 lb 6.4 oz) 07/21/2024 2:00 PM EDT Height 156.2 cm (5' 1.5 ) 07/21/2024 2:00 PM EDT Body Mass Index 27.03 07/21/2024 2:00 PM EDT Plan of Treatment Health Maintenance Due Date Last Done Comments Hepatitis C Screening 1945 Depression Screening 1957 Preventative Health Evaluation 11/19/1963 Fall Risk Assessment 2010 Osteoporosis Screening (DEXA Scan) 2010 RSV Adult > 60+ Yrs or (1 - 1-dose 75+ series) 2020 COVID-19 Vaccine ( season) 2024 07/30/2022, 05/29/2021, 10/28/2020, Additional history exists DTap / Tdap / Td (2 - Td or Tdap) 10/16/2025 10/16/2015 Pneumococcal Vaccine Completed 07/17/2019, 07/05/20 18 Shingrix-Zoster Vaccine Completed 09/01/2022, 07/07 Influenza Vaccine Completed 05/30/2024, , 06/25/2023, Additional history exists Hepatitis B Vaccines Aged Out No long er eligible based on patient's age to complete this topic RSV Ped < 20 months Aged Out No longe r eligible based on patient's age to complete this topic Care Teams Surface Miner Relationship Specialty Start Date End Date Aleks Qiu MD [address] [place] [address] [place] [address] PCP - General Hospitalist Medicine 04/30/22
--- OUTSIDE RECORDS SUMMARY | 2024-10-11 12:32 | XMS_ITS | Encounter Summary ---
Author Organization [facility] Address [address] [place] [address] Care Team Providers Care Investigation Specialist Name Role Phone Aleks Qiu MD Primary Care Provider [phone] Encounter Details Date Type Department Care Team (Late st Contact Info) Description 09/22/2024 Telephone [facility] Hematology Oncology [address] [place] [phone] Adrienne Huerta DO [address] [place] [address] Social History Tobacco Use Types Packs/Day Years [...] on file documented as of this encounter Progress Notes * Adrienne Huerta DO - 09/22/2024 4:31 PM EST Called patient to review results of her CT Scan Show her spleen is back to normal size Will proceed with chemo Wednesday as planned Plan to move ahead with rituxan hycela for maintenance phase documented in this encounter Plan of Treatment Upcoming Encounters Date Type Department Care Team (Late st Contact Info) Description 10/12/2024 1:15 PM EST Office Visit Orthopedic Surgery - [place] [address] [phone] Aron Barba, DPGalen [address] [address] 10/16/2024 3:30 PM EST Office Visit Adult Medicine [address] [phone] Aleks Qiu MD [address] [place] [address] 10/24/2024 11:15 AM EST Office Visit Endocrinology [address] [phone] Ivette Acuña MD [address] [place] [phone] 11/20/2024 8:00 AM EST Appointment [facility] Infusion Center [address] [facility] 2nd [place] [phone] 11/20/2024 8:45 AM EST Office Visit [facility] Hematology Oncology [address] [place] [phone] Adrienne Huerta DO [address] [place] [address] Scheduled Orders Name Type Priority Associated Diagnoses Orde r Schedule CBC and differential Lab Routine B-cell lymphoma of spleen, unspecified B-cell lymphoma type (CMS/HCC) Expected: 07/29/2026, Expires: 07/29/2027 documented as of this encounter Visit Diagnoses Diagnosis B-cell lymphoma of spleen, unspecified B-cell lymphoma type (CMS/HCC)- Primary documented in this encounter Orders Appointment Requests Count Last Ordered Date Fi rst Ordered Date ONCBCN CALCULATED LENGTH INF USION APPOINTMENT REQUEST 1 09/22/2024 ONCBCN CLINIC APPOINTMENT REQUEST 1 025 documented in this encounter Care Teams Investigation Specialist Relationship Specialty Start Date End Date Aleks Qiu MD [address] [place] [address] PCP - General Internal Medicine 02/17/22 documented as of this encounter
--- OUTSIDE RECORDS SUMMARY | 2024-10-11 12:32 | XMS_ITS | Encounter Summary ---
Author Organization [facility] Address [address] [place] [address] Care Team Providers Care Management Accounts Manager Name Role Phone Aleks Qiu MD Primary Care Provider [phone] Reason for Visit * Reason Onset Date Comments Medication Problem 09/12/2024 Encounter Details Date Type Department Care Team ([facility] st Contact Info) Description 09/12/2024 Telephone Adult Medicine [address] [phone] Aleks Qiu MD [address] [place] [address] Medication Problem Social History Tobacco Use Types Packs/Day Years [...] as of this encounter Progress Notes * Uriel White MA - 09/14/2024 2:11 PM EST New script was sent with instructions. * Juve Gonzalez - 09/12/2024 11:18 AM EST Who is calling? Krystyna Pharmacist Chelita Mcnulty. Name of the medication Humalog What is the specific problem or interaction? Need med instruction clarification. Pls advise. If the patient is having a problem with taking the med - how long has the problem been going on? N/A documented in this encounter Plan of Treatment Upcoming Encounters Date Type Department Care Team (Late st Contact Info) Description 10/12/2024 1:15 PM EST Office Visit Orthopedic Surgery [place] [address] [address] Aron Barba, CHATO [address] [address] 10/16/2024 3:30 PM EST Office Visit Adult Medicine [address] [phone] Aleks Qiu MD [address] [place] [address] 10/24/2024 11:15 AM EST Office Visit Endocrinology [address] [phone] Ivette Acuña MD [address] [place] [phone] 11/20/2024 8:00 AM EST Appointment [facility] Infusion Center [address] [place] [phone] 11/20/2024 8:45 AM EST Office Visit [facility] Hematology Oncology [address] [place] [phone] Adrienne Huerta DO [address] [place] [address] documented as of this encounter Visit Diagnoses Not on filedocumented in this encounter Care Teams Management Accounts Manager Relationship Specialty Start Date End Date Aleks Qiu MD [address] [place] [address] PCP - General Internal Medicine 02/17/22 documented as of this encounter
--- OUTSIDE RECORDS SUMMARY | 2024-10-11 12:32 | XMS_ITS ---
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 Current Oncology Plans [facility] OP RITUXIMAB (IV/SC) WEEKLY X4* Plan Start Date:06/29/2024 Plan Provider:Adrienne Huerta DO Linked Problems Splenic marginal zone b-cell lymphoma (HCC) Treatment Medications Current Day (Day 1 5, Cycle 1 - Planned for 07/24/2024) Next Day (Day 22, Cycle 1 - Planned for 07/31/2024) acetaminophen (TYLENOL)albuterol (PROVENTIL)dexamethason e (DECADRON)dexamethasone sod phosphate PF (DECADRON)diphenhydrAMI NE (BENADRYL)EPINEPHrineEP INEPHrine (Anaphylaxis) (ADRENALIN)famotidine (PF) (PEPCID)hydrocortisone (SOLU-CORTEF) IVHydrocortisone Sod Suc (PF) (Solu-CORTEF)ondansetro n (ZOFRAN)rituximab infusionriTUXimab-pvvr (RUXIENCE) infusion (Outpatient record)Saline Flush 0.9 %sodium chloride (NS) 0.9 %sodium chloride 0.9% bolus (NS) acetaminophen (TYLENOL) tablet 650 mgalbuterol (PROVENTIL) nebulizer solution 2.5 mgdexamethasone (DECADRON) tablet 12 mgdiphenhydrAMINE (BENADRYL) capsule 25 mgdiphenhydrAMINE (BENADRYL) injection 50 mgEPINEPHrine (Anaphylaxis) (ADRENALIN) 1 mg/ml (1:1000) inj amp/vial 0.3 mgfamotidine (PEPCID) 20 mg in water for injection, sterile 5 mL Injectionhydrocortisone sodium succinate (Solu-CORTEF) injection (PF) 100 mgondansetron (ZOFRAN) injection 4 mgriTUXimab-pvvr (RUXIENCE) 600 mg in sodium chloride (NS) 0.9 % 500 mL infusionSaline Flush 0.9 % injection 1 Syringesodium chloride 0.9% (NS) infusionsodium chloride 0.9% bolus (NS) 500 mL acetaminophen (TYLENOL) tablet 650 mgalbuterol (PROVENTIL) nebulizer solution 2.5 mgdexamethasone (DECADRON) tablet 12 mgdiphenhydrAMINE (BENADRYL) capsule 25 mgdiphenhydrAMINE (BENADRYL) injection 50 mgEPINEPHrine (Anaphylaxis) (ADRENALIN) 1 mg/ml (1:1000) inj amp/vial 0.3 mgfamotidine (PEPCID) 20 mg in water for injection, sterile 5 mL Injectionhydrocortisone sodium succinate (Solu-CORTEF) injection (PF) 100 mgondansetron (ZOFRAN) injection 4 mgriTUXimab-pvvr (RUXIENCE) 600 mg in sodium chloride (NS) 0.9 % 500 mL infusionSaline Flush 0.9 % injection 1 Syringesodium chloride 0.9% (NS) infusionsodium chloride 0.9% bolus (NS) 500 mL Past Plans No past plan information found. Radiation Treatments * No radiation treatments are documented for this patient in [facility]. Treatments may have been administered in another system.
--- OUTSIDE RECORDS SUMMARY | 2024-10-11 12:32 | XMS_ITS | Encounter Summary ---
Author Organization [facility] Address [address] [place] [address] Care Team Providers Care Steel Analyst Name Role Phone Aleks Qiu MD Primary Care Provider [phone] Encounter Details Date Type Department Care Team (Latest Contact Info) Description 07/21/2024 1:39 PM EDT Hospital Encounter TH HISTORIC ENCOUNTERS EASTERN CONVERSION ONLY Adrienne Huerta, DO [address] [place] [address] B-cell lymphoma of spleen, unspecified B-cell lymphoma [...] 4:18 PM Encounter Date: 07/21/2024 Status: Signed Automated Teller Manager: Adrienne Huerta DO (Physician) Hematology/Oncology Progress Note [...] further evidence of clotting. ??Available ultrasound from [facility] dated 11/21/2021 describes interval decrease in burden [...] Iodinated Contrast Media Anaphylaxis MRI DYE ? Katin [Propoxyphene] Nausea Only ? Doxycycline Nausea And [...] history She is , she lives in [place]. Labs Assessment & Plan 78 year old [...] and ASA Sign Opal Huerta DO Hematology/Oncology [facility] This encounter includes time spent on complex MDM in setting of high risk cancer/CD 20 therapy, review of labs, [id number] with the patient, coordination of care with nursing, documentation in the medical record documented in this encounter Plan of Treatment Upcoming Encounters Date Type Department Care Team (Late st Contact Info) Description 10/12/2024 1:15 PM EST Office Visit Orthopedic Surgery - [address] [phone] Aron Barba, DPM [address] [address] 10/16/2024 3:30 PM EST Office Visit Adult Medicine [address] [phone] Aleks Qiu MD [address] [place] [address] 10/24/2024 11:15 AM EST Office Visit [address] [phone] Ivette Acuña MD [address] [place] [address] 11/20/2024 8:00 AM EST Appointment [facility] Infusion Center [address] [phone] 11/20/2024 8:45 AM EST Office Visit [facility] Hematology Oncology [address] [place] [phone] Adrienne Huerta, [address] [place] [address] documented as of this encounter Procedures Procedure Name Priority Date/Time Associated Diagnosis Comments ..MISCELLANEOUS REFERENCE LAB TEST 07/21/2024 documented in this encounter Results * Miscellaneous reference lab test (07/21/2024) Provider Onbase MD LAB BLOOD ORDERABLES documented in this encounter Visit Diagnoses Diagnosis B-cell lymphoma of spleen, unspecified B-cell lymphoma type (CMS/HCC)- Primary documented in this encounter Care Teams Steel Analyst Relationship Specialty Start Date End Date Aleks Qiu MD [address] [place] [address] PCP - General Internal Medicine 02/17/22 documented as of this encounter
--- OUTSIDE RECORDS SUMMARY | 2024-10-11 12:32 | XMS_ITS | Encounter Summary ---
Author Organization [facility] Address [address] [place] [address] Care Team Providers Care Filler And Trimmer Name Role Phone Aleks Qiu MD Primary Care Provider [phone] Encounter Details Date Type Department Care Team Description 07/10/2024 Social Work [facility] [address] [place] [address] [facility] Social History Tobacco Use Types Packs/Day Years [...] on file documented as of this encounter Plan of Treatment Not on file documented as of this encounter Visit Diagnoses Not on filedocumented in this encounter Care Teams Filler And Trimmer Relationship Specialty Start Date End Date Aleks Qiu MD [address] [place] [address] [place] [address] PCP - General Hospitalist Medicine 04/30/22 documented as of this encounter
--- OUTSIDE RECORDS SUMMARY | 2024-10-11 12:33 | XMS_ITS | Patient Health Record ---
Author Organization [facility] Address [address] [place] [address] Care Team Providers Care Baker Apprentice Name Role Phone Nohemi Plasencia Primary Care Provider Raul Nelson Unavailable [phone] ALLERGIES Allergen (clinical drug ingredient) Drug/Non Drug Allergy documented on EMR Reaction Allergy Type Onset Date Status Darvon Unknown Drug Allergy Active REASON FOR REFERRAL No Information MEDICATIONS Medication SIG (Take, Route, Frequency, Duration) Notes Start Date End Date Status Crestor 5 MG 1 tablet Orally Once a day Active Cosopt 22.3-6.8 MG/ML 1 drop into affect ed eye Ophthalmic Twice a day Active Norvasc 5 MG 1 tablet Orally Once a day Active Losartan Potassium 25 MG 1 tablet Orally Once a day Active Fosamax 70 MG 1 tablet Orally Active Lantus SoloStar 100 UNIT/ML 0.02 ml Subcutaneous Once a day Active Metoprolol Tartrate 25 MG 1 tablet Orally Twice a day Active metFORMIN HCl 1000 MG 1 tablet with meal s Orally Twice a day Active Omeprazole 40 MG 1 capsule Orally Onc e a day for 30 day(s) 01/26/2014 Active SOCIAL HISTORY Sex Assigned At : Social History Observation Description Sex Assigned At Unknown PROBLEMS Problem Type ICD Code Onset Dates Problem Status W/U Status Risk SNOMED Code Notes Problem Abdominal pain (789.00) Active confirmed 81890790 PLAN OF TREATMENT Pending Test Test Name Order Date XR GI SERIES 01/26/2014 Insurance Providers Payer Name Payer Address Payer Phone Subscriber Number Group Number Insured Name Patient Relationship to Insured Coverage Start Date Coverage End Date [employer] [facility] [facility] [address] [place] [phone] [id number] ESCALANTE Self - patient is the insured MEDICAL (GENERAL) HISTORY Medical History History ICD Code glaucoma diabetes mellitus hypertension elevated Cholesterol Surgical History Surgery Date(Month/Year) 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
== END ==
LOC: HO.CARD 11:00
PROVIDERS: PCP Internal Medicine; Visit Provider Nurse Practitioner Family
DX: I25.10 Atherosclerotic heart disease of native coronary artery without angina pectoris (principal); R60.9 Edema, unspecified
CPT/HCPCS: 93306

== ENCOUNTER → 2024-10-11 11:03 | Outpatient (BNV) | payer MEDICARE, SELFPAY | PROVIDERS: PCP Internal Medicine; Visit Provider Internal Medicine Cardiovascular Disease | DX: I35.0 Nonrheumatic aortic (valve) stenosis (principal); I35.8 Other nonrheumatic aortic valve disorders; I34.81 Nonrheumatic mitral (valve) annulus calcification | CPT/HCPCS: 93306 ==

== ENCOUNTER 2024-11-27 15:21 | Outpatient (AMB) | payer MEDICARE, SELFPAY ==
--- NOTE | 2024-11-27 15:36 | MHC.OFFVIS ---
Vital Signs 11/27/24 15:37 Height 5 ft 2 in Weight 145 lb 8.081 oz BMI 26.6 BP 124/82 Blood Pressure Location Lt brachial Position Sitting Pulse 80 Intake Visit Reasons: echo ok but still having heaviness in chest Intake Note: Follow-up after echo c/o chest heaviness at times Patient Access Manager Required: No Allergies Iodinated Contrast Media Allergy (Mild, Verified 08/14/24 07:29) Anaphylaxis Darvon Allergy (Unknown, Verified 08/14/24 07:29) nausea,sweety doxycycline [DOXYCYCLINE] Allergy (Unknown, Verified 08/14/24 07:29) RASH Medication List - Last Reconciled 11/27/24 by Abhishek Smiley MD acetaminophen ER 650 mg PO Q8H albuterol sulfate 90 mcg/actuation 1 inh inhalation QID PRN aspirin (Adult Aspirin Regimen) 81 mg PO DAILY atorvastatin 80 mg PO BEDTIME carbidopa-levodopa 25-100 mg 1 tab PO TID 30 days dorzolamide-timolol 22.3-6.8 mg/mL ophthalmic (eye) fenofibrate 54 mg PO DAILY fluticasone propion-salmeterol 250-50 mcg/dose (Wixela Inhub) 1 ea inhalation BID furosemide 20 mg PO DAILY gabapentin 100 mg PO TID insulin glargine (Lantus U-100 Insulin) 35 units subcut DAILY insulin glargine (Lantus Solostar U-100 Insulin) units subcut insulin lispro (Humalog KwikPen (U-100) Insulin) 1 sliding scale dose subcut USEASDIRECTD isosorbide mononitrate ER 30 mg PO DAILY losartan 25 mg PO DAILY metoprolol succinate ER 100 mg PO DAILY ondansetron HCl 4 mg PO Q8H PRN pantoprazole 40 mg PO DAILY pantoprazole 40 mg PO DAILY rituximab-hyaluronidase,human 1400 mg/11.7 mL (120 mg/mL) 1,400 mg/11.7 mL (120 mg/mL) (Rituxan Hycela) 1400mg subcutaneously every week; HPI Comments Details: Magdalena comes for follow-up. She has intermittent episodes of chest discomfort which is very atypical for myocardial ischemia. Does not have symptoms similar to her myocardial infarction pain actually gets chest pressure. Symptoms with her myocardial infarction with back pain. She says very often a blood pressure is elevated. Although on today's examination blood pressure is within normal limits. I rechecked it in his systolic blood pressure is 140. She denies any heart failure symptoms. No prolonged palpitation irregular heartbeat. No exertional chest pain. She was poor balance. Very anxious overall about this chest pressure syndrome. [facility] Medical History ST elevation myocardial infarction (STEMI) of inferior wall DVT (deep venous thrombosis) Personal history of COVID-19 COVID-19 Hx of abdominal pain Breast tumor HTN (hypertension) COPD (chronic obstructive pulmonary disease) Diabetes Surgical History S/P CABG x 2 S/P cardiac cath History of esophagogastroduodenoscopy (EGD) H/O colonoscopy History of hysterectomy Family History Brother Diabetes HTN (hypertension) Sister Diabetes HTN (hypertension) Sister Diabetes Social History Alcohol intake: current Alcohol intake frequency: holidays/special occasions only Patient Tobacco Use Status: Former Tobacco user Review of Systems Const Denies chills, Denies fatigue, Denies fever(s), Denies frequent falls, Denies weakness, Denies weight gain and Denies weight loss ENT Denies dizziness Card Denies chest pain, Denies leg edema, Denies lightheadedness, Denies palpitations, Denies dyspnea, Denies dyspnea on exertion, Denies orthopnea and Denies other (loss of consciousness) Resp Denies cough, Denies dyspnea and Denies dyspnea on exertion GI Denies hematochezia and Denies change in stool character Musc Denies abnormal gait, Denies muscle weakness, Denies numbness, Denies radiating pain into limb and Denies tingling Neuro Denies abnormal gait, Denies dizziness, Denies frequent falls, Denies numbness, Denies tingling and Denies weakness Endo Denies fatigue and Denies palpitations Physical Exam Vital Signs: Last Vital Signs Pulse 80 11/27/24 15:37 BP 124/82 11/27/24 15:37 BMI result Body Mass Index 26.6 Const General: cooperative, healthy appearing, comfortable and no acute distress Orientation/consciousness: patient oriented x3 Neck Neck: Yes normal visual inspection Chest Chest palpation & inspection: other (Well his sternotomy scar) Resp Effort & Inspection: normal respiratory effort Auscultation: clear to auscultation bilaterally, no crackles, no rales, no rhonchi and no wheezes Cardio Jugular venous distension: no JVD Rate: regular rate Rhythm: regular rhythm Heart sounds: S1 normal heart sound present, S2 normal heart sound present, no murmurs and no rubs Neuro General: patient oriented x3 Extrem Other: Right radial catheterization site well healed, palpable radial pulse, right hand assessment normal General: Yes normal to inspection and No no pedal edema Psych Appearance: grossly normal Mental Status: mental status grossly normal Speech and movement: Normal speech and movement present Office Procedures EKG Details: EKG shows normal sinus rhythm with poor R-wave progression most likely lead placement [id number], Complete Assessment & Plan Assessment & Plan (1) Coronary atherosclerosis: Code(s): I25.10 - Atherosclerotic heart disease of [place] coronary artery without angina pectoris Category: Medical Plan: CAD with prior coronary artery bypass grafting recurrent onset of chest discomfort which appears to be atypical for myocardial ischemia she had a myocardial perfusion imaging last year which was showing no evidence of ischemia. Most likely related to high blood pressure. Advised to monitor blood pressure closely at home and maintain a log and drop of the log to us. Currently blood pressure is well optimized and I would not change her treatment regimen at this point time. Stress mitigation strategies was discussed. Advised to continue low-dose aspirin therapy for life. Continue aggressive lipid modification. Currently on statin and fenofibrate therapy. Target goal LDL closer to 55 mg/dL. Continue aggressive diabetes management goal hemoglobin A1c less than 7% being pursue through office. Continue current antihypertensive therapy with currently being on metoprolol 100 mg, losartan 25 mg at isosorbide therapy. If her blood pressure is elevated would consider increasing losartan therapy. This was discussed with her. Low-salt diet was discussed. Will follow up in the clinic otherwise 1 year's time, sooner p.r.n.. Thank you for allowing me to partake in his care Coding Level of Care Code Est Pt Level 4 (12856) Complex EM visit Add On G2211 Diagnoses Coronary atherosclerosis I25.10 CPT Codes EKG - CPT: 19636-[id number], Complete ([id number])
[2024-11-27 15:37] VITALS: BP 124/82; PULSE 80; BMI 26.6
--- OUTSIDE RECORDS SUMMARY | 2024-11-27 17:32 | XMS_ITS | Clinical Summary ---
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
--- OUTSIDE RECORDS SUMMARY | 2024-11-27 17:32 | XMS_ITS | Encounter Summary ---
Author Organization [facility] Address [address] [place] [address] Care Team Providers Care Bass String Winder Name Role Phone Aleks Qiu Primary Care Provider [phone] Reason for Visit * Reason Comments E-prescribe Rx Request Encounter Details Date Type Department Care Team Description 06/14/2023 [facility]ill [facility] [address] [place] [address] [place] [phone] Aron Barba DPM E-prescribe Rx Request Social History Tobacco Use Types Packs/Day Years Used Date Smoking Tobacco: Former Passive Smoke Exposure: Past Smokeless Tobacco: Never Comments:quit 30 years ago Sex Assigned at Date Recorded Female 04/24/2023 6:24 PM E DT Job Start Date Occupation Industry Not on file Not on file Not on file COVID-19 Exposure Response Date Recorded In the last 10 days, have yo u been in contact with someone who was confirmed or suspected to have Coronavirus/COVID-19? No / Unsure 06/01/2023 12:51 PM EDT documented as of this encounter Plan of Treatment Not on file documented as of this encounter Visit Diagnoses Not on filedocumented in this encounter Care Teams Bass String Winder Relationship Specialty Start Date End Date Aleks Qiu [address] [place] [address] PCP - General Internal Medicine 02/17/22 documented as of this encounter
--- OUTSIDE RECORDS SUMMARY | 2024-11-27 17:32 | XMS_ITS ---
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 Treatments may have been administered in another system.
--- OUTSIDE RECORDS SUMMARY | 2024-11-27 17:32 | XMS_ITS | Encounter Summary ---
Author Organization [facility] Address [address] [place] [address] Care Team Providers Care Etiquette Teacher Name Role Phone Aleks Qiu Primary Care Provider [phone] Encounter Details Date Type Department Care Team Description 06/08/2023 Orders Only Medical Records [address] [place] [address] Aleks Qiu [address] [place] [address] Social History Tobacco Use Types Packs/Day Years [...] on file documented as of this encounter Procedures Procedure Name Priority Date/Time Associated Diagnosis Comments OUTSIDE LAB Routine 06/03/2023 documented in this encounter Results * OUTSIDE LAB (06/03/2023) Aleks Qiu LAB documented in this encounter Visit Diagnoses Not on filedocumented in this encounter Care Teams Etiquette Teacher Relationship Specialty Start Date End Date Aleks Qiu [address] [place] [address] PCP - General Internal Medicine 02/17/22 documented as of this encounter
--- OUTSIDE RECORDS SUMMARY | 2024-11-27 17:33 | XMS_ITS | Encounter Summary ---
Author Organization [facility] Address [address] [place] [address] Care Team Providers Care Senior Systems Administrator Name Role Phone Aleks Qiu Primary Care Provider [phone] Encounter Details Date Type Department Care Team Description 02/16/2024 Incident Response Lead Report Medical Records [address] [place] [address] Lexie Arroyo Social History Tobacco Use Types Packs/Day Years [...] on filedocumented in this encounter Care Teams Senior Systems Administrator Relationship Specialty Start Date End Date Aleks Qiu [address] [place] [address] PCP - General Internal Medicine 02/17/22 documented as of this encounter
--- OUTSIDE RECORDS SUMMARY | 2024-11-27 17:33 | XMS_ITS | Encounter Summary ---
Author Organization [facility] Address [address] [place] [address] Care Team Providers Care Occupational Health Physiotherapist Name Role Phone Aleks Qiu MD Primary Care Provider [phone] Encounter Details Date Type Department Care Team [...] Care Team (Late st Contact Info) Description 12/04/2024 8:00 AM EDT Appointment [facility] [address] [place] [phone] 12/07/2024 2:00 PM EDT Office Visit Endocrinology - [address] [phone] Ivette Acuña MD [address] [place] [phone] 12/19/2024 11:00 AM EDT Office Visit Adult Medicine West - [address] [phone] Aleks Qiu MD [address] [place] [address] 04/18/2025 4:30 PM EDT Appointment Radiology Department - [address] [phone] documented as of this encounter Visit Diagnoses Not on filedocumented in this encounter Care Teams Occupational Health Physiotherapist Relationship Specialty Start Date End Date Aleks Qiu MD [address] [place] [address] PCP - General Internal Medicine 02/17/22 documented as of this encounter
--- OUTSIDE RECORDS SUMMARY | 2024-11-27 17:33 | XMS_ITS | Encounter Summary ---
Author Organization [facility] Address [address] [place] [address] Care Team Providers Care Tie Worker Name Role Phone Yessenia Fox MD Primary Care Provider Nohemi Ricketts MD Primary Care Provider Aleks Parker Primary Care Provider [phone] Encounter Details Date Type Department Care Team Description 03/11/2020 Telephone Adult Medicine [address] [address] Yessenia Fox MD Social History Tobacco Use Types Packs/Day Years Used Date Smoking Tobacco: Former Smokeless Tobacco: Never Comments:quit 30 years ago Sex Assigned at Date Recorded Female 04/24/2023 6:24 PM E DT Job Start Date Occupation Industry Not on file Not on file Not on file documented as of this encounter Miscellaneous Notes * Telephone Encounter - Kitty Muñiz M.A. - 03/11/2020 11:04 AM EDT Patient haves appointment with Lisbeth on 03/19/20 for DM follow up. * Telephone Encounter - Yessenia Fox MD - 03/11/2020 10:43 AM EDT Okay to schedule then hopefully will be able to see her in office. Thank you * Telephone Encounter - Yessenia Fox MD - 03/11/2020 8:31 AM EDT Needs audio for uncontrolled diabetes and cholesterol with me documented in this encounter Plan of Treatment Not on file documented as of this encounter Visit Diagnoses Not on filedocumented in this encounter Care Teams Tie Worker Relationship Specialty Start Date End Date Yessenia Fox MD PCP - General Internal Medicine 12/07/18 11/17/21 Nohemi Plasencia MD PCP - General Internal Medicine 11/18/21 02/16/22 Aleks Qiu [address] [place] [address] PCP - General Internal Medicine 02/17/22 documented as of this encounter
--- OUTSIDE RECORDS SUMMARY | 2024-11-27 17:33 | XMS_ITS | Encounter Summary ---
Author Organization [facility] Address [address] [place] [address] Care Team Providers Care Brine Purifier Name Role Phone Yessenia Fox MD Primary Care Provider Nohemi Ricketts MD Primary Care Provider Aleks Parker Primary Care Provider [phone] Encounter Details Date Type Department Care Team Description 04/22/2020 Minesweeping Officer Report Medical Records [address] [place] [address] Abhishek Smiley MD Social History Tobacco Use Types Packs/Day [...] on filedocumented in this encounter Care Teams Brine Purifier Relationship Specialty Start Date End Date Yessenia Fox MD PCP - General Internal Medicine 12/07/18 11/17/21 Nohemi Plasencia MD PCP - General Internal Medicine 11/18/21 02/16/22 Aleks Qiu [address] [place] [id number] PCP - General Internal Medicine 02/17/22 documented as of this encounter
--- OUTSIDE RECORDS SUMMARY | 2024-11-27 17:33 | XMS_ITS | Encounter Summary ---
Author Organization [facility] Address [address] [place] [address] Care Team Providers Care Telephone Surveyor Name Role Phone Aleks Qiu Primary Care Provider [phone] Encounter Details Date Type Department Care Team Description 11/24/2023 [facility] Report Medical Records [address] [place] [address] Abstract, Provider Social History Tobacco Use Types Packs/Day Years [...] on filedocumented in this encounter Care Teams Telephone Surveyor Relationship Specialty Start Date End Date Aleks Qiu [address] [place], [place] [phone] PCP - General Internal Medicine 02/17/22 documented as of this encounter
--- OUTSIDE RECORDS SUMMARY | 2024-11-27 17:33 | XMS_ITS | Encounter Summary ---
Author Organization [facility] Address [address] [place] [address] Care Team Providers Care Comber Operator Name Role Phone Aleks Qiu Primary Care Provider [phone] Encounter Details Date Type Department Care Team Description 08/27/2022 Manager Of Case Report Medical Records [address] [place] [address] Talat Chris MD Social History Tobacco Use Types Packs/Day [...] suspected to have Coronavirus/COVID-19? No / Unsure 08/06/2022 2:04 PM EST documented as of this encounter Plan of Treatment Not on file documented as of this encounter Visit Diagnoses Not on filedocumented in this encounter Care Teams Comber Operator Relationship Specialty Start Date End Date Aleks Qiu [address] [place] [address] PCP - General Internal Medicine 02/17/22 documented as of this encounter
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
--- OUTSIDE RECORDS SUMMARY | 2024-11-27 17:33 | XMS_ITS | Encounter Summary ---
Author Organization [facility] Address [address] [place] [address] Care Team Providers Care Auditor Name Role Phone Aleks Qiu MD Primary Care Provider [phone] Encounter Details Date Type Department Care Team (Late st Contact Info) Description 07/10/2024 1:26 PM EDT Hospital Encounter TH HISTORIC ENCOUNTERS EASTERN CONVERSION ONLY Karen Chavez PA [address] [place] [address] Social History Tobacco Use Types Packs/Day Years [...] Info) Description 12/04/2024 8:00 AM EDT Appointment [facility] [address] [place] [address] 12/07/2024 2:00 PM EDT Office Visit Endocrinology - [address] [phone] Ivette Acuña MD [address] [place] [address] 12/19/2024 11:00 AM EDT Office Visit Adult Medicine West - [address] [phone] Aleks Qiu MD [address] [place] [address] 04/18/2025 4:30 PM EDT Appointment Radiology Department - [address] [phone] documented as of this encounter Visit Diagnoses Not on filedocumented in this encounter Care Teams Auditor Relationship Specialty Start Date End Date Aleks Qiu MD [address] [place] [address] PCP - General Internal Medicine 02/17/22 documented as of this encounter
--- OUTSIDE RECORDS SUMMARY | 2024-11-27 17:33 | XMS_ITS | Encounter Summary ---
Author Organization [facility] Address [address] [place] [address] Care Team Providers Care Water Pumper Name Role Phone Aleks Qiu Primary Care Provider [phone] Reason for Visit * Reason Onset Date Comments Pre-op Needed 10/08/2022 Encounter Details Date Type Department Care Team Description 10/08/2022 Telephone Adult Medicine [address] [address] Aleks Qiu [address] [place] [address] [phone] Pre-op Needed Social History Tobacco Use Types Packs/Day Years [...] suspected to have Coronavirus/COVID-19? No / Unsure 10/08/2022 9:43 AM EST documented as of this encounter Miscellaneous Notes * Telephone Encounter - Lashawn Cota - 10/08/2022 2:43 PM EST Pre op appointment booked and letter sent to pt to confirm 09/11/22 * Telephone Encounter - Abbie Young - 10/08/2022 10:07 AM EST Date of surgery:10/29/2022 What surgery is patient having (gall bladder, cataract, appendix, etc...)?: N20.0 Surgeon's name: Bernardo Jo Office phone number of surgeon: [phone] Fax # for surgeons office: [phone] (Required) Where is surgery being performed? Diagnosis/problem for surgery: Shock wavw lithotripsy Is an EKG required for the pre-op workup? NO PCP: Aleks Qiu Did you verify that the insurance below is correct? Patients insurance: Payor: [facility] / Plan: [employer] [employer] [place]REF HMO $10 [place] / Product Type: MEDICARE RISK documented in this encounter Plan of Treatment Not on file documented as of this encounter Visit Diagnoses Not on filedocumented in this encounter Care Teams Water Pumper Relationship Specialty Start Date End Date Aleks Qiu [address] [place] [address] PCP - General Internal Medicine 02/17/22 documented as of this encounter
--- OUTSIDE RECORDS SUMMARY | 2024-11-27 17:33 | XMS_ITS | Encounter Summary ---
Author Organization [facility] Address [address] [place] [address] Care Team Providers Care Leasing Consultant Name Role Phone Aleks Qiu MD Primary Care Provider Encounter Details Date Type Department Care Team (Late st Contact Info) Description 10/25/2024 Telephone [facility] Hematology Oncology [address] [place] [phone] Adrienne Huerta DO [address] [place] [address] Social History Tobacco Use Types Packs/Day Years [...] as of this encounter Progress Notes * aMgdalena Massey MA - 10/30/2024 1:50 PM EST Left VM for pt letting her know she may proceed with Ozempic. * Adrienne Huerta DO - 10/28/2024 7:51 PM EST Yes, okay to proceed. 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 Please call her at [phone] documented in this encounter Plan of Treatment Upcoming Encounters Date Type Department Care Team (Late st Contact Info) Description 12/04/2024 8:00 AM EDT Appointment [facility] [address] [place] [phone] 12/07/2024 2:00 PM EDT Office Visit Endocrinology - [address] [phone] Ivette Acuña MD [address] [place] [phone] 12/19/2024 11:00 AM EDT Office Visit Adult Medicine West - [address] [phone] Aleks Qiu MD [address] [place] [address] 04/18/2025 4:30 PM EDT Appointment Radiology Department - [address] [phone] documented as of this encounter Visit Diagnoses Not on filedocumented in this encounter Care Teams Leasing Consultant Relationship Specialty Start Date End Date Aleks Qiu MD [address] [place] [address] PCP - General Internal Medicine 02/17/22 documented as of this encounter
--- OUTSIDE RECORDS SUMMARY | 2024-11-27 17:33 | XMS_ITS | Encounter Summary ---
Author Organization [facility] Address [address] [place] [address] Care Team Providers Care Vault Cashier Name Role Phone Yessenia Fox MD Primary Care Provider Nohemi Ricketts MD Primary Care Provider Aleks Parker Primary Care Provider [phone] Encounter Details Date Type Department Care Team Description 12/08/2019 Telephone Dermatology - [address] [phone] Faye Palmer PA-C Social History Tobacco Use Types Packs/Day Years Used Date Smoking Tobacco: Former Smokeless Tobacco: Never Comments:quit 30 years ago Sex Assigned at Date Recorded Female 04/24/2023 6:24 PM E DT Job Start Date Occupation Industry Not on file Not on file Not on file documented as of this encounter Miscellaneous Notes * Telephone Encounter - Margaret Abdalla M.A. - 12/08/2019 10:55 AM EDT Voicemail box full Need to reschedule patch testing documented in this encounter Plan of Treatment Not on file documented as of this encounter Visit Diagnoses Not on filedocumented in this encounter Care Teams Vault Cashier Relationship Specialty Start Date End Date Yessenia Fox MD PCP - General Internal Medicine 12/07/18 11/17/21 Nohemi Plasencia MD PCP - General Internal Medicine 11/18/21 02/16/22 Aleks Qiu [address] [place] [address] PCP - General Internal Medicine 02/17/22 documented as of this encounter
--- OUTSIDE RECORDS SUMMARY | 2024-11-27 17:33 | XMS_ITS | Encounter Summary ---
Author Organization [facility] Address [address] [place] [address] Care Team Providers Care Hand Booked Folder And Stitcher Name Role Phone Aleks Qiu MD Primary Care Provider [phone] Encounter Details Date Type Department Care Team (Latest Contact Info) Description 07/21/2024 1:39 PM EDT Hospital Encounter TH HISTORIC ENCOUNTERS EASTERN CONVERSION ONLY Adrienne Huerta, DO [address] [place] [address] B-cell lymphoma of spleen, unspecified B-cell lymphoma [...] 4:18 PM Encounter Date: 07/21/2024 Status: Signed Waxing Machine Operator: Adrienne Huerta DO (Physician) Hematology/Oncology Progress Note [...] further evidence of clotting. ??Available ultrasound from [facility] dated 11/21/2021 describes interval decrease in [...] history She is , she lives in [place]. Labs Assessment & Plan 78 year old [...] ASA Sign Opal Huerta DO Hematology/Oncology [facility] This encounter includes time spent on complex MDM in setting of high risk cancer/CD 20 therapy, review of labs, [id number] with the patient, coordination of care with nursing, documentation in the medical record documented in this encounter Plan of Treatment Upcoming Encounters Date Type Department Care Team (Late st Contact Info) Description 12/04/2024 8:00 AM EDT Appointment [facility] [address] [place] [phone] 12/07/2024 2:00 PM EDT Office Visit Endocrinology - [address] [phone] Ivette Acuña MD [address] [place] [address] 12/19/2024 11:00 AM EDT Office Visit Adult Medicine West - [address] [phone] Aleks Qiu MD [address] [place] [address] 04/18/2025 4:30 PM EDT Appointment Radiology Department - [address] [phone] documented as of this encounter Procedures Procedure Name Priority Date/Time Associated Diagnosis Comments ..MISCELLANEOUS REFERENCE LAB TEST 07/21/2024 documented in this encounter Results * Miscellaneous reference lab test (07/21/2024) us Provider Onbase LAB BLOOD ORDERABLES Final Re sult documented in this encounter Visit Diagnoses Diagnosis B-cell lymphoma of spleen, unspecified B-cell lymphoma type (CMS/HCC)- Primary documented in this encounter Care Teams Hand Booked Folder And Stitcher Relationship Specialty Start Date End Date Aleks Qiu MD [address] [place] [address] PCP - General Internal Medicine 02/17/22 documented as of this encounter
--- OUTSIDE RECORDS SUMMARY | 2024-11-27 17:33 | XMS_ITS | Encounter Summary ---
Author Organization [facility] Address [address] [place] [address] Care Team Providers Care Blueprinting And Photocopy Supervisor Name Role Phone Aleks Qiu Primary Care Provider [phone] Encounter Details Date Type Department Care Team Description 09/11/2022 Orders Only Adult Medicine [address] [address] Aleks Qiu [address] [place] [phone] Preoperative examination; Screening for deficiency anemia; extermination supervisor current use of anticoagulant therapy Social History Tobacco Use Types Packs/Day Years Used Date Smoking Tobacco: Former Smokeless Tobacco: Never Comments:quit 30 years ago Sex Assigned at Date Recorded Female 04/24/2023 6:24 PM E DT Job Start Date Occupation Industry Not on file Not on file Not on file documented as of this encounter Plan of Treatment Not on file documented as of this encounter Results * PROTHROMBIN TIME (10/02/2022 10:52 AM EST) Prothrombin Time 13.5 10.6 - 13.9 SEC 10/02/2022 12:22 PM EST [facility] INR 1.09 10/02/2022 12:22 PM EST [facility] 10/02/2022 10:5 2 AM EST 10/02/2022 10:53 AM EST [facility] - 10/02/2022 12:22 PM EST Release to patient->Immediate Aleks Gonzalezgermanrichie LAB [facility] * (ABNORMAL) CBC (AUTO DIFF PLATELET) (10/02/2022 10:52 AM EST) Pathologist [facility] WHITE BLOOD COUNT 4.9 4.8 - 10.8 x10-3/uL 10/02/2022 2:20 PM EST [facility] RED BLOOD COUNT 4.4 3.8 - 4.8 x10-6/uL 10/02/2022 2:20 PM EST [facility] Hemoglobin 13.0 11.5 - 16.0 g/dL 10/02/2022 2:20 PM EST [facility] Hematocrit 42.5 35 - 47 % 10/02/2022 2:20 PM EST [facility] MEAN CORPUSCULAR VOLUME 97.3 79 - 98 fL 10/02/2022 2:20 PM EST [facility] MEAN CORPUSCULAR HEMOGLOBIN 29.7 27 - 32 pg 10/02/2022 2:20 PM EST [facility] MEAN CORPUSCULAR HGB CONC 30.6(L) 32 - 37 g/dL 10/02/2022 2:20 PM EST [facility] RED CELL DISTRIBUTION WIDTH 14.3 11 - 15 % 10/02/2022 2:20 PM EST [facility] PLT COUNT 180 130 - 400 x10-3/uL 10/02/2022 2:20 PM EST [facility] MEAN PLATELET VOLUME 11.4(H) 7 - 11 fL 10/02/2022 2:20 PM EST [facility] NRBC % AUTO 0.0 <1 % 10/02/2022 2:20 PM EST [facility] NEUTROPHILS % 36.5 % 10/02/2022 2:20 PM EST [facility] LYMPH % 48.2 % 10/02/2022 2:20 PM EST [facility] MONO % 7.1 % 10/02/2022 2:20 PM EST [facility] EOS % 4.5 % 10/02/2022 2:20 PM EST [facility] BASO % 3.5 % 10/02/2022 2:20 PM EST [facility] IMMATURE GRANULOCYTES % 0.2 % 10/02/2022 2:20 PM EST [facility] NRBC # AUTO 0.00 <0.1 x10-3/uL 10/02/2022 2:20 PM EST [facility] NEUT # 1.80 1.5 - 7.0 x10-3/uL 10/02/2022 2:20 PM EST [facility] LYMPH # 2.37 1 - 5.0 x10-3/uL 10/02/2022 2:20 PM EST [facility] MONO # 0.35 0.2 - 1.0 x10-3/uL 10/02/2022 2:20 PM EST [facility] EOS # 0.22 0 - 0.5 x10-3/uL 10/02/2022 2:20 PM EST [facility] BASO # 0.17 0 - 0.2 x10-3/uL 10/02/2022 2:20 PM EST [facility] IMMATURE GRANULOCYTES # 0.01 0 - 0.03 x10-3/uL 10/02/2022 2:20 PM EST [facility] 10/02/2022 10:5 2 AM EST 10/02/2022 10:53 AM EST Narrative [facility] - 10/02/2022 2:20 PM EST Release to patient->Immediate Aleks Qiu LAB [facility] * URINE, CULTURE (10/02/2022 10:52 AM EST) URINE CULTURE ENTEROCOCCUS FAECALIS 10/04/2022 11:13 AM EST [facility] Comment: COLONY COUNT >100,000 Urine (Urine) 10/02/2022 10: 52 AM EST 10/02/2022 10:53 AM EST Narrative [facility] - 10/04/2022 11:13 AM EST Release to patient->Immediate Organism Antibiotic Method Susceptibility Enterococcus faecalis Ampicillin <=2: Susceptible Enterococcus faecalis Ciprofloxacin <=0.5: Susceptible Enterococcus faecalis LEVOFLOXACIN 1: Susceptible Enterococcus faecalis LINEZOLID 1: Susceptible Enterococcus faecalis Nitrofurantoin <=16: Susceptible Enterococcus faecalis PENICILLIN 2: Susceptible Enterococcus faecalis Tetracycline >=16: Resistant Enterococcus faecalis Vancomycin 1: Susceptible Aleks Qiu LAB [facility] documented in this encounter Visit Diagnoses Diagnosis Preoperative examination Preoperative examination, unspecified Screening for deficiency anemia Screening for other and unspecified deficiency anemia extermination supervisor current use of anticoagulant therapy Preoperative examination Preoperative examination, unspecified extermination supervisor current use of anticoagulant therapy Screening for deficiency anemia Screening for other and unspecified deficiency anemia Type 2 diabetes mellitus with microalbuminuria, with long-term current use of insulin (HCC) documented in this encounter Care Teams Blueprinting And Photocopy Supervisor Relationship Specialty Start Date End Date Aleks Qiu [address] [place] [address] PCP - General Internal Medicine 02/17/22 documented as of this encounter
--- OUTSIDE RECORDS SUMMARY | 2024-11-27 17:33 | XMS_ITS | Encounter Summary ---
Author Organization [facility] Address [address] [place] [address] Care Team Providers Care Solutions Engineer Name Role Phone Aleks Qiu Primary Care Provider [phone] Reason for Visit * Reason Onset Date Comments Pre-op Needed 09/08/2022 Encounter Details Date Type Department Care Team Description 09/08/2022 Telephone Adult Medicine [address] [address] Aleks Qiu [address] [place] [address] [phone] Pre-op Needed Social History Tobacco Use Types Packs/Day Years Used Date Smoking Tobacco: Former Smokeless Tobacco: Never Comments:quit 30 years ago Sex Assigned at Date Recorded Female 04/24/2023 6:24 PM E DT Job Start Date Occupation Industry Not on file Not on file Not on file documented as of this encounter Miscellaneous Notes * Telephone Encounter - Alfredito Donnelly - 09/08/2022 3:44 PM EST Raquel requests that this be done within 2 weeks, preferably the week of 09/14/2023 so the patientcan have their lab work done. Date of surgery: 10/29/2022 What surgery is patient having (gall bladder, cataract, appendix, etc...)?: Eswl surgery Surgeon's name: Dr. Bernardo Jo Office phone number of surgeon: [phone] Fax # for surgeons office: [phone] (Required) Where is surgery being performed? [facility] [place] Diagnosis/problem for surgery: Cut of kidney Is an EKG required for the pre-op workup? NO, but bloodwork will be required. The patient will needCBC, PTINR, and urine cultures. PCP: Aleks Qiu Did you verify that the insurance below is correct? YES Patients insurance: Payor: [facility] / Plan: [employer] HMO $10 [place] / Product Type: MEDICARE RISK documented in this encounter Plan of Treatment Not on file documented as of this encounter Visit Diagnoses Not on filedocumented in this encounter Care Teams Solutions Engineer Relationship Specialty Start Date End Date Aleks Qiu [address] [place] [address] PCP - General Internal Medicine 02/17/22 documented as of this encounter
--- OUTSIDE RECORDS SUMMARY | 2024-11-27 17:33 | XMS_ITS | Encounter Summary ---
Author Organization [facility] Address [address] [place] [address] Care Team Providers Care Optician Apprentice Name Role Phone Aleks Qiu Primary Care Provider Encounter Details Date Type Department Care Team Description 10/28/2022 CG Report Medical Records [address] [place] [address] Abstract, Provider Social History Tobacco Use Types [...] suspected to have Coronavirus/COVID-19? No / Unsure 10/14/2022 9:41 AM EST documented as of this encounter Plan of Treatment Not on file documented as of this encounter Visit Diagnoses Not on filedocumented in this encounter Care Teams Optician Apprentice Relationship Specialty Start Date End Date Aleks Qiu [address] [place] [address] PCP - General Internal Medicine 02/17/22 documented as of this encounter
--- OUTSIDE RECORDS SUMMARY | 2024-11-27 17:33 | XMS_ITS | Encounter Summary ---
Author Organization [facility] Address [address] [place] [address] Care Team Providers Care Life Insurance Sales Name Role Phone Aleks Qiu MD Primary Care Provider [phone] Encounter Details Date Type Department Care Team Description 07/10/[address] [facility] Oncology Services [address] [place] [phone] [facility] Social History Tobacco Use Types Packs/Day [...] on filedocumented in this encounter Care Teams Life Insurance Sales Relationship Specialty Start Date End Date Aleks Qiu MD [address] [place] [address] [place] [address] PCP - General Hospitalist Medicine 04/30/22 documented as of this encounter
--- OUTSIDE RECORDS SUMMARY | 2024-11-27 17:33 | XMS_ITS | Encounter Summary ---
Author Organization [facility] Address [address] [place] [address] Care Team Providers Care Retort Press Operator Name Role Phone Aleks Qiu MD Primary Care Provider [phone] Encounter Details Date Type Department Care Team (Late st Contact Info) Description 11/02/2024 Telephone [place] [facility] [address] [place] [phone] Aleks Qiu MD [address] [place], [place] Social History Tobacco Use Types Packs/Day Years [...] as of this encounter Progress Notes * Zoey Robles MA - 11/02/2024 3:33 PM EST Results given to Dr. Qiu. * Aleks Qiu MD - 11/02/2024 11:40 AM EST Please get the recent echocardiogram report and cardiology note from Dr. De Dios office, [facility] documented in this encounter Plan of Treatment Upcoming Encounters Date Type Department Care Team (Late st Contact Info) Description 12/04/2024 8:00 AM EDT Appointment [facility] [address] [place] [address] 12/07/2024 2:00 PM EDT Office Visit Endocrinology - [address] [phone] Ivette Acuña MD [address] [place] [phone] 12/19/2024 11:00 AM EDT Office Visit Adult Medicine West - [address] [phone] Aleks Qiu MD [address] [place] [address] 04/18/2025 4:30 PM EDT Appointment Radiology Department - [address] [phone] documented as of this encounter Visit Diagnoses Not on filedocumented in this encounter Care Teams Retort Press Operator Relationship Specialty Start Date End Date Aleks Qiu MD [address] [place] [address] PCP - General Internal Medicine 02/17/22 documented as of this encounter
--- OUTSIDE RECORDS SUMMARY | 2024-11-27 17:33 | XMS_ITS | Encounter Summary ---
Author Organization [facility] Address [address] [place] [address] Care Team Providers Care Java Developer Analyst Name Role Phone Aleks Qiu Primary Care Provider [phone] Encounter Details Date Type Department Care Team Description 08/23/2023 Orders Only Medical Records [address] [place] [address] Ray Quigley MD Social History Tobacco Use Types Packs/Day [...] Name Priority Date/Time Associated Diagnosis Comments OUTSIDE EYE EXAM Routine 08/17/2023 documented in this encounter Results * OUTSIDE EYE EXAM (08/17/2023) Ray Quigley MD PROCEDURES documented in this encounter Visit Diagnoses Not on filedocumented in this encounter Care Teams Java Developer Analyst Relationship Specialty Start Date End Date Aleks Qiu [address] [place] [address] PCP - General Internal Medicine 02/17/22 documented as of this encounter
--- OUTSIDE RECORDS SUMMARY | 2024-11-27 17:33 | XMS_ITS | Encounter Summary ---
Author Organization [facility] Address [address] [place] [address] Care Team Providers Care Overhead Distribution Engineer Name Role Phone Aleks Qiu MD Primary Care Provider [phone] Reason for Referral * Imaging (Routine) - Authorized Specialty Diagnoses / Procedures Referred By Vishnu nagy Referred To Contact Radiology Diagnoses Encounter for screening mammogram for malignant neoplasm of breast Procedures MG Mammo Digital Screening w Robin bilat Aleks Qiu MD [address] [place] [address] Phone: tel: fax: [address] Phone: tel: Referral ID Status Reason Start Date Expiration Date V isits Requested Visits Authorized [id number] Authorized 11/02/2024 11/02/2025 1 1 Reason for Visit * Reason Comments Hypertension Diabetes Encounter Details Date Type Department Care Team ([facility] Contact Info) Description 11/02/2024 11:00 AM EST Office Visit Adult Medicine [address] [phone] Aleks Qiu MD [address] [place] [address] Poorly-controlled hypertension (Primary Dx); Precordial pain; CAD of autologous bypass graft; Chronic systolic CHF (congestive heart failure) ([facility]/HCC); Type 2 diabetes mellitus with microalbuminuria, with long-term current use of insulin ([facility]); Stage 3a chronic kidney disease ([facility]/HCC); Mixed hyperlipidemia; Chronic obstructive pulmonary disease, unspecified COPD type ([facility]/HCC); Splenic marginal zone b-cell lymphoma ([facility]); Encounter for screening mammogram for malignant neoplasm of breast Social History Tobacco Use Types Packs/Day Years [...] Sign Reading Time Taken Comments Blood Pressure 160/80 11/02/2024 11:24 AM EST Pulse 64 11/02/2024 11:00 AM EST Temperature 36.3 ??C (97.3 ??F) 11/02/2024 11:[address] Respiratory Rate 16 11/02/2024 11:00 AM EST Oxygen Saturation - - Inhaled Oxygen Concentration - - Weight 68 kg (150 lb) 11/02/2024 11:00 AM EST Height - - Body Mass Index 27.44 10/24/2024 11:22 AM EST documented in this encounter Ordered Prescriptions Prescription Sig Dispense Quantity Refills Last Filled Start Date End Date isosorbide mononitrate (IMDUR) 30 mg 24 hr tablet Take 1 tablet (30 mg total) by mouth 1 (one) time each day. Do not crush or chew. 90 each 1 11/02/2024 furosemide (LASIX) 20 mg tablet Take 1 tablet (20 mg total) by mouth 1 (one) time each day. 90 tablet 1 11/02/2024 documented in this encounter Progress Notes * Aleks Qiu MD - 11/02/2024 11:00 AM EST Patient is recommended lifestyle changes including 2 g sodium diet and regular exercise as tolerated. Patient is advised to check BP at home and maintain a BP log. Your goal is to maintain blood pressure less than 135/85. Please call our office if blood pressure more than 140/90, more than a coupleof times * Zoey Robles MA - 11/02/2024 11:00 AM EST BS 199 Lab Results Component Value Date HGBA1C 8.4 (A) 05/30/2024 * Aleks Qiu MD - 11/02/2024 11:00 AM EST CHIEF COMPLAINT: Hypertension and Diabetes IDENTIFIER: Magdalena Felix is a 78 y.o. old female. HPI: 78 y.o. 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 She is on chemotherapy for lymphoma and she follows with fundraiser Dr. Huerta. She reported that her blood sugars are varies between 100 and 199, I recommended her to eat small portions, avoid sweet/sweet drinks and continue current meds. She follows with [facility] Dr. Acuña. Her blood pressure is elevated. Today I added Imdur 30 mg daily and Lasix 20 mg daily for chest pain/pedal edema and CHF. She complained of intermittent chest tightness lasting for few minutes to couple of hours and she was seen by dental assistant instructor Dr. De Dios at [facility] recommended her tocontinue current meds. Stat EKG today did not show any acute findings. Recent echocardiogram suggestive of EF of 55 to 60%. She also reported that she had a cardiac stress test at Dr. De Dios office andshe was told that no further action is needed. COPD symptoms are stable. Health maintenance is reviewed. Her last colonoscopy was on 07/2024. I will order mammogram. ROS: GENERAL: No malaise, significant weight loss or fever HEENT: No changes in hearing or vision, nose bleeds or other nasal problems NECK: No lumps RESPIRATORY: No cough, wheezing or shortness of breath CARDIOVASCULAR: Intermittent chest tightness GI: No abdominal pain, hematochezia, melena : No dysuria, oliguria, polyuria, hematuria, flank pain MUSCULOSKELETAL: No joint pain or swelling, back pain, or muscle pain. SKIN: No lesions, rash or itching NEURO: No persistent headache, syncope, seizures, weakness or numbness PAST MEDICAL HISTORY: Patient Active Problem List Diagnosis Date Noted B-cell lymphoma ([facility] 07/02/2024 Type 2 diabetes mellitus with microalbuminuria, with long-term current use of insulin ([facility]) 06/19/2024 CAD of autologous bypass graft 12/29/2023 Chronic systolic CHF (congestive heart failure) ([facility]) 12/29/2023 Acute kidney injury ([facility]) 04/23/2023 Centrilobular emphysema ([facility]) 04/23/2023 NSTEMI (non-ST elevated myocardial infarction) ([facility]) 04/23/2023 Pericarditis as complication of acute myocardial infarction ([facility]) 04/23/2023 Osteopenia 12/08/2022 Stage 3 chronic kidney disease ([facility]) 10/14/2022 Chronic deep vein thrombosis (DVT) of proximal vein of lower extremity ([facility]) 06/23/2022 Hydronephrosis of right kidney 06/23/2022 Mixed hyperlipidemia 06/23/2022 Renal calculi 06/23/2022 Acute deep vein thrombosis (DVT) of distal vein of both lower extremities ([facility]) 12/17/2021 Acute deep vein thrombosis (DVT) of femoral vein of left lower extremity ([facility]) 05/19/2021 COVID-19 01/26/2020 GERD (gastroesophageal reflux disease) 07/18/2019 Microalbuminuria 07/18/2019 Osteoporosis 07/18/2019 Type 2 diabetes mellitus with renal manifestations ([facility]) 07/18/2019 Diabetes 1.5, 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[facility]) 01/26/2019 Chronic obstructive pulmonary disease ([facility]) 01/26/2019 Atypical chest pain 12/22/2018 Asthma 12/22/2018 Celiac disease 12/22/2018 Glaucoma 12/22/2018 Hypercholesteremia 12/22/2018 Migraine 12/22/2018 Primary hypertension 12/22/2018 Past Surgical History: Procedure Laterality Date ABDOMINAL SURGERY PROCEDURE: HISTORICAL ABDOMINAL SURGERY; COMMENT: stomach tumors BREAST BIOPSY Bilateral PROCEDURE: BX BREAST; PERC NEEDLE CORE W/IMAG GUID; COMMENT: b9 BREAST SURGERY Bilateral PROCEDURE: [facility] UNLISTED PROCEDURE BREAST; COMMENT: b9; 5 tumors on right, large one on left-adhered to chest wall-1986 COLONOSCOPY 05/26/2016 PROCEDURE: HISTORICAL COLONOSCOPY; COMMENT: no report; 03/14/2016-EGD/flex sig- gastritis; 03/27/2004 CORONARY ARTERY BYPASS GRAFT 05/2023 EXPLORATORY LAPAROTOMY 2015 HYSTERECTOMY PROCEDURE: HISTORICAL HYSTERECTOMY; COMMENT: 1 ovary remains SOCIAL HISTORY: Social History Tobacco Use Smoking status: Former Smokeless tobacco: Never Substance Use Topics Alcohol use: Not on file FAMILY HISTORY: Family History Problem Relation Name Age of Onset Celiac disease Sister CABG x4-twin Pancreatic cancer Mother 86.00 Prostate cancer Father 90.00 Diabetes Brother Diabetes Sister Family Status Relation Name Status Sister (Not Specified) Mother Father Brother (Not Specified) Sister (Not Specified) No partnership data on file MEDICATIONS DISCONTINUED/REORDERED: Medications Discontinued During This Encounter Medication Reason clopidogreL (PLAVIX) 75 mg tablet Therapy completed folic acid (FOLVITE) 1 mg tablet insulin lispro (HumaLOG U-100 Insulin) 100 unit/mL injection Duplicate order losartan (COZAAR) 25 mg tablet Dose adjustment furosemide (LASIX) 20 mg tablet Reorder ACTIVE MEDICATIONS: Outpatient Medications Marked as Taking for the 11/02/24 encounter (Office Visit) with Aleks Qiu MD Medication Sig Dispense Refill acetaminophen (TYLENOL 8 HOUR) 650 mg 8 hr tablet Take 1 Tablet by mouth every 8 hours as needed for Pain. albuterol HFA (PROAIR HFA ; PROVENTIL HFA ; VENTOLIN HFA) 90 mcg/actuation inhaler Inhale 2 Puffs into the lungs every 4 hours as needed for Cough or Wheezing. aspirin 81 mg EC tablet Take 1 Tablet by mouth daily for 180 days. atorvastatin (LIPITOR) 80 mg tablet Take 1 Tablet by mouth daily for 90 days. cyanocobalamin (VITAMIN B-12) 1,000 mcg tablet Route: Take 1 Tablet by mouth daily. - Oral dorzolamide-timoloL (COSOPT) 22.3-6.8 mg/mL ophthalmic solution 1 Drop. fenofibrate (LOFIBRA) 54 mg tablet TAKE 1 TABLET BY MOUTH DAILY 90 tablet 0 fluticasone-salmeterol (ADVAIR DISKUS) 250-50 mcg/dose diskus inhaler Inhale 1 Puff into the lungs daily. furosemide (LASIX) 20 mg tablet Take 1 tablet (20 mg total) by mouth 1 (one) time each day. 90 tablet 1 insulin glargine (LANTUS) 100 unit/mL injection Administer 29 units under the skin in the morning and 29 units in the evening. 10 mL 0 insulin lispro (HumaLOG U-100 Insulin) 100 unit/mL injection ADMINISTER 10 UNITS SUBCUTANEOUS BEFORE BREAKFAST AND 5 UNITS BEFORE LUNCH AND 7 TO 8 UNITS BEFORE DINNER DIRECTEDADMINISTER 10 UNITS SUBCUTANEOUS BEFORE BREAKFAST AND 5 UNITS BEFORE LUNCH AND 7 TO 8 UNITS BEFORE DINNER DIRECTED 10 mL 0 losartan (COZAAR) 100 mg tablet Take 1 tablet (100 mg total) by mouth 1 (one) time each day. magnesium oxide (MAG-OX) 400 mg magnesium tablet Route: Take 1 Tablet by mouth daily. - Oral metoprolol tartrate (LOPRESSOR) 100 mg tablet TAKE 1 TABLET BY MOUTH TWICE DAILY ondansetron (ZOFRAN) 4 mg tablet Take 1 Tablet by mouth every 8 hours as needed for Nausea. pantoprazole (PROTONIX) 40 mg EC tablet TAKE 1 TABLET BY MOUTH DAILY 90 tablet 0 [DISCONTINUED] insulin lispro (HumaLOG U-100 Insulin) 100 unit/mL injection - Administer within 15 minutes of a meal 10 mL 0 [DISCONTINUED] losartan (COZAAR) 25 mg tablet TAKE 1 TABLET BY MOUTH DAILY 90 tablet 0 ALLERGIES: Allergies Allergen Reactions Doxycycline Nausea And Vomiting Diarrhea, sweating Propoxyphene Nausea And Vomiting sweaty Jdrohlw-Ywe-Urh Reductase Inhibitors Weakness PHYSICAL EXAM: Visit Vitals BP (!) 160/80 Pulse 64 Temp 36.3 ??C (97.3 ??F) Resp 16 Wt 68 kg (150 lb) BMI 27.44 kg/m?? OB Status Postmenopausal Smoking Status Former BSA 1.69 m?? Physical Exam APPEARANCE: Alert and in no acute distress EYES: PERRLA, conjunctiva and sclera normal. EARS: External ears normal. NOSE/SINUS: Nares normal. MOUTH/THROAT: no erythema or exudates HEART: RRR with normal S1 and S2, no murmurs LUNG: clear to auscultation, no wheezing ABDOMEN: Bowel sounds normoactive, soft, non-tender and no palpable masses. BACK: No pain to palpation EXTREMITIES: Trace pedal edema NEURO: Awake, alert and oriented x 3. No focal neurological deficits SKIN: No rashes LABS: @CBC@ Lab Results Component Value Date NA 137 09/25/2024 K 4.7 09/25/2024 CL 110 09/25/2024 CO2 25 09/25/2024 GLUCOSE 225 (H) 09/25/2024 BUN 21 09/25/2024 CREATININE 1.07 09/25/2024 CALCIUM 9.4 09/25/2024 PROT 5.7 (L) 09/25/2024 ALBUMIN 3.3 09/25/2024 BILITOT 0.3 09/25/2024 AST 17 09/25/2024 ALT 16 09/25/2024 ALKPHOS 88 09/25/2024 EGFR 53 (L) 09/25/2024 Lab Results Component Value Date HGBA1C 8.4 (A) 05/30/2024 No results found for: TSH Lab Results Component Value Date CHOL 103 12/06/2023 TRIG 134 12/06/2023 HDL 27 (A) 12/06/2023 LDL 50 12/06/2023 IMAGING: EKG-normal sinus rhythm, no acute ST-T changes. IMPRESSION: 1. Poorly-controlled hypertension 2. Precordial pain 3. CAD of autologous bypass graft 4. Chronic systolic CHF (congestive heart failure) (CMS/HCC) 5. Type 2 diabetes mellitus with microalbuminuria, with long-term current use of insulin (CMS/HCC) 6. Stage 3a chronic kidney disease (CMS/HCC) 7. Mixed hyperlipidemia 8. Chronic obstructive pulmonary disease, unspecified COPD type (CMS/HCC) 9. Splenic marginal zone b-cell lymphoma (CMS/HCC) 10. Encounter for screening mammogram for malignant neoplasm of breast PLAN: 1. Her blood pressure is elevated, asymptomatic. I counseled her for lifestyle changes and recommended her to check blood pressure daily, bring the BP log to our office in 6 weeks for BP med adjustment. For now I will continue current medication of metoprolol 100 mg twice a day and losartan 100 mg daily. Today I added Imdur 30 mg daily and Lasix 20 mg daily. 2. She complained of intermittent chest tightness. Stat EKG today did not show any acute ST-T changes. She was recently seen by the dental assistant instructor Dr. De Dios and she had a cardiac stress test. She was told that no further action is needed. I recommended her to continue to follow-up with dental assistant instructor Dr. De Dios. Continue baby aspirin, metoprolol, losartan and Lipitor 80 mg daily. She has mild pedal edema, I will start her on Lasix 20 mg daily. Recent echocardiogram suggestive of EF of 55 to 60% with grade 2 diastolic dysfunction. 3. Blood sugars are varies between 100 to 199, currently she is on Lantus insulin 29 units twice a day, Humalog insulin 4 units in the morning, 4 units at noontime and 7 units at suppertime. Repeat A1c level and adjust insulin dose as needed. She follows with [facility]. 4. Her renal function is stable and she does not use any NSAIDs. 5. COPD symptoms are under control, continue albuterol MDI as needed 6. She is on chemotherapy for lymphoma and she follows with fundraiser Dr. Huerta 7. Labs ordered including BMP, A1c, urine microalbumin level 8. Follow-up exam in 6 weeks for BP checkup All questions and concerns were addressed. Magdalena Felix verbalizes understanding and agrees with this treatment plan. Patient was reminded to call or return to the office if any new or existing problems arise. Orders Placed This Encounter Procedures MG Mammo Digital Screening w Robin bilat Basic metabolic panel Hemoglobin A1c Microalbumin creatinine urine ratio ECG 12 lead MG MAMMO DIGITAL SCREENING W ROBIN BILAT Aleks Qiu MD on 11/02/2024 at 1:32 PM EST Today's documentation was made using voice recognition software.This note may contain grammatical errors secondary to this software. documented in this encounter Plan of Treatment Upcoming Encounters Date Type Department Care Team (Late st Contact Info) Description 12/04/2024 8:00 AM EDT Appointment [facility] [address] [place] [address] [address] [place] [address] 12/07/2024 2:00 PM EDT Office Visit Endocrinology - [address] [phone] Ivette Acuña MD [address] [place] [address] 12/19/2024 11:00 AM EDT Office Visit Adult Medicine [place] - [address] [phone] Aleks Qiu MD [address] [place] [address] 04/18/2025 4:30 PM EDT Appointment Radiology Department - [address] [phone] Scheduled Orders Name Type Priority Associated Diagnoses Orde r Schedule MG Mammo Digital Screening w Robin bilat Imaging Routine Encounter for screening mammogram for malignant neoplasm of breast 1 Occurrences starting 11/02/2024 until 11/02/2025 documented as of this encounter Procedures Procedure Name Priority Date/Time Associated Diagnosis Comments ECG 12-LEAD Routine 11/02/2024 1:46 PM EST CAD of autologous bypass graft Precordial pain documented in this encounter Results * ECG 12 lead (11/02/2024 1:46 PM EST) Narrative Aleks Qiu MD - 11/02/2024 1:46 PM EST EKG-normal sinus rhythm, no acute ST-T changes us Aleks Qiu MD ECG ORDERABLES Final Resul t * Microalbumin creatinine urine ratio (11/02/2024 12:52 PM EST) Creatinine, Urine 80.0 mg/dL LAB CHEMISTRY METHOD 11/02/2024 3:10 PM EST [facility] Microalb, Ur 21.8 0.0 - 29.0 mg/L LAB CHEMISTRY METHOD 11/02/2024 3:10 PM EST [facility] Microalb/Creat Ratio 27 <30 mg/g creat LAB CHEMISTRY METHOD 11/02/2024 3:10 PM [facility] Urine Urine specimen obtained by clean catch procedure / Unknown Non-blood Collection / Unknown 11/02/2024 12:52 PM EST 11/02/2024 12:52 PM EST Aleks Qiu MD LAB URINE ORDERABLES Final Result [facility] [address] [place] [address], [place] [phone] * (ABNORMAL) Hemoglobin A1c (11/02/2024 12:52 PM EST) Pathologist [facility] Hemoglobin A1C 9.8(H) <6.5 % LAB CHEMISTRY METHOD 11/02/2024 8:39 PM [facility] Mean Bld Glu Estim. 235 mg/dL LAB CHEMISTRY METHOD 11/02/2024 8:39 PM [facility] Blood Venous blood specimen / Unknown Venipuncture / Unknown 11/02/2024 12:52 PM EST 11/02/2024 12:52 PM EST Aleks Qiu MD LAB BLOOD ORDERABLES Final Result [facility] [address] [place] [address], [place] [phone] * (ABNORMAL) Basic metabolic panel (11/02/2024 12:52 PM EST) Pathologist [facility] Sodium 142 133 - 145 mmol/L LAB CHEMISTRY METHOD 11/02/2024 5:22 PM [facility] Potassium 4.3 3.5 - 5.5 mmol/L LAB CHEMISTRY METHOD 11/02/2024 5:22 PM [facility] Chloride 108 96 - 110 mmol/L LAB CHEMISTRY METHOD 11/02/2024 5:22 PM [facility] CO2 31 21 - 32 mmol/L LAB CHEMISTRY METHOD 11/02/2024 5:22 PM [facility] Anion Gap 3 3 - 11 LAB CHEMISTRY METHOD 11/02/2024 5:22 PM [facility] Glucose 111(H) 70 - 100 mg/dL LAB CHEMISTRY METHOD 11/02/2024 5:22 PM [facility] BUN 22 5 - 25 mg/dL LAB CHEMISTRY METHOD 11/02/2024 5:22 PM [facility] Creatinine 0.82 0.50 - 1.10 mg/dL LAB CHEMISTRY METHOD 11/02/2024 5:22 PM [facility] eGFR 73 >=60 mL/min/1. 73m2 LAB CHEMISTRY METHOD 11/02/2024 5:22 PM [facility] Comment:Calculation based on the??Chronic Kidney Disease Epidemiology Collaboration (CKD-EPI) equation refit??without adjustment for race. BUN/Creatinine Ratio 26.8 LAB CHEMISTRY METHOD 11/02/2024 5:22 PM [facility] Calcium 9.9 8.5 - 10.5 mg/dL LAB CHEMISTRY METHOD 11/02/2024 5:22 PM [facility] Blood Venous blood specimen / Unknown Venipuncture / Unknown 11/02/2024 12:52 PM EST 11/02/2024 12:52 PM EST us Alkes Qiu MD LAB BLOOD ORDERABLES Final Result [facility] [address] [place] [address], [place] [phone] documented in this encounter Visit Diagnoses Diagnosis Poorly-controlled hypertension- Primary Precordial pain CAD of autologous bypass graft Chronic systolic CHF (congestive heart failure) (CMS/HCC) Type 2 diabetes mellitus with microalbuminuria, with long-term current use of insulin (CMS/HCC) Stage 3a chronic kidney disease (CMS/HCC) Mixed hyperlipidemia Chronic obstructive pulmonary disease, unspecified COPD type (CMS/HCC) Splenic marginal zone b-cell lymphoma (CMS/HCC) Marginal zone lymphoma, spleen Encounter for screening mammogram for malignant neoplasm of breast documented in this encounter Discontinued Medications Medication Sig Discontinue Reason Start Date End Da te clopidogreL (PLAVIX) 75 mg tablet Take 1 tablet (75 mg total) by mouth 1 (one) time each day. Therapy completed 08/08/2024 11/02/2024 folic acid (FOLVITE) 1 mg tablet TAKE 1 TABLET BY MOUTH DAILY 10/17/2024 11/02/2024 insulin lispro (HumaLOG U-100 Insulin) 100 unit/mL injection -Administer within 15 minutes of a meal Duplicate order 09/12/2024 11/02/2024 losartan (COZAAR) 25 mg tablet TAKE 1 TABLET BY MOUTH DAILY Dose adjustment 09/19/2024 11/02/2024 furosemide (LASIX) 20 mg tablet Take 1 Tablet by mouth daily. Reorder 06/25/2023 11/02/2024 ALPRAZolam (XANAX) 0.25 mg tablet 02/16/2024 11/07/2024 documented as of this encounter Care Teams Overhead Distribution Engineer Relationship Specialty Start Date End Date Aleks Qiu MD [address] [place] [address] PCP - General Internal Medicine 02/17/22 documented as of this encounter
--- OUTSIDE RECORDS SUMMARY | 2024-11-27 17:33 | XMS_ITS | Encounter Summary ---
Author Organization [facility] Address [address] [place] [address] Care Team Providers Care Hand Tacker Name Role Phone Aleks Qiu MD Primary Care Provider [phone] Reason for Visit * Reason Comments diabetes Encounter Details Date Type Department Care Team ([facility] st Contact Info) Description 11/07/2024 1:00 PM EST Office Visit Endocrinology - [place] [address] [place] [address] Ivette Acuña MD [address] [place] [address] Type 2 diabetes mellitus with microalbuminuria, with long-term current use of insulin ([facility]) Social History Tobacco Use Types Packs/Day Years [...] Sign Reading Time Taken Comments Blood Pressure 141/58 11/07/2024 1:10 PM EST 5 m ins Pulse 60 11/07/2024 1:07 PM EST Temperature 36.2 ??C (97.2 ??F) 11/07/2024 1:07 PM ES T Respiratory Rate - - Oxygen Saturation 98% 11/07/2024 1:07 PM EST Inhaled Oxygen Concentration - - Weight 67.8 kg (149 lb 6.4 oz) 11/07/2024 1:07 P M EST Height 157.5 cm (5' 2 ) 11/07/2024 1:07 PM EST Body Mass Index 27.33 11/07/2024 1:07 PM EST documented in this encounter Ordered Prescriptions Prescription Sig Dispense Quantity Refills Last Filled Start Date End Date semaglutide (OZEMPIC) 0.25 mg or 0.5 mg (2 mg/3 mL) injection penIndications:Typ e 2 diabetes mellitus with microalbuminuria, with long-term current use of insulin (CMS/HCC) Inject 0.25 mg under the skin every 7 (seven) days. 3 mL 1 11/07/2024 insulin lispro (HumaLOG U-100 Insulin) 100 unit/mL injectionIndicatio ns:Type 2 diabetes mellitus with microalbuminuria, with long-term current use of insulin (CMS/HCC) As directed before meals three times a day MAX up to 30 units a day 10 mL 2 11/07/2024 documented in this encounter Progress Notes * Ivette Acuña MD - 11/07/2024 1:00 PM EST Cut down on insulin Lantus to 22 units two times a day Start ozempic at 0.25 mg weekly Take 10 units of insulin Humalog before big meals * Ivette Acuña MD - 11/07/2024 1:00 PM EST CHIEF COMPLAINT: diabetes IDENTIFIER: Magdalena Felix is a 78 y.o. old female. HPI: 78 years old F following for DM type 2. Last seen 10/24/2024 Diagnosed since many years, around 30 years per pt. Currently on Insulin lantus at 28 in AM and 28 in PM, 7 units HL >150 SS. She has been diagnosed with splenic marginal zone B-cell lymphoma and started on tx and getting steroids with it every week. Sugars have been high but actually better then before. On td 2, Data shows [address], 45% in range, above 53%, below 2%. It seems there are spikes with meals. But there is variation. In morning numbers are somewhat tightsometimes. On last visit plan was to start on ozempic, rx was sent but pt states he never got it. ROS: Admits to fatigue PAST MEDICAL HISTORY: Patient Active Problem List Diagnosis Date Noted B-cell lymphoma ([facility]) 07/02/2024 Type 2 diabetes mellitus with microalbuminuria, with long-term current use of insulin ([facility]) 06/19/2024 CAD of autologous bypass graft 12/29/2023 Chronic systolic CHF (congestive heart failure) ([facility]) 12/29/2023 Acute kidney injury ([facility]) 04/23/2023 Centrilobular emphysema ([facility]) 04/23/2023 NSTEMI (non-ST elevated myocardial infarction) ([facility]) 04/23/2023 Pericarditis as complication of acute myocardial infarction ([facility]) 04/23/2023 Osteopenia 12/08/2022 Stage 3 chronic kidney disease ([facility]) 10/14/2022 Chronic deep vein thrombosis (DVT) of proximal vein of lower extremity ([facility]) 06/23/2022 Hydronephrosis of right kidney 06/23/2022 Mixed hyperlipidemia 06/23/2022 Renal calculi 06/23/2022 Acute deep vein thrombosis (DVT) of distal vein of both lower extremities ([facility]) 12/17/2021 Acute deep vein thrombosis (DVT) of femoral vein of left lower extremity ([facility]) 05/19/2021 COVID-19 01/26/2020 GERD (gastroesophageal reflux disease) 07/18/2019 Microalbuminuria 07/18/2019 Osteoporosis 07/18/2019 Type 2 diabetes mellitus with renal manifestations ([facility]) 07/18/2019 Diabetes 1.5, 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 Chronic obstructive pulmonary disease ([facility]) 01/26/2019 Atypical chest pain 12/22/2018 Asthma 12/22/2018 Celiac disease 12/22/2018 Glaucoma 12/22/2018 Hypercholesteremia 12/22/2018 Migraine 12/22/2018 Primary hypertension 12/22/2018 Past Surgical History: Procedure Laterality Date ABDOMINAL SURGERY PROCEDURE: HISTORICAL ABDOMINAL SURGERY; COMMENT: stomach tumors BREAST BIOPSY Bilateral 1980s PROCEDURE: BX BREAST; PERC NEEDLE CORE W/IMAG GUID; COMMENT: b9 BREAST SURGERY Bilateral 1990s PROCEDURE: DE UNLISTED PROCEDURE BREAST; COMMENT: b9; 5 tumors [...] Medications Discontinued During This Encounter Medication Reason ALPRAZolam (XANAX) 0.25 mg tablet insulin lispro (HumaLOG U-100 Insulin) 100 unit/mL injection Reorder semaglutide (OZEMPIC) 0.25 mg or 0.5 mg (2 mg/3 mL) injection pen Reorder ACTIVE MEDICATIONS: Outpatient Medications Marked as Taking for the 11/07/24 encounter (Office Visit) with Ivette Acuña MD Medication Sig Dispense Refill acetaminophen (TYLENOL [...] Tablet by mouth daily for 90 days. blood-glucose meter kit To check blood sugar twice per day for diagnosis E11.65 carbidopa-levodopa (SINEMET) 25-100 mg per tablet TAKE HALF TO 1 TABLET BY MOUTH TWICE DAILY. TAKE WITH A CRACKER 30 MINUTES BEFORE BREAKFAST AND DINNER cyanocobalamin (VITAMIN B-12) 1,000 mcg tablet Route: Take 1 Tablet by mouth daily. - Oral dorzolamide-timoloL (COSOPT) 22.3-6.8 mg/mL ophthalmic solution 1 Drop. fenofibrate (LOFIBRA) 54 mg tablet TAKE 1 TABLET BY MOUTH DAILY 90 tablet 0 flash glucose scanning reader (FreeStyle Td 2 [place]) misc 1 Device by Does not apply route continuous. flash glucose sensor (FreeStyle Td 2 Sensor) kit Inject 1 EA into the skin every 14 (fourteen) days. 6 each 1 fluticasone-salmeterol (ADVAIR DISKUS) 250-50 mcg/dose diskus inhaler Inhale 1 Puff into the lungs daily. furosemide (LASIX) 20 mg tablet Take 1 tablet (20 mg total) by mouth 1 (one) time each day. 90 tablet 1 gabapentin (NEURONTIN) 100 mg capsule Take 1 capsule (100 mg total) by mouth 3 (three) times a day.90 each 2 insulin glargine (LANTUS) 100 unit/mL injection Administer 29 units under the skin in the morning and 29 units in the evening. 10 mL 0 insulin lispro (HumaLOG U-100 Insulin) 100 unit/mL injection As directed before meals three times aday MAX up to 30 units a day 10 mL 2 isosorbide mononitrate (IMDUR) 30 mg 24 hr tablet Take 1 tablet (30 mg total) by mouth 1 (one) timeeach day. Do not crush or chew. 90 each 1 losartan (COZAAR) 100 mg tablet Take 20 mg by mouth 1 (one) time each day. magnesium oxide (MAG-OX) 400 mg magnesium tablet Route: Take 1 Tablet by mouth daily. - Oral metoprolol succinate (TOPROL-XL) 100 mg 24 hr tablet Take 1 tablet (100 mg total) by mouth 1 (one) time each day. metoprolol tartrate (LOPRESSOR) 100 mg tablet TAKE 1 TABLET BY MOUTH TWICE DAILY ondansetron (ZOFRAN) 4 mg tablet Take 1 Tablet by mouth every 8 hours as needed for Nausea. pantoprazole (PROTONIX) 40 mg EC tablet TAKE 1 TABLET BY MOUTH DAILY 90 tablet 0 semaglutide (OZEMPIC) 0.25 mg or 0.5 mg (2 mg/3 mL) injection pen Inject 0.25 mg under the skin every 7 (seven) days. 3 mL 1 [DISCONTINUED] insulin lispro (HumaLOG U-100 Insulin) 100 unit/mL injection ADMINISTER 10 UNITS SUBCUTANEOUS BEFORE BREAKFAST AND 5 UNITS BEFORE LUNCH AND 7 TO 8 UNITS BEFORE DINNER DIRECTEDADMINISTER 10 UNITS SUBCUTANEOUS BEFORE BREAKFAST AND 5 UNITS BEFORE LUNCH AND 7 TO 8 UNITS BEFORE DINNER DIRECTED 10 mL 0 [DISCONTINUED] semaglutide (OZEMPIC) 0.25 mg or 0.5 mg (2 mg/3 mL) injection pen Inject 0.25 mg under the skin every 7 (seven) days. 3 mL 1 ALLERGIES: Allergies Allergen Reactions Doxycycline Nausea And Vomiting Diarrhea, sweating Propoxyphene Nausea And Vomiting sweaty Rwfzsvh-Hxe-Wpj Reductase Inhibitors Weakness PHYSICAL EXAM: Visit Vitals BP (!) 141/58 (BP Location: Left arm, Patient Position: Sitting, BP Cuff Size: Adult) Comment: 5 mins Pulse 60 Temp 36.2 ??C (97.2 ??F) (Temporal) Ht 1.575 m (62 ) Wt 67.8 kg (149 lb 6.4 oz) SpO2 98% BMI 27.33 kg/m?? OB Status Postmenopausal Smoking Status Former BSA 1.69 m?? APPEARANCE: Alert and in no acute distress EYES: EOMI. No resp distress NEURO: Awake, alert LABS: Lab Results Component Value Date HGBA1C 9.8 (H) 11/02/2024 CHOL 103 12/06/2023 LDL 50 12/06/2023 HDL 27 (A) 12/06/2023 TRIG 134 12/06/2023 IMPRESSION: 1. Type 2 diabetes mellitus with microalbuminuria, with long-term current use of insulin ([facility]) PLAN: Had a detailed discussion, She was on ozempic and was doing well, we took it off as there was nausea with current treatment. She is willing to try that again. Have already Discussed potential side effects. Resent the prescription. Shall cut down on the insulin dose. All questions answered. Medication and lab orders: No orders of the defined types were placed in this encounter. Other orders: None Ivette Acuña MD on 11/07/2024 at 2:28 PM EST documented in this encounter Plan of Treatment Upcoming Encounters Date Type Department Care Team (Late st Contact Info) Description 12/04/2024 8:00 AM EDT Appointment Infusion Center [address] [place] [phone] 12/07/2024 2:00 PM EDT Office Visit Endocrinology - [address] [phone] Ivette Acuña MD [address] [place] [address] 12/19/2024 11:00 AM EDT Office Visit [place] [facility] [place] - [address] [phone] Aleks Qiu MD [address] [place] [address] 04/18/2025 4:30 PM EDT Appointment Radiology Department - [address] [phone] documented as of this encounter Visit Diagnoses Diagnosis Type 2 diabetes mellitus with microalbuminuria, with long-term current use of insulin ([facility]) documented in this encounter Discontinued Medications Medication Sig Discontinue Reason Start Date End Da te ALPRAZolam (XANAX) 0.25 mg tablet 02/16/2024 11/07/2024 insulin lispro (HumaLOG U-100 Insulin) 100 unit/mL injection ADMINISTER 10 UNITS SUBCUTANEOUS BEFORE BREAKFAST AND 5 UNITS BEFORE LUNCH AND 7 TO 8 UNITS BEFORE DINNER DIRECTEDADMINISTER 10 UNITS SUBCUTANEOUS BEFORE BREAKFAST AND 5 UNITS BEFORE LUNCH AND 7 TO 8 UNITS BEFORE DINNER DIRECTED Reorder 09/27/2024 11/07/2024 semaglutide (OZEMPIC) 0.25 mg or 0.5 mg (2 mg/3 mL) injection penIndications:Typ e 2 diabetes mellitus with microalbuminuria, with long-term current use of insulin ([facility]) Inject 0.25 mg under the skin every 7 (seven) days. Reorder 10/24/2024 11/07/2024 documented as of this encounter Historical Medications * This list may reflect changes made after this encounter. metoprolol succinate (TOPROL-XL) 100 mg 24 hr tablet Take 1 tablet (100 mg total) by mouth 1 (one) time each day. 10/15/2024 added in this encounter Care Teams Hand Tacker Relationship Specialty Start Date End Date Aleks Qiu MD [address] [place] [address] PCP - General Internal Medicine 02/17/22 documented as of this encounter
--- OUTSIDE RECORDS SUMMARY | 2024-11-27 17:33 | XMS_ITS | Encounter Summary ---
Author Organization [facility] Address [address] [place] [address] Care Team Providers Care Electric Meter Repairer Helper Name Role Phone Yessenia Fox MD Primary Care Provider Nohemi Ricketts MD Primary Care Provider Aleks Parker Primary Care Provider [phone] Encounter Details Date Type Department Care Team Description 03/11/2020 Telephone Adult Medicine [address] [address] Yessenia Fox MD Social History Tobacco Use Types Packs/Day Years Used Date Smoking Tobacco: Former Smokeless Tobacco: Never Comments:quit 30 years ago Sex Assigned at Date Recorded Female 04/24/2023 6:24 PM E DT Job Start Date Occupation Industry Not on file Not on file Not on file documented as of this encounter Miscellaneous Notes * Telephone Encounter - Alisa Allen - 03/11/2020 3:10 PM EDT Voicemail left to call office to schedule audio visit with pcp as pcp requested * Telephone Encounter - Yessenia Fox MD - 03/11/2020 8:26 AM EDT Please schedule audio with me to discuss hypercholesterolemia * Telephone Encounter - Yessenia Fox MD - 03/11/2020 8:26 AM EDT ----- Message from Ju Lugo M.A. sent at 03/11/2020 8:06 AM EDT ----- Please review documented in this encounter Plan of Treatment Not on file documented as of this encounter Visit Diagnoses Not on filedocumented in this encounter Care Teams Electric Meter Repairer Helper Relationship Specialty Start Date End Date Yessenia Fox MD PCP - General Internal Medicine 12/07/18 11/17/21 Noehmi Plasencia MD PCP - General Internal Medicine 11/18/21 02/16/22 Aleks Qiu [address] [place] [address] PCP - General Internal Medicine 02/17/22 documented as of this encounter
--- OUTSIDE RECORDS SUMMARY | 2024-11-27 17:33 | XMS_ITS | Encounter Summary ---
Author Organization [facility] Address [address] [place] [address] Care Team Providers Care Camp Manager Name Role Phone Aleks Qiu Primary Care Provider [phone] Encounter Details Date Type Department Care Team Description 09/03/2022 Community Manager Report Medical Records [address] [place] [address] Opal Lozano, [place] Social History Tobacco Use Types Packs/Day Years [...] on filedocumented in this encounter Care Teams Camp Manager Relationship Specialty Start Date End Date Aleks Qiu [address] [place] [address] PCP - General Internal Medicine 02/17/22 documented as of this encounter
--- OUTSIDE RECORDS SUMMARY | 2024-11-27 17:33 | XMS_ITS | Encounter Summary ---
Author Organization [facility] Address [address] [place] [address] Care Team Providers Care Senior Analytical Chemist Name Role Phone Aleks Qiu Primary Care Provider [phone] Encounter Details Date Type Department Care Team Description 08/02/2023 Piece Meat Trimmer Report Medical Records [address] [place] [address] Abhishek Smiley MD Social History Tobacco Use [...] suspected to have Coronavirus/COVID-19? No / Unsure 07/22/2023 1:56 PM EDT documented as of this encounter Plan of Treatment Not on file documented as of this encounter Visit Diagnoses Not on filedocumented in this encounter Care Teams Senior Analytical Chemist Relationship Specialty Start Date End Date Aleks Qiu [address] [place] [address] PCP - General Internal Medicine 02/17/22 documented as of this encounter
--- OUTSIDE RECORDS SUMMARY | 2024-11-27 17:33 | XMS_ITS | Encounter Summary ---
Author Organization [facility] Address [address] [place] [address] Care Team Providers Care Quality Control Inspector Heading Name Role Phone Aleks Qiu Primary Care Provider [phone] Reason for Visit * Reason Onset Date Comments Prior Authorization 12/02/2023 Encounter Details Date Type Department Care Team Description 12/02/2023 Telephone Adult Medicine [address] [address] Aleks Qiu [address] [place] [address] [phone] Prior Authorization Social History Tobacco Use Types Packs/Day Years Used Date Smoking Tobacco: Former Passive Smoke Exposure: Past Smokeless Tobacco: Never Comments:quit 30 years ago Sex Assigned at Date Recorded Female 04/24/2023 6:24 PM E DT Job Start Date Occupation Industry Not on file Not on file Not on file documented as of this encounter Miscellaneous Notes * Telephone Encounter - Louisa Clayton M.A. - 12/03/2023 10:18 AM EDT Auth approved Exp 12/01/25 Louisa Clayton Prior Auth Dep Ext [id number] * Telephone Encounter - Louisa Clayton M.A. - 12/02/2023 1:09 PM EDT Auth sent with cmetienne Dx:e11.29 Cont of care Louisa Matilde Prior Auth Dep Ext [id number] * Telephone Encounter - Leo Anglin - 12/02/2023 8:57 AM EDT Prior Authorization for Medication-do not complete and send this encounter unless you have the fax from the pharmacy. Is this a Cover My Meds request: Yes -- [place] Code [id number] Name of Medication Semaglutide,0.25 or 0.5MG/DOS, (Ozempic, 0.25 or 0.5 MG/DOSE,) 2 MG/3ML Solution Pen-injector 3 mL 1 12/01/2023 Sig - Route: Inject 0.5 mg into the skin once a week. - Subcutaneous Sent to pharmacy as: Ozempic (0.25 or 0.5 MG/DOSE) 2 MG/3ML Solution Pen- injector (Semaglutide(0.25or 0.5MG/DOS)) Dose of Medication What is the RX # from the faxed refill? How does patient take this med? What Pharmacy did the fax come from: [facility] fax #: [phone] [employer] Party Information from fax: What Prescription Plan does the patient have? BIN/PCN if applicable: Cardholder ID: Person Code: Relationship Code: Help desk phone: documented in this encounter Plan of Treatment Not on file documented as of this encounter Visit Diagnoses Not on filedocumented in this encounter Care Teams Quality Control Inspector Heading Relationship Specialty Start Date End Date Aleks Qiu [address] [place] [address] PCP - General Internal Medicine 02/17/22 documented as of this encounter
--- OUTSIDE RECORDS SUMMARY | 2024-11-27 17:33 | XMS_ITS | Encounter Summary ---
Author Organization [facility] Address [address] [place] [address] Care Team Providers Care Long Term Care Phlebotomist Name Role Phone Aleks Qiu MD Primary Care Provider [phone] Encounter Details Date Type Department Care Team [...] 45 minutes. Then will increase by 50mg/hr [id number]. When pt hits 200mg/hr, will reevaluate and [...] Info) Description 12/04/2024 8:[address] [facility] [address] 2nd [place] [address] 12/07/2024 2:00 PM EDT Office Visit Endocrinology - [place] [phone] Ivette Acuña MD [address] [place] [phone] 12/19/2024 11:00 AM EDT Office Visit Adult Medicine [place] - [address] [phone] Aleks Qiu MD [address] [place] [address] 04/18/2025 4:30 PM EDT Appointment Radiology Department - [address] [phone] documented as of this encounter Visit Diagnoses Not on filedocumented in this encounter Care Teams Long Term Care Phlebotomist Relationship Specialty Start Date End Date Aleks Qiu MD [address] [place] [address] PCP - General Internal Medicine 02/17/22 documented as of this encounter
--- OUTSIDE RECORDS SUMMARY | 2024-11-27 17:33 | XMS_ITS | Encounter Summary ---
Author Organization [facility] Address [address] [place] [address] Care Team Providers Care Die Barber Name Role Phone Aleks Qiu MD Primary Care Provider [phone] Encounter Details Date Type Department Care Team [...] Info) Description 12/04/2024 8:00 AM EDT Appointment [facility] [address] [place] [phone] 12/07/2024 2:00 PM EDT Office Visit Endocrinology - [address] [phone] Ivette Acuña MD [address] [place] [phone] 12/19/2024 11:00 AM EDT Office Visit Adult Medicine [place] - [address] [phone] Aleks Qiu MD [address] [place] [address] 04/18/2025 4:30 PM EDT Appointment Radiology Department - [address] [phone] documented as of this encounter Visit Diagnoses Not on filedocumented in this encounter Care Teams Die Barber Relationship Specialty Start Date End Date Aleks Qiu MD [address] [place] [address] PCP - General Internal Medicine 02/17/22 documented as of this encounter
--- OUTSIDE RECORDS SUMMARY | 2024-11-27 17:33 | XMS_ITS | Encounter Summary ---
Author Organization [facility] Address [address] [place] [address] Care Team Providers Care Lipstick Molder Name Role Phone Aleks Qiu MD Primary Care Provider [phone] Reason for Referral * Consultation (Routine) - Pending Review Specialty Diagnoses / Procedures Referred By Vishnu t Referred To Contact Endocrinology Diagnoses Slow onset type 1 diabetes mellitus, 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CMS/HCC) Aleks Qiu MD [address] [place], [place] Phone: tel: fax: Referral ID Status Reason Start Date Expiration Date Visits Requested Visits Authorized [id number] Pending Review Specialty Services Required 11/03/2024 11/03/2025 1 1 Reason for Visit * Reason Onset Date Comments Referral 11/03/2024 Endo Encounter Details Date Type Department Care Team ([facility] Contact Info) Description 11/03/2024 Telephone Endocrinology - [place] [address] [place] [address] Ivette Acuña MD [address] [place] [phone] Referral (Endo) Social History Tobacco Use Types Packs/Day Years [...] as of this encounter Progress Notes * Fawn Caceres - 11/03/2024 9:15 AM EST Referral Request: What insurance does the patient have today? Payor: [employer] / Plan: [employer] / Product Type: *No Product type* / Referrals cannot be processed if the insurance is not accurate. If the insurance listed above in red is NO BILLING INFORMATION FOUND FOR THIS ENCOUTNER The patients correct insurance must be obtained and registered in [facility] or their referral can not be processed. Is this a retro request? YES If yes for what date of service do you need the retro referral? 07/25/24 Who is calling to request this referral? N/a If the caller is not the patient, what is their name? not applicable Ask the patient WHO referred them to this specialty: Not an initial visit; it is for follow up/continuation of care. Patients PCP is Dr Qiu FIRST and LAST NAME of SPECIALIST PATIENT is seeing: DR Ivette Acuña What specialty is this? Endo DIAGNOSIS Patient is being seen for (Not a body part or a procedure): diabetes Have you seen this SPECIALIST for this PROBLEM/DX before? If YES, when? Yes. 10/24/24 Have you checked REVIEW or the APPT DESK to see if this referral has already been done or has visits left? yes Is this visit: Follow Up Address of Specialist: [address] [place] [address] Phone # of Specialist: [phone] Fax #: (if applicable): [phone] Does patient have an appointment scheduled?: yes Date of appointment- (including a retro-request): retro 08/14/24, next visit 11/07/24 Is this appointment related to: Not MVA, worker compensation, or surgery related documented in this encounter Plan of Treatment Upcoming Encounters Date Type Department Care Team (Late st Contact Info) Description 12/04/2024 8:[address] [facility] Infusion Center [address] [place] [address] 12/07/2024 2:00 PM EDT Office Visit Endocrinology - [address] [phone] Ivette Acuña MD [address] [place] [address] 12/19/2024 11:00 AM EDT Office Visit Adult Medicine [place] - [address] [phone] Aleks Qiu MD [address] [place] [address] 04/18/2025 4:30 PM EDT Appointment Radiology Department - [address] [phone] Scheduled Referrals Name Type Priority Associated Diagnoses Order Schedule Ambulatory referral to Endocrinology Outpatient Referral Routine Slow onset type 1 diabetes mellitus, 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CMS/HCC) 1 Occurrences starting 11/03/2024 until 11/03/2025 documented as of this encounter Visit Diagnoses Diagnosis Slow onset type 1 diabetes mellitus, 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CMS/HCC)- Primary documented in this encounter Care Teams Lipstick Molder Relationship Specialty Start Date End Date Aleks Qiu MD [address] [place] [address] PCP - General Internal Medicine 02/17/22 documented as of this encounter
--- OUTSIDE RECORDS SUMMARY | 2024-11-27 17:33 | XMS_ITS ---
Author Organization [facility] Address [address] [place] [address] Phone Care Team Providers Care Director Of Distance Learning Name Role Phone Aleks Qiu MD Primary Care Provider Active Problems Problem Noted Date Diagnosed Date [...] pain or chest pressure. She follows with clinical science liaison Dr. Smiley. Continue aspirin, Plavix, metoprolol 100 [...] S/p myocardial perfusion wnl 2018 Follows with [facility] cardiology Asthma 12/22/2018 Celiac disease 12/22/2018 Glaucoma [...] treatments are documented for this patient in [facility]. Treatments may have been administered in another system.
--- OUTSIDE RECORDS SUMMARY | 2024-11-27 17:34 | XMS_ITS | Encounter Summary ---
Author Organization [facility] Address [address] [place] [address] Care Team Providers Care Employee Benefits Insurance Agent Name Role Phone Aleks Qiu Primary Care Provider [phone] Encounter Details Date Type Department Care Team Description 01/29/2023 Manometer Technician Report Medical Records [address] [place] [address] Butch Shelton PA-C Social History Tobacco Use Types Packs/Day [...] suspected to have Coronavirus/COVID-19? No / Unsure 01/19/2023 12:42 PM EDT documented as of this encounter Plan of Treatment Not on file documented as of this encounter Visit Diagnoses Not on filedocumented in this encounter Care Teams Employee Benefits Insurance Agent Relationship Specialty Start Date End Date Aleks Qiu [address] [place] [address] PCP - General Internal Medicine 02/17/22 documented as of this encounter
--- OUTSIDE RECORDS SUMMARY | 2024-11-27 17:34 | XMS_ITS | Encounter Summary ---
Author Organization [facility] Address [address] [place] [address] Care Team Providers Care Hood Maker Name Role Phone Aleks Qiu Primary Care Provider [phone] Reason for Visit * Reason Comments E-prescribe Rx Request Encounter Details Date Type Department Care Team Description 04/22/2024 Refill [facility] [address] [place] [address] [place] [phone] Aron Barba DPM E-prescribe Rx Request Social [...] on filedocumented in this encounter Care Teams Hood Maker Relationship Specialty Start Date End Date Aleks Qiu [address] [place] [address] PCP - General Internal Medicine 02/17/22 documented as of this encounter
--- OUTSIDE RECORDS SUMMARY | 2024-11-27 17:34 | XMS_ITS | Encounter Summary ---
Author Organization [facility] Address [address] [place] [address] Care Team Providers Care Oral And Maxillofacial Surgeon Name Role Phone Aleks Qiu Primary Care Provider [phone] Reason for Visit * Reason Onset Date Comments Call From Hospital 06/30/2022 Encounter Details Date Type Department Care Team Description 06/30/2022 Telephone Adult Medicine [address] [address] Aleks Qiu [address] [place] [address] [phone] Call From Hospital Social History Tobacco Use Types Packs/Day Years Used Date Smoking Tobacco: Former Smokeless Tobacco: Never Comments:quit 30 years ago Sex Assigned at Date Recorded Female 04/24/2023 6:24 PM E DT Job Start Date Occupation Industry Not on file Not on file Not on file COVID-19 Exposure Response Date Recorded In the last 10 days, have rell u been in contact with someone who was confirmed or suspected to have Coronavirus/COVID-19? No / Unsure 06/23/2022 9:42 AM EDT documented as of this encounter Miscellaneous Notes * Telephone Encounter - Haim RinaldiPLorenzoNLorenzo - 07/01/2022 8:38 AM EDT Read message to Karen She understands * Telephone Encounter - Reyna Lundberg R.N. - 06/30/2022 5:00 PM EDT GI is off now, will call in am. Please give instructions As below to GI tomorrow and also ask GI nurses to call the patient because she has questions about the prep that I cannot answer Spoke with pt and she has written down the instructions and has no questions * Telephone Encounter - Aleks Qiu - 06/30/2022 4:53 PM EDT She will take Eliquis tomorrow morning (07/01/22) then she will hold the Eliquis until completion of the procedure. Depending on the procedure (biopsy/any bleeding) termite control technician will guide her to restart the Eliquis on Wednesday (07/03/22) night or Wednesday morning. I also recommended her to take Lantus insulin 20 units on 07/02 night (she usually takes 35 units of long-acting insulin). I called the patient and communicated my recommendations to her. * Telephone Encounter - Reyna Lundberg R.N. - 06/30/2022 3:10 PM EDT Pt was seen by dr Aleks Qiu on 06/23. She has colonoscopy scheduled for 07/03 GI is asking for orders to hold and then restart eliquis before the procedure * Telephone Encounter - Mikala Heredia - 06/30/2022 3:01 PM EDT Karen from [facility] states the patient is scheduled for a colonoscopy 07/03/22.Patient is currenly on Apixaban (Eliquis) 5 MG Tab. They need to know when she is to stop taking this medication prior to her colonoscopy and if she is cleared to proceed with the procedure documented in this encounter Plan of Treatment Not on file documented as of this encounter Visit Diagnoses Not on filedocumented in this encounter Care Teams Oral And Maxillofacial Surgeon Relationship Specialty Start Date End Date Aleks Qiu [address] [place] [id number] PCP - General Internal Medicine 02/17/22 documented as of this encounter
--- OUTSIDE RECORDS SUMMARY | 2024-11-27 17:34 | XMS_ITS | Clinical Summary ---
Author Organization [facility] Address [address] [place] [address] Care Team Providers Care Training Manager Name Role Phone Aleks Qiu Primary Care Provider [phone] Allergies Active Allergy Reactions Severity Noted Date Comments Propoxyphene Nausea and Vomiting 07/18/2019 sweaty Doxycycline Nausea and Vomiting 01/13/2019 Diarrhea, sweating Hmg-Coa-R Inhibitors Muscle weakness Medium 10/13/2019 Medications Medication Sig Dispensed Refills Start Date End Date Status glucose monitoring kit (FREESTYLE) monitoring kit To check blood sugar twice per day for diagnosis E11.65 1 Kit 0 09/05/2020 Active Continuous Blood Gluc Consumer Education Specialist (FreeStyle Td 2 [place]) DeviceIndications:Ty pe 2 diabetes mellitus with microalbuminuria, with long-term current use of insulin (HCC) 1 Device by Does not apply route continuous. 1 Each 0 02/17/2022 Active dorzolamide-timolol (COSOPT) 22.3-6.8 MG/ML ophthalmic solution 1 Drop. 0 Active ALBUTEROL SULFATE 108 (90 Base) MCG/ACT Aero Soln Inhale 2 Puffs into the lungs every 4 hours as needed for Cough or Wheezing. 8.5 g 2 04/23/2023 Active Fluticasone-Salmeter ol (Advair Diskus) 250-50 MCG/ACT AEROSOL POWDER,BREATH ACTIVATED Inhale 1 Puff into the lungs daily. 1 Each 4 04/23/2023 Active aspirin 81 MG EC tablet Take 1 Tablet by mouth daily for 180 days. 30 Tablet 5 04/23/2023 Active clopidogrel (Plavix) 75 MG tablet Take 1 Tablet by mouth daily. 90 Tablet 1 04/23/2023 Active lorazepam (Ativan) 0.5 MG tablet Take 1 Tablet by mouth daily as needed for Anxiety. 15 Tablet 0 04/23/2023 Active AMIODARONE HCL OR Take by mouth. 0 Act ivan furosemide (Lasix) 20 MG tablet Take 1 Tablet by mouth daily. 90 Tablet 5 06/25/2023 Active HumaLOG 100 UNIT/ML SolutionIndications: Type 2 diabetes mellitus with microalbuminuria, with long-term current use of insulin ([facility]) INJECT UNDER THE SKIN THREE TIMES DAILY WITH MEALS PER SLIDING SCALE(4-14 UNITS) 40 mL 2 06/30/2023 Active ondansetron (ZOFRAN) 4 MG tablet Take 1 Tablet by mouth every 8 hours as needed for Nausea. 30 Tablet 0 11/30/2023 Active pantoprazole (PROTONIX) 40 MG tablet TAKE 1 TABLET BY MOUTH DAILY 90 Tablet 1 03/01/2024 Active fenofibrate (TRICOR) 54 MG tablet TAKE 1 TABLET BY MOUTH DAILY 90 Tablet 1 03/15/2024 Active metoprolol (LOPRESSOR) 100 MG tabletIndications:Co ronary artery disease without angina pectoris, unspecified vessel or lesion type, unspecified whether [place] or transplanted heart,Primary hypertension TAKE 1 TABLET BY MOUTH TWICE DAILY 180 Tablet 1 03/14/2024 Active acetaminophen (Tylenol 8 Hour) 650 MG CR tablet Take 1 Tablet by mouth every 8 hours as needed for Pain. 60 Tablet 1 04/03/2024 Active cephALEXin (KEFLEX) 500 MG capsule Take 1 Capsule by mouth 2 times daily. Take 2 tabs po daily for 14 days 0 Active Continuous Glucose Sensor (FreeStyle Td 2 Sensor) MiscIndications:Type 2 diabetes mellitus with microalbuminuria, with long-term current use of insulin ([facility]) Place 1 Applicator onto the skin every 14 days. USE DIRECTED 6 Each 1 04/06/2024 Active gabapentin (NEURONTIN) 100 MG capsule TAKE 1 CAPSULE BY MOUTH THREE TIMES DAILY 90 Capsule 2 04/28/2024 Active Lantus 100 UNIT/ML injectionIndications :Type 2 diabetes mellitus with microalbuminuria, with long-term current use of insulin ([facility]) ADMINISTER 25 UNITS UNDER THE SKIN TWICE DAILY 30 mL 3 05/06/2024 Active Magnesium 400 MG Tab Take 1 Tablet by mouth daily. 30 Tablet 1 06/09/2024 Active vitamin B-12 (CYANOCOBALAMIN) 1000 MCG tablet Take 1 Tablet by mouth daily. 90 Tablet 1 06/09/2024 Active atorvastatin (Lipitor) 80 MG tablet Take 1 Tablet by mouth daily. 90 Tablet 1 06/26/2024 Active losartan (COZAAR) 25 MG tablet Take 1 Tablet by mouth daily. 90 Tablet 0 06/26/2024 Active bisacodyl (DULCOLAX) 5 MG EC tablet Take 4 bisacodyl tabs 1 -2 hours before starting the bowel prep. 4 Tablet 0 07/14/2024 Active polyethylene glycol (Golytely) 236 g suspension Take 4 L by mouth once for 1 dose. 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 4 Chronic systolic CHF (congestive heart f ailure) 12/29/2023 Pericarditis as complication of acute my ocardial infarction 04/23/2023 Acute kidney injury 04/23/2023 NSTEMI (non-ST elevated myocardial infar ction) 04/23/2023 Centrilobular emphysema 04/23/2023 Osteopenia 12/08/2022 Stage 3 chronic kidney disease 3 Hydronephrosis of right kidney 2 Renal calculi 06/23/2022 Mixed hyperlipidemia 06/23/2022 Chronic deep vein thrombosis (DVT) of pr oximal vein of lower extremity 06/23/2022 Acute deep vein thrombosis (DVT) of dist al vein of both lower extremities 12/17/2021 Acute deep vein thrombosis (DVT) of femo ral vein of left lower extremity 05/19/2021 Overview: On Eliquis COVID-19 01/26/2020 Type 2 diabetes mellitus wit h microalbuminuria, with long-term current use of insulin 09/18/2019 Overview: Follows with eye and lasik has significant macular edema and retinal microaneurysms Microalbuminuria 07/18/2019 Type 2 diabetes mellitus with renal hola festations 07/18/2019 Osteoporosis 07/18/2019 GERD (gastroesophageal reflux disease) 1 History of abnormal mammogram 04/28/2019 Chronic obstructive pulmonary disease Diabetes, type 1.5, uncontrolled, manage d as type 1 01/26/2019 Family history of celiac disease 019 Atypical chest pain 12/22/2018 Overview: S/p myocardial perfusion wnl 2018 Follows with [facility] cardiology Primary hypertension 12/22/2018 Migraine 12/22/2018 Celiac disease 12/22/2018 Asthma 12/22/2018 Glaucoma 12/22/2018 Hypercholesteremia 12/22/2018 Former tobacco use 12/22/2018 Resolved Problems Problem Noted Date Resolved Date IDDM (insulin dependent diabetes mellitus) 12/2201/26/2019 Immunizations Name Administration Dates Next Due COVID-19 (Pfizer) Pt Reported 05/29/2021, 021,10/07/2020 Covid-19 Bivalent (Pfizer) 07/30/2022 Influenza Flu (PT Reported) 06/07/2020 Influenza vaccine high dose age 65 and over 05/30/2024,06/25/2023,06/08/2022,06/11,06/07/2020,06/16/2019,06/07/2018 ,05/27/2017,07/10/2016 Pneumoccoccal(Adult) Polysac charide PPSV23 07/17/2019 Pneumococcal Conjugate PCV-13 07/05/2018 Shingrix (Recombinant zoster vaccine) 09/01/2022 ,07/07/2022 TD (STATE SUPPLIED FOR ADULT S AND CHILDREN) 04/28/2019 Tdap 10/16/2015 Family History Medical History Relation Name Comments Diabetes Brother Cancer of the Prostate Father Cancer of the Pancreas Mother Celiac Disease Sister 1 CABG x4-twin Diabetes Sister 2 Relation Name Status Comments Brother Father Mother Sister 1 Sister 2 Social History Tobacco Use Types Packs/Day Years Used Date Smoking Tobacco: Former Passive Smoke Exposure: Past Smokeless Tobacco: Never Tobacco Cessation:Counseling Given: Not Answered Comments:quit 30 years ago Sex Assigned at Date Recorded Female 04/24/2023 6:24 PM E DT Job Start Date Occupation Industry Not on file Not on file Not on file Last Filed Vital Signs Vital Sign Reading Time Taken Comments Blood Pressure 125/80 07/13/2024 2:27 PM EDT Pulse 74 07/13/2024 2:27 PM EDT Temperature 36.9 ??C (98.4 ??F) 06/26/2024 3:28 PM ED T Respiratory Rate 18 06/26/2024 3:28 PM EDT Oxygen Saturation 95% 07/13/2024 2:27 PM EDT Inhaled Oxygen Concentration - - Weight 64.9 kg (143 lb) 07/13/2024 2:27 PM EDT Height 157.5 cm (5' 2 ) 07/13/2024 2:27 PM EDT Body Mass Index 26.16 07/13/2024 2:27 PM EDT Plan of Treatment Health Maintenance Due Date Last Done Comments MAMMOGRAM 07/09/2023 07/09/2022, 07/21, 07/03/2021, Additional history exists BONE DENSITY SCREENING 02/25/2024 , 06/21/2019, 06/19/2019 Covid-19 Vaccine ( season) 2024 07/30/2022, 05/29/2021, 10/28/2020, Additional history exists DIABETES: ANNUAL FOOT EXAM 07/07/202407/07, 12/17/2021, 07/09/2020 (Completed), Additional history exists DIABETES: ANNUAL EYE EXAM 08/17/20242022, 02/09/2023, 12/01/2021, Additional history exists DIABETES: BLOOD SUGAR CONTROL TEST (HGBA1C) 08/29/2024 05/30/2024, 02/01/2024, 12/06/2023, Additional history exists BMI CHECK/ADVISE 09/20/2024 06/26/2024, 06/2024, 05/30/2024, Additional history exists DIABETES/HEART DISEASE: ANNUAL CHOLESTEROL (LDL) 12/05/2024 12/06/2023, 12/21/2022, 07/06/2022, Additional history exists DIABETES: ANNUAL URINE PROTEIN TEST (MICROALBUMIN) 05/30/2025 05/30/2024, 02/01/2024, 12/06/2023, Additional history exists COLON CANCER SCREENING 07/03/2025 2, 09/21/2018 (External Completion) DTAP/TDAP/TD (3 - Td or Tdap) 04/28/2029 04/28/2019, 04/28/2019, 10/16/2015 PNEUMOCOCCAL VACCINE Addressed 07/17/2019, 07/05/2019 (External Completion), 07/05/2018, Additional history exists Overridden with the intention of not completing the topic SHINGLES VACCINE Completed 09/01/2022, 07/07/2022 INFLUENZA Completed 05/30/2024, 02/2023, 06/08/2022, Additional history exists Care Teams Training Manager Relationship Specialty Start Date End Date Aleks Qiu [address] [place] [address] PCP - General Internal Medicine 02/17/22
--- OUTSIDE RECORDS SUMMARY | 2024-11-27 17:34 | XMS_ITS | Clinical Summary ---
Author Organization [facility] Address [address] [place] [address] Phone Care Team Providers Care Industrial Technology Teacher Name Role Phone Aleks Qiu MD Primary Care Provider [phone] Allergies Active Allergy Reactions Criticality Noted Date Comments Doxycycline Nausea And Vomiting Medium 01/13/2019 Diarrhea, sweating Propoxyphene Nausea And Vomiting Medium 07/18/2019 sweaty Nkjjgwh-Qsj-Ime Reductase Inhibitors Weakness Medium 10/13/2019 Medications magnesium oxide (MAG-OX) 400 mg magnesium tablet Route: Take 1 Tablet by mouth daily. - Oral 024 Active cyanocobalami n (VITAMIN B-12) 1,000 mcg tablet Route: Take 1 Tablet by mouth daily. - Oral 024 Active acetaminophen (TYLENOL 8 HOUR) 650 mg 8 hr tablet Take 1 Tablet by mouth every 8 hours as needed for Pain. 024 Active metoprolol tartrate (LOPRESSOR) 100 mg tablet TAKE 1 TABLET BY MOUTH TWICE DAILY 024 Active ondansetron (ZOFRAN) 4 mg tablet Take 1 Tablet by mouth every 8 hours as needed for Nausea. 024 Active albuterol HFA (PROAIR HFA ; PROVENTIL HFA ; VENTOLIN HFA) 90 mcg/actuation inhaler Inhale 2 Puffs into the lungs every 4 hours as needed for Cough or Wheezing. 023 Active fluticasone-s almeterol (ADVAIR DISKUS) 250-50 mcg/dose diskus inhaler Inhale 1 Puff into the lungs daily. 023 Active aspirin 81 mg EC tablet Take 1 Tablet by mouth daily for 180 days. 023 Active atorvastatin (LIPITOR) 80 mg tablet Take 1 Tablet by mouth daily for 90 days. 023 Active dorzolamide-t imoloL (COSOPT) 22.3-6.8 mg/mL ophthalmic solution 1 Drop. Active flash glucose scanning reader (FreeStyle Td 2 [place]) misc 1 Device by Does not apply route continuous. 022 Active blood-glucose meter kit To check blood sugar twice per day for diagnosis E11.65 020 Active losartan (COZAAR) 100 mg tablet Take 20 mg by mouth 1 (one) time each day. Active carbidopa-lev odopa (SINEMET) 25-100 mg per tablet TAKE HALF TO 1 TABLET BY MOUTH TWICE DAILY. TAKE WITH A CRACKER 30 MINUTES BEFORE BREAKFAST AND DINNER Active gabapentin (NEURONTIN) 100 mg capsule Take 1 capsule (100 mg total) by mouth 3 (three) times a day. 90 each 2 024 Active fenofibrate (LOFIBRA) 54 mg tablet TAKE 1 TABLET BY MOUTH DAILY 90 tablet 024 Active pantoprazole (PROTONIX) 40 mg EC tablet TAKE 1 TABLET BY MOUTH DAILY 90 tablet 024 Active flash glucose sensor (FreeStyle Td 2 Sensor) kit Inject 1 EA into the skin every 14 (fourteen) days. 6 each 1 025 Active insulin glargine (LANTUS) 100 unit/mL injection Administer 29 units under the skin in the morning and 29 units in the evening. 10 mL 025 Active furosemide (LASIX) 20 mg tablet Take 1 tablet (20 mg total) by mouth 1 (one) time each day. 90 tablet 1 025 Active isosorbide mononitrate (IMDUR) 30 mg 24 hr tablet Take 1 tablet (30 mg total) by mouth 1 (one) time each day. Do not crush or chew. 90 each 1 025 Active metoprolol succinate (TOPROL-XL) 100 mg 24 hr tablet Take 1 tablet (100 mg total) by mouth 1 (one) time each day. Active insulin lispro (HumaLOG U-100 Insulin) 100 unit/mL injectionIndi cations:Type 2 diabetes mellitus with microalbuminu elizabeth, with long-term current use of insulin ([facility]) As directed before meals three times a day MAX up to 30 units a day 10 mL 2 Active semaglutide (OZEMPIC) 0.25 mg or 0.5 mg (2 mg/3 mL) injection penIndication s:Type 2 diabetes mellitus with microalbuminu elizabeth, with long-term current use of insulin ([facility]) Inject 0.25 mg under the skin every 7 (seven) days. 3 mL 1 Active hydrALAZINE (APRESOLINE) 10 mg tablet TAKE 1 TABLET(10 MG) BY MOUTH TWICE DAILY 180 tablet 1 Active furosemide (LASIX) 20 mg tablet Take 1 Tablet by mouth daily. 023 2024 Discontinued( Reorder) clopidogreL (PLAVIX) 75 mg tablet Take 1 tablet (75 mg total) by mouth 1 (one) time each day. 024 2024 Discontinued( Therapy completed) ALPRAZolam (XANAX) 0.25 mg tablet 024 2024 Discontinued( ) insulin lispro (HumaLOG U-100 Insulin) 100 unit/mL injection -Administer within 15 minutes of a meal 10 mL 024 2024 Discontinued( Duplicate order) losartan (COZAAR) 25 mg tablet TAKE 1 TABLET BY MOUTH DAILY 90 tablet 024 2024 Discontinued( Dose adjustment) insulin lispro (HumaLOG U-100 Insulin) 100 unit/mL injection ADMINISTER 10 UNITS SUBCUTANEOUS BEFORE BREAKFAST AND 5 UNITS BEFORE LUNCH AND 7 TO 8 UNITS BEFORE DINNER DIRECTEDADMINISTER 10 UNITS SUBCUTANEOUS BEFORE BREAKFAST AND 5 UNITS BEFORE LUNCH AND 7 TO 8 UNITS BEFORE DINNER DIRECTED 10 mL 025 2024 Discontinued( Reorder) folic acid (FOLVITE) 1 mg tablet TAKE 1 TABLET BY MOUTH DAILY 90 tablet 1 025 2024 Discontinued( ) semaglutide (OZEMPIC) 0.25 mg or 0.5 mg (2 mg/3 mL) injection penIndication s:Type 2 diabetes mellitus with microalbuminu elizabeth, with long-term current use of insulin ([facility]) Inject 0.25 mg under the skin every 7 (seven) days. 3 mL 1 025 2024 Discontinued( Reorder) hydrALAZINE (APRESOLINE) 10 mg tablet Take 1 tablet (10 mg total) by mouth 2 (two) times a day. 60 each 1 025 2024 Discontinued Active Problems Problem Noted Date Diagnosed Date [...] pain or chest pressure. 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 Smiley. Continue aspirin, Plavix, metoprolol 100 [...] perfusion wnl 2018 Follows with [facility] cardiology Asthma 12/22/2018 Celiac disease 12/22/2018 Glaucoma 12/22/2018 Hypercholesteremia 12/22/2018 Migraine 12/22/2018 Primary hypertension 12/22/2018 Assessment & Plan (08/08/2024 5:41 PM EST): Blood pressure today stable. She will continue on losartan 25 mg daily, metoprolol 100 mg twice daily. Encounters Date Type Department Care Team Description 11/07/2024 1:00 PM EST Office Visit Endocrinology - [place] [address] [place] [phone] Ivette Acuña MD Type 2 diabetes mellitus with microalbuminuria, with long-term current use of insulin ([facility]) 11/03/2024 Telephone Endocrinology - [place] [id number] [place] [phone] Ivette Acuña MD Referral (Endo) 11/02/2024 11:00 AM EST Office Visit Adult Medicine [address] [phone] Aleks Qiu MD Poorly-controlled hypertension (Primary Dx); Precordial pain; CAD of autologous bypass graft; Chronic systolic CHF (congestive heart failure) (CMS/HCC); Type 2 diabetes mellitus with microalbuminuria, with long-term current use of insulin (CMS/HCC); Stage 3a chronic kidney disease (CMS/HCC); Mixed hyperlipidemia; Chronic obstructive pulmonary disease, unspecified COPD type (CMS/HCC); Splenic marginal zone b-cell lymphoma (CMS/HCC); Encounter for screening mammogram for malignant neoplasm of breast 11/02/2024 Telephone Adult Medicine [address] [phone] Aleks Qiu MD 10/25/2024 Telephone [facility] Hematology Oncology [address] [place] [phone] Adrienne Huerta DO 10/24/2024 11:15 AM EST Office Visit Endocrinology [address] [phone] Ivette Acuña MD Type 2 diabetes mellitus with microalbuminuria, with long-term current use of insulin (CMS/HCC) (Primary Dx) 09/26/2024 9:30 AM EST Office Visit [facility] Hematology Oncology [address] [place] [phone] Adrienne Huerta DO B-cell lymphoma of spleen, unspecified B-cell lymphoma type (CMS/HCC) (Primary Dx) 09/25/2024 7:57 AM EST - 09/25/2024 11:59 PM EST Hospital Encounter [facility] Infusion Center [address] [place] [phone] B-cell lymphoma of spleen, unspecified B-cell lymphoma type (CMS/HCC) (Primary Dx); Small B-cell lymphoma of spleen (CMS/HCC) Discharge Disposition: Home or Self Care 09/22/2024 Telephone [facility] Hematology Oncology [address] [place] [phone] Adrienne Huerta DO 09/19/2024 9:52 AM EST - 09/19/2024 11:59 PM EST Hospital Encounter [facility] CT Scan [address] [place] [address] Small B-cell lymphoma of spleen (CMS/HCC) Discharge Disposition: Home or Self Care 09/12/2024 Telephone Adult Medicine [address] [phone] Aleks Qiu MD Medication Problem from Last 3 Months Immunizations Name Administration [...] GUID; COMMENT: b9 BREAST SURGERY Bilateral PROCEDURE: CO UNLISTED PROCEDURE BREAST; COMMENT: b9; 5 tumors [...] myocardial perfusion wnl 2018 [place] [facility] [place] Hypertension 12/22/2018 DX:Hypertension Migraine 12/22/2018 DX:Migraine Asthma 12/22/2018 DX:Asthma Glaucoma 12/22/2018 DX:Glaucoma Hypercholesteremia 12/22/2018 DX:Hyperchole steremia Former tobacco use 12/22/2018 DX:Former tob acco use COPD (chronic obstructive pu lmonary disease) ([facility]) 01/26/2019 DX:COPD (chronic obstructive pulmonary disease) ([facility]) Colon polyp 01/26/2019 DX:Colon polyp History of abnormal mammogram 04/28/2019 DX :History of abnormal mammogram Diabetes, type 1.5, uncontro lled, managed as type 1 01/26/2019 DX:Diabetes, type 1.5, uncontrolled, managed as type 1 Microalbuminuria 07/18/2019 DX:Microalbumin uria Type 2 diabetes mellitus wit h renal manifestations ([facility]) 07/18/2019 DX:Type 2 diabetes mellitus with renal manifestations ([facility]) Osteoporosis 07/18/2019 DX:Osteoporosis GERD (gastroesophageal reflux disease) 9 DX:GERD (gastroesophageal reflux disease) Family history of celiac disease 01/13/2019 DX:Family history of celiac disease History of 2019 novel lopez virus disease (COVID-19) 01/2020 DX:History of 2019 novel coronavirus disease (COVID-19) Family History Medical History Relation Name Comments Diabetes Brother Prostate cancer Father Pancreatic cancer Mother Celiac disease Sister 1 CABG x4-twin Diabetes Sister 2 Relation Name Status Comments Brother Father Mother Sister 1 Sister 2 Social History Tobacco Use Types Packs/Day Years Used Date Smoking Tobacco: Former Smokeless Tobacco: Never Tobacco Cessation:Counseling Given: Not Answered Interpersonal Safety Answer Date Record ed Physical Abuse 08/09/2024 Verbal Abuse 08/09/2024 Comments No Sex and Gender Information Value Date Recorded Sex Assigned at Not on file Legal Sex Female 2:45 PM EST Gender Identity Not on file Sexual Orientation Not on file Obstetrics History Last Filed Vital Signs Vital Sign Reading Time Taken Comments Blood Pressure 141/58 11/07/2024 1:10 PM EST 5 m ins Pulse 60 11/07/2024 1:07 PM EST Temperature 36.2 ??C (97.2 ??F) 11/07/2024 1:07 PM ES T Respiratory Rate 16 11/02/2024 11:00 AM EST Oxygen Saturation 98% 11/07/2024 1:07 PM EST Inhaled Oxygen Concentration - - Weight 67.8 kg (149 lb 6.4 oz) 11/07/2024 1:07 P M EST Height 157.5 cm (5' 2 ) 11/07/2024 1:07 PM EST Body Mass Index 27.33 11/07/2024 1:07 PM EST Plan of Treatment Upcoming Encounters Date Type Department Care Team (Late st Contact Info) Description 12/04/2024 8:00 AM EDT Appointment [address] [phone] 12/07/2024 2:00 PM EDT Office Visit Endocrinology - [address] [phone] Ivette Acuña MD [address] [place] [phone] 12/19/2024 11:00 AM EDT Office Visit Adult Medicine [place] - [address] [phone] Aleks Qiu MD [address] [place] [address] 04/18/2025 4:30 PM EDT Appointment Radiology Department - [address] [phone] Health Maintenance Due Date Last Done Comments RSV Immunization Patients 60+ Years Old (1 - 1-dose 75+ series) 2020 Depression Screening 08/29/2022 Medicare Annual Wellness Visit 08/29/2022 Social Influencers of Health Screening 08/29/2022 COVID-19 Vaccine ( season) 2024 07/08/2023, 07/30/2022, 05/29/2021, Additional history exists Diabetes: Annual Foot Exam 07/07/2024 07/07/2023 Diabetes: Annual Retina Eye Exam 08/17/2024 08/17/2023 Diabetes: Blood Sugar Control Test (HGBA1C) 05/02/2025 11/02/2024, 05/30/2024, 05/30/2024, Additional history exists Falls Risk Assessment 09/25/2025 09/25/2024 Diabetes: Annual Urine Albumin-Creatinine Ratio (uACR) 11/02/2025 11/02/2024, 05/30/2024 Diabetes: Annual GFR (Glomerular Filtration Rate) 11/02/2025 11/02/2024, 09/25/2024, 07/31/2024, Additional history exists Hypertension/CHF/CAD Annual BMP Blood Test 11/02/2025 11/02/2024, 09/25/2024, 07/31/2024, Additional history exists Cholesterol Screening (Lipid Panel) 12/05/2028 12/06/2023 DTaP,Tdap,and Td Vaccines (3 - Td or Tdap) 04/28/2029 04/28/2019, 10/16/2015 Osteoporosis Screening (Bone Density Screening) 02/25/2032 02/24/2022, 06/19/2019 Hepatitis C Screening Completed 01/17/2019 Pneumococcal Vaccine: 50+ Years Completed 07/17/2019, 07/05/2018 Zoster Vaccines Completed [...] patient's age to complete this topic Meningococcal B Vacine Aged Out No lo nger eligible based on patient's age to complete [...] CAD of autologous bypass graft Precordial pain BASIC METABOLIC PANEL Routine 11/02/2024 12:52 PM EST Type 2 diabetes mellitus with microalbuminuria, with long-term current use of insulin (CMS/HCC) CAD of autologous bypass graft Chronic systolic CHF (congestive heart failure) (CMS/HCC) Stage 3a chronic kidney disease (CMS/HCC) Mixed hyperlipidemia Chronic obstructive pulmonary disease, unspecified COPD type (CMS/HCC) Splenic marginal zone b-cell lymphoma (CMS/HCC) Encounter for screening mammogram for malignant neoplasm of breast Precordial pain HEMOGLOBIN A1C Routine 11/02/2024 12:52 PM EST Type 2 diabetes mellitus with microalbuminuria, with long-term current use of insulin (CMS/HCC) CAD of autologous bypass graft Chronic systolic CHF (congestive heart failure) (CMS/HCC) Stage 3a chronic kidney disease (CMS/HCC) Mixed hyperlipidemia Chronic obstructive pulmonary disease, unspecified COPD type (CMS/HCC) Splenic marginal zone b-cell lymphoma (CMS/HCC) Encounter for screening mammogram for malignant neoplasm of breast Precordial pain MICROALBUMIN CREATININE URINE RATIO Routine 11/02/2024 12:52 PM EST Type 2 diabetes mellitus with microalbuminuria, with long-term current use of insulin (CMS/HCC) CAD of autologous bypass graft Chronic systolic CHF (congestive heart failure) (CMS/HCC) Stage 3a chronic kidney disease (CMS/HCC) Mixed hyperlipidemia Chronic obstructive pulmonary disease, unspecified COPD type (CMS/HCC) Splenic marginal zone b-cell lymphoma (CMS/HCC) Encounter for screening mammogram for malignant neoplasm of breast Precordial pain COMPREHENSIVE METABOLIC PANEL Routine 09/25/2024 1:41 PM EST Small B-cell lymphoma of spleen (CMS/HCC) CBC WITH AUTO DIFFERENTIAL Routine 09/25/2024 9:22 AM EST Small B-cell lymphoma of spleen (CMS/HCC) CBC AND DIFFERENTIAL Routine 09/25/2024 9:22 AM EST Small B-cell lymphoma of spleen (CMS/HCC) CT CHEST/ABDOMEN/PELVIS WO CONTRAST Routine 09/19/2024 10:34 AM EST Small B-cell lymphoma of spleen (CMS/HCC) LIPID PANEL Routine 12/06/2023 DIABETES EYE EXAM Routine 08/17/2023 DIABETES FOOT EXAM Routine 07/07/2023 DXA BONE DENSITY STUDY 1+ SITS AXIAL SKEL Routine 02/24/2022 11:04 AM EDT Other specified disorders of bone density and structure, unspecified site HEPATITIS C SCREENING Routine 01/17/2019 from Last 3 Months or Most Recently Relevant to Health Maintenance Results * ECG 12 lead (11/02/2024 1:46 PM EST) Narrative Aleks Qiu MD - 11/02/2024 1:46 PM EST EKG-normal sinus rhythm, no acute ST-T changes us Aleks Qiu MD ECG ORDERABLES Final Resul t * Microalbumin creatinine urine ratio (11/02/2024 12:52 PM EST) Creatinine, Urine 80.0 mg/dL LAB CHEMISTRY METHOD 11/02/2024 3:10 PM EST [facility] Microalb, Ur 21.8 0.0 - 29.0 mg/L LAB CHEMISTRY METHOD 11/02/2024 3:10 PM EST [facility] Microalb/Creat Ratio 27 <30 mg/g creat LAB CHEMISTRY METHOD 11/02/2024 3:10 PM [facility] Urine Urine specimen obtained by clean catch procedure / Unknown Non-blood Collection / Unknown 11/02/2024 12:52 PM EST 11/02/2024 12:52 PM EST Aleks Qiu MD LAB URINE ORDERABLES Final Result Performing Organization Address [facility]/ZIP Co de Phone Number [facility] [address] [place] [address], [place] [phone] * (ABNORMAL) Hemoglobin A1c (11/02/2024 12:52 PM EST) Hemoglobin A1C 9.8(H) <6.5 % LAB CHEMISTRY METHOD 11/02/2024 8:39 PM [facility] Mean Bld Glu Estim. 235 mg/dL LAB CHEMISTRY METHOD 11/02/2024 8:39 PM [facility] Blood Venous blood specimen / Unknown Venipuncture / Unknown 11/02/2024 12:52 PM EST 11/02/2024 12:52 PM EST us Aleks Qiu MD LAB BLOOD ORDERABLES Final Result [facility] [address] [place] [address], [place] [phone] * (ABNORMAL) Basic metabolic panel (11/02/2024 12:52 PM EST) Sodium 142 133 - 145 mmol/L LAB CHEMISTRY METHOD 11/02/2024 5:22 PM [facility] Potassium 4.3 3.5 - 5.5 mmol/L LAB CHEMISTRY METHOD 11/02/2024 5:22 PM [facility] Chloride 108 96 - 110 mmol/L LAB CHEMISTRY METHOD 11/02/2024 5:22 PM [facility] CO2 31 21 - 32 mmol/L LAB CHEMISTRY METHOD 11/02/2024 5:22 PM [facility] Anion Gap 3 3 - 11 LAB CHEMISTRY METHOD 11/02/2024 5:22 PM [facility] Glucose 111(H) 70 - 100 mg/dL LAB CHEMISTRY METHOD 11/02/2024 5:22 PM [facility] BUN 22 5 - 25 mg/dL LAB CHEMISTRY METHOD 11/02/2024 5:22 PM [facility] Creatinine 0.82 0.50 - 1.10 mg/dL LAB CHEMISTRY METHOD 11/02/2024 5:22 PM [facility] eGFR 73 >=60 mL/min/1. 73m2 LAB CHEMISTRY METHOD 11/02/2024 5:22 PM [facility] Comment:Calculation based on the??Chronic Kidney Disease Epidemiology Collaboration (CKD-EPI) equation refit??without adjustment for race. BUN/Creatinine Ratio 26.8 LAB CHEMISTRY METHOD 11/02/2024 5:22 PM [facility] Calcium 9.9 8.5 - 10.5 mg/dL LAB CHEMISTRY METHOD 11/02/2024 5:22 PM [facility] Blood Venous blood specimen / Unknown Venipuncture / Unknown 11/02/2024 12:52 PM EST 11/02/2024 12:52 PM EST us Aleks Qiu MD LAB BLOOD ORDERABLES Final Result [facility] [address] [place] [address], * (ABNORMAL) Comprehensive metabolic panel (09/25/2024 1:41 PM EST) Sodium 137 133 - 145 mmol/L LAB [...] 1:41 PM EST 09/25/2024 2:24 PM EST us Adrienne Huerta DO LAB BLOOD ORDERABLES Final Result [facility] [address] [place] [address], * (ABNORMAL) CBC auto differential (09/25/2024 9:22 [...] LAB HEMETOLOGY METHOD 09/25/2024 9:36 AM EST [facility] Lymphocytes Absolute 1.23 1.00 - 5.00 [facility] LAB HEMETOLOGY METHOD 09/25/2024 9:36 AM EST [facility] Monocytes Absolute 0.75 0.20 - 1.00 [facility] LAB HEMETOLOGY METHOD 09/25/2024 9:36 AM EST [facility] Eosinophils Absolute 0.20 0.00 - 0.50 K/[facility] LAB HEMETOLOGY METHOD 09/25/2024 9:36 AM EST [facility] Basophils Absolute 0.09 0.00 - 0.20 K/[facility] LAB HEMETOLOGY METHOD 09/25/2024 9:36 AM EST [facility] Immature Granulocytes Absolute 0.02 0.00 - 0.03 K/[facility] LAB HEMETOLOGY METHOD 09/25/2024 9:36 AM EST [facility] Blood Venous blood specimen / Unknown Venipuncture / Unknown 09/25/2024 9:22 AM EST 09/25/2024 9:27 AM EST Adrienne Huerta DO LAB BLOOD ORDERABLES Final Result [facility] [address] [place] [address], * CT Chest/Abdomen/Pelvis wo Contrast (09/19/2024 10:34 [...] Signed Date: 09/22/2024 10:52 ET Workstation ID: [id number] Transcribed By: Self Edit Transcribed Date: 09/22/2024 [...] Signed Date: 09/22/2024 10:52 ET Workstation ID: [id number] Transcribed By: Self Edit Transcribed Date: 09/22/2024 10:31 ET Adrienne Luevanoie Deanna DO IMG CT PROCEDURES Fin al Result * (ABNORMAL) Lipid panel (12/06/2023) [facility] LDL/HDL Ratio 4 <=4 Triglycerides 134 0 - 150 mg/dL Cholesterol 103 0 - 200 mg/dL HDL 27(A) >=40 mg/dL LDL Cholesterol 50 0 - 100 mg/dL Blood Venous blood specimen / Unknown Result [facility] Historical Provider LAB BLOOD ORDERABLES Dorinda l Result * Diabetes Eye Exam (08/17/2023) [facility] Diabetes: Annual Retina Eye Exam Abstracted Result [facility] Historical Provider HEALTH MAINTENANCE Final Result * Diabetes Foot Exam (07/07/2023) [facility] Diabetes: Annual Foot Exam Abstracted Result [facility] Historical Provider HEALTH MAINTENANCE Final Result * DXA BONE DENSITY STUDY 1+ SITS [...] (World Health Organization Fracture Risk Assessment) [facility] Department of Internal Medicine recommends using National [...] (World Health Organization Fracture Risk Assessment) [facility] Department of Internal Medicine recommendsusing National Osteoporosis [...] of fracture risk by FRAX. Fawn GUY IMVinay DXA PROCEDURES Final Result * Hepatitis C Screening (01/17/2019) [facility] Hepatitis C Screening Abstracted Historical Provider HEALTH MAINTENANCE Final Result from Last 3 Months or Most Recently Relevant to Health Maintenance Insurance [employer] [place] [employer] Care Teams Industrial Technology Teacher Relationship Specialty Start Date End Date Aleks Qiu MD [address] [place] [address] PCP - General Internal Medicine 02/17/22
--- OUTSIDE RECORDS SUMMARY | 2024-11-27 17:34 | XMS_ITS | Encounter Summary ---
Author Organization [facility] Address [address] [place] [address] Care Team Providers Care Knitter Hand Name Role Phone Aleks Qiu Primary Care Provider [phone] Encounter Details Date Type Department Care Team Description 04/05/2023 Hospital Medical Records [address] [place] [address] Mo Saez MD Social History Tobacco Use Types Packs/Day [...] on filedocumented in this encounter Care Teams Knitter Hand Relationship Specialty Start Date End Date Aleks Qiu [address] [place] [address] PCP - General Internal Medicine 02/17/22 documented as of this encounter
--- OUTSIDE RECORDS SUMMARY | 2024-11-27 17:34 | XMS_ITS | Encounter Summary ---
Author Organization [facility] Address [address] [place] [address] Care Team Providers Care Sql Dba Name Role Phone Aleks Qiu Primary Care Provider [phone] Encounter Details Date Type Department Care Team Description 05/28/2023 Hospital Medical Records [address] [place] [address] Social History Tobacco Use Types Packs/Day Years [...] suspected to have Coronavirus/COVID-19? No / Unsure 05/20/2023 1:47 PM EDT documented as of this encounter Plan of Treatment Not on file documented as of this encounter Visit Diagnoses Not on filedocumented in this encounter Care Teams Sql Dba Relationship Specialty Start Date End Date Aleks Qiu [address] [place] [address] PCP - General Internal Medicine 02/17/22 documented as of this encounter
--- OUTSIDE RECORDS SUMMARY | 2024-11-27 17:34 | XMS_ITS | Encounter Summary ---
Author Organization [facility] Address [address] [place] [address] Care Team Providers Care Paper Folding Machine Operator Name Role Phone Yessenia Fox MD Primary Care Provider Nohemi Ricketts MD Primary Care Provider Aleks Parker Primary Care Provider [phone] Reason for Visit * Reason Onset Date Comments Blood Sugar Readings 07/11/2019 Encounter Details Date Type Department Care Team Description 07/11/2019 Telephone Adult Medicine [address] [address] Antonino Evans MD Blood Sugar Readings Social History Tobacco Use Types Packs/Day Years Used Date Smoking Tobacco: Former Smokeless Tobacco: Never Comments:quit 30 years ago Sex Assigned at Date Recorded Female 04/24/2023 6:24 PM E DT Job Start Date Occupation Industry Not on file Not on file Not on file documented as of this encounter Miscellaneous Notes * Telephone Encounter - Antonino Evans MD - 07/11/2019 5:32 PM EDT Message left for patient, please call to check on blood glucose. * Telephone Encounter - Antonino Evans MD - 07/11/2019 2:06 PM EDT Message left. * Telephone Encounter - Yessenia Fox MD - 07/11/2019 12:25 PM EDT Did you mean to send this to me ? * Telephone Encounter - Ju Lugo M.A. - 07/11/2019 9:[address] Evans, Here is the pt's blood sugar reading. * Telephone Encounter - Alta Chaidez - 07/11/2019 9:34 AM EDT Patient was told to call in her blood sugar reading this morning. Blood sugar reading this morning 289 and took 4 units of humalog this morning. documented in this encounter Plan of Treatment Not on file documented as of this encounter Visit Diagnoses Not on filedocumented in this encounter Care Teams Paper Folding Machine Operator Relationship Specialty Start Date End Date Yessenia Fox MD PCP - General Internal Medicine 12/07/18 11/17/21 Nohemi Plasencia MD PCP - General Internal Medicine 11/18/21 02/16/22 Aleks Qiu [address] [place] [address] PCP - General Internal Medicine 02/17/22 documented as of this encounter
--- OUTSIDE RECORDS SUMMARY | 2024-11-27 17:34 | XMS_ITS | Encounter Summary ---
Author Organization [facility] Address [address] [place] [address] Care Team Providers Care Senior Advisor Name Role Phone Nohemi Plasencia MD Primary Care Provider Aleks Parker Primary Care Provider [phone] Encounter Details Date Type Department Care Team Description 12/29/2021 Supervisor Product Inspection Report Medical Records [address] [place] [address] Opal Lozano, NOVA Social History Tobacco Use [...] suspected to have Coronavirus/COVID-19? No / Unsure 12/17/2021 10:05 AM EDT documented as of this encounter Plan of Treatment Not on file documented as of this encounter Visit Diagnoses Not on filedocumented in this encounter Care Teams Senior Advisor Relationship Specialty Start Date End Date Nohemi Plasencia MD PCP - General Internal Medicine 11/18/21 02/16/22 Aleks Qiu [address] [place] [address] PCP - General Internal Medicine 02/17/22 documented as of this encounter
--- OUTSIDE RECORDS SUMMARY | 2024-11-27 17:34 | XMS_ITS | Encounter Summary ---
Author Organization [facility] Address [address] [place] [address] Care Team Providers Care Wood Mill Supervisor Name Role Phone Aleks Qiu Primary Care Provider [phone] Encounter Details Date Type Department Care Team Description 07/09/2022 Refill Adult Medicine [address] [address] Aleks Qiu [address] [place] [address] Social History Tobacco Use Types Packs/Day Years [...] suspected to have Coronavirus/COVID-19? No / Unsure 07/09/2022 11:00 AM EDT documented as of this encounter Miscellaneous Notes * Telephone Encounter - Alejandro Robles - 07/09/2022 1:02 PM EDT Stanislaw please call me @ [phone] regarding this encounter. This is not a refill request? Is pt requesting an immunization? * Telephone Encounter - Stanislaw Strickland - 07/09/2022 10:40 AM EDT Patient would like script to be: E-PRESCRIBED/FAXED TO PHARMACY When was the patients last office visit in Adult Medicine?: 06/23/22 When was the last time the patient saw their PCP? Same as above Does patient have an upcoming appointment? Yes 10/15/22 (THE MEDICATION IS NOT ON THE MED LIST AND IS IDENTIFIED BELOW): {MED LIST:48914) Med name: Shingrix 50MCG Dosage: .5 ml # of tablets: Local pharmacy with request for 30 -day supply Instructions: Did you check the pharmacy information above?: YES Patients current insurance carrier: Payor: [facility] / Plan: [employer] HMO $[facility] / Product Type: MEDICARE RISK documented in this encounter Plan of Treatment Not on file documented as of this encounter Visit Diagnoses Not on filedocumented in this encounter Care Teams Wood Mill Supervisor Relationship Specialty Start Date End Date Aleks Qiu [address] [place] [address] PCP - General Internal Medicine 02/17/22 documented as of this encounter
--- OUTSIDE RECORDS SUMMARY | 2024-11-27 17:34 | XMS_ITS | Encounter Summary ---
Author Organization [facility] Address [address] [place] [address] Care Team Providers Care Farm Crops Teacher Name Role Phone Aleks Qiu Primary Care Provider [phone] Encounter Details Date Type Department Care Team Description 03/09/2023 Nutrition Technician Report Medical Records [address] [place] [address] Garrison Samayoa PA-C Social History Tobacco Use Types Packs/Day [...] on filedocumented in this encounter Care Teams Farm Crops Teacher Relationship Specialty Start Date End Date Aleks Qiu [address] [place], [place] [id number] PCP - General Internal Medicine 02/17/22 documented as of this encounter
--- OUTSIDE RECORDS SUMMARY | 2024-11-27 17:34 | XMS_ITS | Encounter Summary ---
Author Organization [facility] Address [address] [place] [address] Care Team Providers Care Piano Builder Name Role Phone Aleks Qiu Primary Care Provider [phone] Reason for Visit * Reason Onset Date Comments Call From Md Office 03/17/2022 fyi: pt was due to have a colonscopy screening on 04-08-22 and pt cancelled appt Encounter Details Date Type Department Care Team Description 03/17/2022 Telephone Adult [address] [address] Aleks Qiu [address] [place] [address] [phone] Call From Office (fyi: pt was due to have a colonscopy screening on 04-08-22 and pt cancelled appt ) Social History Tobacco Use Types Packs/Day Years [...] suspected to have Coronavirus/COVID-19? No / Unsure 03/09/2022 10:07 AM EDT documented as of this encounter Miscellaneous Notes * Telephone Encounter - Angeline Samayoa M.A. - 03/18/2022 3:56 PM EDT Message left for patient to return my call. Ext [phone] Re: Sejal Morin's message below * Telephone Encounter - Fawn Morin PA-C - 03/17/2022 5:11 PM EDT Pleae call this patient and remind her to reschedule * Telephone Encounter - Osiris Vera M.A. - 03/17/2022 4:34 PM EDT FYI to Sejal Morin - you referred this pt on 12/17/2021. * Telephone Encounter - Tona Davis - 03/17/2022 4:22 PM EDT [place]over calling from [facility] - Dr Raul Garcia's office - fyi: pt was due to have a colonscopy screening on 04-08-22 and pt cancelled appt documented in this encounter Plan of Treatment Not on file documented as of this encounter Visit Diagnoses Not on filedocumented in this encounter Care Teams Piano Builder Relationship Specialty Start Date End Date Aleks Qiu [address] [place] [id number] PCP - General Internal Medicine 02/17/22 documented as of this encounter
--- OUTSIDE RECORDS SUMMARY | 2024-11-27 17:34 | XMS_ITS | Encounter Summary ---
Author Organization [facility] Address [address] [place] [address] Care Team Providers Care Field Crop Harvest Contractor Name Role Phone Aleks Qiu Primary Care Provider [phone] Reason for Visit * Reason Onset Date Comments APPOINTMENT 03/18/2022 Encounter Details Date Type Department Care Team Description 03/18/2022 Telephone Adult Medicine [facility] [address] [place] [address] Fawn Morin PA-C [address] [place] [address] APPOINTMENT Social History Tobacco Use Types Packs/Day Years [...] Encounter - Angeline Samayoa M.A. - 03/18/2022 3:58 PM EDT Images from the original note were not included. Message left for patient to return my call. Ext [phone] Re: message below Fawn Morin PA-C 22 hours ago (5:11 PM) Pleae call this patient and remind her to reschedule Documentation Tona Davis 23 hours ago (4:22 PM) ADIA Galo calling from [facility] - Dr Raul Garcia's office - fyi: pt was due to have a colonscopy screening on 04-08-22 and pt cancelled appt Documentation documented in this encounter Plan of Treatment Not on file documented as of this encounter Visit Diagnoses Not on filedocumented in this encounter Care Teams Field Crop Harvest Contractor Relationship Specialty Start Date End Date Aleks Qiu [address] [place] [id number] PCP - General Internal Medicine 02/17/22 documented as of this encounter
--- OUTSIDE RECORDS SUMMARY | 2024-11-27 17:34 | XMS_ITS | Encounter Summary ---
Author Organization [facility] Address [address] [place] [address] Care Team Providers Care Concrete Analyst Name Role Phone Aleks Qiu Primary Care Provider Encounter Details Date Type Department Care Team Description 06/20/2024 Orders Only Medical Records [address] [place], [place] [address] [place] [address] Social History Tobacco Use Types Packs/Day Years [...] Name Priority Date/Time Associated Diagnosis Comments OUTSIDE PATHOLOGY Routine 06/19/2024 documented in this encounter Results * OUTSIDE PATHOLOGY (06/19/2024) [facility] OUTSIDE LAB documented in this encounter Visit Diagnoses Not on filedocumented in this encounter Care Teams Concrete Analyst Relationship Specialty Start Date End Date Aleks Qiu [address] [place] [address] PCP - General Internal Medicine 02/17/22 documented as of this encounter
--- OUTSIDE RECORDS SUMMARY | 2024-11-27 17:34 | XMS_ITS | Encounter Summary ---
Author Organization [facility] Address [address] [place] [address] Care Team Providers Care Sewing Machine Assembler Name Role Phone Aleks Qiu Primary Care Provider [phone] Encounter Details Date Type Department Care Team Description 04/29/2023 Marketing Production Specialist Report Medical Records [address] [place] [address] Aleks Qiu [address] [place] [address] Social History Tobacco Use Types Packs/Day Years [...] suspected to have Coronavirus/COVID-19? No / Unsure 04/23/2023 12:49 PM EDT documented as of this encounter Plan of Treatment Not on file documented as of this encounter Visit Diagnoses Not on filedocumented in this encounter Care Teams Sewing Machine Assembler Relationship Specialty Start Date End Date Aleks Qiu [address] [place] [address] PCP - General Internal Medicine 02/17/22 documented as of this encounter
--- OUTSIDE RECORDS SUMMARY | 2024-11-27 17:34 | XMS_ITS | Encounter Summary ---
Author Organization [facility] Address [address] [place] [address] Care Team Providers Care News Producer Name Role Phone Aleks Qiu Primary Care Provider [phone] Encounter Details Date Type Department Care Team Description 04/04/2024 Orders Only Medical Records [address] [place] [address] [facility] Social History Tobacco Use Types Packs/Day [...] Name Priority Date/Time Associated Diagnosis Comments OUTSIDE CT Routine 03/28/2024 documented in this encounter Results * OUTSIDE CT (03/28/2024) [facility] documented in this encounter Visit Diagnoses Not on filedocumented in this encounter Care Teams News Producer Relationship Specialty Start Date End Date Aleks Qiu [address] [place] [address] PCP - General Internal Medicine 02/17/22 documented as of this encounter
--- OUTSIDE RECORDS SUMMARY | 2024-11-27 17:34 | XMS_ITS | Encounter Summary ---
Author Organization [facility] Address [address] [place] [address] Care Team Providers Care Loss Prevention Supervisor Name Role Phone Nohemi Plasencia MD Primary Care Provider Aleks Parker Primary Care Provider [phone] Reason for Visit * Reason Comments E-prescribe Rx Request Encounter Details Date Type Department Care Team Description 12/30/2021 Refill Adult Medicine [address] [address] Nohemi Plasencia MD E-prescribe Rx Request Social History Tobacco Use [...] encounter Miscellaneous Notes * Telephone Encounter - Shwetha Rivas M.A. - 12/31/2021 10:01 AM EDT Lab Results Component Value Date HGBA1C 10.0 12/17/2021 MALBUR 12.9 12/17/2021 MALBCR 9.6 12/17/2021 CHOL 253 12/17/2021 LDL 137 12/17/2021 HDL 35 12/17/2021 TRIG 405 12/17/2021 GLU 344 12/17/2021 CREAT 1.14 12/17/2021 MAZIN 12/17/21 NOV 02/20/22 - NEW to PCP * Telephone Encounter - Mikala Heredia - 12/31/2021 8:45 AM EDT Patient would like script to be: E-PRESCRIBED/FAXED TO PHARMACY WHEN WAS THE PATIENT'S LAST APPOINTMENT IN ADULT MEDICINE? 12/17/21 WHEN WAS THE LAST TIME THE PATIENT SAW THEIR PCP? never Does patient have an upcoming appointment? Yes 02/20/22 (THE MEDICATION REQUESTED IS ON THE MED LIST ABOVE) All of the medications requested were on the CURRENT MEDS list Did you check the Pharmacy information above?: YES Patient wants: 30 -day supply Is this a mail order prescription request ? NO If the refill is from a FAXED refill request what is the RX # listed on the fax? N/A Patients current insurance carrier is: Payor: [facility] / Plan: [employer]REF HMO $[facility] / Product Type: MEDICARE RISK documented in this encounter Plan of Treatment Not on file documented as of this encounter Visit Diagnoses Not on filedocumented in this encounter Care Teams Loss Prevention Supervisor Relationship Specialty Start Date End Date Nohemi Plasencia MD PCP - General Internal Medicine 11/18/21 02/16/22 Aleks Qiu [address] [place] [address] PCP - General Internal Medicine 02/17/22 documented as of this encounter
--- OUTSIDE RECORDS SUMMARY | 2024-11-27 17:34 | XMS_ITS | Encounter Summary ---
Author Organization [facility] Address [address] [place] [address] Care Team Providers Care Automation Software Engineer Name Role Phone Aleks Qiu Primary Care Provider [phone] Encounter Details Date Type Department Care Team Description 04/24/2022 CGM Report Medical Records [address] [place] [address] Abstract, Provider Social History Tobacco Use Types [...] suspected to have Coronavirus/COVID-19? No / Unsure 04/22/2022 11:07 AM EDT documented as of this encounter Plan of Treatment Not on file documented as of this encounter Visit Diagnoses Not on filedocumented in this encounter Care Teams Automation Software Engineer Relationship Specialty Start Date End Date Aleks Qiu [address] [place] [address] PCP - General Internal Medicine 02/17/22 documented as of this encounter
--- OUTSIDE RECORDS SUMMARY | 2024-11-27 17:34 | XMS_ITS | Patient Health Record ---
Author Organization [facility] Address [address] [place] [address] Care Team Providers Care Payroll Examiner Name Role Phone Nohemi Plasencia Primary Care Provider Raul Nelson Unavailable [phone] Allergies Allergen (clinical drug ingredient) Drug/Non Drug Allergy documented on EMR Reaction Allergy Type Onset Date Status Darvon Unknown Drug Allergy Active Reason For Referral No Information Medications Medication SIG (Take, Route, Frequency, Duration) Notes [...] a day for 30 day(s) 01/26/2014 Active Problems Problem Type SNOMED Code ICD Code Onset Dates Problem Status W/U Status Risk Notes Problem [id number] Abdominal pain (789.00) Active confirmed Plan Of Treatment Pending Test Test Name Order Date XR GI SERIES 01/26/2014 Insurance Providers Payer Name Payer Address Payer Phone Subscriber Number Group Number Insured Name Patient Relationship to Insured Coverage Start Date Coverage End Date [facility] [address] [place] [address] [phone] [id number] MIKEY SAUCEDA Self - patient is the insured Medical (General) History Medical History History ICD Code glaucoma diabetes mellitus hypertension elevated Cholesterol Surgical History Surgery Date(Month/Year) 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
--- OUTSIDE RECORDS SUMMARY | 2024-11-27 17:34 | XMS_ITS | Encounter Summary ---
Author Organization [facility] Address [address] [place] [address] Care Team Providers Care Wireline Operator Name Role Phone Yessenia Fox MD Primary Care Provider Nohemi Ricketts MD Primary Care Provider Aleks Parker Primary Care Provider [phone] Encounter Details Date Type Department Care Team Description 05/19/2021 Orders Only Adult Medicine [address] [address] Yessenia Fox MD Social History Tobacco Use [...] on filedocumented in this encounter Care Teams Wireline Operator Relationship Specialty Start Date End Date Yessenia Fox MD PCP - General Internal Medicine 12/07/18 11/17/21 Nohemi Plasencia MD PCP - General Internal Medicine 11/18/21 02/16/22 Aleks Qiu [address] [place] [address] PCP - General Internal Medicine 02/17/22 documented as of this encounter
== END 2024-11-27 16:15 | disposition home or self-care (01) ==
PROVIDERS: PCP Internal Medicine; Visit Provider Internal Medicine Cardiovascular Disease
DX: I25.10 Atherosclerotic heart disease of native coronary artery without angina pectoris (principal)
CPT/HCPCS: 93010; 99214; G2211

== ENCOUNTER → 2024-11-27 15:21 | Outpatient (BNVA) | payer MEDICARE, SELFPAY | PROVIDERS: PCP Internal Medicine; Visit Provider Internal Medicine Cardiovascular Disease | DX: I25.10 Atherosclerotic heart disease of native coronary artery without angina pectoris (principal); R26.9 Unspecified abnormalities of gait and mobility | CPT/HCPCS: 93005; 99212 ==

== ENCOUNTER → 2024-12-05 10:19 | Outpatient (BNVA) | payer MEDICARE, SELFPAY | PROVIDERS: PCP Internal Medicine; Visit Provider Internal Medicine Cardiovascular Disease ==

== ENCOUNTER → 2024-12-19 15:24 | Outpatient (BNVA) | payer MEDICARE, SELFPAY | PROVIDERS: PCP Internal Medicine; Visit Provider Internal Medicine Cardiovascular Disease ==

== ENCOUNTER → 2025-01-02 08:55 | Outpatient (BNVA) | payer MEDICARE, SELFPAY | PROVIDERS: PCP Internal Medicine; Visit Provider Nurse Practitioner Family ==

== ENCOUNTER 2025-02-08 09:05 | Outpatient (AMB) | payer MEDICARE, SELFPAY ==
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
[2025-02-08 09:13] VITALS: BP 120/60; PULSE 81; O2SAT 96; BMI 28.0
--- OUTSIDE RECORDS SUMMARY | 2025-02-08 09:19 | XMS_ITS | Encounter Summary ---
Author Organization [facility] Address [address] [place] [address] Care Team Providers Care Shower Maid Name Role Phone Aleks Qiu Primary Care Provider [phone] Reason for Visit * Reason Onset Date Comments Prior Authorization 12/02/2023 Encounter Details Date Type Department Care Team Description 12/02/2023 Telephone Adult Medicine [address] [address] Aleks Qiu [address] [place] [address] [phone] Prior Authorization Social History Tobacco Use Types [...] 12/01/25 Louisa Clayton Prior Auth Dep Ext [phone] * Telephone Encounter - Louisa Clayton M.A. [...] My Meds request: Yes -- Larson Code [id number] Name of Medication Semaglutide,0.25 or 0.5MG/DOS, (Ozempic, [...] did the fax come from: [facility] fax #: [phone] [employer] Information from fax: What Prescription Plan does the patient have? BIN/PCN if applicable: Cardholder ID: Person Code: Relationship Code: Help desk phone: documented in this encounter Plan of Treatment Not on file documented as of this encounter Visit Diagnoses Not on filedocumented in this encounter Care Teams Shower Maid Relationship Specialty Start Date End Date Aleks Qiu [address] [place] [id number] PCP - General Internal Medicine 02/17/22 documented as of this encounter
--- OUTSIDE RECORDS SUMMARY | 2025-02-08 09:19 | XMS_ITS | Encounter Summary ---
Author Organization [facility] Address [address] [place] [address] Care Team Providers Care Senior Talent Management Consultant Name Role Phone Aleks Qiu Primary Care Provider [phone] Encounter Details Date Type Department Care Team Description 09/11/2022 Orders Only Adult Medicine [address] [address] Aleks Qiu [address] [place] [id number] Preoperative examination; Screening for deficiency anemia; MCC current use of anticoagulant therapy Social History [...] 2 AM EST 10/02/2022 10:53 AM EST [facility] - 10/02/2022 12:22 PM EST Release to patient->Immediate Aleks Gonzalezgermanrichie LAB [facility] * (ABNORMAL) CBC (AUTO DIFF PLATELET) (10/02/2022 10:52 AM EST) Pathologist [facility] WHITE BLOOD COUNT 4.9 4.8 - 10.8 [...] 0.2 % 10/02/2022 2:20 PM EST [facility] # AUTO 0.00 <0.1 x10-3/uL 10/02/2022 [...] 0.03 x10-3/uL 10/02/2022 2:20 PM EST [facility] 10/02/2022 10:5 2 AM EST 10/02/2022 10:53 AM EST Narrative [facility] - 10/02/2022 2:20 PM EST Release to patient->Immediate Aleks Qui LAB [facility] * URINE, CULTURE (10/02/2022 10:52 AM EST) URINE CULTURE ENTEROCOCCUS FAECALIS 10/04/2022 11:13 AM EST [facility] Comment: COLONY COUNT >100,000 Urine (Urine) 10/02/2022 10: 52 AM EST 10/02/2022 10:53 AM EST Narrative [facility] - 10/04/2022 11:13 AM EST Release to patient->Immediate Organism Antibiotic Method Susceptibility Enterococcus faecalis Ampicillin <=2: Susceptible Enterococcus faecalis Ciprofloxacin <=0.5: Susceptible Enterococcus faecalis LEVOFLOXACIN 1: Susceptible Enterococcus faecalis LINEZOLID 1: Susceptible Enterococcus faecalis Nitrofurantoin <=16: Susceptible Enterococcus faecalis PENICILLIN 2: Susceptible Enterococcus faecalis Tetracycline >=16: Resistant Enterococcus faecalis Vancomycin 1: Susceptible Aleks Qiu LAB [facility] documented in this encounter Visit Diagnoses Diagnosis Preoperative examination Preoperative examination, unspecified Screening for deficiency anemia Screening for other and unspecified deficiency anemia MCC current use of anticoagulant therapy Preoperative examination Preoperative examination, unspecified MCC current use of anticoagulant therapy Screening for deficiency anemia Screening for other and unspecified deficiency anemia Type 2 diabetes mellitus with microalbuminuria, with long-term current use of insulin (HCC) documented in this encounter Care Teams Senior Talent Management Consultant Relationship Specialty Start Date End Date Aleks Qiu [address] [place] [id number] PCP - General Internal Medicine 02/17/22 documented as of this encounter
--- OUTSIDE RECORDS SUMMARY | 2025-02-08 09:19 | XMS_ITS | Encounter Summary ---
Author Organization [facility] Address [address] [place] [address] Care Team Providers Care Eradicator Name Role Phone Aleks Qiu Primary Care Provider Encounter Details Date Type Department Care Team Description 04/29/2023 Cap Lining Machine Operator Report Medical Records [address] [place] [address] Aleks Qiu [address] [place] [id number] Social History Tobacco Use Types Packs/Day Years [...] on filedocumented in this encounter Care Teams Eradicator Relationship Specialty Start Date End Date Aleks Qiu [address] [place] [address] PCP - General Internal Medicine 02/17/22 documented as of this encounter
--- OUTSIDE RECORDS SUMMARY | 2025-02-08 09:19 | XMS_ITS | Encounter Summary ---
Author Organization [facility] Address [address] [place] [address] Care Team Providers Care Php Magento Developer Name Role Phone Aleks Qiu Primary Care Provider [phone] Encounter Details Date Type Department Care Team Description 09/23/2022 [facility] Report Medical Records [address] [place] [address] Abstract, Provider Social History Tobacco Use Types [...] on filedocumented in this encounter Care Teams Php Magento Developer Relationship Specialty Start Date End Date Aleks Qiu [address] [place] [address] PCP - General Internal Medicine 02/17/22 documented as of this encounter
--- OUTSIDE RECORDS SUMMARY | 2025-02-08 09:19 | XMS_ITS | Encounter Summary ---
Author Organization [facility] Address [address] [place] [address] Care Team Providers Care Straightedge Man Name Role Phone Aleks Qiu MD Primary Care Provider [phone] Reason for Visit * Episode Based Medications (Routine) - Authorized Specialty Diagnoses / Procedures Referred By Vishnu nagy Referred To Contact Diagnoses B-cell lymphoma of spleen, unspecified B-cell lymphoma type (CMS/HCC V24, [facility]/HCC V28) Adrienne Huerta, DO [address] [place] [address] Phone: tel: fax: [address] [address] Phone: tel: fax: Referral ID Status Reason Start Date Expiration Date V isits Requested Visits Authorized [id number] Authorized 09/22/2024 09/22/2025 1 13 Encounter Details Date Type Department Care Team (Latest Contact Info) Description 02/05/2025 8:00 AM EDT Hospital Encounter [address] [address] Small B-cell lymphoma, unspecified body region (CMS/HCC V24, CMS/HCC V28) (Primary Dx); B-cell lymphoma of spleen, unspecified B-cell lymphoma type (CMS/HCC V24, CMS/HCC V28) Social History Tobacco Use Types Packs/Day Years [...] Sign Reading Time Taken Comments Blood Pressure 150/71 02/05/2025 9:00 AM EDT Pulse 77 02/05/2025 9:00 AM EDT Temperature 36.4 ??C (97.5 ??F) 02/05/2025 9:00 AM ED T Respiratory Rate 18 02/05/2025 9:00 AM EDT Oxygen Saturation 100% 02/05/2025 9:00 AM EDT Inhaled Oxygen Concentration - - Weight 67.9 kg (149 lb 12.8 oz) 02/05/2025 9:00 AM EDT Height 157.5 cm (5' 2.01 ) 02/05/2025 9:00 AM ED T Body Mass Index 27.39 02/05/2025 9:00 AM EDT documented in this encounter Progress Notes * Debra Young, RN - 02/05/2025 8:00 AM EDT Pt arrives for ruxience infusion with her daughter at chair side. Pt assessed on arrival and reports she feels good today. Pt wearing a cast shoe on her right foot. I was wearing a pair of shoes with the thing between the toes and I ended up with 2 blisters that popped - my lead manufacturing engineer recommend Iwear this cast shoe , it is getting better . Pt reports she is going to see an oral surgeon about apossible cancerous area in her mouth - pt states she will inform Dr Huerta when she talks with her. Dr Huerta at chair side for pts scheduled visit. Once visit complete, iv inserted . Labs drawn with second stick due to blood return with angio insertion not following smoothly to fill tubes. .Pt tolerated well. Pre meds given as ordered. Call faye in reach . Ruxience hung in 4 steps starting at 100 mg and will increase every 30 minutes to a max of 400 mg -as pt tolerates. Possible side effects reviewed with pt. Pt assisted to the bathroom to void as needed during infusion. Pt tolerated infusion without issue. Pt denies any discomfort, Iv flushed and removed . Pt discharged with daughter - follow up appointment reminders given( pt will see MD at chair side during next infusion) .Pt discharged with steady gait. documented in this encounter Plan of Treatment Upcoming Encounters Date Type Department Care Team (Late st Contact Info) Description 02/13/2025 1:30 PM EDT Office Visit Orthopedic Surgery [place] [address] [address] Aron Barba DPM [address] [place] [address] 03/01/2025 1:15 PM EDT Office Visit [address] [phone] Ivette Acuña MD [address] [place] [address] 03/06/2025 9:00 AM EDT Appointment [facility] CT Scan [address] [place] [address] 03/27/2025 10:15 AM EDT Office Visit Orthopedic Surgery [address] [address] Aron Barba DPM [address] [place] [address] 03/28/2025 2:00 PM EDT Office Visit Adult Medicine [address] [phone] Aleks Qiu MD [address] [place] [address] 04/02/2025 8:00 AM EDT Appointment [facility] Infusion Center [address] [address] 04/02/2025 10:45 AM EDT Office Visit [facility] Hematology Oncology [address] [place] [phone] Deanna Adrienne Rehana, DO [address] [place] [address] 04/18/2025 4:30 PM EDT Appointment Radiology Department [address] [address] documented as of this encounter Procedures Procedure Name Priority Date/Time Associated Diagnosis Comments LACTATE DEHYDROGENASE STAT 02/05/2025 10:23 AM EDT Small B-cell lymphoma, unspecified body region (CMS/HCC V24, CMS/HCC V28) COMPREHENSIVE METABOLIC PANEL Routine 02/05/2025 10:23 AM EDT B-cell lymphoma of spleen, unspecified B-cell lymphoma type (CMS/HCC V24, CMS/HCC V28) CBC WITH AUTO DIFFERENTIAL Routine 02/05/2025 10:22 AM EDT B-cell lymphoma of spleen, unspecified B-cell lymphoma type (CMS/HCC V24, CMS/HCC V28) CBC AND DIFFERENTIAL Routine 02/05/2025 10:22 AM EDT B-cell lymphoma of spleen, unspecified B-cell lymphoma type (CMS/HCC V24, CMS/HCC V28) documented in this encounter Results * (ABNORMAL) Comprehensive metabolic panel (02/05/2025 10:23 AM EDT) Sodium 141 133 - 145 mmol/L LAB CHEMISTRY METHOD 02/05/2025 11:00 AM EDT [facility] Potassium 3.8 3.5 - 5.5 mmol/L LAB CHEMISTRY METHOD 02/05/2025 11:00 AM EDT [facility] Chloride 105 96 - 110 mmol/L LAB CHEMISTRY METHOD 02/05/2025 11:00 AM [facility] CO2 27 21 - 32 mmol/L LAB CHEMISTRY METHOD 02/05/2025 11:00 AM [facility] Anion Gap 9 3 - 11 LAB CHEMISTRY METHOD 02/05/2025 11:00 AM [facility] Glucose 218(H) 70 - 100 mg/dL LAB CHEMISTRY METHOD 02/05/2025 11:00 AM [facility] BUN 19 5 - 25 mg/dL LAB CHEMISTRY METHOD 02/05/2025 11:00 AM [facility] Creatinine 1.07 0.50 - 1.10 mg/dL LAB CHEMISTRY METHOD 02/05/2025 11:00 AM [facility] eGFR 53(L) >=60 mL/min/1. 73m2 LAB CHEMISTRY METHOD 02/05/2025 11:00 AM [facility] Comment:Calculation based on the Chronic Kidney Disease Epidemiology Collaboration (CKD-EPI) equation refit without adjustment for race. BUN/Creatinine Ratio 17.8 LAB CHEMISTRY METHOD 02/05/2025 11:00 AM [facility] Calcium 9.2 8.5 - 10.5 mg/dL LAB CHEMISTRY METHOD 02/05/2025 11:00 AM [facility] AST (SGOT) 16 10 - 42 unit/L LAB CHEMISTRY METHOD 02/05/2025 11:00 AM [facility] ALT (SGPT) 10 10 - 60 unit/L LAB CHEMISTRY METHOD 02/05/2025 11:00 AM [facility] Alkaline Phosphatase 102 42 - 121 unit/L LAB CHEMISTRY METHOD 02/05/2025 11:00 AM [facility] Total Protein 6.3 6.0 - 8.0 g/dL LAB CHEMISTRY METHOD 02/05/2025 11:00 AM [facility] Albumin 3.8 3.2 - 5.0 g/dL LAB CHEMISTRY METHOD 02/05/2025 11:00 AM EDT [facility] Total Bilirubin 0.4 0.0 - 1.4 mg/dL LAB CHEMISTRY METHOD 02/05/2025 11:00 AM EDT [facility] Blood Venous blood specimen / Unknown Venipuncture / Unknown 02/05/2025 10:23 AM EDT 02/05/2025 10:29 AM EDT Adrienne Rehana Huerta DO LAB BLOOD ORDERABLES Final Result [facility] [address] [place] [address], [place] [phone] * Lactate dehydrogenase (02/05/2025 10:23 AM EDT) LDH 181 120 - 246 unit/L LAB CHEMISTRY METHOD 02/05/2025 11:00 AM EDT [facility] Blood Venous blood specimen / Unknown Venipuncture / Unknown 02/05/2025 10:23 AM EDT 02/05/2025 10:29 AM EDT Adrienne Huerta DO LAB BLOOD ORDERABLES Final Result [facility] [address] [place] [address], [place] [phone] * (ABNORMAL) CBC auto differential (02/05/2025 10:22 AM EDT) WBC 6.6 4.8 - 10.8 K/[facility] LAB HEMETOLOGY METHOD 02/05/2025 10:43 AM EDT [facility] RBC 4.40 3.80 - 4.80 M/mcL LAB HEMETOLOGY METHOD 02/05/2025 10:43 AM EDT [facility] Hemoglobin 12.9 11.5 - 16.0 g/dL LAB HEMETOLOGY METHOD 02/05/2025 10:43 AM [facility] Hematocrit 39.3 35.0 - 47.0 % LAB HEMETOLOGY METHOD 02/05/2025 10:43 AM [facility] MCV 89.3 79.0 - 98.0 FL LAB HEMETOLOGY METHOD 02/05/2025 10:43 AM [facility] MCH 29.3 27.0 - 32.0 pcg LAB HEMETOLOGY METHOD 02/05/2025 10:43 AM [facility] MCHC 32.8 32.0 - 37.0 g/dL LAB HEMETOLOGY METHOD 02/05/2025 10:43 AM [facility] RDW 15.9(H) 11.0 - 15.0 % LAB HEMETOLOGY METHOD 02/05/2025 10:43 AM [facility] Platelets 227 130 - 400 K/mcL LAB HEMETOLOGY METHOD 02/05/2025 10:43 AM [facility] MPV 11.4(H) 7.0 - 11.0 FL LAB HEMETOLOGY METHOD 02/05/2025 10:43 AM [facility] NRBC 0.0 <1.0 % LAB HEMETOLOGY METHOD 02/05/2025 10:43 AM [facility] NRBC Absolute 0.00 <0.10 K/mcL LAB HEMETOLOGY METHOD 02/05/2025 10:43 AM [facility] Neutrophils Relative 69.2 % LAB HEMETOLOGY METHOD 02/05/2025 10:43 AM [facility] Lymphocytes Relative 16.8 % LAB HEMETOLOGY METHOD 02/05/2025 10:43 AM [facility] Monocytes Relative 9.8 % LAB HEMETOLOGY METHOD 02/05/2025 10:43 AM EDT [facility] Eosinophils Relative 2.4 % LAB HEMETOLOGY METHOD 02/05/2025 10:43 AM EDT [facility] Basophils Relative 1.2 % LAB HEMETOLOGY METHOD 02/05/2025 10:43 AM EDT [facility] Immature Granulocytes Relative 0.6 % LAB HEMETOLOGY METHOD 02/05/2025 10:43 AM EDT [facility] Neutrophils Absolute 4.57 1.50 - 7.00 K/mcL LAB HEMETOLOGY METHOD 02/05/2025 10:43 AM EDT [facility] Lymphocytes Absolute 1.11 1.00 - 5.00 K/mcL LAB HEMETOLOGY METHOD 02/05/2025 10:43 AM EDT [facility] Monocytes Absolute 0.65 0.20 - 1.00 K/mcL LAB HEMETOLOGY METHOD 02/05/2025 10:43 AM EDT [facility] Eosinophils Absolute 0.16 0.00 - 0.50 K/mcL LAB HEMETOLOGY METHOD 02/05/2025 10:43 AM EDT [facility] Basophils Absolute 0.08 0.00 - 0.20 K/mcL LAB HEMETOLOGY METHOD 02/05/2025 10:43 AM EDT [facility] Immature Granulocytes Absolute 0.04(H) 0.00 - 0.03 K/mcL LAB HEMETOLOGY METHOD 02/05/2025 10:43 AM EDT [facility] Blood Venous blood specimen / Unknown Venipuncture / Unknown 02/05/2025 10:22 AM EDT 02/05/2025 10:29 AM EDT us Adrienne Huerta DO LAB BLOOD ORDERABLES Final Result [facility] [address] [place] [address], documented in this encounter Visit Diagnoses Diagnosis Small B-cell lymphoma, unspecified body region (CMS/HCC V24, CMS/HCC V28)- Primary B-cell lymphoma of spleen, unspecified B-cell lymphoma type (CMS/HCC V24, CMS/HCC V28) documented in this encounter Administered Medications Inactive Administered Medications - up to 3 most recent administrations Medication Order MAR Action Action Date Dose Rate Site acetaminophen (TYLENOL) tablet 650 mg 650 mg, oral, Once, On Wed02/05/25 at 1030, For 1 doseIndications:B-cell lymphoma of spleen, unspecified B-cell lymphoma type (CMS/HCC V24, CMS/HCC V28) Given 02/05/2025 10:45 AM EDT 650 mg dexAMETHasone (DECADRON) injection 4 mg 4 mg, intravenous, Once, On Wed02/05/25 at 1030, For 1 doseIndications:B-cell lymphoma of spleen, unspecified B-cell lymphoma type (CMS/HCC V24, CMS/HCC V28) Given 02/05/2025 10:40 AM EDT 4 mg diphenhydrAMINE (BENADRYL) injection 25 mg 25 mg, intravenous, Once, On Wed02/05/25 at 1030, For 1 doseIndications:B-cell lymphoma of spleen, unspecified B-cell lymphoma type (CMS/HCC V24, CMS/HCC V28) Given 02/05/2025 10:55 AM EDT 25 mg famotidine (PF) (PEPCID) injection 20 mg 20 mg, intravenous, Administer over 2 Minutes, Once, On Wed02/05/25 at 1030, For 1 dose, IV Push over at least 2 minutesIndications:B-cell lymphoma of spleen, unspecified B-cell lymphoma type (CMS/HCC V24, CMS/HCC V28) Given 02/05/2025 10:30 AM EDT 20 mg riTUXimab-pvvr (RUXIENCE) 600 mg in sodium chloride 310 mL IVPB 600 mg (rounded from 633.75 mg = 375 mg/m2 ? 1.69 m2), intravenous, Once, On Wed02/05/25 at 1030, For 1 dose, The recommended infusion rate [...] be decreased in the setting of infusion-related reactions.Indications:B-cell lymphoma of spleen, unspecified B-cell lymphoma type (CMS/HCC V24, CMS/HCC V28) New Bag 02/05/2025 11:46 AM EDT 600 mg documented in this encounter Orders Nursing Count Last Ordered Date First Orde red Date NCCN PARAMETERS 1 02/05/2025 NCCN PARAMETERS - ANTIPNEUMO CYSTIS PROPHYLAXIS 1 02/05/2025 NCCN PARAMETERS - RISK OF CA NCER-RELATED INFECTIONS 1 02/05/2025 NCCN PARAMETERS - RISK OF TU MOR LYSIS SYNDROME 1 02/05/2025 NCCN PARAMETERS - RITUXIMAB (OR RITUXIMAB AND HYALURONIDASE HUMAN) 1 02/05/2025 NCCN PARAMETERS - VIRUS PROPHYLAXIS 1 02/05 ONC NURSING COMMUNICATION 2 02/05/2025 ONC NURSING COMMUNICATION 10 1 02/05/2025 ONC NURSING COMMUNICATION 12 1 02/05/2025 ONC NURSING COMMUNICATION 2 1 02/05/2025 ONC NURSING COMMUNICATION 3 1 02/05/2025 TREATMENT CONDITIONS 1 02/05/2025 documented in this encounter Care Teams Straightedge Man Relationship Specialty Start Date End Date Aleks Qiu MD [address] [place] [address] PCP - General Internal Medicine 02/17/22 documented as of this encounter
--- OUTSIDE RECORDS SUMMARY | 2025-02-08 09:19 | XMS_ITS | Encounter Summary ---
Author Organization [facility] Address [address] [place] [address] Care Team Providers Care Senior Procurement Manager Name Role Phone Aleks Qiu MD Primary Care Provider [phone] Encounter Details Date Type Department Care Team [...] 45 minutes. Then will increase by 50mg/hr [id number]. When pt hits 200mg/hr, will reevaluate and [...] 1:30 PM EDT Office Visit Orthopedic Surgery - [place] [address] [phone] Aron Barba DPM 175 [facility] [place] [address] [place] [address] 03/01/2025 1:15 PM EDT Office Visit Endocrinology - [address] [phone] Ivette Acuña MD [address] [place] [address] 03/06/2025 9:[address] [facility] CT Scan [address] [place] [address] 03/27/2025 10:15 AM EDT Office Visit Orthopedic Surgery - [place] [address] [phone] Aron Barba, DPM [address] [address] 03/28/2025 2:00 PM EDT Office Visit Adult Medicine [place] - [address] [phone] Aleks Qiu MD [address] [place] [address] 04/02/2025 8:[address] [facility] Infusion Center [address] [place] [address] [address] [place] [address] 04/02/2025 10:45 AM EDT Office Visit [facility] Hematology Oncology [address] [place] [phone] Adrienne Huerta DO [address] [place] [address] 04/18/2025 4:30 PM EDT Appointment Radiology Department - [address] [phone] documented as of this encounter Visit Diagnoses Not on filedocumented in this encounter Care Teams Senior Procurement Manager Relationship Specialty Start Date End Date Aleks Qiu MD [address] [place] [address] PCP - General Internal Medicine 02/17/22 documented as of this encounter
--- OUTSIDE RECORDS SUMMARY | 2025-02-08 09:19 | XMS_ITS | Encounter Summary ---
Author Organization [facility] Address [address] [place] [address] Care Team Providers Care Rn Burn Name Role Phone Yessenia Fox MD Primary Care Provider Nohemi Ricketts MD Primary Care Provider Aleks Parker Primary Care Provider [phone] Encounter Details Date Type Department Care Team Description 03/11/2020 Telephone Adult Medicine [address] [address] Yessenia Fox MD Social History Tobacco Use [...] filedocumented in this encounter Care Teams Rn Burn Relationship Specialty Start Date End Date Yessenia Fox MD PCP - General Internal Medicine 12/07/18 11/17/21 Nohemi Plasencia MD PCP - General Internal Medicine 11/18/21 02/16/22 Aleks Qiu [address] [place] [address] PCP - General Internal Medicine 02/17/22 documented as of this encounter
--- OUTSIDE RECORDS SUMMARY | 2025-02-08 09:19 | XMS_ITS | Encounter Summary ---
Author Organization [facility] Address [address] [place] [address] Care Team Providers Care Teacher Advisor Name Role Phone Aleks Qiu Primary Care Provider [phone] Encounter Details Date Type Department Care Team Description 06/20/2024 Orders Only Medical Records [address] [place], [place] [address] [place] [address] Social History Tobacco Use Types Packs/Day Years [...] this encounter Results * OUTSIDE PATHOLOGY (06/19/2024) [facility] OUTSIDE LAB documented in this encounter Visit Diagnoses Not on filedocumented in this encounter Care Teams Teacher Advisor Relationship Specialty Start Date End Date Aleks Qiu [address] [place] [address] PCP - General Internal Medicine 02/17/22 documented as of this encounter
--- OUTSIDE RECORDS SUMMARY | 2025-02-08 09:19 | XMS_ITS | Encounter Summary ---
Author Organization [facility] Address [address] [place] [address] Care Team Providers Care Igniter Capper Name Role Phone Aleks Qiu MD Primary Care Provider [phone] Encounter Details Date Type Department Care Team [...] PM EDT Office Visit Orthopedic Surgery - [place] 250 175 [facility] [address] [place] [address] Aron Barba DPM [address] [address] 03/01/2025 1:15 PM EDT Office Visit Endocrinology - [address] [phone] Ivette Acuña MD [address] [place] [address] 03/06/2025 9:00 AM EDT Appointment [facility] CT Scan [address] [place] [phone] 03/27/2025 10:15 AM EDT Office Visit Orthopedic Surgery - [place] [address] [phone] Aron Barba, DPM [address] [address] 03/28/2025 2:00 PM EDT Office Visit Adult Medicine [place] - [address] [phone] Aleks Qiu MD [address] [place] [address] 04/02/2025 8:00 AM EDT Appointment [facility] Infusion Center [address] [place] [phone] 04/02/2025 10:45 AM EDT Office Visit [facility] Hematology Oncology [address] [place] [phone] Adrienne Huerta DO [address] [place] [address] 04/18/2025 4:30 PM EDT Appointment Radiology Department - [address] [phone] documented as of this encounter Visit Diagnoses Not on filedocumented in this encounter Care Teams Igniter Capper Relationship Specialty Start Date End Date Alkes Qiu MD [address] [place] [address] PCP - General Internal Medicine 02/17/22 documented as of this encounter
--- OUTSIDE RECORDS SUMMARY | 2025-02-08 09:19 | XMS_ITS | Encounter Summary ---
Author Organization [facility] Address [address] [place] [address] Care Team Providers Care Consumer Affairs Manager Name Role Phone Nohemi Plasencia MD Primary Care Provider Aleks Parker Primary Care Provider [phone] Encounter Details Date Type Department Care Team Description 12/29/2021 Paper Gluing Operator Report Medical Records [address] [place] [address] Opal Lozano, NOVA Social History Tobacco Use [...] on filedocumented in this encounter Care Teams Consumer Affairs Manager Relationship Specialty Start Date End Date Nohemi Plasencia MD PCP - General Internal Medicine 11/18/21 02/16/22 Aleks Qiu [address] [place] [address] PCP - General Internal Medicine 02/17/22 documented as of this encounter
--- OUTSIDE RECORDS SUMMARY | 2025-02-08 09:19 | XMS_ITS | Encounter Summary ---
Author Organization [facility] Address [address] [place] [address] Care Team Providers Care Stroboscope Operator Name Role Phone Aleks Qiu Primary Care Provider [phone] Encounter Details Date Type Department Care Team Description 04/05/2023 Hospital Medical Records [address] [place] [address] Mo Saez MD Social History Tobacco Use [...] on filedocumented in this encounter Care Teams Stroboscope Operator Relationship Specialty Start Date End Date Aleks Qiu [address] [place] [address] PCP - General Internal Medicine 02/17/22 documented as of this encounter
--- OUTSIDE RECORDS SUMMARY | 2025-02-08 09:19 | XMS_ITS | Encounter Summary ---
Author Organization [facility] Address [address] [place] [address] Care Team Providers Care Chef De Froid Name Role Phone Aleks Qiu Primary Care Provider [phone] Reason for Visit * Reason Comments E-prescribe Rx Request Encounter Details Date Type Department Care Team Description 03/03/[address] [facility] [address] [place] [address] Fawn Morin PA-C [address] [place] [address] E-prescribe Rx Request Social History Tobacco Use [...] suspected to have Coronavirus/COVID-19? No / Unsure 02/24/2022 10:42 AM EDT documented as of this encounter Miscellaneous Notes * Telephone Encounter - Veronica Allen - 03/03/2022 9:15 AM EDT Lab Results Component Value Date NA 137 12/17/2021 K 4.2 12/17/2021 CO2 26 12/17/2021 CL 104 12/17/2021 BUN 20 12/17/2021 CREAT 1.14 12/17/2021 GLU 344 12/17/2021 CA 9.3 12/17/2021 GFR 46 12/17/2021 * Telephone Encounter - Isabell Chandra - 03/03/2022 7:54 AM EDT Patient would like script to be: E-PRESCRIBED/FAXED TO PHARMACY WHEN WAS THE PATIENT'S LAST APPOINTMENT IN ADULT MEDICINE? 02/20/22 WHEN WAS THE LAST TIME THE PATIENT SAW THEIR PCP? Has not seen Does patient have an upcoming appointment? Yes 06/23/22 (THE MEDICATION REQUESTED IS ON THE MED LIST ABOVE) All of the medications requested were on the CURRENT MEDS list Did you check the Pharmacy information above?: YES Patient wants: 90 -day supply Is this a mail order prescription request ? NO If the refill is from a FAXED refill request what is the RX # listed on the fax? N/A Patients current insurance carrier is: Payor: [facility] / Plan: [employer] PREF HMO $10 [place] / Product Type: MEDICARE RISK documented in this encounter Plan of Treatment Not on file documented as of this encounter Visit Diagnoses Not on filedocumented in this encounter Care Teams Chef De Froid Relationship Specialty Start Date End Date Aleks Qiu [address] [place] [address] PCP - General Internal Medicine 02/17/22 documented as of this encounter
--- OUTSIDE RECORDS SUMMARY | 2025-02-08 09:19 | XMS_ITS ---
Author Organization [facility] Address [address] [place] [address] Phone Care Team Providers Care Transistor Tester Name Role Phone Aleks Qiu MD Primary Care Provider [phone] Active Problems Problem Noted Date Diagnosed Date B-cell lymphoma ([facility] V24, [facility] V28) 07/02 Assessment & Plan (08/08/2024 5:41 PM EST): He has received rituximab fusions. She has a follow-up appointment in the next couple months with the oncologist for repeat imaging. She is scheduled to follow-up with gastroenterology for ileoscopy for abnormal PET scan findings in the ileum. Type 2 diabetes mellitus wit h microalbuminuria, with long-term current use of insulin ([facility] V24, [facility] V28) 06/19/2024 Assessment & Plan (08/08/2024 5:41 PM [...] pain or chest pressure. She follows with kiln furniture saw tender Dr. Smiley. Continue aspirin, Plavix, metoprolol 100 mg twice a day, Tricor 54 mg daily, Lipitor 80 mg daily, Lasix 20 mg daily. Atorvastatin refilled today. Chronic systolic CHF (conges tive heart failure) ([facility] V24, [facility] V28) 12/29/2023 Acute kidney injury ([facility] V24) 04/23/2023 Centrilobular emphysema ([facility] V24, [facility] V2 8) 04/23/2023 NSTEMI (non-ST elevated myoc ardial infarction) ([facility] V24, [facility] V28) 04/23/2023 Pericarditis as complication of acute myocardial infarction ([facility] V24, [facility] V28) 04/23/2023 Osteopenia 12/08/2022 Stage 3 chronic kidney disease ([facility] V24, [facility] V28) 10/14/2022 Chronic deep vein thrombosis (DVT) of proximal vein of lower extremity ([facility] V24, [facility] V28) 06/23/2022 Hydronephrosis of right kidney 06/23/2022 Mixed hyperlipidemia 06/23/2022 Renal calculi 06/23/2022 Acute deep vein thrombosis ( DVT) of distal vein of both lower extremities ([facility] V24, [facility] V28) 12/17/2021 Acute deep vein thrombosis ( DVT) of femoral vein of left lower extremity ([facility] V24, [facility] V28) 05/19/2021 Overview (06/19/2024): On Eliquis COVID-19 01/26/2020 GERD (gastroesophageal reflux disease) 9 Microalbuminuria 07/18/2019 Osteoporosis 07/18/2019 Type 2 diabetes mellitus wit h renal manifestations ([facility] V24, [facility] V28) 07/18/2019 Diabetes 1.5, 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[facility] V24, [facility] V28) 01/26/2019 Chronic obstructive pulmonar y disease ([facility] V24, [facility] V28) 01/26/2019 Atypical chest pain 12/22/2018 Overview (06/19/2024): S/p myocardial perfusion wnl 2018 [place]s [place] [facility] [place] Asthma 12/22/2018 Celiac disease 12/22/2018 Glaucoma [...] of spleen, u nspecified B-cell lymphoma type (CMS/HCC V24, CMS/HCC V28) Treatment Medications Current Day (Day 1 , Cycle 4 - Planned for 03/26/2025) Next Day (Day 1, Cycle 5 - Planned for 05/21/2025) riTUXimab-hyaluronidase (RITUXAN HYCELA) 1400 mg/11.7 mL (120 mg/mL)riTUXimab-pvvr (RUXIENCE) IVPB 250 mLriTUXimab-pvvr biosimilar (RUXIENCE) riTUXimab-pvvr (RUXIENCE) 600 mg in sodium chloride 310 mL IVPB riTUXimab-pvvr (RUXIENCE) 600 mg in sodium chloride [...] treatments are documented for this patient in [facility]. Treatments may have been administered in another system.
--- OUTSIDE RECORDS SUMMARY | 2025-02-08 09:19 | XMS_ITS | Encounter Summary ---
Author Organization [facility] Address [address] [place] [address] Care Team Providers Care Life Skills Instructor Name Role Phone Yessenia Fox MD Primary Care Provider Nohemi Ricketts MD Primary Care Provider Aleks Parker Primary Care Provider [phone] Encounter Details Date Type Department Care Team Description 12/08/2019 Telephone Dermatology - [address] [address] Faye Palmer PA-C Social History Tobacco Use [...] filedocumented in this encounter Care Teams Life Skills Instructor Relationship Specialty Start Date End Date Yessenia Fox MD PCP - General Internal Medicine 12/07/18 11/17/21 Nohemi Plasencia MD PCP - General Internal Medicine 11/18/21 02/16/22 Aleks Qiu [address] [place] [address] PCP - General Internal Medicine 02/17/22 documented as of this encounter
--- OUTSIDE RECORDS SUMMARY | 2025-02-08 09:19 | XMS_ITS | Encounter Summary ---
Author Organization [facility] Address [address] [place] [address] Care Team Providers Care Human Resources Records Clerk Name Role Phone Yessenia Fox MD Primary Care Provider Nohemi Ricketts MD Primary Care Provider Aleks Parker Primary Care Provider [phone] Encounter Details Date Type Department Care Team Description 12/16/2018 Blood And Plasma Laboratory Assistant Report Medical Records [address] [place] [address] Abhishek Smiley MD Social History Tobacco Use Types Packs/Day Years Used Date Smoking Tobacco: Never Assessed Sex Assigned at Date Recorded Female 04/24/2023 6:24 PM E DT Job Start Date Occupation Industry Not on file Not on file Not on file documented as of this encounter Plan of Treatment Not on file documented as of this encounter Visit Diagnoses Not on filedocumented in this encounter Care Teams Human Resources Records Clerk Relationship Specialty Start Date End Date Yessenia Fox MD PCP - General Internal Medicine 12/07/18 11/17/21 Nohemi Plasencia MD PCP - General Internal Medicine 11/18/21 02/16/22 Aleks Qiu [address] [place], [place] [phone] PCP - General Internal Medicine 02/17/22 documented as of this encounter
--- OUTSIDE RECORDS SUMMARY | 2025-02-08 09:19 | XMS_ITS | Encounter Summary ---
Author Organization [facility] Address [address] [place] [address] Care Team Providers Care Zipper Slide Attacher Name Role Phone Aleks Qiu Primary Care Provider [phone] Encounter Details Date Type Department Care Team Description 06/08/2023 Orders Only Medical Records [address] [place] [address] Aleks Qiu [address] [place] [address] Social History Tobacco Use Types Packs/Day Years [...] on filedocumented in this encounter Care Teams Zipper Slide Attacher Relationship Specialty Start Date End Date Aleks Qiu [address] [place] [address] PCP - General Internal Medicine 02/17/22 documented as of this encounter
--- OUTSIDE RECORDS SUMMARY | 2025-02-08 09:19 | XMS_ITS | Encounter Summary ---
Author Organization [facility] Address [address] [place] [address] Care Team Providers Care Bounty Hunter Name Role Phone Aleks Qiu MD Primary Care Provider [phone] Encounter Details Date Type Department Care Team [...] 1:30 PM EDT Office Visit Orthopedic Surgery [place] [address] [phone] Aron Barba DPM [address] [address] 03/01/2025 1:15 PM EDT Office Visit Endocrinology [address] [phone] Ivette Acuña MD [address] [place] [address] 03/06/2025 9:00 AM EDT Appointment [facility] CT Scan [address] [place] [phone] 03/27/2025 10:15 AM EDT Office Visit Orthopedic Surgery [facility] [address] [phone] Aron Barba DPM [address] [address] 03/28/2025 2:00 PM EDT Office Visit Adult Medicine West - [address] [phone] Aleks Qiu MD [address] [place] [address] 04/02/2025 8:00 AM EDT Appointment [facility] Infusion Center [address] [place] [phone] 04/02/2025 10:45 AM EDT Office Visit [facility] Hematology Oncology [address] [place] [phone] Adrienne Huerta DO [address] [place] [address] 04/18/2025 4:30 PM EDT Appointment Radiology Department - [address] [phone] documented as of this encounter Visit Diagnoses Not on filedocumented in this encounter Care Teams Bounty Hunter Relationship Specialty Start Date End Date Aleks Qiu MD [address] [place] [address] PCP - General Internal Medicine 02/17/22 documented as of this encounter
--- OUTSIDE RECORDS SUMMARY | 2025-02-08 09:19 | XMS_ITS | Encounter Summary ---
Author Organization [facility] Address [address] [place] [address] Care Team Providers Care Principle Industrial Hygienist Name Role Phone Aleks Qiu Primary Care Provider [phone] Encounter Details Date Type Department Care Team Description 11/09/2023 Orders Only Medical Records [address] [place] [address] Abhishek Smiley MD Social History Tobacco Use [...] Name Priority Date/Time Associated Diagnosis Comments OUTSIDE NUCLEAR STRESS TEST Routine 10/28/2023 documented in this encounter Results * OUTSIDE NUCLEAR STRESS TEST (10/28/2023) Abhishek Smiley MD CARDIOLOGY documented in this encounter Visit Diagnoses Not on filedocumented in this encounter Care Teams Principle Industrial Hygienist Relationship Specialty Start Date End Date Aleks Qiu [address] [place] [address] PCP - General Internal Medicine 02/17/22 documented as of this encounter
--- OUTSIDE RECORDS SUMMARY | 2025-02-08 09:19 | XMS_ITS | Encounter Summary ---
Author Organization [facility] Address [address] [place] [address] Care Team Providers Care Geologist Petroleum Name Role Phone Aleks Qiu Primary Care Provider Encounter Details Date Type Department Care Team Description 05/21/2023 Hospital Medical Records [address] [place] [address] Mo Saez MD Social History Tobacco Use [...] on filedocumented in this encounter Care Teams Geologist Petroleum Relationship Specialty Start Date End Date Aleks Qiu [address] [place] [address] PCP - General Internal Medicine 02/17/22 documented as of this encounter
--- OUTSIDE RECORDS SUMMARY | 2025-02-08 09:19 | XMS_ITS | Encounter Summary ---
Author Organization [facility] Address [address] [place] [address] Care Team Providers Care Pediatric Assistant Name Role Phone Aleks Qiu MD Primary Care Provider [phone] Encounter Details Date Type Department Care Team Description 07/10/2024 Social Work [facility] Oncology Services [address] [place] [address] [facility] Social History Tobacco Use Types Packs/Day Years [...] on filedocumented in this encounter Care Teams Pediatric Assistant Relationship Specialty Start Date End Date Aleks Qiu MD [address] [place] [address] [place] [address] PCP - General Hospitalist Medicine 04/30/22 documented as of this encounter
--- OUTSIDE RECORDS SUMMARY | 2025-02-08 09:19 | XMS_ITS | Encounter Summary ---
Author Organization [facility] Address [address] [place] [address] Care Team Providers Care Mechanical Engineering Director Name Role Phone Aleks Qiu MD Primary Care Provider [phone] Encounter Details Date Type Department Care Team (Latest Contact Info) Description 07/21/2024 1:39 PM EDT Hospital Encounter TH HISTORIC ENCOUNTERS EASTERN CONVERSION ONLY Adrienne Huerta, DO [address] [place] [address] B-cell lymphoma of spleen, unspecified B-cell lymphoma [...] 4:18 PM Encounter Date: 07/21/2024 Status: Signed Mri Technologist: Adrienne Huerta DO (Physician) Hematology/Oncology Progress Note [...] further evidence of clotting. ??Available ultrasound from [facility] dated 11/21/2021 describes interval decrease in burden [...] history She is , she lives in [place]. Labs Assessment & Plan 78 year old [...] and ASA Sign Opal Huerta DO Hematology/Oncology [facility] This encounter includes time spent on complex MDM in setting of high risk cancer/CD 20 therapy, review of labs, [id number] with the patient, coordination of care with nursing, documentation in the medical record documented in this encounter Plan of Treatment Upcoming Encounters Date Type Department Care Team (Late st Contact Info) Description 02/13/2025 1:30 PM EDT Office Visit Orthopedic Surgery - [address] [phone] Aron Barba DPM [address] [address] 03/01/2025 1:15 PM EDT Office Visit Endocrinology [address] [phone] Ivette Acuña MD [address] [place] [address] 03/06/2025 9:00 AM EDT Appointment [facility] CT Scan [address] [place] [phone] 03/27/2025 10:15 AM EDT Office Visit Orthopedic Surgery [place] [address] [phone] Aron Barba DPM [address] [address] 03/28/2025 2:00 PM EDT Office Visit Adult Medicine [address] [phone] Aleks Qiu MD [address] [place] [address] 04/02/2025 8:00 AM EDT Appointment [facility] Infusion Center [address] [facility] [address] [place] [address] 04/02/2025 10:45 AM EDT Office Visit [facility] Hematology Oncology [address] [place] [phone] Adrienne Huerta DO [address] [place] [address] 04/18/2025 4:30 PM EDT Appointment Radiology Department - [address] [place] [address] documented as of this encounter Procedures Procedure Name Priority Date/Time Associated Diagnosis Comments ..MISCELLANEOUS REFERENCE LAB TEST 07/21/2024 documented in this encounter Results * Miscellaneous reference lab test (07/21/2024) us Provider Onbase MD LAB BLOOD ORDERABLES Final Re sult documented in this encounter Visit Diagnoses Diagnosis B-cell lymphoma of spleen, unspecified B-cell lymphoma type (CMS/[facility] V24, CMS/HCC V28)- Primary documented in this encounter Care Teams Mechanical Engineering Director Relationship Specialty Start Date End Date Aleks Qiu MD [address] [place] [address] PCP - General Internal Medicine 02/17/22 documented as of this encounter
--- OUTSIDE RECORDS SUMMARY | 2025-02-08 09:19 | XMS_ITS | Encounter Summary ---
Author Organization [facility] Address [address] [place] [address] Care Team Providers Care Government Affairs Fellow Name Role Phone Aleks Qiu Primary Care Provider [phone] Encounter Details Date Type Department Care Team Description 03/09/2023 Shingle Packer Report Medical Records [address] [place] [address] Garrison Samayoa PA-C Social History Tobacco Use [...] on filedocumented in this encounter Care Teams Government Affairs Fellow Relationship Specialty Start Date End Date Aleks Qiu [address] [place], [place] [phone] PCP - General Internal Medicine 02/17/22 documented as of this encounter
--- OUTSIDE RECORDS SUMMARY | 2025-02-08 09:19 | XMS_ITS | Encounter Summary ---
Author Organization [facility] Address [address] [place] [address] Care Team Providers Care Vehicle Cost Engineer Name Role Phone Yessenia Fox MD Primary Care Provider Nohemi Ricketts MD Primary Care Provider Aleks Parker Primary Care Provider [phone] Reason for Visit * Reason Onset Date Comments TEST RESULTS 12/06/2019 result notes Encounter Details Date Type Department Care Team Description 12/06/2019 Telephone Adult Medicine [address] [address] Marisa Van PA-C TEST RESULTS (result notes) Social History Tobacco Use Types Packs/Day Years Used Date Smoking Tobacco: Former Smokeless Tobacco: Never Comments:quit 30 years ago Sex Assigned at Date Recorded Female 04/24/2023 6:24 PM E DT Job Start Date Occupation Industry Not on file Not on file Not on file documented as of this encounter Miscellaneous Notes * Telephone Encounter - Kitty Muñiz M.A. - 12/06/2019 4:08 PM EDT Left message for patient to return call. ----- Message from Marisa Van PA-C sent at 12/05/2019 8:37 AM EDT ----- Please let patient know that her A1c has worsened over the past 2 months to 9.9. Please make sure she is eating the correct diet and limiting her carbohydrate and sugar intake. I would like to increase her Trulicity to 1.5 weekly and this is been sent to the pharmacy. documented in this encounter Plan of Treatment Not on file documented as of this encounter Visit Diagnoses Not on filedocumented in this encounter Care Teams Vehicle Cost Engineer Relationship Specialty Start Date End Date Yessenia Fox MD PCP - General Internal Medicine 12/07/18 11/17/21 Nohemi Plasencia MD PCP - General Internal Medicine 11/18/21 02/16/22 Aleks Qiu [address] [place] [address] PCP - General Internal Medicine 02/17/22 documented as of this encounter
--- OUTSIDE RECORDS SUMMARY | 2025-02-08 09:19 | XMS_ITS | Clinical Summary ---
Author Organization [facility] Address [address] [place] [address] Care Team Providers Care Club Director Name Role Phone Aleks Qiu MD Primary Care Provider [phone] Allergies Active Allergy Reactions Criticality Noted Date [...] age to complete this topic Care Teams Club Director Relationship Specialty Start Date End Date Aleks Qiu MD [address] [place] [address] PCP - General Hospitalist Medicine 04/30/22
--- OUTSIDE RECORDS SUMMARY | 2025-02-08 09:19 | XMS_ITS | Encounter Summary ---
Author Organization [facility] Address [address] [place] [address] Care Team Providers Care Fagoter Name Role Phone Aleks Qiu Primary Care Provider [phone] Encounter Details Date Type Department Care Team Description 03/10/2023 Supervisor Assembly And Packing Report Medical Records [address] [place] [address] Garrison Samayoa PA-C Social History Tobacco Use [...] on filedocumented in this encounter Care Teams Fagoter Relationship Specialty Start Date End Date Aleks Qiu [address] [place], [place] [phone] PCP - General Internal Medicine 02/17/22 documented as of this encounter
--- OUTSIDE RECORDS SUMMARY | 2025-02-08 09:19 | XMS_ITS | Encounter Summary ---
Author Organization [facility] Address [address] [place] [address] Care Team Providers Care Macadam Raker Name Role Phone Yessenia Fox MD Primary Care Provider Nohemi Ricketts MD Primary Care Provider Aleks Parker Primary Care Provider [phone] Reason for Visit * Reason Onset Date Comments Blood Sugar Readings 07/11/2019 Encounter Details Date Type Department Care Team Description 07/11/2019 Telephone Adult Medicine [address] [address] Antonino Evans MD Blood Sugar Readings Social [...] on filedocumented in this encounter Care Teams Macadam Raker Relationship Specialty Start Date End Date Yessenia Fox MD PCP - General Internal Medicine 12/07/18 11/17/21 Nohemi Plasencia MD PCP - General Internal Medicine 11/18/21 02/16/22 Aleks Qiu [address] [place] [address] PCP - General Internal Medicine 02/17/22 documented as of this encounter
--- OUTSIDE RECORDS SUMMARY | 2025-02-08 09:19 | XMS_ITS | Patient Health Record ---
Author Organization [facility] Address [address] [place] [address] Care Team Providers Care Real Estate Rep Name Role Phone Nohemi Plasencia Primary Care Provider Raul Nelson Unavailable [phone] Allergies Allergen (clinical drug ingredient) Drug/Non Drug [...] Problem Status W/U Status Risk Notes Problem [id number] Abdominal pain (789.00) Active confirmed Plan Of Treatment Pending Test Test Name Order Date XR GI SERIES 01/26/2014 Insurance Providers Payer Name Payer Address Payer Phone Subscriber Number Group Number Insured Name Patient Relationship to Insured Coverage Start Date Coverage End Date [facility] [address] [place] [phone] [id number] MIKEY SAUCEDA Self - patient is the insured Medical (General) History Medical History History ICD Code glaucoma diabetes mellitus hypertension elevated Cholesterol Surgical History Surgery Date(Month/Year) 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
--- OUTSIDE RECORDS SUMMARY | 2025-02-08 09:19 | XMS_ITS | Encounter Summary ---
Author Organization [facility] Address [address] [place] [address] Care Team Providers Care Antenna Design Engineer Name Role Phone Aleks Qiu Primary Care Provider [phone] Encounter Details Date Type Department Care Team Description 05/28/2023 Hospital Medical Records [address] [place] [address] Social History Tobacco Use Types Packs/Day Years Used Date Smoking Tobacco: Former Passive Smoke Exposure: Past Smokeless Tobacco: Never Comments:quit 30 years ago Sex Assigned at Date Recorded Female 04/24/2023 6:24 PM EDT Job Start Date Occupation Industry Not on [...] on filedocumented in this encounter Care Teams Antenna Design Engineer Relationship Specialty Start Date End Date Aleks Qiu [address] [place] [address] PCP - General Internal Medicine 02/17/22 documented as of this encounter
--- OUTSIDE RECORDS SUMMARY | 2025-02-08 09:19 | XMS_ITS | Encounter Summary ---
Author Organization [facility] [place] Address [address] [place] [address] Care Team Providers Care Box Office Clerk Name Role Phone Aleks Qiu Primary Care Provider [phone] Encounter Details Date Type Department Care Team Description 09/03/2022 Mechanical Reliability Engineer Report Medical Records [address] [place] [address] Opal Lozano, NOVA Social History Tobacco Use [...] on filedocumented in this encounter Care Teams Box Office Clerk Relationship Specialty Start Date End Date Aleks Qiu [address] [place] [address] PCP - General Internal Medicine 02/17/22 documented as of this encounter
--- OUTSIDE RECORDS SUMMARY | 2025-02-08 09:19 | XMS_ITS | Encounter Summary ---
Author Organization [facility] Address [address] [place] [address] Care Team Providers Care Talent Agent Name Role Phone Aleks Qiu Primary Care Provider [phone] Reason for Visit * Reason Onset Date Comments Pre-op Needed 09/08/2022 Encounter Details Date Type Department Care Team Description 09/08/2022 Telephone Adult Medicine [address] [address] Aleks Qiu [address] [place] [phone] Pre-op Needed Social History Tobacco Use Types [...] Bernardo Jo Office phone number of surgeon: [phone] Fax # for surgeons office: [phone] (Required) Where is surgery being performed? [facility] [place] Diagnosis/problem for surgery: Cut of kidney Is an EKG required for the pre-op workup? NO, but bloodwork will be required. The patient will needCBC, PTINR, and urine cultures. PCP: Aleks Qiu Did you verify that the insurance below is correct? YES Patients insurance: Payor: [facility] / Plan: [employer] [employer] HMO $10 [place] / Product Type: MEDICARE RISK documented in this encounter Plan of Treatment Not on file documented as of this encounter Visit Diagnoses Not on filedocumented in this encounter Care Teams Talent Agent Relationship Specialty Start Date End Date Aleks Qiu [address] [place] [address] PCP - General Internal Medicine 02/17/22 documented as of this encounter
--- OUTSIDE RECORDS SUMMARY | 2025-02-08 09:19 | XMS_ITS | Encounter Summary ---
Author Organization [facility] Address [address] [place] [address] Care Team Providers Care Freight Router Name Role Phone Yessenia Fox MD Primary Care Provider Nohemi Ricketts MD Primary Care Provider Aleks Parker Primary Care Provider [phone] Encounter Details Date Type Department Care Team Description 12/07/2019 Telephone Dermatology - [address] [phone] Isabell Jean Baptiste PA-C Social History Tobacco Use Types Packs/Day Years Used Date Smoking Tobacco: Former Smokeless Tobacco: Never Comments:quit 30 years ago Sex Assigned at Date Recorded Female 04/24/2023 6:24 PM E DT Job Start Date Occupation Industry Not on file Not on file Not on file documented as of this encounter Miscellaneous Notes * Telephone Encounter - Terra Coronado M.A. - 12/07/2019 11:23 AM EDT Try to contact patient to cancel jonny for patch placement, message left for patient to return my call. documented in this encounter Plan of Treatment Not on file documented as of this encounter Visit Diagnoses Not on filedocumented in this encounter Care Teams Freight Router Relationship Specialty Start Date End Date Yessenia Fox MD PCP - General Internal Medicine 12/07/18 11/17/21 Nohemi Plasencia MD PCP - General Internal Medicine 11/18/21 02/16/22 Aleks Qiu [address] [place] [address] PCP - General Internal Medicine 02/17/22 documented as of this encounter
--- OUTSIDE RECORDS SUMMARY | 2025-02-08 09:19 | XMS_ITS | Encounter Summary ---
Author Organization [facility] Address [address] [place] [address] Care Team Providers Care Still Operator Name Role Phone Aleks Qiu MD Primary Care Provider [phone] Reason for Visit * Hospital - Outpatient (Routine) - Authorized Specialty Diagnoses / Procedures Referred By Vishnu nagy Referred To Contact Oncology / Hematology and Oncology Diagnoses 4wk from 07/31 per Procedures FOLLOW UP Aleks Qiu MD [address] [place] [address] Phone: tel: fax: Adrienne Huerta DO [address] [place] [address] Phone: tel: fax: Referral ID Status Reason Start Date Expiration Date Visits Requested Visits Authorized [id number] Authorized Continuity of Care 06/26/2024 06/26/2025 12 12 Encounter Details Date Type Department Care Team (Late st Contact Info) Description 02/05/2025 9:15 AM EDT Office Visit [facility] Hematology Oncology [address] [place] [phone] Adrienne Huerta, [address] [place] [address] B-cell lymphoma of spleen, unspecified B-cell lymphoma [...] of this encounter Progress Notes * Adrienne Kimball Deanna, DO - 02/05/2025 9:15 AM EDT Hematology/Oncology Progress Note 02/05/25 Subjective Patient identifier: 79 y.o. female with B cell lymphoma Interim history: She is here for follow up Seen in infusion suite accompanied by her daughter. Patient notes that she is feeling okay overall. Recently seen by dentist and found to have a concerning lesion on her gums she will be having this biopsied. Also having hypertension and is being seen by cardiology titrated now on 4 antihypertensives. She had a couple episodes of night sweats. Her appetite is good. She has remained active. Also did walking and sustained a severe blister on her foot recently. Constitutional: see above Resp/CV: No cough, shortness of breath, chest pain GI: No nausea, vomiting, Skin: No rashes Neuro: No headaches, dizziness, neuropathy Musculoskeletal:see above Hem/Lymph : No bruising or bleeding Oncology history: Oncology History B-cell lymphoma ([facility] V24, [facility] V28) 07/02/2024 Initial Diagnosis B-cell lymphoma ([facility]) 07/10/2024 - 07/31/2024 Chemotherapy dexAMETHasone (DECADRON) tablet [...] mg, subcutaneous, Once, 1 of 1 cycle riTUXimab-pvvr (RUXIENCE) 600 mg in sodium chloride 310 mL IVPB, 375 mg/m2 = 600 mg (100 % of original dose 375 mg/m2), intravenous, Once, 2 of 8 cycles Dose modification: 375 mg/m2 (original dose 375 mg/m2, Cycle 1) Administration: 600 mg (09/25/2024), 600 mg (12/04/2024) Objective Last Vitals BP 150/71 Important (BP Location: Right arm, Patient Position: Sitting) Pulse 77 Temp 36.4 ??C (97.5 ??F) (Temporal) Resp 18 Ht 1.575 m (62.01 ) Wt 67.9 kg (149 lb 12.8 oz) SpO2 100% General: well appearing, in no acute distress HENT: no scleral icterus Resp: clear to auscultation bilaterally Cardio: regular rate and rhythm, Abdomen: soft normal bowel sounds Ext: right foot in boot. Neuro: alert and oriented, normal speech Medications Reviewed Allergies Allergies Allergen Reactions Doxycycline Nausea And Vomiting Diarrhea, sweating Propoxyphene Nausea And Vomiting sweaty Fhwvjmo-Jbr-Nbc Reductase Inhibitors Weakness Past medical history, past surgical history, and family history reviewed. Medical history Diabetes mellitus Hyperlipidemia Hypertension Osteoporosis GERD History of tobacco use Glaucoma Asthma Colon polyp Surgical history Abdominal surgery Breast surgery Exploratory laparotomy Hysterectomy CABG Family history Family History Problem Relation Name Age of Onset Celiac disease Sister CABG x4-twin Pancreatic cancer Mother 86.00 Prostate cancer Father 90.00 Diabetes Brother Diabetes Sister Social history Labs: Relevant data reviewed. Lab Results Component Value Date WBC 6.6 02/05/2025 RBC 4.40 02/05/2025 HGB 12.9 02/05/2025 HCT 39.3 02/05/2025 MCV 89.3 02/05/2025 MCHC 32.8 02/05/2025 RDW 15.9 (H) 02/05/2025 PLT 227 02/05/2025 MPV 11.4 (H) 02/05/2025 NRBC 0.0 02/05/2025 Lab Results Component Value Date NA 141 02/05/2025 K 3.8 02/05/2025 CL 105 02/05/2025 CO2 27 02/05/2025 GLUCOSE 218 (H) 02/05/2025 BUN 19 02/05/2025 CREATININE 1.07 02/05/2025 CALCIUM 9.2 02/05/2025 PROT 6.3 02/05/2025 ALBUMIN 3.8 02/05/2025 BILITOT 0.4 02/05/2025 AST 16 02/05/2025 ALT 10 02/05/2025 ALKPHOS 102 02/05/2025 EGFR 53 (L) 02/05/2025 Assessment & Plan 79 year old female presents for follow up of B cell lymphoma. Presented with splenomegaly and lymphocytosis, thrombocytopenia. 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 She received weekly rituxan with significant decrease in spleen size from 20cm down to normal of 9cm and normalization of platelets indicating positive treatment response. She is doing fine with no sign of progressive B symptoms. Labs reviewed all stable CBC is normal. 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 Follow up with me in two months Oral lesion Follow up with oral surgeon for biopsy We will follow up. Sign Opal Huerta DO Hematology/Oncology [facility] CC: Aleks Qiu MD documented in this encounter Plan of Treatment Upcoming Encounters Date Type Department Care Team (Late st Contact Info) Description 02/13/2025 1:30 PM EDT Office Visit Orthopedic Surgery [facility] [address] [phone] Aron Barba DPM [address] [address] 03/01/2025 1:15 PM EDT Office Visit [address] [phone] Ivette Acuña MD [address] [place] [address] 03/06/2025 9:00 AM EDT Appointment [facility] CT Scan [address] [place] [phone] 03/27/2025 10:15 AM EDT Office Visit Orthopedic Surgery [place] [address] [phone] Aron Barba DPM [address] [address] 03/28/2025 2:00 PM EDT Office Visit Adult Medicine [address] [phone] Aleks Qiu MD [address] [place] [address] 04/02/2025 8:00 AM EDT Appointment [facility] Infusion Center [address] [phone] 04/02/2025 10:45 AM EDT Office Visit [facility] Hematology Oncology [address] [place] [phone] Adrienne Huerta, [address] [place] [address] 04/18/2025 4:30 PM EDT Appointment Radiology Department - [address] [phone] documented as of this encounter Visit Diagnoses Diagnosis B-cell lymphoma of spleen, unspecified B-cell lymphoma type (CMS/HCC V24, CMS/HCC V28)- Primary documented in this encounter Care Teams Still Operator Relationship Specialty Start Date End Date Aleks Qiu MD [address] [place] [address] PCP - General Internal Medicine 02/17/22 documented as of this encounter
--- OUTSIDE RECORDS SUMMARY | 2025-02-08 09:19 | XMS_ITS | Encounter Summary ---
Author Organization [facility] Address [address] [place] [address] Care Team Providers Care Brands Editor Name Role Phone Yessenia Fox MD Primary Care Provider Nohemi Ricketts MD Primary Care Provider Aleks Parker Primary Care Provider [phone] Encounter Details Date Type Department Care Team Description 01/17/2019 Release of Information Medical Records [address] [place] [address] Abstract, Provider Social History Tobacco Use Types [...] on filedocumented in this encounter Care Teams Brands Editor Relationship Specialty Start Date End Date Yessenia Fox MD PCP - General Internal Medicine 12/07/18 11/17/21 Nohemi Plasencia MD PCP - General Internal Medicine 11/18/21 02/16/22 Aleks Qiu [address] [place] [address] PCP - General Internal Medicine 02/17/22 documented as of this encounter
--- OUTSIDE RECORDS SUMMARY | 2025-02-08 09:19 | XMS_ITS ---
Author Organization [facility] Address [address] [place] [address] Care Team Providers Care Spring Coverer Name Role Phone Aleks Qiu MD Primary Care Provider [phone] Active Problems Problem Noted Date Diagnosed Date Splenic marginal zone b-cell lymphoma 06/26/2024 Current Oncology Plans [facility] OP RITUXIMAB (IV/SC) WEEKLY X4* Plan Start [...] treatments are documented for this patient in [facility]. Treatments may have been administered in another system.
--- OUTSIDE RECORDS SUMMARY | 2025-02-08 09:19 | XMS_ITS | Encounter Summary ---
Author Organization [facility] Address [address] [place] [address] Care Team Providers Care Digester Name Role Phone Aleks Qiu MD Primary Care Provider [phone] Encounter Details Date Type Department Care Team (Late st Contact Info) Description 07/10/2024 1:26 PM EDT Hospital Encounter TH HISTORIC ENCOUNTERS EASTERN CONVERSION ONLY Karen Chavez PA [address] [place] [address] Social History Tobacco Use Types Packs/Day Years [...] 1:30 PM EDT Office Visit Orthopedic Surgery [facility] [address] [phone] Aron Barba DPM [address] [address] 03/01/2025 1:15 PM EDT Office Visit [address] [phone] Ivette Acuña MD [address] [place] [address] 03/06/2025 9:[address] [facility] CT Scan [address] [place] [phone] 03/27/2025 10:15 AM EDT Office Visit Orthopedic Surgery [place] [address] [phone] Aron Barba DPM [address] [address] 03/28/2025 2:00 PM EDT Office Visit Adult Medicine [address] [phone] Aleks Qiu MD [address] [place] [address] 04/02/2025 8:[address] [facility] Infusion Center [address] [place] [address] [address] [place] [phone] 04/02/2025 10:45 AM EDT Office Visit [facility] Hematology Oncology [address] [place] [phone] Adrienne Huerta DO [address] [place] [address] 04/18/2025 4:30 PM EDT Appointment Radiology Department - [address] [phone] documented as of this encounter Visit Diagnoses Not on filedocumented in this encounter Care Teams Digester Relationship Specialty Start Date End Date Aleks Qiu MD [address] [place] [address] PCP - General Internal Medicine 02/17/22 documented as of this encounter
--- OUTSIDE RECORDS SUMMARY | 2025-02-08 09:19 | XMS_ITS | Encounter Summary ---
Author Organization [facility] Address [address] [place] [address] Care Team Providers Care Regrind Mill Operator Name Role Phone Aleks Qiu Primary Care Provider [phone] Reason for Visit * Reason Comments E-prescribe Rx Request Encounter Details Date Type Department Care Team Description 03/01/2024 Refill Endocrinology - [address] [address] Lisbeth Ordaz PA-C [address] [place] [address] E-prescribe Rx Request Social History Tobacco Use Types Packs/Day Years Used Date Smoking Tobacco: Former Passive Smoke Exposure: Past Smokeless Tobacco: Never Comments:quit 30 years ago Sex Assigned at Date Recorded Female 04/24/2023 6:24 PM E DT Job Start Date Occupation Industry Not on file Not on file Not on file documented as of this encounter Miscellaneous Notes * Telephone Encounter - Chris Trent R.N. - 03/01/2024 3:18 PM EDT MAZIN 12/07/2023 OV 03/20/2024 Lab Results Component Value Date HGBA1C 9.0 02/01/2024 MALBUR 13.2 02/01/2024 MALBCR 9.4 02/01/2024 CHOL 103 12/06/2023 LDL 50 12/06/2023 HDL 27 12/06/2023 TRIG 134 12/06/2023 GLU 120 02/01/2024 CREAT 1.09 02/01/2024 * Telephone Encounter - Mikala Yan - 03/01/2024 1:13 PM EDT Patient would like script to be: E-PRESCRIBED/FAXED TO PHARMACY WHEN WAS THE PATIENT'S LAST APPOINTMENT IN ADULT MEDICINE? 12/29/23 WHEN WAS THE LAST TIME THE PATIENT SAW THEIR PCP? Same as above Does patient have an upcoming appointment? Yes 05/30/24 (THE MEDICATION REQUESTED IS ON THE MED [...] N/A Patients current insurance carrier is: Payor: [facility] / Plan: [employer] PREF HMO $[facility] / Product Type: MEDICARE RISK documented in this encounter Plan of Treatment Not on file documented as of this encounter Visit Diagnoses Diagnosis Type 2 diabetes mellitus with microalbuminuria, with long-term current use of insulin (HCC) documented in this encounter Care Teams Regrind Mill Operator Relationship Specialty Start Date End Date Aleks Qiu [address] [place] [address] PCP - General Internal Medicine 02/17/22 documented as of this encounter
--- OUTSIDE RECORDS SUMMARY | 2025-02-08 09:19 | XMS_ITS | Encounter Summary ---
Author Organization [facility] Address [address] [place] [address] Care Team Providers Care El Teacher Name Role Phone Karen Fox MD Primary Care Provider Nohemi Ricketts MD Primary Care Provider Aleks Parker Primary Care Provider [phone] Reason for Visit * Reason Onset Date Comments Call From Md Office 05/20/2021 Encounter Details Date Type Department Care Team Description 05/20/2021 Telephone Adult [address] [address] Karen Fox MD Call From Md Office Social History Tobacco Use Types Packs/Day Years Used Date Smoking Tobacco: Former Smokeless Tobacco: Never Comments:quit 30 years ago Sex Assigned at Date Recorded Female 04/24/2023 6:24 PM E DT Job Start Date Occupation Industry Not on file Not on file Not on file documented as of this encounter Miscellaneous Notes * Telephone Encounter - Sonya Goodwin - 05/20/2021 8:54 AM EDT Jessica from Dr. Garcia's office calling to advise KAREN FOX that patient was supposed to have an appointment on 05/22/21 for a colonoscopy but she canceled because she has a blood clot and is on blood thinners. documented in this encounter Plan of Treatment Not on file documented as of this encounter Visit Diagnoses Not on filedocumented in this encounter Care Teams El Teacher Relationship Specialty Start Date End Date Karen Fox MD PCP - General Internal Medicine 12/07/18 11/17/21 Nohemi Plasencia MD PCP - General Internal Medicine 11/18/21 02/16/22 Aleks Qiu [address] [place] [address] PCP - General Internal Medicine 02/17/22 documented as of this encounter
--- OUTSIDE RECORDS SUMMARY | 2025-02-08 09:20 | XMS_ITS | Encounter Summary ---
Author Organization [facility] Address [address] [place] [address] Care Team Providers Care Senior C Web Developer Name Role Phone Aleks Qiu Primary Care Provider [phone] Encounter Details Date Type Department Care Team Description 05/26/2022 CG Report Medical Records [address] [place] [address] Abstract, Provider Social History Tobacco Use Types [...] filedocumented in this encounter Care Teams Senior C Web Developer Relationship Specialty Start Date End Date Aleks Qiu [address] [place] [address] PCP - General Internal Medicine 02/17/22 documented as of this encounter
--- OUTSIDE RECORDS SUMMARY | 2025-02-08 09:20 | XMS_ITS | Encounter Summary ---
Author Organization [facility] Address [address] [place] [address] Care Team Providers Care Special Education Case Manager Name Role Phone Karen Fox MD Primary Care Provider Nohemi Ricketts MD Primary Care Provider Aleks Parker Primary Care Provider [phone] Reason for Visit * Reason Onset Date Comments Orders Call 06/07/2020 Encounter Details Date Type Department Care Team Description 06/07/2020 Telephone Adult Medicine [address] [address] Karen Fox MD Orders Call Social History Tobacco Use Types Packs/Day Years Used Date Smoking Tobacco: Former Smokeless Tobacco: Never Comments:quit 30 years ago Sex Assigned at Date Recorded Female 04/24/2023 6:24 PM E DT Job Start Date Occupation Industry Not on file Not on file Not on file documented as of this encounter Miscellaneous Notes * Telephone Encounter - Stephanie Cantor M.A. - 06/07/2020 11:37 AM EDT Ok for Wednesday * Telephone Encounter - Isabell Ghotra - 06/07/2020 11:19 AM EDT Patient calling to request labs be ordered: What lab work is patient requesting? A1C, Lipid, MICROALBUMIN/CREATININE, URINE, Basic Metabolic Does patient have an upcoming appointment, if yes when and WITH WHO? no Patients PCP is: KAREN FOX documented in this encounter Plan of Treatment Not on file documented as of this encounter Results * (ABNORMAL) HEMOGLOBIN A1C (06/28/2020 9:24 AM EDT) GLYCATED HEMOGLOBIN A1C 8.7(H) <6.5 % 06/28/2020 12:43 PM EDT [facility] ESTIMATED AVERAGE GLUCOSE 203 mg/dL 06/28/2020 12:43 PM EDT [facility] 06/28/2020 9:24 AM EDT 06/28/2020 9:29 AM EDT Karen Fox MD LAB [facility] documented in this encounter Visit Diagnoses Diagnosis History of abnormal mammogram- Primary Other specified personal history presenting hazards to health Diabetes, type 1.5, uncontrolled, managed as type 1 documented in this encounter Care Teams Special Education Case Manager Relationship Specialty Start Date End Date Karen Fox MD PCP - General Internal Medicine 12/07/18 11/17/21 Nohemi Plasencia MD PCP - General Internal Medicine 11/18/21 02/16/22 Aleks Qiu [address] [place] [address] PCP - General Internal Medicine 02/17/22 documented as of this encounter
--- OUTSIDE RECORDS SUMMARY | 2025-02-08 09:20 | XMS_ITS | Encounter Summary ---
Author Organization [facility] Address [address] [place] [address] Care Team Providers Care Functional Support Analyst Name Role Phone Aleks Qiu Primary Care Provider [phone] Encounter Details Date Type Department Care Team Description 07/10/2022 Supervisor Bottle House Cleaners Report Medical Records [address] [place] [address] Opal Lozano, [place] Social History Tobacco Use [...] on filedocumented in this encounter Care Teams Functional Support Analyst Relationship Specialty Start Date End Date Aleks Qiu [address] [place] [address] PCP - General Internal Medicine 02/17/22 documented as of this encounter
--- OUTSIDE RECORDS SUMMARY | 2025-02-08 09:20 | XMS_ITS | Encounter Summary ---
Author Organization [facility] Address [address] [place] [address] Care Team Providers Care Dog Warden Name Role Phone Aleks Qiu Primary Care Provider [phone] Encounter Details Date Type Department Care Team Description 04/24/2022 CGM Report Medical Records [address] [place] [address] Abstract, Provider Social History Tobacco Use Types [...] on filedocumented in this encounter Care Teams Dog Warden Relationship Specialty Start Date End Date Aleks Qiu [address] [place] [address] PCP - General Internal Medicine 02/17/22 documented as of this encounter
--- OUTSIDE RECORDS SUMMARY | 2025-02-08 09:20 | XMS_ITS | Clinical Summary ---
Author Organization [facility] Address [address] [place] [address] Phone Care Team Providers Care Acetylene Torch Solderer Name Role Phone Aleks Qiu MD Primary Care Provider Allergies Active Allergy Reactions Criticality Noted Date Comments Doxycycline Nausea And Vomiting Medium 01/13/2019 Diarrhea, sweating Propoxyphene Nausea And Vomiting Medium 07/18/2019 sweaty Lanknjz-Ekz-Ojp Reductase Inhibitors Weakness Medium 10/13/2019 Medications magnesium oxide (MAG-OX) 400 mg magnesium tablet Route: Take 1 Tablet by mouth daily. - Oral 06/09/20 24 Active acetaminophen (TYLENOL 8 HOUR) 650 mg 8 hr tablet Take 1 Tablet by mouth every 8 hours as needed for Pain. 04/03/20 24 Active ondansetron (ZOFRAN) 4 mg tablet Take 1 Tablet by mouth every 8 hours as needed for Nausea. 11/30/19 24 Active albuterol HFA (PROAIR HFA ; PROVENTIL [...] daily for 180 days. 04/23/20 23 Active dorzolamide-ti moloL (COSOPT) 22.3-6.8 mg/mL ophthalmic solution 1 Drop. Active flash glucose scanning reader (FreeStyle Td 2 Cougar) misc 1 Device by Does not apply route continuous. 02/18/20 Active blood-glucose meter kit To check blood sugar twice per day for diagnosis E11.65 09/05/20 20 Active carbidopa-levo dopa (SINEMET) 25-100 mg per tablet TAKE HALF TO 1 TABLET BY MOUTH TWICE DAILY. TAKE WITH A CRACKER 30 MINUTES BEFORE BREAKFAST AND DINNER 06/29/20 24 Active gabapentin (NEURONTIN) 100 mg capsule Take 1 capsule (100 mg total) by mouth 3 (three) times a day. 90 each 2 08/28/20 24 Active flash glucose sensor (FreeStyle Td 2 Sensor) kit Inject 1 EA into the skin every 14 (fourteen) days. 6 each 1 09/27/19 25 Active furosemide (LASIX) 20 mg tablet Take 1 tablet (20 mg total) by mouth 1 (one) time each day. 90 tablet 1 11/02/19 25 Active isosorbide mononitrate (IMDUR) 30 mg 24 hr tablet Take 1 tablet (30 mg total) by mouth 1 (one) time each day. Do not crush or chew. 90 each 1 11/02/19 25 Active metoprolol succinate (TOPROL-XL) 100 mg 24 hr tablet Take 1 tablet (100 mg total) by mouth 1 (one) time each day. 10/15/19 25 Active semaglutide (OZEMPIC) 0.25 mg or 0.5 mg (2 mg/3 mL) injection penIndications :Type 2 diabetes mellitus with microalbuminur ia, with long-term current use of insulin ([facility] V24, [facility] V28) Inject 0.25 mg under the skin every 7 (seven) days. 3 mL 1 11/07/19 25 Active insulin glargine (LANTUS) 100 unit/mL injection Administer 25 units under the skin in the morning and 25 units in the evening. 10 mL 12/20/19 25 Active metoprolol succinate (TOPROL-XL) 50 mg 24 hr tablet Take 1 tablet (50 mg total) by mouth at bedtime. Do not crush or chew. 90 each 1 12/20/19 25 09/28/2 025 Active losartan (COZAAR) 50 mg tablet Take 1 tablet (50 mg total) by mouth 2 (two) times a day. 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 She has a follow-up appointment in the next couple months with the oncologist for repeat imaging. She is scheduled to follow-up with gastroenterology for ileoscopy for abnormal PET scan findings in the ileum. Type 2 diabetes mellitus wit h microalbuminuria, with long-term current use of insulin ([facility] V24, [facility] V28) 06/19/2024 Assessment & Plan [...] pain or chest pressure. She follows with crossband layer Dr. Smiley. Continue aspirin, Plavix, metoprolol 100 mg twice a day, Tricor 54 mg daily, Lipitor 80 mg daily, Lasix 20 mg daily. Atorvastatin refilled today. Chronic systolic CHF (conges tive heart failure) ([facility] V24, [facility] V28) 12/29/2023 Acute kidney injury ([facility] V24) 04/23/2023 Centrilobular emphysema ([facility] V24, [facility] V2 8) 04/23/2023 NSTEMI (non-ST elevated myoc ardial infarction) ([facility] V24, [facility] V28) 04/23/2023 Pericarditis as complication of acute myocardial infarction ([facility] V24, [facility] V28) 04/23/2023 Osteopenia 12/08/2022 Stage 3 chronic kidney disease ([facility] V24, [facility] V28) 10/14/2022 Chronic deep vein thrombosis (DVT) of proximal vein of lower extremity ([facility] V24, [facility] V28) 06/23/2022 Hydronephrosis of right kidney 06/23/2022 Mixed hyperlipidemia 06/23/2022 Renal calculi 06/23/2022 Acute deep vein thrombosis ( DVT) of distal vein of both lower extremities ([facility] V24, [facility] V28) 12/17/2021 Acute deep vein thrombosis ( DVT) of femoral vein of left lower extremity ([facility] V24, [facility] V28) 05/19/2021 Overview (06/19/2024): On Eliquis COVID-19 01/26/2020 GERD (gastroesophageal reflux disease) 9 Microalbuminuria 07/18/2019 Osteoporosis 07/18/2019 Type 2 diabetes mellitus wit h renal manifestations ([facility] V24, [facility] V28) 07/18/2019 Diabetes 1.5, 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[facility] V24, S/[facility] V28) 01/26/2019 Chronic obstructive pulmonar y disease ([facility] V24, [facility] V28) 01/26/2019 Atypical chest pain 12/22/2018 Overview (06/19/2024): S/p myocardial perfusion wnl 2018 [facility] Asthma 12/22/2018 Celiac disease 12/22/2018 Glaucoma 12/22/2018 Hypercholesteremia 12/22/2018 Migraine 12/22/2018 Primary hypertension 12/22/2018 Assessment & Plan (08/08/2024 5:41 PM EST): Blood pressure today stable. She will continue on losartan 25 mg daily, metoprolol 100 mg twice daily. Encounters Date Type Department Care Team Description 02/05/2025 9:15 AM EDT Office Visit [facility] Hematology Oncology [address] [place] [phone] Adrienne Huerta DO B-cell lymphoma of spleen, unspecified B-cell lymphoma type ([facility] V24, [facility] V28) (Primary Dx) 02/05/2025 8:00 AM EDT Hospital Encounter [facility] In[facility] [address] 2[address] Floor [phone] Small B-cell lymphoma, unspecified body region ([facility] V24, [facility] [place] [place] V28) (Primary Dx); B-cell lymphoma of spleen, unspecified B-cell lymphoma type ([facility] [place] V24, [facility] V28) 01/29/2025 10:45 AM EDT Office Visit Orthopedic Surgery - [place] [address] [phone] Aron Barba DPM Poorly controlled type 2 diabetes mellitus with neuropathy (CMS/HCC V24, CMS/HCC V28) (Primary Dx); Ulcer of toe of left foot, with fat layer exposed (CMS/[facility] V24, CMS/HCC V28) 01/18/2025 2:30 PM EDT Office Visit [address] [phone] Ivette Acuña MD Type 2 diabetes mellitus with microalbuminuria, with long-term current use of insulin ([facility] V24, CMS/HCC V28) (Primary Dx) 12/19/2024 11:00 AM EDT Office Visit Adult Medicine [address] [phone] Aleks Qiu MD Poorly-controlled hypertension (Primary Dx); Mixed hyperlipidemia; CAD of autologous bypass graft; Chronic systolic CHF (congestive heart failure) ([facility] V24, CMS/HCC V28); Type 2 diabetes mellitus with microalbuminuria, with long-term current use of insulin (CMS/HCC V24, CMS/HCC V28); Small B-cell lymphoma of spleen (CMS/HCC V24, CMS/HCC V28); Stage 3a chronic kidney disease ([facility] V24, CMS/HCC V28); Chronic obstructive pulmonary disease, unspecified COPD type (CMS/HCC V24, CMS/HCC V28) 12/07/2024 2:00 PM EDT Office Visit [address] [phone] Ivette Acuña MD Type 2 diabetes mellitus with microalbuminuria, with long-term current use of insulin ([facility] V24, CMS/HCC V28) (Primary Dx) 12/04/2024 9:00 AM EDT Office Visit [facility] Hematology Oncology [address] [place] [phone] Adrienne Huerta DO B-cell lymphoma of spleen, unspecified B-cell lymphoma type ([facility] V24, CMS/HCC V28) (Primary Dx) 12/04/2024 8:00 AM EDT - 12/04/2024 11:59 PM EDT Hospital Encounter [facility] [address] [phone] Adrienne Huerta, Small B-cell lymphoma of spleen ([facility] V24, [facility] V28) (Primary Dx); B-cell lymphoma of spleen, unspecified B-cell lymphoma type ([facility] V24, [facility] V28) Discharge Disposition: Home or Self Care from Last 3 Months Immunizations Name Administration [...] myocardial perfusion wnl 2018 Follows with [place] [facility] cardiology Hypertension 12/22/2018 DX:Hypertension Migraine 12/22/2018 DX:Migraine Asthma 12/22/2018 DX:Asthma Glaucoma 12/22/2018 DX:Glaucoma Hypercholesteremia 12/22/2018 DX:Hyperchole steremia Former tobacco use 12/22/2018 DX:Former tob acco use COPD (chronic obstructive pu lmonary disease) ([facility] V24, [facility] V28) 01/26/2019 DX:COPD (chronic o bstructive pulmonary disease) ([facility]) Colon polyp 01/26/2019 DX:Colon polyp History of abnormal mammogram 04/28/2019 DX :History of abnormal mammogram Diabetes, type 1.5, uncontro lled, managed as type 1 01/26/2019 DX:Diabetes, type 1.5, uncontrolled, managed as type 1 Microalbuminuria 07/18/2019 DX:Microalbumin uria Type 2 diabetes mellitus wit h renal manifestations ([facility] V24, [facility] V28) 07/18/2019 DX:Type 2 diabetes mellitus with renal manifestations ([facility]) Osteoporosis 07/18/2019 DX:Osteoporosis GERD (gastroesophageal reflux disease) DX:GERD (gastroesophageal reflux disease) Family history of [...] Mass Index 27.39 02/05/2025 9:00 AM EDT Plan of Treatment Upcoming Encounters Date Type Department Care Team (Late st Contact Info) Description 02/13/2025 1:30 PM EDT Office Visit Orthopedic Surgery [place] [phone] [phone] Aron Barba DPM [address] [phone] 03/01/2025 1:15 PM EDT Office Visit [address] [phone] Ivette Acuña MD [address] [place] [address] 03/06/2025 9:00 AM EDT Appointment [facility] CT Scan [address] [place] [phone] 03/27/2025 10:15 AM EDT Office Visit Orthopedic Surgery [place] [phone] [phone] Aron Barba DPM [address] [phone] 03/28/2025 2:00 PM EDT Office Visit Adult Medicine [address] [phone] Aleks Qiu MD [address] [place] [address] 04/02/2025 8:00 AM EDT Appointment [facility] [address] [phone] 04/02/2025 10:45 AM EDT Office Visit [facility] Hematology Oncology [address] [place] [phone] Adrienne Huerta, DO [address] [place] [address] 04/18/2025 4:30 PM EDT Appointment Radiology Department - [address] [phone] Health Maintenance Due Date Last Done Comments RSV Immunization Adult Patients (1 - 1-dose 75+ series) 2020 Depression Screening 08/29/2022 Medicare Annual Wellness Visit 08/29/2022 Social Influencers of Health Screening 08/29/2022 COVID-19 Vaccine ( season) 2024 07/08/2023, 07/30/2022, 05/29/2021, Additional history exists Diabetes: Annual Foot Exam 07/07/2024 07/07/2023 Diabetes: Annual Retina Eye Exam 08/17/2024 08/17/2023 Diabetes: Blood Sugar Control Test (HGBA1C) 05/02/2025 11/02/2024, 05/30/2024, 05/30/2024, Additional history exists Diabetes: Annual Urine Albumin-Creatinine Ratio (uACR) 11/02/2025 11/02/2024, 05/30/2024 Diabetes: Annual GFR (Glomerular Filtration Rate) 02/05/2026 02/05/2025, 12/04/2024, 11/02/2024, Additional history exists Falls Risk Assessment 02/05/2026 02/05/2025 Hypertension/CHF/CAD Annual BMP Blood Test 02/05/2026 02/05/2025, 12/04/2024, 11/02/2024, Additional history exists Cholesterol Screening (Lipid Panel) [...] age to complete this topic Meningococcal B Vaccine Aged Out No l onger eligible based on patient's age to complete this topic RSV Immunization Patients Under 20 months Aged Out No longer eligible based on patient's age to complete this topic Varicella Vaccines Aged Out No longer eligible based on patient's age to complete this topic Procedures Procedure Name Priority Date/Time Associated Diagnosis Comments COMPREHENSIVE METABOLIC PANEL Routine 02/05/2025 10:23 AM EDT B-cell lymphoma of spleen, unspecified B-cell lymphoma type ([facility]/HCC V24, CMS/HCC V28) LACTATE DEHYDROGENASE STAT 02/05/2025 10:23 AM EDT Small B-cell lymphoma, unspecified body region (CMS/HCC V24, CMS/HCC V28) CBC WITH AUTO DIFFERENTIAL Routine 02/05/2025 10:22 AM EDT B-cell lymphoma of spleen, unspecified B-cell lymphoma type (CMS/HCC V24, CMS/HCC V28) CBC AND DIFFERENTIAL Routine 02/05/2025 10:22 AM EDT B-cell lymphoma of spleen, unspecified B-cell lymphoma type (CMS/HCC V24, CMS/HCC V28) LACTATE DEHYDROGENASE Routine 12/04/2024 8:50 AM EDT Small B-cell lymphoma of spleen (CMS/HCC V24, CMS/HCC V28) COMPREHENSIVE METABOLIC PANEL Routine 12/04/2024 8:50 AM EDT Small B-cell lymphoma of spleen (CMS/HCC V24, CMS/HCC V28) CBC WITH AUTO DIFFERENTIAL Routine 12/04/2024 8:41 AM EDT B-cell lymphoma of spleen, unspecified B-cell lymphoma type ([facility]/HCC V24, CMS/HCC V28) CBC AND DIFFERENTIAL Routine 12/04/2024 8:41 AM EDT B-cell lymphoma of spleen, unspecified B-cell lymphoma type (CMS/HCC V24, [facility]/HCC V28) MICROALBUMIN CREATININE URINE RATIO Routine 11/02/2024 12:52 PM EST Type 2 diabetes mellitus with microalbuminuria, with long-term current use of insulin ([facility] V24, CMS/HCC V28) CAD of autologous bypass graft Chronic systolic CHF (congestive heart failure) (CMS/HCC V24, CMS/HCC V28) Stage 3a chronic kidney disease (CMS/HCC V24, CMS/HCC V28) Mixed hyperlipidemia Chronic obstructive pulmonary disease, unspecified COPD type (CMS/HCC V24, CMS/HCC V28) Splenic marginal zone b-cell lymphoma (CMS/HCC V24, CMS/HCC V28) Encounter for screening mammogram for malignant neoplasm of breast Precordial pain HEMOGLOBIN A1C Routine 11/02/2024 12:52 PM EST Type 2 diabetes mellitus with microalbuminuria, with long-term current use of insulin ([facility] V24, [facility]/HCC V28) CAD of autologous bypass graft Chronic systolic CHF (congestive heart failure) ([facility] V24, [facility] V28) Stage 3a chronic kidney disease ([facility] V24, [facility] V28) Mixed hyperlipidemia Chronic obstructive pulmonary disease, unspecified COPD type ([facility] V24, [facility] V28) Splenic marginal zone b-cell lymphoma ([facility] V24, [facility] V28) Encounter for screening mammogram for malignant neoplasm of breast Precordial pain LIPID PANEL Routine 12/06/2023 DIABETES EYE EXAM Routine 08/17/2023 DIABETES FOOT EXAM Routine 07/07/2023 DXA BONE DENSITY STUDY 1+ SITS AXIAL SKEL Routine 02/24/2022 11:04 AM EDT Other specified disorders of bone density and structure, unspecified site HEPATITIS C SCREENING Routine 01/17/2019 from Last 3 Months or Most Recently Relevant to Health Maintenance Results * Lactate dehydrogenase (02/05/2025 10:23 AM EDT) Only the most recent of2 resultswithin the time period is included. Pathologist [facility] LDH 181 120 - 246 unit/L LAB CHEMISTRY METHOD 02/05/2025 11:[address] [facility] Blood Venous blood specimen / Unknown Venipuncture / Unknown 02/05/2025 10:23 AM EDT 02/05/2025 10:29 AM EDT us Adrienne Huerta DO LAB BLOOD ORDERABLES Final Result [facility] [address] [place] [address], [place] [phone] * (ABNORMAL) Comprehensive metabolic panel (02/05/2025 10:23 AM EDT) Only the most recent of2 resultswithin the time period is included. Sodium 141 133 - 145 mmol/L LAB CHEMISTRY METHOD 02/05/2025 11:00 AM [facility] Potassium 3.8 3.5 - 5.5 mmol/L LAB CHEMISTRY METHOD 02/05/2025 11:00 AM [facility] Chloride 105 96 - 110 mmol/L LAB CHEMISTRY METHOD 02/05/2025 11:00 AM [facility] CO2 27 21 - 32 mmol/L LAB CHEMISTRY METHOD 02/05/2025 11:00 AM [facility] Anion Gap 9 3 - 11 LAB CHEMISTRY METHOD 02/05/2025 11:00 AM [facility] Glucose 218(H) 70 - 100 mg/dL LAB CHEMISTRY METHOD 02/05/2025 11:00 AM [facility] BUN 19 5 - 25 mg/dL LAB CHEMISTRY METHOD 02/05/2025 11:00 AM [facility] Creatinine 1.07 0.50 - 1.10 mg/dL LAB CHEMISTRY METHOD 02/05/2025 11:00 AM [facility] eGFR 53(L) >=60 mL/min/1. 73m2 LAB CHEMISTRY METHOD 02/05/2025 11:00 AM [facility] Comment:Calculation based on the Chronic Kidney Disease Epidemiology Collaboration (CKD-EPI) equation refit without adjustment for race. BUN/Creatinine Ratio 17.8 LAB CHEMISTRY METHOD 02/05/2025 11:00 AM [facility] Calcium 9.2 8.5 - 10.5 mg/dL LAB CHEMISTRY METHOD 02/05/2025 11:00 AM [facility] AST (SGOT) 16 10 - 42 unit/L LAB CHEMISTRY METHOD 02/05/2025 11:00 AM [facility] ALT (SGPT) 10 10 - 60 unit/L LAB CHEMISTRY METHOD 02/05/2025 11:00 AM [facility] Alkaline Phosphatase 102 42 - 121 unit/L LAB CHEMISTRY METHOD 02/05/2025 11:[address] [facility] Total Protein 6.3 6.0 - 8.0 g/dL LAB CHEMISTRY METHOD 02/05/2025 11:[address] [facility] Albumin 3.8 3.2 - 5.0 g/dL LAB CHEMISTRY METHOD 02/05/2025 11:[address] [facility] Total Bilirubin 0.4 0.0 - 1.4 mg/dL LAB CHEMISTRY METHOD 02/05/2025 11:[address] [facility] Blood Venous blood specimen / Unknown Venipuncture / Unknown 02/05/2025 10:23 AM EDT 02/05/2025 10:29 AM EDT us Adrienne Huerta DO LAB BLOOD ORDERABLES Final Result [facility] [address] [place] [address], [place] [phone] * (ABNORMAL) CBC auto differential (02/05/2025 10:22 AM EDT) Only the most recent of2 resultswithin the time period is included. WBC 6.6 4.8 - 10.8 K/mcL LAB HEMETOLOGY METHOD 02/05/2025 10:[address] [facility] RBC 4.40 3.80 - 4.80 M/mcL LAB HEMETOLOGY METHOD 02/05/2025 10:[address] [facility] Hemoglobin 12.9 11.5 - 16.0 g/dL LAB HEMETOLOGY METHOD 02/05/2025 10:[address] [facility] Hematocrit 39.3 35.0 - 47.0 % LAB HEMETOLOGY METHOD 02/05/2025 10:[address] [facility] MCV 89.3 79.0 - 98.0 FL LAB HEMETOLOGY METHOD 02/05/2025 10:43 AM [facility] MCH 29.3 27.0 - 32.0 pcg LAB HEMETOLOGY METHOD 02/05/2025 10:43 AM [facility] MCHC 32.8 32.0 - 37.0 g/dL LAB HEMETOLOGY METHOD 02/05/2025 10:43 AM [facility] RDW 15.9(H) 11.0 - 15.0 % LAB HEMETOLOGY METHOD 02/05/2025 10:43 AM [facility] Platelets 227 130 - 400 K/mcL LAB HEMETOLOGY METHOD 02/05/2025 10:43 AM [facility] MPV 11.4(H) 7.0 - 11.0 FL LAB HEMETOLOGY METHOD 02/05/2025 10:43 AM [facility] NRBC 0.0 <1.0 % LAB HEMETOLOGY METHOD 02/05/2025 10:43 AM [facility] NRBC Absolute 0.00 <0.10 K/mcL LAB HEMETOLOGY METHOD 02/05/2025 10:43 AM [facility] Neutrophils Relative 69.2 % LAB HEMETOLOGY METHOD 02/05/2025 10:43 AM [facility] Lymphocytes Relative 16.8 % LAB HEMETOLOGY METHOD 02/05/2025 10:43 AM [facility] Monocytes Relative 9.8 % LAB HEMETOLOGY METHOD 02/05/2025 10:43 AM [facility] Eosinophils Relative 2.4 % LAB HEMETOLOGY METHOD 02/05/2025 10:43 AM [facility] Basophils Relative 1.2 % LAB HEMETOLOGY METHOD 02/05/2025 10:43 AM [facility] Immature Granulocytes Relative 0.6 % LAB HEMETOLOGY METHOD 02/05/2025 10:[address] [facility] Neutrophils Absolute 4.57 1.50 - 7.00 K/mcL LAB HEMETOLOGY METHOD 02/05/2025 10:[address] [facility] Lymphocytes Absolute 1.11 1.00 - 5.00 K/mcL LAB HEMETOLOGY METHOD 02/05/2025 10:[address] [facility] Monocytes Absolute 0.65 0.20 - 1.00 K/mcL LAB HEMETOLOGY METHOD 02/05/2025 10:[address] [facility] Eosinophils Absolute 0.16 0.00 - 0.50 K/mcL LAB HEMETOLOGY METHOD 02/05/2025 10:[address] [facility] Basophils Absolute 0.08 0.00 - 0.20 K/mcL LAB HEMETOLOGY METHOD 02/05/2025 10:[address] [facility] Immature Granulocytes Absolute 0.04(H) 0.00 - 0.03 K/mcL LAB HEMETOLOGY METHOD 02/05/2025 10:[address] [facility] Blood Venous blood specimen / Unknown Venipuncture / Unknown 02/05/2025 10:22 AM EDT 02/05/2025 10:29 AM EDT us Adrienne Huerta DO LAB BLOOD ORDERABLES Final Result [facility] [address] [place] [address], * Microalbumin creatinine urine ratio (11/02/2024 12:52 PM EST) Creatinine, Urine 80.0 mg/dL LAB CHEMISTRY METHOD 11/02/2024 3:[address] [facility] Microalb, Ur 21.8 0.0 - 29.0 mg/L LAB CHEMISTRY METHOD 11/02/2024 3:[address] [facility] Microalb/Creat Ratio 27 <30 mg/g creat LAB CHEMISTRY METHOD 11/02/2024 3:[address] [facility] Urine Urine specimen obtained by clean catch procedure / Unknown Non-blood Collection / Unknown 11/02/2024 12:52 PM EST 11/02/2024 12:52 PM EST Aleks Qiu MD LAB URINE ORDERABLES Final Result [facility] [address] [place] [address], [place] [phone] * (ABNORMAL) Hemoglobin A1c (11/02/2024 12:52 PM EST) Pathologist [facility] Hemoglobin A1C 9.8(H) <6.5 % LAB CHEMISTRY METHOD 11/02/2024 8:[address] [facility] Mean Bld Glu Estim. 235 mg/dL LAB CHEMISTRY METHOD 11/02/2024 8:[address] [facility] Blood Venous blood specimen / Unknown Venipuncture / Unknown 11/02/2024 12:52 PM EST 11/02/2024 12:52 PM EST Aleks Qiu MD LAB BLOOD ORDERABLES Final Result [facility] [address] [place] [address], [place] [phone] * (ABNORMAL) Lipid panel (12/06/2023) Pathologist [facility] LDL/HDL Ratio 4 <=4 Triglycerides 134 0 - 150 mg/dL Cholesterol 103 0 - 200 mg/dL HDL 27(A) >=40 mg/dL LDL Cholesterol 50 0 - 100 mg/dL Blood Venous blood specimen / Unknown Result [facility] Historical Provider MD LAB BLOOD ORDERABLES Dorinda l Result * Diabetes Eye Exam (08/17/2023) Pathologist [facility] Diabetes: Annual Retina Eye Exam Abstracted Historical Provider HEALTH MAINTENANCE Final Result * Diabetes Foot Exam (07/07/2023) Pathologist [facility] Diabetes: Annual Foot Exam Abstracted [facility] Provider HEALTH MAINTENANCE Final Result * DXA [...] (World Health Organization Fracture Risk Assessment) [facility] Department of Internal Medicine recommends [...] (World Health Organization Fracture Risk Assessment) [facility] Department of Internal Medicine recommendsusing [...] of fracture risk by FRAX. Fawn GUY IMG DXA PROCEDURES Final Result * Hepatitis C Screening (01/17/2019) [facility] Hepatitis C Screening Abstracted Historical Provider HEALTH MAINTENANCE Final Result from Last 3 Months or Most Recently Relevant to Health Maintenance Insurance DR GERALD [place] [employer] [employer] Care Teams Acetylene Torch Solderer Relationship Specialty Start Date End Date Aleks Qiu MD [address] [place] [address] [place] PCP - General Internal Medicine 02/17/22
--- OUTSIDE RECORDS SUMMARY | 2025-02-08 09:20 | XMS_ITS | Encounter Summary ---
Author Organization [facility] Address [address] [place] [address] Care Team Providers Care Certification Officer Name Role Phone Aleks Qiu Primary Care Provider [phone] Encounter Details Date Type Department Care Team Description 04/24/2022 CGM Report Medical Records [address] [place] [address] Abstract, Provider Social History Tobacco Use Types [...] on filedocumented in this encounter Care Teams Certification Officer Relationship Specialty Start Date End Date Aleks Qiu [address] [place] [address] PCP - General Internal Medicine 02/17/22 documented as of this encounter
== END 2025-02-08 10:23 | disposition home or self-care (01) ==
LOC: HO.HSMS 09:06
PROVIDERS: PCP Internal Medicine; Visit Provider Nurse Practitioner Family
DX: M54.81 Occipital neuralgia (principal); R25.1 Tremor, unspecified; M54.2 Cervicalgia; R26.9 Unspecified abnormalities of gait and mobility; R20.0 Anesthesia of skin; C83.07 Small cell B-cell lymphoma, spleen
CPT/HCPCS: 99214; G2211

== ENCOUNTER → 2025-02-08 09:05 | Outpatient (BNVA) | payer MEDICARE, SELFPAY | PROVIDERS: PCP Internal Medicine; Visit Provider Nurse Practitioner Family | DX: M81.0 Age-related osteoporosis without current pathological fracture (principal); M54.81 Occipital neuralgia; R25.1 Tremor, unspecified; M54.2 Cervicalgia; R26.9 Unspecified abnormalities of gait and mobility; R20.0 Anesthesia of skin; C83.07 Small cell B-cell lymphoma, spleen; Z95.1 Presence of aortocoronary bypass graft; Z86.73 Personal history of transient ischemic attack (TIA), and cerebral infarction without residual deficits | CPT/HCPCS: 99212 ==

== ENCOUNTER 2025-02-09 14:13 | Outpatient (REF) | payer MEDICARE, SELFPAY ==
--- NOTE | ~2025-02-09 | XR_ITS ---
EXAMINATION: XR CERVICAL SPINE CLINICAL INFORMATION: M54.81 - Occipital neuralgia COMPARISON: None available. TECHNIQUE: 6 views of the cervical spine, inclusive of flexion and extension views, and bilateral oblique views, were obtained. FINDINGS: Mild right convex scoliosis. Mild straightening of the normal lordosis. Normal bone mineralization. No fracture, compression deformity, or suspicious bone lesion. C1-2 articulation and craniocervical junction are intact and aligned. No subluxations. Normal facet alignment. Multilevel hypertrophic degenerative facet change left greater than right. Mild diffuse disc degeneration present. No bony neural foraminal narrowing on the right side. Severe bony foraminal narrowing C3-4, and moderate narrowing C4-5 and C5-6 on the left. No pathologic motion on flexion and extension views. The pre and paravertebral soft tissues are normal. The lung apices are clear. XR/XR cervical spine w flex/ext IMPRESSION: 1. Moderate cervical spondylosis without acute bony abnormality. 2. No evidence of instability on flexion and extension views. Electronically signed by: Satnam Noyola MD 02/09/2025 03:05 PM EDT
--- OUTSIDE RECORDS SUMMARY | 2025-02-09 14:16 | XMS_ITS | Encounter Summary ---
Author Organization [facility] Address [address] [place] [address] Care Team Providers Care Demand Manager Name Role Phone Aleks Qiu MD Primary Care Provider [phone] Reason for Visit * Hospital - Outpatient (Routine) - Authorized Specialty Diagnoses / Procedures Referred By Vishnu nagy Referred To Contact Oncology / Hematology and Oncology Diagnoses 4wk from 07/31 per Procedures FOLLOW UP Aleks Qiu MD [address] [place] [address] Phone: tel: fax: Adrienne Huerta DO [address] [place] [address] Phone: tel: fax: Referral ID Status Reason Start Date Expiration Date Visits Requested Visits Authorized [id number] Authorized Continuity of Care 06/26/2024 06/26/2025 12 12 Encounter Details Date Type Department Care Team (Late st Contact Info) Description 02/05/2025 9:15 AM EDT Office Visit [facility] Hematology Oncology [address] [place] [phone] Adrienne Huerta, [address] [place] [address] B-cell lymphoma of spleen, unspecified B-cell lymphoma [...] bleeding Oncology history: Oncology History B-cell lymphoma ([facility] V24, [facility] V28) 07/02/2024 Initial Diagnosis B-cell lymphoma ([facility]) 07/10/2024 - 07/31/2024 Chemotherapy dexAMETHasone (DECADRON) tablet [...] Diarrhea, sweating Propoxyphene Nausea And Vomiting sweaty Lzehoic-Grb-Rld Reductase Inhibitors Weakness Past medical history, past [...] up. Sign Opal Huerta DO Hematology/Oncology [facility] CC: Aleks Qiu MD documented in this encounter Plan of Treatment Upcoming Encounters Date Type Department Care Team (Late st Contact Info) Description 02/13/2025 1:30 PM EDT Office Visit Orthopedic Surgery [facility] [address] [phone] Aron Barba DPM [address] [address] 03/01/2025 1:15 PM EDT Office Visit [address] [phone] Ivette Acuña MD [address] [place] [address] 03/06/2025 9:[address] [facility] CT Scan [address] [place] [phone] 03/27/2025 10:15 AM EDT Office Visit Orthopedic Surgery [place] [address] [phone] Aron Barba DPM [address] [address] 03/28/2025 2:00 PM EDT Office Visit Adult Medicine [address] [phone] Aleks Qiu MD [address] [place] [address] 04/02/2025 8:[address] [facility] Infusion Center [address] [phone] 04/02/2025 10:45 AM EDT Office Visit [facility] Hematology Oncology [address] [place] [phone] Adrienne Huerta, [address] [place] [address] 04/18/2025 4:30 PM EDT Appointment Radiology Department - [address] [phone] documented as of this encounter Visit Diagnoses Diagnosis B-cell lymphoma of spleen, unspecified B-cell lymphoma type (CMS/HCC V24, CMS/HCC V28)- Primary documented in this encounter Care Teams Demand Manager Relationship Specialty Start Date End Date Aleks Qiu MD [address] [place] [address] PCP - General Internal Medicine 02/17/22 documented as of this encounter
== END 2025-02-09 14:14 | disposition home or self-care (01) ==
LOC: HO.HMGCX 14:13
PROVIDERS: PCP Internal Medicine; Visit Provider Nurse Practitioner Family
DX: M54.81 Occipital neuralgia (principal); M54.2 Cervicalgia
CPT/HCPCS: 72052

== ENCOUNTER → 2025-02-09 14:21 | Outpatient (BNV) | payer MEDICARE, SELFPAY | PROVIDERS: PCP Internal Medicine; Visit Provider Radiology Diagnostic Radiology | DX: M47.812 Spondylosis without myelopathy or radiculopathy, cervical region (principal) | CPT/HCPCS: 72052 ==

== ENCOUNTER 2025-06-05 12:22 | Outpatient (AMB) | payer MEDICARE, SELFPAY ==
--- OUTSIDE RECORDS SUMMARY | 2024-07-10 | XMS_ITS | Encounter Summary ---
Author Organization [facility] Address [address] [place] [address] Care Team Providers Care Pizza Hut Assistant Name Role Phone Aleks Qiu MD Primary Care Provider Encounter Details Date Type Department Care Team (Late st Contact Info) Description 07/10/2024 Hospital Encounter TH HISTORIC ENCOUNTERS EASTERN CONVERSION ONLY Social History Tobacco Use Types Packs/Day Years Used Date Smoking Tobacco: Former Smokeless Tobacco: Never Interpersonal Safety Answer Date Record ed Physical Abuse 08/09/2024 Verbal Abuse 08/09/2024 Comments No Sex and Gender Information [...] 3:28 PM EDT documented in this encounter Plan of Treatment Upcoming Encounters Date Type Department Care Team (Late st Contact Info) Description 07/02/2025 9:30 AM EDT Office Visit [facility] Hematology Oncology [address] [place] [phone] Adrienne Huerta, [address] [place] [address] 07/31/2025 11:00 AM EST Office Visit Orthopedic Surgery - [place] [address] [address] Aron Barba, CHATO [address] [address] 07/31/2025 2:00 PM EST Office Visit Adult Medicine [address] [phone] Marleny Quick PA [address] [place] [address] documented as of this encounter Visit Diagnoses Not on filedocumented in this encounter Care Teams Pizza Hut Assistant Relationship Specialty Start Date End Date Aleks Qiu MD [address] [place] [address] PCP - General Internal Medicine 02/17/22 documented as of this encounter
--- OUTSIDE RECORDS SUMMARY | 2024-07-10 10:01 | XMS_ITS | Encounter Summary ---
Author Organization [facility] Address [address] [place] [address] Care Team Providers Care Cut Press Operator Name Role Phone Aleks Qiu MD Primary Care Provider [phone]- [phone] Encounter Details Date Type Department Care Team [...] 3:28 PM EDT documented in this encounter Progress Notes * Historical, Notes [...] 45 minutes. Then will increase by 50mg/hr [id number]. When pt hits 200mg/hr, will reevaluate and [...] took clive crackers and water for snack 1748 rituxan fully infused. Magdalena feeling well. Vital signs stable, documented in flow sheet. Ambulated to bathroom 1810 discharged to home ambulatory, with her daughter. Next appointment verified. documented in this encounter Plan of Treatment Upcoming Encounters Date Type Department Care Team (Late st Contact Info) Description 07/02/2025 9:30 AM EDT Office Visit [facility] Hematology Oncology [address] [place] [phone] Adrienne Huerta, [address] [place] [address] 07/31/2025 11:00 AM EST Office Visit Orthopedic Surgery - [place] [address] [phone] Aron Barba, DPGalen [address] [address] 07/31/2025 2:00 PM EST Office Visit Adult Medicine [address] [phone] Marleny Quick PA [address] [place] [address] documented as of this encounter Visit Diagnoses Not on filedocumented in this encounter Care Teams Cut Press Operator Relationship Specialty Start Date End Date Aleks Qiu MD [address] [place] [address] PCP - General Internal Medicine 02/17/22 documented as of this encounter
--- OUTSIDE RECORDS SUMMARY | 2024-07-10 13:26 | XMS_ITS | Encounter Summary ---
Author Organization [facility] Address [address] [place] [address] Care Team Providers Care Shoe Ironer Name Role Phone Aleks Qiu MD Primary Care Provider Encounter Details Date Type Department Care Team (Late st Contact Info) Description 07/10/2024 1:26 PM EDT Hospital Encounter TH HISTORIC ENCOUNTERS EASTERN CONVERSION ONLY Karen Chavez PA [address] [place] [phone] Social History Tobacco Use Types Packs/Day Years [...] Description 07/02/2025 9:30 AM EDT Office Visit [facility] Hematology Oncology [address] [place] [address] Adrienne Huerta DO [address] [place] [address] 07/31/2025 11:00 AM EST Office Visit Orthopedic Surgery - [place] [address] [address] Aron Barba, DPGalen [address] [address] 07/31/2025 2:00 PM EST Office Visit Adult Medicine [address] [phone] Marleny Quick PA [address] [place] [address] documented as of this encounter Visit Diagnoses Not on filedocumented in this encounter Care Teams Shoe Ironer Relationship Specialty Start Date End Date Aleks Qiu MD [address] [place] [address] PCP - General Internal Medicine 02/17/22 documented as of this encounter
--- OUTSIDE RECORDS SUMMARY | 2024-07-17 07:59 | XMS_ITS | Encounter Summary ---
Author Organization [facility] Address [address] [place] [address] Care Team Providers Care Emt Paramedic Name Role Phone Aleks Qiu MD Primary [...] Description 07/02/2025 9:30 AM EDT Office Visit [facility] Hematology Oncology [address] [place] [phone] Adrienne Huerta, [address] [place] [address] 07/31/2025 11:00 AM EST Office Visit Orthopedic Surgery - [place] [address] [phone] Aron Barba DPM [address] [address] 07/31/2025 2:00 PM EST Office Visit Adult Medicine [address] [phone] Marleny Quick PA [address] [place] [address] documented as of this encounter Visit Diagnoses Not on filedocumented in this encounter Care Teams Emt Paramedic Relationship Specialty Start Date End Date Aleks Qiu MD [address] [place] [address] PCP - General Internal Medicine 02/17/22 documented as of this encounter
--- OUTSIDE RECORDS SUMMARY | 2024-07-21 13:39 | XMS_ITS | Encounter Summary ---
Author Organization [facility] Address [address] [place] [address] Care Team Providers Care Scroll Saw Operator Name Role Phone Aleks Qiu MD Primary Care Provider Encounter Details Date Type Department Care Team (Latest Contact Info) Description 07/21/2024 1:39 PM EDT Hospital Encounter TH HISTORIC ENCOUNTERS EASTERN CONVERSION ONLY Adrienne Huerta, DO [address] [place] [address] B-cell lymphoma of spleen, unspecified B-cell lymphoma [...] 2:00 PM EDT documented in this encounter Progress Notes * Adrienne Huerta DO - 07/21/2024 1:45 PM EDT Images from the original note were not included. Progress Notes by Adrienne Huerta DO at 07/21/2024 1:45 PM Author: Adrienne Huerta DO Service: -- Author Type: Physician Filed: 07/21/2024 4:18 PM Encounter Date: 07/21/2024 Status: Signed Labor Economics Teacher: Adrienne Huerta DO (Physician) Hematology/Oncology Progress Note [...] better. She was able to complete rest ofthe infusion. She then came for her second [...] further evidence of clotting. ??Available ultrasound from [facility] dated 11/21/2021 describes interval decrease in burden [...] history She is , she lives in [place]. Labs Assessment & Plan 78 year old [...] and ASA Sign Opal Huerta DO Hematology/Oncology [facility] This encounter includes time spent on complex MDM in setting of high risk cancer/CD 20 therapy, review of labs, bipa-jk-adap with the patient, coordination of care with nursing, documentation in the medical record documented in this encounter Plan of Treatment Upcoming Encounters Date Type Department Care Team (Late st Contact Info) Description 07/02/2025 9:30 AM EDT Office Visit [facility] Hematology Oncology [address] [place] [phone] Adrienne Huertaie, DO [address] [place] [address] 07/31/2025 11:00 AM EST Office Visit Orthopedic Surgery - [place] [address] [phone] Aron Barba, DPM [address] [address] 07/31/2025 2:00 PM EST Office Visit Adult [facility] [address] [place], [place] [phone] Marleny Quick PA [address] [place], [place] documented as of this encounter Procedures Procedure Name Priority Date/Time Associated Diagnosis Comments ..MISCELLANEOUS REFERENCE LAB TEST 07/21/2024 documented in this encounter Results * Miscellaneous reference lab test (07/21/2024) us Provider Onbase LAB BLOOD ORDERABLES Final Re sult documented in this encounter Visit Diagnoses Diagnosis B-cell lymphoma of spleen, unspecified B-cell lymphoma type (CMS/HCC V24, CMS/HCC V28)- Primary documented in this encounter Care Teams Scroll Saw Operator Relationship Specialty Start Date End Date Aleks Qiu MD [address] [place] [address] PCP - General Internal Medicine 02/17/22 documented as of this encounter
--- NOTE | 2025-06-05 12:31 | MHC.OFFVIS ---
Vital Signs 06/05/25 12:32 Height 5 ft 2 in Weight 149 lb 14.629 oz BMI 27.4 BP 112/72 Blood Pressure Location Lt brachial Position Sitting Pulse 81 Intake Visit Reasons: 6 mth f/ up Intake Note: 6 month follow-up feeling good Customs Entry Clerk Required: No Allergies Iodinated Contrast Media Allergy (Mild, Verified 02/08/25 09:14) Anaphylaxis Darvon Allergy (Unknown, Verified 02/08/25 09:14) nausea,sweety doxycycline (DOXYCYCLINE) Allergy (Unknown, Verified 02/08/25 09:14) RASH Medication List - Last Reconciled 06/05/25 by Abhishek Smiley MD acetaminophen ER 650 mg PO Q8H albuterol sulfate 90 mcg/actuation 1 inh inhalation QID PRN amlodipine 2.5 mg PO DAILY aspirin (Adult Aspirin Regimen) 81 mg PO DAILY atorvastatin 80 mg PO BEDTIME carbidopa-levodopa 25-100 mg 1 tab PO QID 30 days dorzolamide-timolol 22.3-6.8 mg/mL ophthalmic (eye) fenofibrate 54 mg PO DAILY fluticasone propion-salmeterol 250-50 mcg/dose (Wixela Inhub) 1 ea inhalation BID furosemide 20 mg PO ONCE gabapentin 100 mg PO TID insulin glargine (Lantus U-100 Insulin) 35 units subcut DAILY insulin glargine (Lantus Solostar U-100 Insulin) units subcut insulin lispro (Humalog KwikPen (U-100) Insulin) 1 sliding scale dose subcut USEASDIRECTD isosorbide mononitrate ER 30 mg PO DAILY losartan 50 mg PO BID metoprolol succinate ER 100 mg PO DAILY metoprolol succinate ER 50 mg PO BEDTIME ondansetron HCl 4 mg PO Q8H PRN pantoprazole 40 mg PO DAILY rituximab-hyaluronidase,human 1400 mg/11.7 mL (120 mg/mL) 1,400 mg/11.7 mL (120 mg/mL) (Rituxan Hycela) 1400mg subcutaneously every week; semaglutide (Ozempic) 0.25 mg subcut QWEEK HPI Comments Details: Magdalena comes for follow-up. She has had no recurrent chest discomfort since her blood pressures been controlled. With low-dose amlodipine she says a blood pressure has been very well controlled. She feels well although she had a fall at a treadmill in the gym and since then she has not been going to the gym and exercising regularly. She says now she feels fatigued and tired doing any activity. Denies any lightheadedness, syncope. Denies any orthopnea, PND, leg edema. No prolonged palpitation irregular heartbeat. [facility] Medical History ST elevation myocardial infarction (STEMI) of inferior wall DVT (deep venous thrombosis) Personal history of COVID-19 COVID-19 Hx of abdominal pain Breast tumor HTN (hypertension) COPD (chronic obstructive pulmonary disease) Diabetes Surgical History S/P CABG x 2 S/P cardiac cath History of esophagogastroduodenoscopy (EGD) H/O colonoscopy History of hysterectomy Family History Brother Diabetes HTN (hypertension) Sister Diabetes HTN (hypertension) Sister Diabetes Social History Alcohol intake: current Alcohol intake frequency: holidays/special occasions only Patient Tobacco Use Status: Former Tobacco user Review of Systems Const Denies chills, Denies fatigue, Denies fever(s), Denies frequent falls, Denies weakness, Denies weight gain and Denies weight loss ENT Denies dizziness Card Denies chest pain, Denies leg edema, Denies lightheadedness, Denies palpitations, Denies dyspnea, Denies dyspnea on exertion, Denies orthopnea and Denies other (loss of consciousness) Resp Denies cough, Denies dyspnea and Denies dyspnea on exertion GI Denies hematochezia and Denies change in stool character Musc Denies abnormal gait, Denies muscle weakness, Denies numbness, Denies radiating pain into limb and Denies tingling Neuro Denies abnormal gait, Denies dizziness, Denies frequent falls, Denies numbness, Denies tingling and Denies weakness Endo Denies fatigue and Denies palpitations Physical Exam Vital Signs: Last Vital Signs Pulse 81 06/05/25 12:32 BP 112/72 06/05/25 12:32 BMI result Body Mass Index 27.4 Const General: cooperative, healthy appearing, comfortable and no acute distress Orientation/consciousness: patient oriented x3 Neck Neck: Yes normal visual inspection Chest Chest palpation & inspection: other (Well his sternotomy scar) Resp Effort & Inspection: normal respiratory effort Auscultation: clear to auscultation bilaterally, no crackles, no rales, no rhonchi and no wheezes Cardio Jugular venous distension: no JVD Rate: regular rate Rhythm: regular rhythm Heart sounds: S1 normal heart sound present, S2 normal heart sound present, no murmurs and no rubs Neuro General: patient oriented x3 Extrem Other: Right radial catheterization site well healed, palpable radial pulse, right hand assessment normal General: Yes normal to inspection and No no pedal edema Psych Appearance: grossly normal Mental Status: mental status grossly normal Speech and movement: Normal speech and movement present Assessment & Plan Assessment & Plan (1) Coronary atherosclerosis: Code(s): I25.10 - Atherosclerotic heart disease of [place] coronary artery without angina pectoris Category: Medical Plan: CAD with coronary artery bypass grafting 2022 without any recurrent anginal symptoms at this point time. Myocardial perfusion imaging last year was within normal limits. Continue aggressive medical therapy. Lifelong aspirin therapy is advised. Continue high-intensity statin therapy with target goal LDL well optimized at 59 mg/dL. Importance of good blood pressure control was discussed. See below. Encouraged to increase activity level as tolerated. (2) HTN (hypertension): Code(s): I10 - Essential (primary) hypertension Category: Medical Plan: Hypertension which is currently well optimized advised to monitor blood pressure at home maintain a log. Goal blood pressure less than 130/84. Continue current therapy including losartan as well as amlodipine. Low-salt diet was discussed. Stress mitigation strategies were discussed. Increase activity level was discussed. Will follow up in the clinic in 6 months time, sooner PRN. Thank you for allowing me to partake in his care Coding Level of Care Code Est Pt Level 4 (81245) Complex EM visit Add On G2211 Diagnoses Coronary atherosclerosis I25.10 HTN (hypertension) I10
[2025-06-05 12:32] VITALS: BP 112/72; PULSE 81; BMI 27.4
--- OUTSIDE RECORDS SUMMARY | 2025-06-05 16:25 | XMS_ITS ---
[facility] Care Team Organization Name Specialty Phone Email Start Date End Da te [facility] 05/09/2025 [facility] Aleks Qiu Primary Care 07/28/202204/20
--- OUTSIDE RECORDS SUMMARY | 2025-06-05 16:25 | XMS_ITS | Patient Health Record ---
Author Organization [facility] Address [address] [place] [address] Care Team Providers Care Oyster Bed Worker Name Role Phone Nohemi Plasencia Primary Care Provider Raul Nelson Unavailable [phone] Allergies Allergen (clinical drug ingredient) Drug/Non Drug [...] Problem Status W/U Status Risk Notes Problem [id number] Abdominal pain (789.00) Active confirmed Plan Of Treatment Pending Test Test Name Order Date XR GI SERIES 01/26/2014 Insurance Providers Payer Name Payer Address Payer Phone Subscriber Number Group Number Insured Name Patient Relationship to Insured Coverage Start Date Coverage End Date [facility] [address] [place] [phone] [id number] MIKEY SAUCEDA Self - patient is the insured Medical (General) History Medical History History ICD Code glaucoma diabetes mellitus hypertension elevated Cholesterol Surgical History Surgery Date(Month/Year) 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
--- OUTSIDE RECORDS SUMMARY | 2025-06-05 16:25 | XMS_ITS | Encounter Summary ---
Author Organization [facility] Address [address] [place] [address] Care Team Providers Care Lens Molding Equipment Operator Name Role Phone Aleks Qiu MD Primary Care Provider [phone] Reason for Referral * Consultation (Routine) - Pending Review Specialty Diagnoses / Procedures Referred By Contac t Referred To Contact Cardiology Diagnoses Atherosclerotic heart disease of [place] coronary artery without angina pectoris Aleks Qiu MD [address] [place] [address] Phone: tel: fax: Abhishek Smiley MD [facility] CARDIOVASCULAR SPEC [address] [place] [address] Phone: tel: fax: Referral ID Status Reason Start Date Expiration Date Visits Requested Visits Authorized [id number] Pending Review Specialty Services Required 06/05/2025 06/05/2026 6 6 Reason for Visit * Reason Onset Date Comments Referral 06/05/2025 Cardiology Insur ancdulce Referral Encounter Details Date Type Department Care Team (Late st Contact Info) Description 06/05/2025 Telephone Adult Medicine [address] [phone] Aleks Qiu MD [address] [place] [address] Social History Tobacco Use Types Packs/Day Years [...] as of this encounter Progress Notes * Mindi Carter - 06/05/2025 3:32 PM EDT What insurance does the patient have today? Payor: [facility]/@[email or web address]@ Referrals cannot be processed if the insurance is not accurate. If the insurance listed above is NO BILLING INFORMATION FOUND FOR THIS ENCOUNTER then the patients correct insurance must be obtainedand registered in [facility] or their referral can not be processed. Name of person calling to request this referral? Fax -[facility] Specialty Services Referred To Provider (Include first and last name): Abhishek Smiley NPI (if known): [id number] Order/Specialty requested cardiology Chief Complaint (Note: This is not a body part or a procedure): I25.10 Has the patient seen provider for this problem/Dx before? Referred To Provider Address: Referred To Provider Referred To Provider Does patient have an appointment scheduled?: yes If yes, what is the date of the appointment?: 06/05/25 Is this a retro request? no Number of visits requested: 6 Is this appointment related to: MVA or worker compensation? no documented in this encounter Plan of Treatment Upcoming Encounters Date Type Department Care Team (Late st Contact Info) Description 07/02/2025 9:30 AM EDT Office Visit [facility] Hematology Oncology [address] [place] [address] Adrienne Huerta, DO [address] [place] [address] 07/31/2025 11:00 AM EST Office Visit Orthopedic Surgery - [place] [address] [address] Aron Barba, DPM [address] [address] 07/31/2025 2:00 PM EST Office Visit Adult Medicine [address] [phone] Marleny Quick PA [address] [place] [address] Scheduled Referrals Name Type Priority Associated Diagnoses Order Schedule Ambulatory referral to Cardiology Outpatient Referral Routine Atherosclerotic heart disease of [place] coronary artery without angina pectoris Expected: 06/05/2025, Expires: 06/05/2026 documented as of this encounter Visit Diagnoses Diagnosis Atherosclerotic heart disease of [place] coronary artery without angina pectoris- Primary documented in this encounter Care Teams Lens Molding Equipment Operator Relationship Specialty Start Date End Date Aleks Qiu MD [address] [place] [address] PCP - General Internal Medicine 02/17/22 documented as of this encounter
--- OUTSIDE RECORDS SUMMARY | 2025-06-05 16:25 | XMS_ITS | Clinical Summary ---
Author Organization [facility] Address [address] [place] [address] Phone Care Team Providers Care Edge Runner Name Role Phone Aleks Qiu MD Primary Care Provider Allergies Active Allergy Reactions Criticality Noted Date Comments Doxycycline Nausea And Vomiting Medium 01/13/2019 Diarrhea, sweating Propoxyphene Nausea And Vomiting Medium 07/18/2019 sweaty Evzsylp-Wvh-Wzq Reductase Inhibitors Weakness Medium 10/13/2019 Medications magnesium [...] flash glucose scanning reader (FreeStyle Td 2 [place]) misc 1 Device by Does not apply route continuous. 02/18/20 22 Active blood-glucose meter kit To check blood sugar twice per day for diagnosis E11.65 09/05/20 20 Active carbidopa-levo dopa (SINEMET) 25-100 mg per tablet Take 1 tablet by mouth 4 (four) times a day. 06/29/20 24 Active gabapentin (NEURONTIN) 100 mg [...] day. 90 tablet 1 11/02/19 25 Active metoprolol succinate (TOPROL-XL) 100 mg 24 hr tablet Take 1 tablet (100 mg total) by mouth 1 (one) time each day. 10/15/19 25 Active metoprolol succinate (TOPROL-XL) 50 mg 24 hr tablet Take 1 tablet (50 mg total) by mouth at bedtime. Do not crush or chew. 90 each 1 12/20/19 25 025 Active losartan (COZAAR) 50 mg tablet Take 1 tablet (50 mg total) by mouth 2 (two) times a day. Active atorvastatin (LIPITOR) 80 mg tablet TAKE 1 TABLET BY MOUTH DAILY 90 tablet 1 12/21/19 25 Active insulin lispro (HumaLOG U-100 Insulin) 100 unit/mL injectionIndic ations:Type 2 diabetes mellitus with microalbuminur ia, with long-term current use of insulin ([facility]/HCC V24, CMS/HCC V28) USE DIRECTED SUBCUTANEOUS THREE TIMES DAILY BEFORE MEALS PER SLIDING SCALE MAX 30 UNITS PER DAY 40 mL 2 01/16/20 25 Active amLODIPine (NORVASC) 2.5 mg tablet Take 1 tablet (2.5 mg total) by mouth 1 (one) time each day. 01/03/20 25 Active gabapentin (Neurontin) 100 mg capsule Take 1 capsule (100 mg total) by mouth 3 (three) times a day. 90 each 03/27/20 25 026 Active semaglutide (Ozempic) 0.25 mg or 0.5 mg (2 mg/3 mL) injection pen Inject 0.5 mg under the skin every 7 (seven) days. Active blood-glucose sensor (FreeStyle Td 2 Plus Sensor) device 1 EA every 14 (fourteen) days. Box = Kit = EA 6 each 04/06/20 25 Active semaglutide (OZEMPIC) 1 mg/dose (4 mg/3 mL) injection penIndications :Type 2 diabetes mellitus with microalbuminur ia, with long-term current use of insulin ([facility] V24, CMS/[facility] V28) Inject 1 mg under the skin every 7 (seven) days. 3 mL 04/26/20 25 Active glucagon (BAQSIMI) 3 mg/actuation nasal sprayIndicatio ns:Type 2 diabetes mellitus with microalbuminur ia, with long-term current use of insulin (CMS/[facility] V24, CMS/[facility] V28) Administer 3 mg into one nostril if needed for low blood sugar. 2 each 3 04/26/20 25 Active isosorbide mononitrate (IMDUR) 30 mg 24 hr tablet TAKE 1 TABLET(30 MG) BY MOUTH 1 TIME EACH DAY. DO NOT CRUSH OR CHEW 90 tablet 1 05/02/20 25 Active insulin glargine (Lantus U-100 Insulin) 100 unit/mL injection INJECT 27 UNITS SUBCUTANEOUS EVERY MORNING AND 27 UNITS EVERY EVENING 20 mL 3 05/25/20 25 Active cyanocobalamin (VITAMIN B-12) 1,000 mcg tablet TAKE 1 TABLET BY MOUTH DAILY 90 tablet 1 06/01/20 25 Active fenofibrate (LOFIBRA) 54 mg tablet TAKE 1 TABLET BY MOUTH DAILY 90 tablet 1 06/01/20 25 Active pantoprazole (PROTONIX) 40 mg EC tablet TAKE 1 TABLET BY MOUTH DAILY 90 tablet 1 06/01/20 25 Active cyanocobalamin (VITAMIN B-12) 1,000 mcg tablet TAKE 1 TABLET BY MOUTH DAILY 90 tablet 1 12/21/19 25 025 Discontinued fenofibrate (LOFIBRA) 54 mg tablet TAKE 1 TABLET BY MOUTH DAILY 90 tablet 1 12/21/19 25 025 Discontinued pantoprazole (PROTONIX) 40 mg EC tablet TAKE 1 TABLET BY MOUTH DAILY 90 tablet 1 12/21/19 025 Discontinued insulin glargine (LANTUS) 100 unit/mL injection Administer 27 units under the skin in the morning and 27 units in the evening. 10 mL 03/28/20 25 025 Discontinued Active Problems Problem Noted Date Diagnosed Date B-cell lymphoma ([facility] V24, [facility] V28) 07/02 Assessment & Plan (08/08/2024 5:41 PM EST): He has received rituximab fusions. She has a follow-up appointment in the next couple months with the oncologist for repeat imaging. She is scheduled to follow-up with gastroenterology for ileoscopy for abnormal PET scan findings in the ileum. Type 2 diabetes mellitus wit h microalbuminuria, with long-term current use of insulin ([facility] V24, [facility] V28) 06/19/2024 Assessment & Plan [...] pain or chest pressure. She follows with librarian [employer] Dr. Smiley. Continue aspirin, Plavix, metoprolol 100 mg twice a day, Tricor 54 mg daily, Lipitor 80 mg daily, Lasix 20 mg daily. Atorvastatin refilled today. Chronic systolic CHF (conges tive heart failure) ([facility] V24, [facility] V28) 12/29/2023 Acute kidney injury ([facility] V24) 04/23/2023 Centrilobular emphysema ([facility] V24, [facility] V2 8) 04/23/2023 NSTEMI (non-ST elevated myoc ardial infarction) ([facility] V24, [facility] V28) 04/23/2023 Pericarditis as complication of acute myocardial infarction ([facility] V24, [facility] V28) 04/23/2023 Osteopenia 12/08/2022 Stage 3 chronic kidney disease ([facility] V24, [facility] /[facility] V28) 10/14/2022 Chronic deep vein thrombosis (DVT) of proximal vein of lower extremity ([facility] V24, [facility] V28) 06/23/2022 Hydronephrosis of right kidney 06/23/2022 Mixed hyperlipidemia 06/23/2022 Renal calculi 06/23/2022 Acute deep vein thrombosis ( DVT) of distal vein of both lower extremities ([facility] V24, [facility] V28) 12/17/2021 Acute deep vein thrombosis ( DVT) of femoral vein of left lower extremity ([facility] V24, [facility] V28) 05/19/2021 Overview (06/19/2024): On Eliquis COVID-19 01/26/2020 GERD (gastroesophageal reflux disease) 9 Microalbuminuria 07/18/2019 Osteoporosis 07/18/2019 Type 2 diabetes mellitus wit h renal manifestations ([facility] V24, [facility] V28) 07/18/2019 Diabetes 1.5, 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[facility] V24, [facility] V28) 01/26/2019 Chronic obstructive pulmonar y disease ([facility] V24, [facility] V28) 01/26/2019 Atypical chest pain 12/22/2018 Overview (06/19/2024): S/p myocardial perfusion wnl 2018 Follows with [place] [facility] cardiology Asthma 12/22/2018 Celiac disease 12/22/2018 Glaucoma 12/22/2018 Hypercholesteremia 12/22/2018 Migraine 12/22/2018 Primary hypertension 12/22/2018 Assessment & Plan (08/08/2024 5:41 PM EST): Blood pressure today stable. She will continue on losartan 25 mg daily, metoprolol 100 mg twice daily. Encounters Date Type Department Care Team Description 06/05/2025 Telephone Adult Medicine [place] - [address] [phone] Aleks Qiu MD 05/29/2025 10:30 AM EDT Office Visit Orthopedic Surgery [facility] [address] [facility] [address] [place] [phone] Aron Barba, CHATO Poorly controlled type 2 diabetes mellitus with neuropathy ([facility] V24, [facility] V28) (Primary Dx); PVD (peripheral vascular disease) ([facility] V24); Arthritis of both feet 04/27/2025 Telephone Endocrinology - [address] [phone] Ivette Acuña MD 04/26/2025 2:30 PM EDT Office Visit Endocrinology [address] [phone] Ivette Acuña MD Type 2 diabetes mellitus with microalbuminuria, with long-term current use of insulin ([facility] V24, [facility] V28) (Primary Dx) 04/18/2025 4:04 PM EDT - 04/18/2025 11:59 PM EDT Hospital Encounter Radiology Department - [address] [phone] Encounter for screening mammogram for malignant neoplasm of breast Discharge Disposition: Home or Self Care 04/02/2025 10:45 AM EDT Office Visit [facility] Hematology Oncology [address] [place] [phone] Adrienne Huerta DO B-cell lymphoma of spleen, unspecified B-cell lymphoma type ([facility] V24, [facility] V28) (Primary Dx) 04/02/2025 7:58 AM EDT - 04/02/2025 11:59 PM EDT Hospital Encounter [facility] Infusion Center [address] [facility] [address] [place] [phone] B-cell lymphoma of spleen, unspecified B-cell lymphoma type ([facility] V24, [facility] V28) (Primary Dx); Small B-cell lymphoma, unspecified body region ([facility] V24, [facility] V28) Discharge Disposition: Home or Self Care 03/28/2025 2:00 PM EDT Office Visit Adult Medicine [address] [phone] Aleks Qiu MD Poorly controlled type 2 diabetes mellitus ([facility] V24, [facility] V28) (Primary Dx); Primary hypertension; CAD of autologous bypass graft; Chronic systolic CHF (congestive heart failure) ([facility] V24, [facility] V28); Mixed hyperlipidemia; Stage 3a chronic kidney disease ([facility] V24, [facility] V28); Chronic obstructive pulmonary disease, unspecified COPD type ([facility] V24, [facility] V28); Small B-cell lymphoma of spleen ([facility] V24, [facility] V28); Renal calculi 03/27/2025 10:15 AM EDT Office Visit Orthopedic Surgery [place] [address] [phone] Aron Barba DPM Poorly controlled type 2 diabetes mellitus with neuropathy ([facility] V24, [facility] V28) (Primary Dx); PVD (peripheral vascular disease) ([facility] V24); Arthritis of both feet 03/26/2025 7:38 AM EDT - 03/26/2025 11:59 PM EDT Hospital Encounter [facility] CT Scan [address] [place] [phone] Small B-cell lymphoma of spleen ([facility] V24, [facility] V28) Discharge Disposition: Home or Self Care 03/12/2025 Telephone Adult Medicine [address] [phone] Aleks Qiu MD from Last 3 Months Immunizations Name Administration [...] GUID; COMMENT: b9 BREAST SURGERY Bilateral PROCEDURE: MO UNLISTED PROCEDURE BREAST; COMMENT: b9; 5 tumors [...] S/p myocardial perfusion wnl 2018 Follows with [place] [facility] cardiology Hypertension 12/22/2018 DX:Hypertension Migraine 12/22/2018 DX:Migraine Asthma 12/22/2018 DX:Asthma Glaucoma 12/22/2018 DX:Glaucoma Hypercholesteremia 12/22/2018 DX:Hyperchole steremia Former tobacco use 12/22/2018 DX:Former tob acco use COPD (chronic obstructive pu lmonary disease) ([facility] V24, CMS/HCC V28) 01/26/2019 DX:COPD (chronic o bstructive pulmonary disease) ([facility]) Colon polyp 01/26/2019 DX:Colon polyp History of abnormal mammogram 04/28/2019 DX :History of abnormal mammogram Diabetes, type 1.5, uncontro lled, managed as type 1 01/26/2019 DX:Diabetes, type 1.5, uncontrolled, managed as type 1 Microalbuminuria 07/18/2019 DX:Microalbumin uria Type 2 diabetes mellitus wit h renal manifestations (CMS/HCC V24, CMS/HCC V28) 07/18/2019 DX:Type 2 diabetes mellitus with renal manifestations (HCC) Osteoporosis 07/18/2019 DX:Osteoporosis GERD (gastroesophageal reflux disease) [...] Sexual Orientation Not on file Obstetrics History Para Term AB IAB SAB Ectopic Multiple Livin g Live Births 3 3 3 3 Date Outcome GA Total Labor Labor/2nd/3rd Weight Sex Type Anes PTL Estee A1 A5 Name Clin Term Term Term Last Filed Vital Signs Vital Sign Reading Time Taken Comments Blood Pressure 108/57 04/26/2025 2:48 PM EDT Pulse 81 04/26/2025 2:48 PM EDT Temperature 36.2 C (97.2 F) 04/02/2025 8:18 AM EDT Respiratory Rate 16 04/26/2025 2:48 PM EDT Oxygen Saturation 98% 04/02/2025 8:18 AM EDT Inhaled Oxygen Concentration - - Weight 68 kg (150 lb) 04/26/2025 2:48 PM EDT Height 157.5 cm (5' 2 ) 04/26/2025 2:48 PM EDT Body Mass Index 27.44 04/26/2025 2:48 PM EDT Plan of Treatment Upcoming Encounters Date Type Department Care Team (Late st Contact Info) Description 07/02/2025 9:30 AM EDT Office Visit [facility] Hematology Oncology [address] [place] [phone] Adrienne Huerta DO [address] [place] [address] 07/31/2025 11:00 AM EST Office Visit Orthopedic Surgery - [place] [address] [phone] Aron Barba, CHATO [address] [address] 07/31/2025 2:00 PM EST Office Visit Adult Medicine [address] [phone] Marleny Quick PA [address] [place] [address] Health Maintenance Due Date Last Done Comments RSV Immunization Adult Patients (1 - 1-dose 75+ series) 2020 Medicare Annual Wellness Visit 08/29/2022 Social Influencers of Health Screening 08/29/2022 Diabetes: Annual Foot Exam 07/07/2024 07/07/2023 Diabetes: Annual Retina Eye Exam 08/17/2024 08/17/2023 Depression Screening 09/20/2024 COVID-19 Vaccine ( season) 2025 07/08/2023, 07/30/2022, 05/29/2021, Additional history exists Influenza Vaccine (#1) 2025 , 06/25/2023, 06/08/2022, Additional history exists Diabetes: Blood Sugar Control Test (HGBA1C) 09/21/2025 03/21/2025, 11/02/2024, 05/30/2024, Additional history exists Diabetes: Annual Urine Albumin-Creatinine Ratio (uACR) 11/02/2025 11/02/2024, 05/30/2024 Diabetes: Annual GFR (Glomerular Filtration Rate) 04/02/2026 04/02/2025, 03/21/2025, 02/05/2025, Additional history exists Falls Risk Assessment 04/02/2026 04/02/2025 Hypertension/CHF/CAD Annual BMP Blood Test 04/02/2026 04/02/2025, 03/21/2025, 02/05/2025, Additional history exists Cholesterol Screening (Lipid Panel) 12/05/2028 12/06/2023 DTaP,Tdap,and Td Vaccines (3 - Td or Tdap) 04/28/2029 04/28/2019, 10/16/2015 Osteoporosis Screening (Bone Density Screening) 02/25/2032 02/24/2022, 06/19/2019 Hepatitis C Screening Completed 01/17/2019 Pneumococcal Vaccine: 50+ Years Completed 07/17/2019, 07/05/2018 Zoster Vaccines Completed 09/01/2022, 07/07/2022 HIB Vaccines Aged Out No longer eligi [...] Procedure Name Priority Date/Time Associated Diagnosis Comments MG MAMMO DIGITAL SCREENING W ROBIN BILAT Routine 04/18/2025 4:22 PM EDT Encounter for screening mammogram for malignant neoplasm of breast CBC WITH AUTO DIFFERENTIAL STAT 04/02/2025 8:53 AM EDT Small B-cell lymphoma, unspecified body region (CMS/HCC V24, CMS/HCC V28) COMPREHENSIVE METABOLIC PANEL STAT 04/02/2025 8:53 AM EDT Small B-cell lymphoma, unspecified body region (CMS/HCC V24, CMS/HCC V28) CBC AND DIFFERENTIAL STAT 04/02/2025 8:53 AM EDT Small B-cell lymphoma, unspecified body region (CMS/HCC V24, CMS/HCC V28) CT CHEST/ABDOMEN/PELVIS WO CONTRAST Routine 03/26/2025 7:45 AM EDT Small B-cell lymphoma of spleen (CMS/HCC V24, CMS/HCC V28) CBC WITH AUTO DIFFERENTIAL Routine 03/21/2025 9:52 AM EDT Poorly-controlled hypertension Mixed hyperlipidemia CAD of autologous bypass graft Chronic systolic CHF (congestive heart failure) (CMS/HCC V24, CMS/HCC V28) Type 2 diabetes mellitus with microalbuminuria, with long-term current use of insulin (CMS/HCC V24, CMS/HCC V28) Small B-cell lymphoma of spleen (CMS/HCC V24, CMS/HCC V28) Stage 3a chronic kidney disease (CMS/HCC V24, CMS/HCC V28) Chronic obstructive pulmonary disease, unspecified COPD type (CMS/HCC V24, CMS/HCC V28) BASIC METABOLIC PANEL Routine 03/21/2025 9:52 AM EDT Poorly-controlled hypertension Mixed hyperlipidemia CAD of autologous bypass graft Chronic systolic CHF (congestive heart failure) (CMS/HCC V24, CMS/HCC V28) Type 2 diabetes mellitus with microalbuminuria, with long-term current use of insulin (CMS/HCC V24, CMS/HCC V28) Small B-cell lymphoma of spleen (CMS/HCC V24, CMS/HCC V28) Stage 3a chronic kidney disease (CMS/HCC V24, CMS/HCC V28) Chronic obstructive pulmonary disease, unspecified COPD type (CMS/HCC V24, CMS/HCC V28) CBC AND DIFFERENTIAL Routine 03/21/2025 9:52 AM EDT Poorly-controlled hypertension Mixed hyperlipidemia CAD of autologous bypass graft Chronic systolic CHF (congestive heart failure) ([facility] V24, [facility] V28) Type 2 diabetes mellitus with microalbuminuria, with long-term current use of insulin ([facility] V24, [facility] V28) Small B-cell lymphoma of spleen ([facility] V24, [facility] V28) Stage 3a chronic kidney disease ([facility] V24, [facility] V28) Chronic obstructive pulmonary disease, unspecified COPD type ([facility] V24, [facility] V28) HEMOGLOBIN A1C Routine 03/21/2025 9:52 AM EDT Type 2 diabetes mellitus with renal manifestations ([facility] V24, [facility] V28) Diabetes 1.5, 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[facility] V24, [facility] V28) MICROALBUMIN CREATININE URINE RATIO Routine 11/02/2024 12:52 PM EST Type 2 diabetes mellitus with microalbuminuria, with long-term current use of insulin ([facility] V24, [facility] V28) CAD of autologous bypass graft Chronic systolic CHF (congestive heart failure) ([facility] V24, [facility] V28) Stage 3a chronic kidney disease ([facility] V24, CMS/HCC V28) Mixed hyperlipidemia Chronic obstructive pulmonary disease, unspecified COPD type ([facility] V24, [facility] V28) Splenic marginal zone b-cell lymphoma ([facility] V24, [facility] V28) Encounter for screening mammogram [...] Recently Relevant to Health Maintenance Results * MG Mammo Digital Screening w Robin bilat (04/18/2025 4:22 PM EDT) Anatomical Region Laterality Modality Breast Bilateral Mammography 04/19/2025 6:40 PM EDT Impressions 04/19/2025 6:43 PM EDT No mammographic evidence of malignancy. BREAST DENSITY: B - There are scattered areas of fibroglandular density. BI-RADS CATEGORY: 2 - BENIGN RECOMMENDATION: Screening bilateral mammogram is recommended in 1 year. MAMMO LOCATION: [facility], [address] [place] [address], [id number], . -------- FINAL REPORT -------- Dictated By: Kailyn Jacome Dictated Date: 04/19/2025 18:40 ET Assigned Physician: Kailyn Jacome Reviewed and Electronically Signed By: Kailyn Jacome Signed Date: 04/19/2025 18:43 ET Workstation ID: [id number] Transcribed By: Self Edit Transcribed Date: 04/19/2025 18:40 ET Narrative 04/19/2025 6:43 PM EDT EXAM: Screening Mammogram CLINICAL: 79 years old, Female, routine annual exam. History of a benign stereotactic biopsy in 1999. COMPARISON: 07/09/2022 and as far back as 11/30/2016 TECHNIQUE: Bilateral MLO and CC views were obtained digitally with 3-D mammogram (digital breast tomosynthesis). Computer-aided detection was utilized in evaluation of this exam (CAD). FINDINGS: Stable chronic asymmetry in the retroareolar left breast on the MLO view. No new suspicious mass, architectural distortion, or suspicious calcifications. Procedure Note Kailyn Jacome MD - 04/19/2025 EXAM: Screening Mammogram CLINICAL: 79 years old, Female, routine annual exam. History of a benignstereotactic biopsy in 1999. COMPARISON: 07/09/2022 and as far back as 11/30/2016 TECHNIQUE: Bilateral MLO and CC views were obtained digitally with 3-Dmammogram (digital breast tomosynthesis). Computer-aided detection wasutilized in evaluation of this exam (CAD). FINDINGS: Stable chronic asymmetry in the retroareolar left breast on the MLO view.No new suspicious mass, architectural distortion, or suspiciouscalcifications. IMPRESSION: No mammographic evidence of malignancy. BREAST DENSITY: B - There are scattered areas of fibroglandular density. BI-RADS CATEGORY: 2 - BENIGN RECOMMENDATION: Screening bilateral mammogram is recommended in 1 year. MAMMO LOCATION: [facility], [address] [place] [address], [id number], . -------- FINAL REPORT -------- Dictated By: Kailyn Jacome Dictated Date: 04/19/2025 18:40 ET Assigned Physician: Kailyn Jacome Reviewed and Electronically Signed By: Kailyn Jaocme Signed Date: 04/19/2025 18:43 ET Workstation ID: [id number] Transcribed By: Self Edit Transcribed Date: 04/19/2025 18:40 ET us Aleks Qiu MD IMG BI PROCEDURES Final Res ult * (ABNORMAL) CBC auto differential (04/02/2025 8:53 AM EDT) Only the most recent of2 resultswithin the time period is included. WBC 4.8 4.8 - 10.8 K/mcL LAB HEMETOLOGY METHOD 04/02/2025 9:05 AM EDT [facility] RBC 3.90 3.80 - 4.80 M/mcL LAB HEMETOLOGY METHOD 04/02/2025 9:05 AM EDT [facility] Hemoglobin 11.8 11.5 - 16.0 g/dL LAB HEMETOLOGY METHOD [facility] Hematocrit 36.6 35.0 - 47.0 % LAB HEMETOLOGY METHOD 04/02/2025 9:05 AM EDT [facility] MCV 93.1 79.0 - 98.0 FL LAB HEMETOLOGY METHOD 04/02/2025 9:05 AM [facility] MCH 30.0 27.0 - 32.0 pcg LAB HEMETOLOGY METHOD 04/02/2025 9:05 AM [facility] MCHC 32.2 32.0 - 37.0 g/dL LAB HEMETOLOGY METHOD 04/02/2025 9:05 AM [facility] RDW 15.7(H) 11.0 - 15.0 % LAB HEMETOLOGY METHOD 04/02/2025 9:05 AM [facility] Platelets 193 130 - 400 K/mcL LAB HEMETOLOGY METHOD 04/02/2025 9:05 AM [facility] MPV 10.9 7.0 - 11.0 FL LAB HEMETOLOGY METHOD 04/02/2025 9:05 AM [facility] NRBC 0.0 <1.0 % LAB HEMETOLOGY METHOD 04/02/2025 9:05 AM [facility] NRBC Absolute 0.00 <0.10 K/mcL LAB HEMETOLOGY METHOD 04/02/2025 9:05 AM [facility] Neutrophils Relative 61.8 % LAB HEMETOLOGY METHOD 04/02/2025 9:05 AM [facility] Lymphocytes Relative 21.2 % LAB HEMETOLOGY METHOD 04/02/2025 9:05 AM [facility] Monocytes Relative 11.5 % LAB HEMETOLOGY METHOD 04/02/2025 9:05 AM [facility] Eosinophils Relative 3.4 % LAB HEMETOLOGY METHOD 04/02/2025 9:05 AM [facility] Basophils Relative 1.7 % LAB HEMETOLOGY METHOD 04/02/2025 9:05 AM [facility] Immature Granulocytes Relative 0.4 % LAB HEMETOLOGY METHOD 04/02/2025 9:05 AM EDT [facility] Neutrophils Absolute 2.95 1.50 - 7.00 K/[facility] LAB HEMETOLOGY METHOD 04/02/2025 9:05 AM EDT [facility] Lymphocytes Absolute 1.01 1.00 - 5.00 K/mcL LAB HEMETOLOGY METHOD 04/02/2025 9:05 AM EDT [facility] [facility] Monocytes Absolute 0.55 0.20 - 1.00 K/mcL LAB HEMETOLOGY METHOD 04/02/2025 9:05 AM EDT [facility] Eosinophils Absolute 0.16 0.00 - 0.50 K/mcL LAB [facility] Basophils Absolute 0.08 0.00 - 0.20 K/mcL LAB HEMETOLOGY METHOD 04/02/2025 9:05 AM EDT [facility] Immature Granulocytes Absolute 0.02 0.00 - 0.03 K/mcL LAB HEMETOLOGY METHOD 04/02/2025 9:05 AM [facility] Blood Venous blood specimen / Unknown Venipuncture / Unknown 04/02/2025 8:53 AM EDT 04/02/2025 8:56 AM EDT us Adrienne Huerta DO LAB BLOOD ORDERABLES Final Result [facility] [address] [place] [address], * (ABNORMAL) Comprehensive metabolic panel (04/02/2025 8:53 AM EDT) Sodium 140 133 - 145 mmol/L LAB CHEMISTRY METHOD 04/02/2025 9:18 AM EDT [facility] Potassium 3.6 3.5 - 5.5 mmol/L LAB CHEMISTRY METHOD 04/02/2025 9:18 AM [facility] Chloride 106 96 - 110 mmol/L LAB CHEMISTRY METHOD 04/02/2025 9:18 AM [facility] CO2 28 21 - 32 mmol/L LAB CHEMISTRY METHOD 04/02/2025 9:18 AM [facility] Anion Gap 6 3 - 11 LAB CHEMISTRY METHOD 04/02/2025 9:18 AM [facility] Glucose 300(H) 70 - 100 mg/dL LAB CHEMISTRY METHOD 04/02/2025 9:18 AM [facility] BUN 22 5 - 25 mg/dL LAB CHEMISTRY METHOD 04/02/2025 9:18 AM [facility] Creatinine 1.06 0.50 - 1.10 mg/dL LAB CHEMISTRY METHOD 04/02/2025 9:18 AM [facility] eGFR 54(L) >=60 mL/min/1. 73m2 LAB CHEMISTRY METHOD 04/02/2025 9:18 AM [facility] Comment:Calculation based on the Chronic Kidney Disease Epidemiology Collaboration (CKD-EPI) equation refit without adjustment for race. BUN/Creatinine Ratio 20.8 LAB CHEMISTRY METHOD 04/02/2025 9:18 AM [facility] Calcium 9.6 8.5 - 10.5 mg/dL LAB CHEMISTRY METHOD 04/02/2025 9:18 AM [facility] AST (SGOT) 16 10 - 42 unit/L LAB CHEMISTRY METHOD 04/02/2025 9:18 AM [facility] ALT (SGPT) 11 10 - 60 unit/L LAB CHEMISTRY METHOD 04/02/2025 9:18 AM [facility] Alkaline Phosphatase 133(H) 42 - 121 unit/L LAB CHEMISTRY METHOD 04/02/2025 9:18 AM [facility] Total Protein 5.8(L) 6.0 - 8.0 g/dL LAB CHEMISTRY METHOD 04/02/2025 9:18 AM EDT [facility] Albumin 3.5 3.2 - 5.0 g/dL LAB CHEMISTRY METHOD 04/02/2025 9:18 AM EDT [facility] Total Bilirubin 0.3 0.0 - 1.4 mg/dL LAB CHEMISTRY METHOD 04/02/2025 9:18 AM EDT [facility] Blood Venous blood specimen / Unknown Venipuncture / Unknown 04/02/2025 8:53 AM EDT 04/02/2025 8:56 AM EDT Adrienne Huerta DO LAB BLOOD ORDERABLES Final Result [facility] [address] [place] [address], * CT Chest/Abdomen/Pelvis wo Contrast (03/26/2025 7:45 AM EDT) Anatomical Region Laterality Modality Body Computed Tomogra phy 03/26/2025 3:25 PM EDT Impressions 03/26/2025 3:38 PM EDT Impression: 1. No suspicious developing pulmonary nodule or thoracic lymphadenopathy. 2. Scattered peripheral groundglass pulmonary infiltrates, mild, without significant change. 3. Normal spleen size, with further decrease in size since the previous study. 4. No abdominal [place]adenopathy. [place] ([id number]) -------- FINAL REPORT -------- Dictated By: Mariah Melendez Dictated Date: 03/26/2025 15:25 ET Assigned Physician: Mariah Melendez Reviewed and Electronically Signed By: Mariah Melendez Signed Date: 03/26/2025 15:38 ET Workstation ID: [id number] Transcribed By: Self Edit Transcribed Date: 03/26/2025 15:25 ET Narrative 03/26/2025 3:38 PM EDT History: Lymphoma. Comparison: 09/19/24 Technique: Helical volumetric imaging of the chest, abdomen and pelvis was performed without intravenous or oral contrast. DLP: 962.66 mGy/cm [facility] VCT Iterative reconstruction technique Findings: Chest: The trachea and central bronchial tree remain patent. A 4 mm solid, noncalcified juxtapleural nodule in the superior segment of the right lower lobe (image 76 series 3) is unchanged. Several small nodules scattered elsewhere in both lungs are also stable. A small groundglass infiltrate is present at the base of the left lower lobe and there are scattered peripheral groundglass opacities elsewhere in both lungs, all without significant change. Thin bandlike opacity in the left upper lobe is consistent with subsegmental atelectasis, unchanged. No pleural or pericardial effusions are seen. Mild multichamber cardiomegaly is without significant change. Sequela of median sternotomy and coronary artery bypass grafting are noted. No thoracic lymphadenopathy is seen. Abdomen/pelvis: The liver is normal in size and configuration. No masses are identified. The gallbladder is physiologically distended. No evidence of biliary obstruction is seen. The spleen remains normal in size, approximately 9.8 cm in in maximum diameter, slightly smaller than was present on the most recent exam (10.8 cm). The pancreas and adrenal glands are unremarkable. The kidneys exhibit diffuse parenchymal thinning, similar to previous. There is no hydronephrosis. A 13 mm circumscribed round mass of homogeneous fat attenuation in the upper pole of the left kidney is consistent with an angiomyolipoma. No significant change is seen. A coarse calcification is again noted at the upper pole of the right kidney. The abdominal aorta is normal in caliber, with moderate mural calcification. No ascites is seen. No mesenteric or retroperitoneal lymphadenopathy is seen. The uterus is absent. The urinary bladder is unremarkable. No evidence of bowel obstruction is seen. Diverticulosis of the colon is present without specific findings of diverticulitis. The appendix is normal in caliber in the right lower quadrant. No abnormal perienteric or pericolonic fat stranding is seen. Musculoskeletal: No suspicious osseous destructive lesion is identified. Mild loss of height of a lower thoracic vertebral body is unchanged. Procedure Note Mariah Melendez MD - 03/26/2025 History: Lymphoma. Comparison: 09/19/24 Technique: Helical volumetric imaging of the chest, abdomen and pelvis wasperformed without intravenous or oral contrast. DLP: 962.66 mGy/cm [facility] VCT Iterative reconstruction technique Findings: Chest: The trachea and central bronchial tree remain patent. A 4 mm solid,noncalcified juxtapleural nodule in the superior segment of the rightlower lobe (image 76 series 3) is unchanged. Several small nodulesscattered elsewhere in both lungs are also stable. A small groundglassinfiltrate is present at the base of the left lower lobe and there arescattered peripheral groundglass opacities elsewhere in both lungs, allwithout significant change. Thin bandlike opacity in the left upper lobeis consistent with subsegmental atelectasis, unchanged. No pleural or pericardial effusions are seen. Mild multichamber cardiomegaly is without significant change. Sequela ofmedian sternotomy and coronary artery bypass grafting are noted. Nothoracic lymphadenopathy is seen. Abdomen/pelvis: The liver is normal in size and configuration. No masses are identified.The gallbladder is physiologically distended. No evidence of biliaryobstruction is seen. The spleen remains normal in size, approximately 9.8 cm in in maximumdiameter, slightly smaller than was present on the most recent exam (10.8cm). The pancreas and adrenal glands are unremarkable. The kidneys exhibit diffuse parenchymal thinning, similar to previous.There is no hydronephrosis. A 13 mm circumscribed round mass ofhomogeneous fat attenuation in the upper pole of the left kidney isconsistent with an angiomyolipoma. No significant change is seen. A coarsecalcification is again noted at the upper pole of the right kidney. The abdominal aorta is normal in caliber, with moderate muralcalcification. No ascites is seen. No mesenteric or retroperitoneallymphadenopathy is seen. The uterus is absent. The urinary bladder is unremarkable. No evidence of bowel obstruction is seen. Diverticulosis of the colon ispresent without specific findings of diverticulitis. The appendix isnormal in caliber in the right lower quadrant. No abnormal perienteric orpericolonic fat stranding is seen. Musculoskeletal: No suspicious osseous destructive lesion is identified. Mild loss ofheight of a lower thoracic vertebral body is unchanged. IMPRESSION: Impression: 1. No suspicious developing pulmonary nodule or thoraciclymphadenopathy. 2. Scattered peripheral groundglass pulmonary infiltrates, mild, withoutsignificant change. 3. Normal spleen size, with further decrease in size since the previousstudy. 4. No abdominal [place]adenopathy[place] ([id number]) -------- FINAL REPORT -------- Dictated By: Mariah Melendez Dictated Date: 03/26/2025 15:25 ET Assigned Physician: Mariah Melendez Reviewed and Electronically Signed By: Mariah Melendez Signed Date: 03/26/2025 15:38 ET Workstation ID: [id number] Transcribed By: Self Edit Transcribed Date: 03/26/2025 15:25 ET Adrienne Huerta DO IMG CT PROCEDURES Fin al Result * (ABNORMAL) Hemoglobin A1c (03/21/2025 9:52 AM EDT) [facility] Hemoglobin A1C 9.0(H) <6.5 % LAB CHEMISTRY METHOD 03/21/2025 10:19 PM EDT [facility] Mean Bld Glu Estim. 212 mg/dL LAB CHEMISTRY METHOD 03/21/2025 10:19 PM EDT [facility] Blood Venous blood specimen / Unknown Venipuncture / Unknown 03/21/2025 9:52 AM EDT 03/21/2025 9:52 AM EDT Aleks Qiu MD LAB BLOOD ORDERABLES Final Result [facility] [address] [place] [address], [place] [phone] * (ABNORMAL) Basic metabolic panel (03/21/2025 9:52 AM EDT) [facility] Sodium 139 133 - 145 mmol/L LAB CHEMISTRY METHOD 03/21/2025 2:00 PM EDT [facility] Potassium 4.7 3.5 - 5.5 mmol/L LAB CHEMISTRY METHOD 03/21/2025 2:00 PM EDT [facility] Comment:Hemolysis present Chloride 107 96 - 110 mmol/L LAB CHEMISTRY METHOD 03/21/2025 2:00 PM [facility] CO2 29 21 - 32 mmol/L LAB CHEMISTRY METHOD 03/21/2025 2:00 PM [facility] Anion Gap 3 3 - 11 LAB CHEMISTRY METHOD 03/21/2025 2:00 PM [facility] Glucose 230(H) 70 - 100 mg/dL LAB CHEMISTRY METHOD 03/21/2025 2:00 PM [facility] BUN 17 5 - 25 mg/dL LAB CHEMISTRY METHOD 03/21/2025 2:00 PM [facility] Creatinine 0.91 0.50 - 1.10 mg/dL LAB CHEMISTRY METHOD 03/21/2025 2:00 PM [facility] eGFR 64 >=60 mL/min/1. 73m2 LAB CHEMISTRY METHOD 03/21/2025 2:00 PM T [facility] Comment:Calculation based on the Chronic Kidney Disease Epidemiology Collaboration (CKD-EPI) equation refit without adjustment for race. BUN/Creatinine Ratio 18.7 LAB CHEMISTRY METHOD 03/21/2025 2:00 PM [facility] Calcium 9.8 8.5 - 10.5 mg/dL LAB CHEMISTRY METHOD 03/21/2025 2:00 PM [facility] Blood Venous blood specimen / Unknown Venipuncture / Unknown 03/21/2025 9:52 AM EDT 03/21/2025 9:52 AM EDT us Aleks Qiu MD LAB BLOOD ORDERABLES Final Result [facility] [address] [place] [address], * Microalbumin creatinine urine ratio (11/02/2024 12:52 PM EST) Creatinine, Urine 80.0 mg/dL LAB CHEMISTRY METHOD 11/02/2024 3:10 PM EST [facility] Microalb, Ur 21.8 0.0 - 29.0 mg/L LAB CHEMISTRY METHOD 11/02/2024 3:10 PM EST [facility] Microalb/Creat Ratio 27 <30 mg/g creat LAB CHEMISTRY METHOD 11/02/2024 3:10 PM EST [facility] Urine Urine specimen obtained by clean catch procedure / Unknown Non-blood Collection / Unknown 11/02/2024 12:52 PM EST 11/02/2024 12:52 PM EST Aleks Qiu MD LAB URINE ORDERABLES Final Result [facility] [address] [place] [address], * (ABNORMAL) Lipid panel (12/06/2023) [facility] LDL/HDL Ratio 4 <=4 Triglycerides 134 0 - 150 mg/dL Cholesterol 103 0 - 200 mg/dL HDL 27(A) >=40 mg/dL LDL Cholesterol 50 0 - 100 mg/dL Blood Venous blood specimen / Unknown Yolanda Monzon MD LAB BLOOD ORDERABLES Dorinda l Result * Diabetes Eye Exam (08/17/2023) [facility] Diabetes: Annual Retina Eye Exam Abstracted Historical Provider HEALTH MAINTENANCE Final Result * Diabetes Foot Exam (07/07/2023) [facility] Diabetes: Annual Foot Exam Abstracted Historical Provider HEALTH MAINTENANCE Final Result * DXA BONE DENSITY STUDY 1+ SITS AXIAL SKEL (02/24/2022 11:04 AM EDT) Anatomical Region Laterality Modality Bone Densitometr y 12/17/2021 10:4 9 AM EDT Narrative 02/24/2022 3:31 PM EDT BONE DENSITY Lumbar Spine T-score is -1.2 [...] (World Health Organization Fracture Risk Assessment) [facility] Department of Internal Medicine recommends using National [...] (World Health Organization Fracture Risk Assessment) [facility] Department of Internal Medicine recommendsusing National Osteoporosis [...] Most Recently Relevant to Health Maintenance Insurance [employer] Care Teams Edge Runner Relationship Specialty Start Date End Date Aleks Qiu MD [address] [place] [address] PCP - General Internal Medicine 02/17/22
--- OUTSIDE RECORDS SUMMARY | 2025-06-05 16:25 | XMS_ITS ---
Author Organization [facility] Address [address] [place] [address] Phone Care Team Providers Care Exploitation Analyst Name Role Phone Aleks Qiu MD Primary Care Provider Active Problems Problem Noted Date Diagnosed Date B-cell lymphoma ([facility] V24, [facility] V28) 07/02 Assessment & Plan (08/08/2024 5:41 PM EST): He has received rituximab fusions. She has a follow-up appointment in the next couple months with the oncologist for repeat imaging. She is scheduled to follow-up with gastroenterology for ileoscopy for abnormal PET scan findings in the ileum. Type 2 diabetes mellitus wit h microalbuminuria, with long-term current use of insulin ([facility] V24, [facility] V28) 06/19/2024 Assessment & Plan (08/08/2024 5:41 [...] pain or chest pressure. She follows with market editor Dr. Smiley. Continue aspirin, Plavix, metoprolol 100 mg twice a day, Tricor 54 mg daily, Lipitor 80 mg daily, Lasix 20 mg daily. Atorvastatin refilled today. Chronic systolic CHF (conges tive heart failure) ([facility] V24, [facility] V28) 12/29/2023 Acute kidney injury ([facility] V24) 04/23/2023 Centrilobular emphysema ([facility] V24, [facility] V2 8) 04/23/2023 NSTEMI (non-ST elevated myoc ardial infarction) ([facility] V24, [facility] V28) 04/23/2023 Pericarditis as complication of acute myocardial infarction ([facility] V24, [facility] V28) 04/23/2023 Osteopenia 12/08/2022 Stage 3 chronic kidney disease ([facility] V24, [facility] V28) 10/14/2022 Chronic deep vein thrombosis (DVT) of proximal vein of lower extremity ([facility] V24, [facility] V28) 06/23/2022 Hydronephrosis of right kidney 06/23/2022 Mixed hyperlipidemia 06/23/2022 Renal calculi 06/23/2022 Acute deep vein thrombosis ( DVT) of distal vein of both lower extremities ([facility] V24, [facility] V28) 12/17/2021 Acute deep vein thrombosis ( DVT) of femoral vein of left lower extremity ([facility] V24, [facility] V28) 05/19/2021 Overview (06/19/2024): On Eliquis COVID-19 01/26/2020 GERD (gastroesophageal reflux disease) 9 Microalbuminuria 07/18/2019 Osteoporosis 07/18/2019 Type 2 diabetes mellitus wit h renal manifestations ([facility] V24, [facility] V28) 07/18/2019 Diabetes 1.5, 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[facility] V24, [facility] V28) 01/26/2019 Chronic obstructive pulmonar y disease ([facility] V24, [facility] V28) 01/26/2019 Atypical chest pain 12/22/2018 Overview (06/19/2024): S/p myocardial perfusion wnl 2018 Follows with [place] [facility] cardiology Asthma 12/22/2018 Celiac [...] Medications Current Day (Day 1 , Cycle 5 - Planned for 05/21/2025) Next Day (Day 1, Cycle 6 - Planned for 07/16/2025) riTUXimab-hyaluronidase (RITUXAN HYCELA) 1400 mg/11.7 mL (120 [...] treatments are documented for this patient in [facility]. Treatments may have been administered in another system.
== END 2025-06-05 12:51 | disposition home or self-care (01) ==
LOC: HO.HCS 12:23
PROVIDERS: PCP Internal Medicine; Visit Provider Internal Medicine Cardiovascular Disease
DX: I25.10 Atherosclerotic heart disease of native coronary artery without angina pectoris (principal); I10 Essential (primary) hypertension
CPT/HCPCS: 99214; G2211

== ENCOUNTER → 2025-06-05 12:22 | Outpatient (BNVA) | payer MEDICARE, SELFPAY | PROVIDERS: PCP Internal Medicine; Visit Provider Internal Medicine Cardiovascular Disease | DX: I25.10 Atherosclerotic heart disease of native coronary artery without angina pectoris (principal); I10 Essential (primary) hypertension | CPT/HCPCS: 99212 ==

== ENCOUNTER 2025-06-19 13:00 | Outpatient (RCR) | payer MEDICARE, SELFPAY ==
--- NOTE | 2025-03-28 12:24 | MHC.PT.EP ---
[facility] Office [place] Office [place] Office [address] Susan Tim [address] [phone] F: [phone] F: [phone] F: [phone] F: [phone] Physical Therapy Plan of Care Date of Evaluation: 03/28/25 Date of Surgery: Diagnosis: This is a 79 yo female presenting to skilled PT with a script for cervicalgia. Assessment: This is a 79 yo female presenting to skilled PT with a script for cervicalgia. Pt reporting ongoing pain for many years now but has been getting worse. She reports these symptoms started to get worse after a BP cuff was placed on her L arm during a colonoscopy (this past Spring). Pain is constant. Pain is located at the upper trap (sharp, stiff and achy), L side c-spine, and L UE (very sore, in the bone ). This then radiates down the arm to the lateral 3 fingers (numb). Pain increases with lifting arm over head, turning her head side to side and reaching behind her back. She reports that she can do all of her usual daily activities by herself still. She does Tylenol and a heating pad for pain relief. She reports that she tried massages but this has always created her more pain. Assessment reveals pain that ranges from up to a 6/10 at the worst. Patient demos decreased B shoulder and cervical ROM, strength of B shoulder's and scapulae, TTP at GHJ joint line, UT, scap and L UE and impaired posture with forward head and rounded shoulders. Based on functional limitations, impaired QOL and pain tolerance patient is a good candidate for skilled PT 2x/wk for 4wks. Frequency and Duration: The patient will be seen 2x/wk for 4wks Short Term Goals: (in 2 wks) I in HEP Improve cervical ROM by at least 25% Demo proper cervical positioning with progression of UB strengthening exercises without cues from PT Shelter Goals: (in 4 wks) Report 50% improvement in QOL Improve NDI by 10 points Improve pain to no more than 2/10 at the worst Demo at least 1 grade of improvement in shoulder girdle Treatment Plan: Modalities to reduce pain, spasms and effusion. Manual therapy to restore motion and function. Therapeutic exercise to improve strength and flexibility. Neuromuscular re-education for posture and balance. Therapeutic activities to return to functional activities of daily living. Electronically signed by: Jane Oliveros PT Please sign and return to therapist. Thank you for your referral.
--- NOTE | 2025-06-20 09:26 | MHC.PT.DC ---
[facility] [place] [facility] [place] [facility] [place] [facility] [address] Susan Tim [address] [phone] F: [phone] F: [phone] F: [phone] F: [phone] Physical Therapy Discharge Report Diagnosis: This is a 79 yo female presenting to skilled PT with a script for cervicalgia. Date of Surgery: Date of Evaluation: 03/28/25 Date of Discharge: 06/20/25 Treatments to Date: 12 Cancellations to Date: 0 No Shows to Date: 0 Discharge Status: Improved Function Independent with HEP Recommend MD Follow-up Discharge Summary: Patient has come to 12 sessions of PT. She has improved her ROM and pain but continues to have spasms and limitations in strength as well as range. She has been difficult to treat due to varying symptoms and pain changes and we discussed whether this was related to her treatments and lymphoma diagosis. I did recommend she follow up with MD in regards to continued varying symptoms but to continue HEP and attempt return to gym when ready (she has some fear from a past experience). DC to HEP Electronically signed by: Jane Oliveros PT Please sign and return to therapist. Thank you for your referral.
== END 2025-06-20 09:27 | disposition home or self-care (01) ==
LOC: HO.PTCHIC 13:00
PROVIDERS: PCP Internal Medicine; Visit Provider Nurse Practitioner Family
DX: M54.81 Occipital neuralgia (principal); M54.2 Cervicalgia; R25.1 Tremor, unspecified
CPT/HCPCS: 97110; 97140; 97162; 97164

== ENCOUNTER 2025-08-15 10:06 | Outpatient (AMB) | payer MEDICARE, SELFPAY ==
--- OUTSIDE RECORDS SUMMARY | 2024-07-09 23:00 | XMS_ITS | Encounter Summary ---
Author Organization [facility] Address [address] [place] [address] Care Team Providers Care Cte Teacher Name Role Phone Aleks Qiu MD Primary Care Provider [phone]- [phone] Encounter Details Date Type Department Care Team (Late st Contact Info) Description 07/10/2024 Hospital Encounter TH HISTORIC ENCOUNTERS EASTERN CONVERSION ONLY Social History Tobacco Use Types Packs/Day Years Used Date Smoking Tobacco: Former Smokeless Tobacco: Never Interpersonal Safety Answer Date Record ed Physical Abuse Unrecognized value 08/09/2024 Verbal Abuse Unrecognized value 08/09/2024 Comments No Sex and Gender Information Value Date Recorded Sex Assigned at Not on file Legal Sex Female 2:45 PM EST Gender Identity Not on file Sexual Orientation Not on file documented as of this encounter Last Filed Vital Signs Vital Sign Reading Time Taken Comments Blood Pressure - - Pulse - - Temperature - - Respiratory Rate - - Oxygen Saturation - - Inhaled Oxygen Concentration - - Weight 66.8 kg (147 lb 4.3 oz) 07/10/2024 10:13 AM EDT Height 156.2 cm (5' 1.5 ) 06/26/2024 10:51 AM ED T Body Mass Index 26.94 06/26/2024 3:28 PM EDT documented in this encounter Functional Status * Question Answer Date of Assessment Author 1. Wish to be (Past 1 Month) No 10:14 AM Lyly Cox, FANY 2. Non-Specific Active Suici hermelinda Thoughts (Past 1 Month) No 07/24/2024 10:14 AM Lyly Cox RN * Calculated C-SSRS Risk Score (Lifetime/Recent) Answer Date of Assessment Author No Risk Indicated 07/24/2024 10:14 AM Lyly Cox RN * Gray Suicide Severity Rating Scale (Screener/Recent Self-Report) Question Answer Date of Assessment Author 6. Suicidal Behavior (Lifetime) No 10:14 AM Lyly Cox RN documented as of this encounter Plan of Treatment Upcoming Encounters Date Type Department Care Team (Late st Contact Info) Description 09/04/2025 1:00 PM EST Office Visit Endocrinology [address] [phone] Balta Chapa MD [address] [place] [address] 10/01/2025 9:30 AM EST Office Visit [facility] Hematology Oncology [address] [place] [phone] Adrienne Huerta, DO [address] [place] [address] 10/03/2025 11:00 AM EST Office Visit Orthopedic Surgery [place] [address] [phone] Aron Barba, DPM [address] [address] 11/29/2025 2:00 PM EDT Office Visit Adult Medicine [address] [phone] Marleny Quick PA [address] [place] [address] documented as of this encounter Visit Diagnoses Not on filedocumented in this encounter Care Teams Cte Teacher Relationship Specialty Start Date End Date Aleks Qiu MD [address] [place] [address] PCP - General Internal Medicine 02/17/22 documented as of this encounter
--- OUTSIDE RECORDS SUMMARY | 2024-07-10 09:01 | XMS_ITS | Encounter Summary ---
Author Organization [facility] Address [address] [place] [address] Care Team Providers Care Cupola Liner Name Role Phone Aleks Qiu MD Primary Care Provider [phone]- [phone] Encounter Details Date Type Department Care Team (Late st Contact Info) Description 07/10/2024 10:01 AM EDT Hospital Encounter TH HISTORIC ENCOUNTERS EASTERN CONVERSION [...] 1 Month) No 10:14 AM Lyly Cox, RN 2. Non-Specific Active Suici hermelinda Thoughts (Past 1 Month) No 07/24/2024 10:14 AM Lyly Cox RN * Calculated C-SSRS Risk Score (Lifetime/Recent) Answer Date of Assessment Author No Risk Indicated 07/24/2024 10:14 AM Lyly Cox RN * [place] Suicide Severity Rating Scale (Screener/Recent Self-Report) Question Answer Date of Assessment Author 6. Suicidal Behavior (Lifetime) No 10:14 AM Lyly Cox RN documented as of this encounter Progress Notes * Historical, Notes Results - 07/10/2024 10:00 AM EDT 1135- Pt arrived today as a new pt for Rituximab infusion. Comes in accompanied by daughter. Oriented to the unit, policies, and procedures. History of present illness obtained. Folder provided with rituximab handout, phone numbers, and when to call the office. Rituxan handout provided and reviewedin detail. All questions addressed. Baseline assessment obtained. Allergies and medications reconciled. Pt has h/o open heart surgery last May. She wishes she recovered quicker as she doesn't feel as strong. Pt doing well overall. Pt reports having a recent trip and fall on . Scabs tonose noted but otherwise, pt denies injury. Rituxan consent obtained. PIV obtained. Treatment released. Pre meds given. Pt resting comfortably at this time with call faye in reach. 1240- Rituximab initiated and set to infuse over 8 steps. Pt knows to ring call faye if she begins to feel different in any way. Pt and daughter both verbalize understanding. Pt enjoying lunch, call faye within reach. 1320- Pt rang call faye and asked for a pillow to put behind her back because she is having back pain. This RN inquired if this is typical for her and she stated no, not usually. Rituximab stopped at 1255. Pt felt the jabbing in her back subside slightly. Attempted to resume but pt began to feel the jabbing pain to her left back radiating to her lower back. Pt also with c/o mild nausea. This RN contacted FAVIO Powers who came to chairside to evaluate pt. Pt denies itching or SOB at this time.Pt expressed that the lower back pain is starting to radiate up her back causing her to have a headache. D/t h/o hyperglycemia with steroids, orders obtained for Decadron 4mg IVP rather than solucortef. Additional orders given for zofran 8mg IVP and Tramdol 50mg PO. Prior to administering zofran, Elenita pharmacist, questioned the dose of 8mg zofran as pt is on amiodarone. Micki Victor RN spoke to Estevan baldwin give 4mg zofran . Decadron 4mg IVP, Zofran 4mg IVP, and tramadol 50mg PO given. Pump set for 30 minutes and will reevaluate pt. Pt attempting to rest at this time. Call faye in reach. 1350- Pt reports feeling much better. Pain and nausea have subsided. Spoke to FAVIO Powers who gave OK to restart Rituximab. Priya confirmed with Dr. Castelan that medication should resume at the previousstep. Being that the pt reacted 15 minutes into step 1, infusion resumed at a rate of 25mg/hr. Willincrease to 50mg/hr in about 45 minutes. Then will increase by 50mg/hr [id number]. When pt hits 200mg/hr, will reevaluate and determine if she can tolerate at the higher rates. Pt and daughter aware of plan and verbalize understanding. Pt knows to ring faye immediately if she begins to feel poorly again in any way. Resting comfortably with call faye in reach. 1440- Pt tolerating rituximab infusion thus far. VSS. Pt assisted to BR with standby assist. Pt continues to rest and reports feeling well at this time. Call faye within reach. 1630- Pt continues to tolerate rituximab infusion without further incident. Vitals remain stable. Pt listening to book. Next appts made and provided. Discharge information reviewed in detail. No further questions at this time. Report given to Micki Victor RN. Pt continues to rest comfortably with call faye in reach. * Historical, Notes Results - 07/10/2024 10:00 AM EDT 1645 assumed care of patient. Magdalena is feeling well and denies any signs and symptoms of reaction. Call faye in reach 1700 tolerating well, Rituxan infusing at 250mg and tolerating well 1730 tolerating 300 mg/hr, resting, talking with her daughter, took clive crackers and water for snack 174 rituxan fully infused. Magdalena feeling well. Vital signs stable, documented in flow sheet. Ambulated to bathroom 1810 discharged to home ambulatory, with her daughter. Next appointment verified. documented in this encounter Plan of Treatment Upcoming Encounters Date Type Department Care Team (Late st Contact Info) Description 09/04/2025 1:00 PM EST Office Visit Endocrinology [facility] [address] [place], [place] [phone] Balta Chapa MD [address] [place] [address] 10/01/2025 9:30 AM EST Office Visit [facility] Hematology Oncology [address] [place] [phone] Adrienne Huerta, DO [address] [place] [address] 10/03/2025 11:00 AM EST Office Visit Orthopedic Surgery [facility] [address] [phone] Aron Barba, DPGalen [address] [address] 11/29/2025 2:00 PM EDT Office Visit Adult Medicine [address] [phone] Marleny Quick PA [address] [place] [address] documented as of this encounter Visit Diagnoses Not on filedocumented in this encounter Care Teams Cupola Liner Relationship Specialty Start Date End Date Aleks Qiu MD [address] [place] [address] PCP - General Internal Medicine 02/17/22 documented as of this encounter
--- OUTSIDE RECORDS SUMMARY | 2024-07-10 12:26 | XMS_ITS | Encounter Summary ---
Author Organization [facility] Address [address] [place] [address] Care Team Providers Care Brood Station Manager Name Role Phone Aleks Qiu MD Primary Care Provider [phone]- [phone] Encounter Details Date Type Department Care Team (Late st Contact Info) Description 07/10/2024 1:26 PM EDT Hospital Encounter TH HISTORIC ENCOUNTERS EASTERN CONVERSION ONLY Karen Chavez PA [address] [place] [phone] Social History Tobacco Use Types Packs/Day Years [...] Wish to be (Past 1 Month) No 024 10:14 AM Lyly Cox RN 2. Non-Specific Active Suici hermelinda Thoughts (Past 1 Month) No 07/24/2024 10:14 AM Lyly Cox RN * Calculated C-SSRS Risk Score (Lifetime/Recent) Answer Date of Assessment Author No Risk Indicated 07/24/2024 10:14 AM Lyly Cox RN * Dwarf Suicide Severity Rating Scale (Screener/Recent Self-Report) Question Answer Date of Assessment Author 6. Suicidal Behavior (Lifetime) No 10:14 AM Lyly Cox RN documented as of this encounter Plan of Treatment Upcoming Encounters Date Type Department Care Team (Late st Contact Info) Description 09/04/2025 1:00 PM EST Office Visit Endocrinology [address] [phone] Balta Chapa MD [address] [place] [address] 10/01/2025 9:30 AM EST Office Visit [facility] Hematology Oncology [address] [place] [address] Adrienne Huerta, DO [address] [place] [address] 10/03/2025 11:00 AM EST Office Visit Orthopedic Surgery [facility] [address] [phone] Aron Barba DPM [address] [address] 11/29/2025 2:00 PM EDT Office Visit Adult Medicine [address] [phone] Marleny Quick PA [address] [place] [address] documented as of this encounter Visit Diagnoses Not on filedocumented in this encounter Care Teams Brood Station Manager Relationship Specialty Start Date End Date Aleks Qiu MD [address] [place] [address] PCP - General Internal Medicine 02/17/22 documented as of this encounter
--- OUTSIDE RECORDS SUMMARY | 2024-07-17 06:59 | XMS_ITS | Encounter Summary ---
Author Organization [facility] Address [address] [place] [address] Care Team Providers Care Proprietary Trader Name Role Phone Aleks Qiu MD Primary Care Provider +1- [phone] Encounter Details Date Type Department Care Team (Late st Contact Info) Description 07/17/2024 7:59 AM EDT Hospital Encounter TH HISTORIC ENCOUNTERS [...] 07/24/2024 10:14 AM Lyly Cox RN * [place] Suicide Severity Rating Scale (Screener/Recent Self-Report) Question Answer Date of Assessment Author 6. Suicidal Behavior (Lifetime) No 10:14 AM Lyly Cox RN documented as of this encounter Progress Notes * Historical, Notes Results - 07/17/2024 8:00 AM EDT Pt arrives with her daughter for C1 D8 of ruxience. Pt assessed and reports she had a good week. Ptdenies c/o pain on arrival . Pt does report she has some slight dizziness When she stands I just have to remember to stand a minute before I start walking . Pt and her daughter reviewed plan of carefor today - Dr Huerta contacted and additional premeds added to plan. Pt an daughter updated andare talking to this nurse about what pt experienced last visit. IV inserted - labs drawn as ordered. Pt tolerated well. Ruxience hung as ordered in 8 steps . Pt comfortable - daughter at chair side reading to pt aloud .Call faye in reach . Pt relaxing easily- drinking fluids. Vitals stable . Pt to bathroom with assist. Vitals remain stable. Pt feels well . Pt and daughter talking easily . Calendar of next two appointments given. Infusion complete - pt feels well . Line flushed and angio removed. Pt ambulated to bathroom with assist. Pt then discharged with her daughter - slow , steady gait. documented in this encounter Plan of Treatment Upcoming Encounters Date Type Department Care Team (Late st Contact Info) Description 09/04/2025 1:00 PM EST Office Visit Endocrinology - [place] [address] [place] [address] Balta Chapa MD [address] [place] [address] 10/01/2025 9:30 AM EST Office Visit [facility] Hematology Oncology [address] [place] [phone] Adrienne Huerta DO [address] [place] [address] 10/03/2025 11:00 AM EST Office Visit Orthopedic Surgery - [place] [address] [phone] Aron Barba, DPGalen [address] [address] 11/29/2025 2:00 PM EDT Office Visit Adult Medicine [address] [phone] Marleny Quick PA [address] [place] [address] documented as of this encounter Visit Diagnoses Not on filedocumented in this encounter Care Teams Proprietary Trader Relationship Specialty Start Date End Date Aleks Qiu MD [address] [place] [address] PCP - General Internal Medicine 02/17/22 documented as of this encounter
--- OUTSIDE RECORDS SUMMARY | 2024-07-21 12:39 | XMS_ITS | Encounter Summary ---
Author Organization [facility] Address [address] [place] [address] Care Team Providers Care Certified Pharmacy Tech Name Role Phone Aleks Qiu MD Primary Care Provider [phone] Encounter Details Date Type Department Care Team (Latest Contact Info) Description 07/21/2024 1:39 PM EDT Hospital Encounter TH HISTORIC ENCOUNTERS EASTERN CONVERSION ONLY Adrienne Huerta, DO [address] [place] [address] B-cell lymphoma of spleen, unspecified B-cell lymphoma type (CMS/HCC V24, CMS/HCC V28) (Primary Dx) Social History Tobacco Use Types Packs/Day Years [...] Sign Reading Time Taken Comments Blood Pressure 146/84 07/21/2024 2:00 PM EDT Sitting Left arm Pulse 94 07/21/2024 2:00 PM EDT Temperature - - Respiratory Rate - - Oxygen Saturation - - Inhaled Oxygen Concentration - - Weight 66 kg (145 lb 6.4 oz) 07/21/2024 2:00 PM EDT Height 156.2 cm (5' 1.5 ) 07/21/2024 2: 00 PM EDT Body Mass Index 27.03 07/21/2024 2:00 PM EDT documented in this encounter Functional [...] 07/24/2024 10:14 AM Lyly Cox RN * [place] Suicide Severity Rating Scale (Screener/Recent Self-Report) Question Answer Date of Assessment Author 6. Suicidal Behavior (Lifetime) No 10:14 AM Lyly Cox RN documented as of this encounter Progress Notes * Adrienne Huerta DO - 07/21/2024 1:45 PM EDT Images from the original note were not included. Progress Notes by Adrienne Huerta DO at 07/21/2024 1:45 PM Author: Adrienne Huerta DO Service: -- Author Type: Physician Filed: 07/21/2024 4:18 PM Encounter Date: 07/21/2024 Status: Signed Tire Wrapper: Adrienne Huerta DO (Physician) Hematology/Oncology Progress Note 07/21/24 Subjective Patient identifier: 78 year old female with b cell lymphoma Interim history: Patient presents today for follow-up accompanied by daughter She received her first 2 doses of weekly rituximab. During the first dose she had some mild low back pain and nausea was given additional medication and felt better. She was able to complete rest of the infusion. She then came for her second infusion which she tolerating without any effect. Notes that her blood sugars have been running higher. Also in the afternoon does have a lot of fatigue. Can fall asleep on the couch easily. Constitutional: see above. Resp/CV: No cough, shortness of breath, GI: No nausea, vomiting, diarrhea, Skin: No rashes Neuro: No headaches, dizziness, neuropathy Musculoskeletal: see above. Hem/Lymph : No palpable lymph nodes, no bleeding or easy bruising Hematologic history: Patient states that she had lower extremity swelling and left 05/2021 underwent anticoagulation for what appears to have been a limited time. ??She may have had only 30 days of anticoagulation.. ??There had??been no antecedent history of surgery, stasis no extensive travel. ??There has been a questionable history of a lower extremity traumatic injury details of which are to be obtained. ??Patient had tolerated Eliquis without difficulty. ??October 2021 patient states that she was told she had further evidence of clotting. ??Available ultrasound from [facility] dated 11/21/2021 describes interval decrease in burden of DVT residual chronic thrombus noted mid femoral extending to popliteal this involved left lower extremity. Patient states that she has family history of clotting involving her sister questionably her brother. ??She personally has had no prior difficulties of either clotting or bleeding diathesis. ??Prior surgical history includes breast biopsy partial hysterectomy. Patient otherwise has no acute complaints today. ??Laboratory data available at this time dates back to November 2021 creatinine was 1.14 glucose 344 cholesterol 253 hemoglobin A1c of 10 She remains on anticoagulation therapy she has had repeat of ultrasound 03/24/2022 which demonstratednonocclusive thrombus left popliteal vein. As noted previously her therapy has been intermittent. Objective Vitals: 07/21/24 1400 BP: 146/84 Pulse: 94 Temp: 99.4 ??F (37.4 ??C) TempSrc: Temporal SpO2: 97% Weight: 66 kg (145 lb 6.4 oz) Height: 5' 1.5 (1.562 m) General: well nourished female, in no acute distress HEENT: no scleral icterus Resp: CTAB abd : soft non tender non distended palpable spleen edge Neuro: A and O x 3 Medications Current Outpatient Medications: ? Albuterol Sulfate 108 (90 Base) MCG/ACT AEPB ? alendronate (FOSAMAX) tablet 70 mg ? allopurinol (ZYLOPRIM) 100 MG tablet ? amiodarone (PACERONE) 200 MG tablet ? atorvastatin (LIPITOR) tablet 80 mg ? chlorthalidone (HYGROTON) 50 MG tablet ? clopidogrel (PLAVIX) 75 MG tablet ? dorzolamide-timolol (COSOPT) 22.3-6.8 MG/ML ophthalmic solution ? dulaglutide (Trulicity) 1.5 MG/0.5ML subcutaneous pen-injector ? Fluticasone-Salmeterol (Advair Diskus) 250-50 MCG/ACT AEPB ? gabapentin (NEURONTIN) 100 MG capsule ? insulin glargine (LANTUS) injection 100 units/mL ? insulin lispro (HumaLOG) injection 100 units/mL ? losartan (COZAAR) 100 MG tablet ? metoprolol succinate (TOPROL-XL) 24 hr tablet 100 mg ? metoprolol tartrate (LOPRESSOR) 25 MG tablet ? omeprazole (PriLOSEC) 40 MG capsule ? spironolactone (ALDACTONE) tablet 25 mg ? triamcinolone (KENALOG) 0.025 % cream Allergies Allergies Allergen Reactions ? Iodinated Contrast Media Anaphylaxis MRI DYE ? Darvon [Propoxyphene] Nausea Only ? Doxycycline Nausea And Vomiting ? Statins Other (See Comments) Cramps in arms and legs -- currently takes a statin but takes magnesium daily and not as severe Past medical history, past surgical history, and family history reviewed. Medical history Past Medical History: Diagnosis Date ? Celiac disease ? COPD (chronic obstructive pulmonary disease) (HCC) ? Diabetes mellitus (HCC) ? DVT (deep venous thrombosis) (HCC) ? GERD (gastroesophageal reflux disease) ? Hypertension ? Osteoporosis ? Stroke (HCC) Surgical history Past Surgical History: Procedure Laterality Date ? BREAST SURGERY ? COLONOSCOPY ? HYSTERECTOMY ? STOMACH SURGERY Family history Family History Problem Relation Age of Onset ? Pancreatic cancer Mother ? Prostate cancer Father ? Cancer Brother Social history She is , she lives in [place]. Labs Assessment & Plan 78 year old female presents for follow up of B cell lymphoproliferative disorder. She has a very enlarged spleen and flow cytometry shows abnormal monoclonal B- cell lymphocytosis, PET scan showed only splenomegaly without adneopathy Bone marrow biopsy shows B cell lymphoma likely to be marginal zone lymphoma given the clinical findings will classify as splenic marginal zone lymphoma. Given absence of monoclonal protein would notcall it a LPL. She has received first of two doses of rituxan and doing well overall. Splenic marginal zone lymphoma Proceed with Cycle #1 week #3 of weekly rituximab 375mg/m2 x 4 followed by every other monthly maintenance Monitor for side effects of therapy Ordered labs to be done weekly during treatment cbc d cmp LDH No need for further allopurinol Will avoid steroid if possible she gets severe hyperglycemia Abnormal PET scan of the ileum She will have colonoscopy next month with GI Recurrent DVT She is off eliquis now on plavix and ASA Sign Opal Huerta DO Hematology/Oncology Sister [facility] This encounter includes time spent on complex MDM in setting of high risk cancer/CD 20 therapy, review of labs, hapt-um-pwsg with the patient, coordination of care with nursing, documentation in the medical record documented in this encounter Plan of Treatment Upcoming Encounters Date Type Department Care Team (Late st Contact Info) Description 09/04/2025 1:00 PM EST Office Visit Endocrinology [address] [phone] Balta Chapa MD [address] [place] [address] 10/01/2025 9:30 AM EST Office Visit [facility] Hematology Oncology [address] [place] [address] Adrienne Huerta DO [address] [place] [address] 10/03/2025 11:00 AM EST Office Visit Orthopedic Surgery - [place] [address] [phone] Aron Barba DPM [address] [address] 11/29/2025 2:00 PM EDT Office Visit Adult Medicine [address] [phone] Marleny Quick PA [address] [place] [address] documented as of this encounter Procedures Procedure Name Priority Date/Time Associated Diagnosis Comments ..MISCELLANEOUS REFERENCE LAB TEST 07/21/2024 documented in this encounter Results * Miscellaneous reference lab test (07/21/2024) us Provider Onbase LAB BLOOD ORDERABLES Final Re sult documented in this encounter Visit Diagnoses Diagnosis B-cell lymphoma of spleen, unspecified B-cell lymphoma type (CMS/[facility]ER[facility] V24, CMS/FORMER[facility] V28)- Primary documented in this encounter Care Teams Certified Pharmacy Tech Relationship Specialty Start Date End Date Aleks Qiu MD [address] [place] [address] PCP - General Internal Medicine 02/17/22 documented as of this encounter
[2025-08-15 10:08] VITALS: BP 140/80; PULSE 87; O2SAT 98; BMI 26.2
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
--- OUTSIDE RECORDS SUMMARY | 2025-08-15 11:48 | XMS_ITS | Encounter Summary ---
Author Organization [facility] Address [address] [place] [address] Care Team Providers Care Unit Director Name Role Phone Aleks Qiu MD Primary Care Provider [phone] Reason for Referral * Medications - Closed Specialty Diagnoses / Procedures Referred By Vishnu nagy Referred To Contact Diagnoses Poorly controlled type 2 diabetes mellitus (CMS/HCC V24, CMS/HCC V28) Hypercholesteremia Marleny Quick PA [address] [place] [address] Phone: tel: fax: Referral ID Status Reason Start Date Expiration Date Visits Re quested Visits Authorized [id number] Closed 1 1 Encounter Details Date Type Department Care Team (Late st Contact Info) Description 08/02/2025 Results Follow-Up Adult Medicine [address] [phone] Marleny Quick PA [address] [place] [address] Social History Tobacco Use Types Packs/Day Years [...] on file documented as of this encounter Ordered Prescriptions Prescription Sig Dispense Quantity Refills Last Filled Start Date End Date semaglutide (Ozempic) 2 mg/dose (8 mg/3 mL) injection penIndications:Poor ly controlled type 2 diabetes mellitus (CMS/HCC V24, CMS/HCC V28),Hypercholester emia Inject 2 mg under the skin every 7 (seven) days. 3 mL 2 08/02/2025 documented in this encounter Plan of Treatment Upcoming Encounters Date Type Department Care Team (Late st Contact Info) Description 09/04/2025 1:00 PM EST Office Visit Endocrinology [address] [phone] Balta Chapa MD [address] [place] [address] 10/01/2025 9:30 AM EST Office Visit [facility] Hematology Oncology [address] [place] [address] Adrienne Huerta DO [address] [place] [address] 10/03/2025 11:00 AM EST Office Visit Orthopedic Surgery [facility] [address] [phone] Aron Barba DPM [address] [address] 11/29/2025 2:00 PM EDT Office Visit Adult Medicine [address] [phone] Marleny Quick PA [address] [place] [address] documented as of this encounter Visit Diagnoses Diagnosis Poorly controlled type 2 diabetes mellitus ([facility] V24, [facility] V28)- Primary Hypercholesteremia Pure hypercholesterolemia documented in this encounter Discontinued Medications Medication Sig Discontinue Reason Start Date End Da te semaglutide (OZEMPIC) 1 mg/dose (4 mg/3 mL) injection penIndications:Type 2 diabetes mellitus with microalbuminuria, with long-term current use of insulin ([facility] V24, [facility] V28) Inject 1 mg under the skin every 7 (seven) days. Dose adjustment 04/26/2025 08/02/2025 documented as of this encounter Care Teams Unit Director Relationship Specialty Start Date End Date Aleks Qiu MD [address] [place] [address] PCP - General Internal Medicine 02/17/22 documented as of this encounter
--- OUTSIDE RECORDS SUMMARY | 2025-08-15 11:48 | XMS_ITS ---
Author Organization [facility] Address [address] [place] [address] Phone Care Team Providers Care Hand Therapist Name Role Phone Aleks Qiu MD Primary Care Provider Active Problems Problem Noted Date Diagnosed Date B-cell lymphoma ([facility] V24, [facility] V28) 07/02 Assessment & Plan (08/08/2024 5:41 PM EST): He has received rituximab fusions. She has a follow-up appointment in the next couple months with the oncologist for repeat imaging. She is scheduled to follow-up with gastroenterology for ileoscopy for abnormal PET scan findings in the ileum. Type 2 diabetes mellitus wit h microalbuminuria, with long-term current use of insulin ([facility] V24, [facility] V28) 06/19/2024 Assessment & Plan (08/08/2024 5:41 [...] pain or chest pressure. 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 Smiley. Continue aspirin, Plavix, metoprolol 100 mg twice a day, Tricor 54 mg daily, Lipitor 80 mg daily, Lasix 20 mg daily. Atorvastatin refilled today. Chronic systolic CHF (conges tive heart failure) ([facility] V24, [facility] V28) 12/29/2023 Acute kidney injury ([facility] V24) 04/23/2023 Centrilobular emphysema ([facility] V24, [facility] V2 8) 04/23/2023 NSTEMI (non-ST elevated myoc ardial infarction) ([facility] V24, [facility] V28) 04/23/2023 Pericarditis as complication of acute myocardial infarction ([facility] V24, [facility] V28) 04/23/2023 Osteopenia 12/08/2022 Stage 3 chronic kidney disease ([facility] V24, [facility] V28) 10/14/2022 Chronic deep vein thrombosis (DVT) of proximal vein of lower extremity ([facility] V24, [facility] V28) 06/23/2022 Hydronephrosis of right kidney 06/23/2022 Mixed hyperlipidemia 06/23/2022 Renal calculi 06/23/2022 Acute deep vein thrombosis ( DVT) of distal vein of both lower extremities ([facility] V24, [facility] V28) 12/17/2021 Acute deep vein thrombosis ( DVT) of femoral vein of left lower extremity ([facility] V24, [facility] V28) 05/19/2021 Overview (06/19/2024): On Eliquis COVID-19 01/26/2020 GERD (gastroesophageal reflux disease) 9 Microalbuminuria 07/18/2019 Osteoporosis 07/18/2019 Type 2 diabetes mellitus wit h renal manifestations ([facility] V24, [facility] V28) 07/18/2019 Diabetes 1.5, 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[facility] V24, [facility] V28) 01/26/2019 Chronic obstructive pulmonar y disease ([facility] V24, [facility] V28) 01/26/2019 Atypical chest pain 12/22/2018 Overview (06/19/2024): S/p myocardial perfusion wnl 2018 Follows with [place] [facility] cardi[facility] Asthma 12/22/2018 Celiac disease 12/22/2018 Glaucoma 12/22/2018 Hypercholesteremia 12/22/2018 Migraine 12/22/2018 Primary hypertension 12/22/2018 Assessment & Plan (08/08/2024 5:41 PM EST): Blood pressure today stable. She will continue on losartan 25 mg daily, metoprolol 100 mg twice daily. Current Treatment and Therapy Plans RiTUXimab Maintenance - - 8-week cycle* [...] in sodium chloride 310 mL IVPB Past Treatment and Therapy Plans Oncology Treatment Plan Name Start Date Discontinue Date Treatment Medications Discontinue Reason Plan Provider Cycles RiTUXimab Weekly 4 09/22/2024 riTUXimab-hyal uronidase (RITUXAN HYCELA) 1400 mg/11.7 mL (120 mg/mL)riTUXima b-pvvr (RUXIENCE) IVPB 250 mLriTUXimab-pv vr biosimilar (RUXIENCE) - Therapy Complete Adrienne Huerta DO 1 of 1 cycle started
--- OUTSIDE RECORDS SUMMARY | 2025-08-15 11:48 | XMS_ITS | Clinical Summary ---
Author Organization [facility] Address [address] [place] [address] Phone Care Team Providers Care University Archivist Name Role Phone Aleks Qiu MD Primary Care Provider Allergies Active Allergy Reactions Criticality Noted Date Comments Doxycycline Nausea And Vomiting Medium 01/13/2019 Diarrhea, sweating Propoxyphene Nausea And Vomiting Medium 07/18/2019 sweaty Glizxak-Itp-Jfj Reductase Inhibitors Weakness Medium 10/13/2019 Medications magnesium [...] for Cough or Wheezing. 04/23/20 23 Active fluticasone-edmundo meterol (ADVAIR DISKUS) 250-50 mcg/dose diskus inhaler Inhale 1 Puff into the lungs daily. 04/23/20 23 Active aspirin 81 mg EC tablet Take 1 Tablet by mouth daily for 180 days. 04/23/20 23 Active dorzolamide-tiffanie oloL (COSOPT) 22.3-6.8 mg/mL ophthalmic solution 1 Drop. Active flash glucose scanning reader (FreeStyle Td 2 Dyer) misc 1 Device by Does not apply route continuous. 02/18/20 22 Active blood-glucose meter kit To check blood sugar twice per day for diagnosis E11.65 09/05/20 20 Active carbidopa-levod opa (SINEMET) 25-100 mg per tablet Take 1 tablet by mouth 4 (four) times a day. 06/29/20 24 Active flash glucose sensor (FreeStyle Td 2 Sensor) kit Inject 1 EA into the skin every 14 (fourteen) days. 6 each 1 09/27/19 25 Active metoprolol succinate (TOPROL-XL) 100 mg 24 hr tablet Take 1 tablet (100 mg total) by mouth 1 (one) time each day. 10/15/19 25 Active losartan (COZAAR) 50 mg tablet Take 1 tablet (50 mg total) by mouth 2 (two) times a day. Active insulin lispro (HumaLOG U-100 Insulin) 100 unit/mL injectionIndica tions:Type 2 diabetes mellitus with microalbuminuri a, with long-term current use of insulin (CMS/HCC V24, CMS/HCC V28) USE DIRECTED SUBCUTANEOUS THREE TIMES DAILY BEFORE MEALS PER SLIDING SCALE MAX 30 UNITS PER DAY 40 mL 2 01/16/20 25 Active gabapentin (Neurontin) 100 mg capsule Take 1 capsule (100 mg total) by mouth 3 (three) times a day. 90 each 11 03/27/20 25 026 Active blood-glucose sensor (FreeStyle Td 2 Plus Sensor) device 1 EA every 14 (fourteen) days. Box = Kit = EA 6 each 1 04/06/20 25 Active glucagon (BAQSIMI) 3 mg/actuation nasal sprayIndication s:Type 2 diabetes mellitus with microalbuminuri a, with long-term current use of insulin (CMS/HCC V24, CMS/HCC V28) Administer 3 mg into one nostril [...] DAILY 90 tablet 1 06/01/20 25 Active metoprolol succinate (TOPROL-XL) 50 mg 24 hr tablet TAKE 1 TABLET(50 MG) BY MOUTH AT BEDTIME. DO NOT CRUSH OR CHEW 90 tablet 06/25/20 25 Active atorvastatin (LIPITOR) 80 mg tablet TAKE 1 TABLET BY MOUTH DAILY 90 tablet 1 07/03/20 25 Active furosemide (LASIX) 20 mg tablet Take 1 tablet (20 mg total) by mouth 1 (one) time each day. 90 tablet 1 07/31/20 25 Active semaglutide (Ozempic) 2 mg/dose (8 mg/3 mL) injection penIndications: Poorly controlled type 2 diabetes mellitus (CMS/HCC V24, CMS/HCC V28),Hyperchole steremia Inject 2 mg under the skin every 7 (seven) days. 3 mL 2 08/02/20 25 Active gabapentin (NEURONTIN) 100 mg capsule Take 1 capsule (100 mg total) by mouth 3 (three) times a day. 90 each 2 08/28/20 24 Discontinu ed(Duplica te order) furosemide (LASIX) 20 mg tablet Take 1 tablet (20 mg total) by mouth 1 (one) time each day. 90 tablet 1 11/02/19 25 025 Discontinu ed(Reorder ) amLODIPine (NORVASC) 2.5 mg tablet Take 1 tablet (2.5 mg total) by mouth 1 (one) time each day. 01/03/20 25 025 Discontinu ed(Discont inued by another clinician) semaglutide (Ozempic) 0.25 mg or 0.5 mg (2 mg/3 mL) injection pen Inject 0.5 mg under the skin every 7 (seven) days. 11/11/2 025 Discontinu ed(Alterna te therapy) semaglutide (OZEMPIC) 1 mg/dose (4 mg/3 mL) injection penIndications: Type 2 diabetes mellitus with microalbuminuri a, with long-term current use of insulin ([facility] [place]24, [facility] V28) Inject 1 mg under the skin every 7 (seven) days. 3 mL 1 04/26/20 25 Discontinu ed(Dose adjustment ) Active Problems Problem Noted Date Diagnosed Date B-cell lymphoma ([facility] V24, [facility] V28) 07/02 Assessment & Plan (08/08/2024 5:41 PM EST): He has received rituximab fusions. She has a follow-up appointment in the next couple months with the oncologist for repeat imaging. She is scheduled to follow-up with gastroenterology for ileoscopy for abnormal PET scan findings in the ileum. Type 2 diabetes mellitus wit h microalbuminuria, with long-term current use of insulin ([facility] V24, [facility] V28) 06/19/2024 Assessment & Plan (08/08/2024 5:41 [...] pain or chest pressure. 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 Continue aspirin, Plavix, metoprolol 100 mg twice a day, Tricor 54 mg daily, Lipitor 80 mg daily, Lasix 20 mg daily. Atorvastatin refilled today. Chronic systolic CHF (conges tive heart failure) ([facility] V24, [facility] V28) 12/29/2023 Acute kidney injury ([facility] V24) 04/23/2023 Centrilobular emphysema ([facility] V24, [facility] V2 8) 04/23/2023 NSTEMI (non-ST elevated myoc ardial infarction) ([facility] V24, [facility] V28) 04/23/2023 Pericarditis as complication of acute myocardial infarction ([facility] V24, [facility] V28) 04/23/2023 Osteopenia 12/08/2022 Stage 3 chronic kidney disease ([facility] V24, [facility] V28) 10/14/2022 Chronic deep vein thrombosis (DVT) of proximal vein of lower extremity ([facility] V24, [facility] V28) 06/23/2022 Hydronephrosis of right kidney 06/23/2022 Mixed hyperlipidemia 06/23/2022 Renal calculi 06/23/2022 Acute deep vein thrombosis ( DVT) of distal vein of both lower extremities ([facility] V24, [facility] V28) 12/17/2021 Acute deep vein thrombosis ( DVT) of femoral vein of left lower extremity ([facility] V24, [facility] V28) 05/19/2021 Overview (06/19/2024): On Eliquis COVID-19 01/26/2020 GERD (gastroesophageal reflux disease) 9 Microalbuminuria 07/18/2019 Osteoporosis 07/18/2019 Type 2 diabetes mellitus wit h renal manifestations ([facility] V24, [facility] V28) 07/18/2019 Diabetes 1.5, 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[facility] V24, [facility] V28) 01/26/2019 Chronic obstructive pulmonar y disease ([facility] V24, [facility] V28) 01/26/2019 Atypical chest pain 12/22/2018 Overview (06/19/2024): S/p myocardial perfusion wnl 2018 [place] [facility] [place] Asthma 12/22/2018 Celiac disease 12/22/2018 Glaucoma 12/22/2018 Hypercholesteremia 12/22/2018 Migraine 12/22/2018 Primary hypertension 12/22/2018 Assessment & Plan (08/08/2024 5:41 PM EST): Blood pressure today stable. She will continue on losartan 25 mg daily, metoprolol 100 mg twice daily. Encounters Date Type Department Care Team Description 08/02/2025 Results Follow-Up Adult [address] [phone] Marleny Quick PA 07/31/2025 2:40 PM EST Lab Draw [address] Poorly controlled type 2 diabetes mellitus ([facility]/HCC V24, [facility]/HCC V28); Stage 3a chronic kidney disease ([facility]/HCC V24, [facility] V28); B-cell lymphoma of spleen, unspecified B-cell lymphoma type ([facility] V24, [facility] V28) 07/31/2025 2:00 PM EST Office Visit Adult [address] [phone] Marleny Quick PA Poorly controlled type 2 diabetes mellitus ([facility]/HCC V24, [facility] V28) (Primary Dx); Primary hypertension; Stage 3a chronic kidney disease ([facility]/HCC V24, [facility]/HCC V28); Gastroesophageal reflux disease without esophagitis 07/31/2025 11:00 AM EST Office Visit Orthopedic Surgery [address] [phone] Aron Barba DPM Poorly controlled type 2 diabetes mellitus with neuropathy ([facility] V24, [facility] V28) (Primary Dx); PVD (peripheral vascular disease) ([facility] V24); Arthritis of both feet 07/03/2025 10:30 AM EDT Office Visit [facility] Hematology Oncology [address] [place] [phone] Adrienne Huerta DO B-cell lymphoma of spleen, unspecified B-cell lymphoma type ([facility] V24, [facility] V28) (Primary Dx) 06/05/2025 Telephone Adult [address] [phone] Aleks Qiu MD 05/29/2025 10:30 AM EDT Office Visit Orthopedic Surgery - [place] [address] [phone] Aron Barba DPM Poorly controlled type 2 diabetes mellitus with neuropathy ([facility] V24, [facility] V28) (Primary Dx); PVD (peripheral vascular disease) ([facility] V24); Arthritis of both feet from Last 3 Months Immunizations Immunization Administration Dates Next Due Influenza Quadravalent, 0.5m l (Fluzone High-dose) 65yo and older 06/08/2022,06/07/2020 Influenza trivalent, 0.5mL ( Fluzone High-dose) 65yo and older 05/30/2024,06/25/2023,06/08/2022,06/11,06/07/2020,06/16/2019,06/07/2018 ,05/27/2017,07/10/2016 Influenza, Unspecified 06/07/2020 Moderna (age 6mo & older) Bi valent, COVID-19, 0.5 mL or 0.25 mL dosage 07/30/2022 Pfizer (ages 12 & older) Biv alent, [...] HYSTERECTOMY; COMMENT: 1 ovary remains BREAST BIOPSY 1980s Bilateral PROCEDURE: BX BREAST; PERC NEEDLE CORE W/IMAG GUID; COMMENT: b9 BREAST SURGERY 1990s Bilateral PROCEDURE: [place] UNLISTED PROCEDURE BREAST; COMMENT: b9; 5 tumors [...] myocardial perfusion wnl 2018 Follows with [facility] cardiology Hypertension 12/22/2018 DX:Hypertension Migraine 12/22/2018 DX:Migraine Asthma 12/22/2018 DX:Asthma Glaucoma 12/22/2018 DX:Glaucoma Hypercholesteremia 12/22/2018 DX:Hyperchole steremia Former tobacco use 12/22/2018 DX:Former tob acco use COPD (chronic obstructive pu lmonary disease) ([facility] V24, [facility] V28) 01/26/2019 DX:COPD (chronic o bstructive pulmonary disease) ([facility]) Colon polyp 01/26/2019 DX:Colon polyp History of abnormal mammogram 04/28/2019 DX :History of abnormal mammogram Diabetes, type 1.5, uncontro lled, managed as type 1 01/26/2019 DX:Diabetes, type 1.5, uncontrolled, managed as type 1 Microalbuminuria 07/18/2019 DX:Microalbumin uria Type 2 diabetes mellitus wit h renal manifestations ([facility] V24, [facility] V28) 07/18/2019 DX:Type 2 diabetes mellitus with renal manifestations ([facility]) Osteoporosis 07/18/2019 DX:Osteoporosis GERD (gastroesophageal reflux disease) [...] Sign Reading Time Taken Comments Blood Pressure 124/75 07/31/2025 2:02 PM EST Pulse 80 07/31/2025 2:02 PM EST Temperature 36.4 C (97.5 F) 07/31/2025 2:02 PM EST Respiratory Rate 14 07/31/2025 2:02 PM EST Oxygen Saturation 98% 07/31/2025 2:02 PM EST Inhaled Oxygen Concentration - - Weight 66.2 kg (146 lb) 07/31/2025 2:02 PM EST Height 157.5 cm (5' 2 ) 07/31/2025 2:02 PM EST Body Mass Index 26.7 07/31/2025 2:02 PM EST Plan of Treatment Upcoming Encounters Date Type Department Care Team (Late st Contact Info) Description 09/04/2025 1:00 PM EST Office Visit Endocrinology [facility] [address] [place] [phone] Balta Chapa MD [address] [place] [address] 10/01/2025 9:30 AM EST Office Visit [facility] Hematology Oncology [address] [place] [phone] Adrienne Huerta DO [address] [place] [address] 10/03/2025 11:00 AM EST Office Visit Orthopedic Surgery [facility] [address] [facility] [address] [place] [phone] Aron Barba, DPM [address] [address] 11/29/2025 2:00 PM EDT Office Visit Adult Medicine [facility] [address] [place], [place] [phone] Marleny Quick PA [address] [place], [place] Health Maintenance Due Date Last Done Comments RSV Immunization Adult Patients (1 - 1-dose 75+ series) 2020 Medicare Annual Wellness Visit 08/29/2022 Social Influencers of Health Screening 08/29/2022 Diabetes: Annual Foot Exam 07/07/2024 07/07/2023 Diabetes: Annual Retina Eye Exam 08/17/2024 08/17/2023 Depression Screening 09/20/2024 COVID-19 Vaccine ( season) 2025 07/08/2023, 07/30/2022, 07/30/2022, Additional history exists Influenza Vaccine (#1) 2025 , 06/25/2023, 06/08/2022, Additional history exists Diabetes: Blood Sugar Control Test (HGBA1C) 01/28/2026 07/31/2025, 03/21/2025, 11/02/2024, Additional history exists Falls Risk Assessment 04/02/2026 04/02/2025 Diabetes: Annual Urine Albumin-Creatinine Ratio (uACR) 07/31/2026 07/31/2025, 11/02/2024, 05/30/2024 Diabetes: Annual GFR (Glomerular Filtration Rate) 07/31/2026 07/31/2025, 06/28/2025, 04/02/2025, Additional history exists Hypertension/CHF/CAD Annual BMP Blood Test 07/31/2026 07/31/2025, 06/28/2025, 04/02/2025, Additional history exists Cholesterol Screening (Lipid Panel) [...] Procedure Name Priority Date/Time Associated Diagnosis Comments CBC WITH AUTO DIFFERENTIAL Routine 07/31/2025 2:51 PM EST B-cell lymphoma of spleen, unspecified B-cell lymphoma type ([facility]/HCC V24, CMS/[facility] V28) CBC AND DIFFERENTIAL Routine 07/31/2025 2:51 PM EST B-cell lymphoma of spleen, unspecified B-cell lymphoma type (CMS/HCC V24, CMS/HCC V28) HEMOGLOBIN A1C Routine 07/31/2025 2:51 PM EST Poorly controlled type 2 diabetes mellitus (CMS/[facility] V24, CMS/[facility] V28) BASIC METABOLIC PANEL Routine 07/31/2025 2:51 PM EST Poorly controlled type 2 diabetes mellitus (CMS/HCC V24, CMS/[facility] V28) MICROALBUMIN CREATININE URINE RATIO Routine 07/31/2025 2:51 PM EST Poorly controlled type 2 diabetes mellitus (CMS/HCC V24, CMS/HCC V28) CBC WITH AUTO DIFFERENTIAL Routine 06/28/2025 9:42 AM EDT B-cell lymphoma of spleen, unspecified B-cell lymphoma type (CMS/HCC V24, CMS/HCC V28) LACTATE DEHYDROGENASE Routine 06/28/2025 9:42 AM EDT B-cell lymphoma of spleen, unspecified B-cell lymphoma type (CMS/HCC V24, CMS/HCC V28) COMPREHENSIVE METABOLIC PANEL Routine 06/28/2025 9:42 AM EDT B-cell lymphoma of spleen, unspecified B-cell lymphoma type (CMS/HCC V24, CMS/HCC V28) CBC AND DIFFERENTIAL Routine 06/28/2025 9:42 AM EDT B-cell lymphoma of spleen, unspecified B-cell lymphoma type (CMS/HCC V24, CMS/HCC V28) LIPID PANEL Routine 12/06/2023 DIABETES EYE EXAM Routine 08/17/2023 DIABETES FOOT EXAM Routine 07/07/2023 DXA BONE DENSITY STUDY 1+ SITS AXIAL SKEL Routine 02/24/2022 11:04 AM EDT Other specified disorders of bone density and structure, unspecified site HEPATITIS C SCREENING Routine 01/17/2019 from Last 3 Months or Most Recently Relevant to Health Maintenance Results * (ABNORMAL) CBC auto differential (07/31/2025 2:51 PM EST) Only the most recent of2 resultswithin the time period is included. WBC 7.3 4.8 - 10.8 /[facility] LAB HEMETOLOGY METHOD 07/31/2025 4:[address] [facility] RBC 4.50 3.80 - 4.80 M/mcL LAB HEMETOLOGY METHOD 07/31/2025 4:32 PM [facility] Hemoglobin 13.5 11.5 - 16.0 g/dL LAB HEMETOLOGY METHOD 07/31/2025 4:32 PM [facility] Hematocrit 40.8 35.0 - 47.0 % LAB HEMETOLOGY METHOD 07/31/2025 4:32 PM [facility] MCV 91.3 79.0 - 98.0 FL LAB HEMETOLOGY METHOD 07/31/2025 4:32 PM [facility] MCH 30.2 27.0 - 32.0 pcg LAB HEMETOLOGY METHOD 07/31/2025 4:32 PM [facility] MCHC 33.1 32.0 - 37.0 g/dL LAB HEMETOLOGY METHOD 07/31/2025 4:32 PM [facility] RDW 14.4 11.0 - 15.0 % LAB HEMETOLOGY METHOD 07/31/2025 4:32 PM [facility] Platelets 294 130 - 400 K/mcL LAB HEMETOLOGY METHOD 07/31/2025 4:32 PM [facility] MPV 11.4(H) 7.0 - 11.0 FL LAB HEMETOLOGY METHOD 07/31/2025 4:32 PM [facility] NRBC 0.0 <1.0 % LAB HEMETOLOGY METHOD 07/31/2025 4:32 PM [facility] NRBC Absolute 0.00 <0.10 K/mcL LAB HEMETOLOGY METHOD 07/31/2025 4:32 PM [facility] Neutrophils Relative 61.6 % LAB HEMETOLOGY METHOD 07/31/2025 4:32 PM [facility] Lymphocytes Relative 22.8 % LAB HEMETOLOGY METHOD 07/31/2025 4:[address] [facility] Monocytes Relative 10.5 % LAB HEMETOLOGY METHOD 07/31/2025 4:[address] [facility] Eosinophils Relative 2.5 % LAB HEMETOLOGY METHOD 07/31/2025 4:32 PM [facility] Basophils Relative 2.2 % LAB HEMETOLOGY METHOD 07/31/2025 4:32 PM [facility] Immature Granulocytes Relative 0.4 % LAB HEMETOLOGY METHOD 07/31/2025 4:32 PM [facility] Neutrophils Absolute 4.52 1.50 - 7.00 K/mcL LAB HEMETOLOGY METHOD 07/31/2025 4:32 PM [facility] Lymphocytes Absolute 1.67 1.00 - 5.00 K/mcL LAB HEMETOLOGY METHOD 07/31/2025 4:32 PM [facility] Monocytes Absolute 0.77 0.20 - 1.00 K/mcL LAB HEMETOLOGY METHOD 07/31/2025 4:32 PM [facility] Eosinophils Absolute 0.18 0.00 - 0.50 K/mcL LAB HEMETOLOGY METHOD 07/31/2025 4:32 PM [facility] Basophils Absolute 0.16 0.00 - 0.20 K/mcL LAB HEMETOLOGY METHOD 07/31/2025 4:[address] [facility] Immature Granulocytes Absolute 0.03 0.00 - 0.03 K/mcL LAB HEMETOLOGY METHOD 07/31/2025 4:32 PM [facility] Blood Venous blood specimen / Unknown Venipuncture / Unknown 07/31/2025 2:51 PM EST 07/31/2025 2:51 PM EST us Adrienne Huerta DO LAB BLOOD ORDERABLES Final Result [facility] [address] [place] [address], [place] [phone] * Microalbumin creatinine urine ratio (07/31/2025 2:51 PM EST) Creatinine, Urine 21.0 mg/dL LAB CHEMISTRY METHOD 07/31/2025 6:[address] [facility] Microalb, Ur <5.0 0.0 - 29.0 mg/L LAB CHEMISTRY METHOD 07/31/2025 6:[address] [facility] Microalb/Creat Ratio <24 <30 mg/g creat LAB CHEMISTRY METHOD 07/31/2025 6:[address] [facility] Urine Urine specimen obtained by clean catch procedure / Unknown Non-blood Collection / Unknown 07/31/2025 2:51 PM EST 07/31/2025 2:51 PM EST Marleny GUY LAB URINE ORDERABLES Fin al Result [facility] [address] [place] [address], [place] [phone] * (ABNORMAL) Hemoglobin A1c (07/31/2025 2:51 PM EST) Hemoglobin A1C 8.9(H) <6.5 % LAB CHEMISTRY METHOD 07/31/2025 10:[address] [facility] Mean Bld Glu Estim. 209 mg/dL LAB CHEMISTRY METHOD 07/31/2025 10:[address] [facility] Blood Venous blood specimen / Unknown Venipuncture / Unknown 07/31/2025 2:51 PM EST 07/31/2025 2:51 PM EST Marleny GUY LAB BLOOD ORDERABLES Fin al Result [facility] [address] [place] [address], [place] [phone] * (ABNORMAL) Basic metabolic panel (07/31/2025 2:51 PM EST) Sodium 140 133 - 145 mmol/L LAB CHEMISTRY METHOD 07/31/2025 7:07 PM [facility] Potassium 4.1 3.5 - 5.5 mmol/L LAB CHEMISTRY METHOD 07/31/2025 7:07 PM [facility] Chloride 102 96 - 110 mmol/L LAB CHEMISTRY METHOD 07/31/2025 7:07 PM [facility] CO2 34(H) 21 - 32 mmol/L LAB CHEMISTRY METHOD 07/31/2025 7:07 PM [facility] Anion Gap 4 3 - 11 LAB CHEMISTRY METHOD 07/31/2025 7:07 PM [facility] Glucose 270(H) 70 - 100 mg/dL LAB CHEMISTRY METHOD 07/31/2025 7:07 PM [facility] BUN 26(H) 5 - 25 mg/dL LAB CHEMISTRY METHOD 07/31/2025 7:07 PM [facility] Creatinine 1.25(H) 0.50 - 1.10 mg/dL LAB CHEMISTRY METHOD 07/31/2025 7:07 PM [facility] eGFR 44(L) >=60 mL/min/1. 73m2 LAB CHEMISTRY METHOD 07/31/2025 7:07 PM [facility] Comment:Calculation based on the Chronic Kidney Disease Epidemiology Collaboration (CKD-EPI) equation refit without adjustment for race. BUN/Creatinine Ratio 20.8 LAB CHEMISTRY METHOD 07/31/2025 7:07 PM [facility] Calcium 10.3 8.5 - 10.5 mg/dL LAB CHEMISTRY METHOD 07/31/2025 7:07 PM [facility] Blood Venous blood specimen / Unknown Venipuncture / Unknown 07/31/2025 2:51 PM EST 07/31/2025 2:51 PM EST Marleny GUY LAB BLOOD ORDERABLES Fin al Result [facility] [address] [place] [address], [place] [phone] * Lactate dehydrogenase (06/28/2025 9:42 AM EDT) Pathologist [facility] LDH 210 120 - 246 unit/L LAB CHEMISTRY METHOD 06/28/2025 12:[address] [facility] Blood Venous blood specimen / Unknown Venipuncture / Unknown 06/28/2025 9:42 AM EDT 06/28/2025 12:07 PM EDT Adrienne Huerta DO LAB BLOOD ORDERABLES Final Result [facility] [address] [place] [address], [place] [phone] * (ABNORMAL) Comprehensive metabolic panel (06/28/2025 9:42 AM EDT) [facility] Sodium 143 133 - 145 mmol/L LAB CHEMISTRY METHOD 06/28/2025 12:[address] [facility] Potassium 3.8 3.5 - 5.5 mmol/L LAB CHEMISTRY METHOD 06/28/2025 12:[address] [facility] Chloride 109 96 - 110 mmol/L LAB CHEMISTRY METHOD 06/28/2025 12:[address] [facility] CO2 27 21 - 32 mmol/L LAB CHEMISTRY METHOD 06/28/2025 12:[address] [facility] Anion Gap 7 3 - 11 LAB CHEMISTRY METHOD 06/28/2025 12:[address] [facility] Glucose 166(H) 70 - 100 mg/dL LAB CHEMISTRY METHOD 06/28/2025 12:46 PM [facility] BUN 17 5 - 25 mg/dL LAB CHEMISTRY METHOD 06/28/2025 12:46 PM [facility] Creatinine 0.96 0.50 - 1.10 mg/dL LAB CHEMISTRY METHOD 06/28/2025 12:46 PM [facility] eGFR 60 >=60 mL/min/1. 73m2 LAB CHEMISTRY METHOD 06/28/2025 12:46 PM [facility] Comment:Calculation based on the Chronic Kidney Disease Epidemiology Collaboration (CKD-EPI) equation refit without adjustment for race. BUN/Creatinine Ratio 17.7 LAB CHEMISTRY METHOD 06/28/2025 12:46 PM [facility] Calcium 9.9 8.5 - 10.5 mg/dL LAB CHEMISTRY METHOD 06/28/2025 12:46 PM [facility] AST (SGOT) 19 10 - 42 unit/L LAB CHEMISTRY METHOD 06/28/2025 12:46 PM [facility] ALT (SGPT) 23 10 - 60 unit/L LAB CHEMISTRY METHOD 06/28/2025 12:46 PM [facility] Alkaline Phosphatase 102 42 - 121 unit/L LAB CHEMISTRY METHOD 06/28/2025 12:46 PM [facility] Total Protein 5.9(L) 6.0 - 8.0 g/dL LAB CHEMISTRY METHOD 06/28/2025 12:46 PM [facility] Albumin 3.6 3.2 - 5.0 g/dL LAB CHEMISTRY METHOD 06/28/2025 12:46 PM [facility] Total Bilirubin 0.3 0.0 - 1.4 mg/dL LAB CHEMISTRY METHOD 06/28/2025 12:46 PM [facility] Blood Venous blood specimen / Unknown Venipuncture / Unknown 06/28/2025 9:42 AM EDT 06/28/2025 12:07 PM EDT Adrienne Huerta DO LAB BLOOD ORDERABLES Final Result [facility] [address] [place] [address], [place] [phone] * (ABNORMAL) Lipid panel (12/06/2023) [facility] LDL/HDL Ratio 4 <=4 Triglycerides 134 0 - 150 mg/dL Cholesterol 103 0 - 200 mg/dL HDL 27(A) >=40 mg/dL LDL Cholesterol 50 0 - 100 mg/dL Blood Venous blood specimen / Unknown Historical Provider MD LAB BLOOD ORDERABLES Dorinda l Result * Diabetes Eye Exam (08/17/2023) [facility] Diabetes: Annual Retina Eye Exam Abstracted Historical Provider MD HEALTH MAINTENANCE Final Result * Diabetes Foot Exam (07/07/2023) [facility] Diabetes: Annual Foot Exam Abstracted Historical Provider MD HEALTH MAINTENANCE Final Result * DXA BONE [...] on the World Health Organization criteria, Magdalena Sacueda should be classified as having osteopenia. This patient has a 19% risk of major osteoporotic fracture and a 6.1% risk of hip fracture over the next 10 years. (World Health Organization Fracture Risk Assessment) [facility] Department of Internal Medicine recommends using [...] on the World Health Organization criteria, Magdalena Sauceda should beclassified as having osteopenia. This patient has a 19% risk of majorosteoporotic fracture and a 6.1% risk of hip fracture over the next 10years. (World Health Organization Fracture Risk Assessment) [facility] Department of Internal Medicine recommendsusing National [...] of fracture risk by [employer]. [place] [facility] DXA PROCEDURES Final Result * Hepatitis C Screening (01/17/2019) [facility] Hepatitis C Screening Abstracted Historical Provider HEALTH MAINTENANCE Final Result from Last 3 Months or Most Recently Relevant to Health Maintenance Insurance [employer] [employer] Care Teams University Archivist Relationship Specialty Start Date End Date Aleks Qiu MD [address], [place] PCP - General Internal Medicine 02/17/22
--- OUTSIDE RECORDS SUMMARY | 2025-08-15 11:48 | XMS_ITS ---
Author Organization [facility] Address [address] [place] [address] Care Team Providers Care Underwear Finisher Name Role Phone Aleks Qiu MD Primary Care Provider [phone] Active Problems Problem Noted Date Diagnosed Date [...] treatments are documented for this patient in [facility]. Treatments may have been administered in another system.
--- OUTSIDE RECORDS SUMMARY | 2025-08-15 11:48 | XMS_ITS | Clinical Summary ---
Author Organization [facility] Address [address] [place] [address] Care Team Providers Care Corridor Redevelopment Manager Name Role Phone Aleks Qiu MD Primary Care Provider [phone] Allergies Active Allergy Reactions Criticality Noted Date [...] 94 07/21/2024 2:00 PM EDT Temperature 37.4 C (99.4 F) 07/21/2024 2:00 PM EDT Respiratory Rate 18 07/17/2024 1:30 PM EDT [...] 75+ series) 2020 COVID-19 Vaccine ( season) 2025 07/30/2022, 05/29/2021, 10/28/2020, Additional history exists Influenza Vaccine (#1) 2025 , 06/25/2023, 06/25/2023, Additional history exists DTap / Tdap / Td (2 - Td or Tdap) 10/16/2025 10/16/2015 Pneumococcal Vaccine Completed 07/17/2019, 07/05/20 18 Shingrix-Zoster Vaccine Completed 09/01/2022, 07/07 Hepatitis B Vaccines Aged Out No long er eligible based on patient's age to complete this topic RSV Ped < 20 months Aged Out No longe r eligible based on patient's age to complete this topic Care Teams Corridor Redevelopment Manager Relationship Specialty Start Date End Date Aleks Qiu MD [address] [place] [id number] PCP - General Hospitalist Medicine 04/30/22
--- OUTSIDE RECORDS SUMMARY | 2025-08-15 11:48 | XMS_ITS | Patient Health Record ---
Author Organization [facility] Address [address] [place] [address] Care Team Providers Care Ship Rigger Name Role Phone Nohemi Plasencia Primary Care Provider Raul Nelson Unavailable [phone] Allergies Allergen (clinical drug ingredient) Drug/Non Drug Allergy documented on EMR Reaction Allergy Type Onset Date Status Darvon Unknown Drug Allergy Active Reason For Referral No Information Medications Medication SIG (Take, Route, Frequency, Duration) Notes Start Date End Date Status Crestor 5 MG Tablet 1 tablet Orally Once a day Active Cosopt 22.3-6.8 MG/ML Solution 1 drop into affected eye Ophthalmic Twice a day Active Norvasc 5 MG Tablet 1 tablet Orally Once a day Active Losartan Potassium 25 MG Tablet 1 tablet Orally Once a day A ctive Fosamax 70 MG Tablet 1 tablet Orally Active Lantus SoloStar 100 UNIT/ML Solution 0.02 ml Subcutaneous Once a day Active Metoprolol Tartrate 25 MG Tablet 1 tablet Orally Twice a day Active metFORMIN HCl 1000 MG Tablet 1 tablet with meals Orally Twice a day Active Omeprazole 40 MG Capsule Delayed Release 1 capsule Orally Once a day; Duration: 30 day(s) 01/26/2014 Active Social History Social History Additional Details Category Social Info Options Details Miscellaneous: Marital status: 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 Problems Problem Type SNOMED Code ICD Code Onset Dates Problem Status W/U Status Risk Notes Problem Abdominal pain (85563826) Abdominal pain (789.00) Active confirmed Plan Of Treatment Pending Test Test Name Order Date XR GI SERIES 01/26/2014 Insurance Providers Payer Name Payer Address Payer Phone Subscriber Number Group Number Insured Name Patient Relationship to Insured Coverage Start Date Coverage End Date [facility] [address] [place] [address] [id number] MIKEY SAUCEDA Self - patient is the insured Medical (General) History Medical History History ICD Code glaucoma diabetes mellitus hypertension elevated Cholesterol Surgical History Surgery Date(Month/Year) 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
--- OUTSIDE RECORDS SUMMARY | 2025-08-15 11:49 | XMS_ITS | Encounter Summary ---
Author Organization [facility] Address [address] [place] [address] Care Team Providers Care Nipple Maker Name Role Phone Aleks Qiu MD Primary Care Provider [phone] Encounter Details Date Type Department Care Team Description 07/10/[address] [facility] [address] [place] [id number] [facility] History Tobacco Use Types Packs/Day [...] on filedocumented in this encounter Care Teams Nipple Maker Relationship Specialty Start Date End Date Aleks Qiu MD [address] [place] [address] [place] [id number] PCP - General Hospitalist Medicine 04/30/22 documented as of this encounter
== END 2025-08-15 11:37 | disposition home or self-care (01) ==
LOC: HO.HSMS 10:07
PROVIDERS: PCP Internal Medicine; Visit Provider Nurse Practitioner Family
DX: R25.1 Tremor, unspecified (principal); R20.2 Paresthesia of skin; M79.601 Pain in right arm; M79.602 Pain in left arm; M54.81 Occipital neuralgia; M54.2 Cervicalgia; R26.9 Unspecified abnormalities of gait and mobility; R20.0 Anesthesia of skin; C83.07 Small cell B-cell lymphoma, spleen
CPT/HCPCS: 99214; G2211

== ENCOUNTER → 2025-08-15 10:06 | Outpatient (BNVA) | payer MEDICARE, SELFPAY | PROVIDERS: PCP Internal Medicine; Visit Provider Nurse Practitioner Family | DX: R25.1 Tremor, unspecified (principal); M54.81 Occipital neuralgia; M54.2 Cervicalgia; M79.601 Pain in right arm; M79.602 Pain in left arm; R26.9 Unspecified abnormalities of gait and mobility; C83.07 Small cell B-cell lymphoma, spleen; G62.9 Polyneuropathy, unspecified | CPT/HCPCS: 99212 ==